=== PATIENT | female | born 1995 | race Caucasian/White ===

== ENCOUNTER 2018-06-20 14:05 | Outpatient (CLI) | payer MEDICAID, SELFPAY ==
[2018-06-20 14:42] LABS: HCT 37.3 % (36.0-46.0); HGB 11.9 g/dL (12.0-15.5); Mean Corp. HGB Concentration 31.9 g/dL (32.0-36.0); Mean Corpuscular Hemoglobin 27.6 pg (27.0-33.0); Mean Corpuscular Volume 86.5 fL (80-95); Mean Platelet Volume 9.9 fL (8.0-11.0); Platelet Count 341 x1000/uL (130-400); RBC 4.31 m/cumm (4.00-5.20); RBC Distribution Width 14.7 % (11.7-14.6); White Blood Cell Count 8.24 k/cumm (4.4-10.8)
[2018-06-20 15:52] LABS: ALT 44 U/L (12-78); AST 25 U/L (15-37); Alkaline Phosphatase 150 U/L (46-116); Anion Gap 3.7 mmol/L (3-11); BUN 13 mg/dL (7-18); Bilirubin, Total 0.3 mg/dL (0.2-1.0); CO2 28.3 mmol/L (21.0-32.0); CREATININE 0.59 mg/dL (0.55-1.02); Calcium 9.2 mg/dL (8.5-10.1); Chloride 104 mmol/L (98-107); Glucose 72 mg/dL (70-100); Potassium 4.2 mmol/L (3.5-5.1); Sodium 136 mmol/L (136-145); Total Protein 7.4 g/dL (6.4-8.2)
== END 2018-06-20 14:25 ==
PROVIDERS: PCP Nurse Practitioner Family; Visit Provider Nurse Practitioner Family
DX: R11.2 Nausea with vomiting, unspecified (principal)
CPT/HCPCS: 36415; 80053; 85027

== ENCOUNTER 2018-07-03 14:04 | Outpatient (CLI) | payer MEDICAID, SELFPAY ==
--- NOTE | 2018-07-03 11:07 | DI.US_ITS ---
SYMPTOMS/DIAGNOSIS: DISPLACEMENT OF IUD, STRINGS LOST, T83.32XA PELVIC ULTRASOUND: Transabdominal and transvaginal examination was performed. The uterus measures 8.8 cm long by 5.4 cm AP by 6.9 cm transverse. The endometrial stripe is within normal limits at .6 cm. There is an intrauterine device in good position within the endometrial canal. The right ovary measures 2.5 x 1.1 x 2.4 cm and is grossly unremarkable. There is normal blood flow. No evidence of torsion. The left ovary measures 3.5 x 2 x 3.3 cm. There is normal blood flow. There is a 2.9 x 2 x 2.8 cm cystic lesion on the left ovary. There is internal debris noted. The finding likely represents a hemorrhagic or infected cyst. There is a small amount of free fluid in the cul-de-sac. There is no evidence of hydronephrosis. IMPRESSION: 1. Intrauterine device in good position within the endometrial canal. 2. 2.9 cm complex cystic lesion on the left ovary. This likely reflects a hemorrhagic cyst. 3. Small amount of free fluid in the cul-de-sac. This is likely physiologic.
== END 2018-07-03 14:24 ==
PROVIDERS: PCP Nurse Practitioner Family; Visit Provider Advanced Practice Midwife
DX: N83.12 Corpus luteum cyst of left ovary (principal); T83.32XA Displacement of intrauterine contraceptive device, initial encounter
CPT/HCPCS: 76830; 76856

== ENCOUNTER 2018-11-07 07:25 | Emergency (ER) | payer MEDICAID, SELFPAY ==
[2018-11-07 07:32] VITALS: BP 133/72; PULSE 79; RESP 16; TEMP 37; O2SAT 98
--- NOTE | 2018-11-07 07:57 | DI.CT_ITS ---
SYMPTOM/DIAGNOSIS: RLQ ABD PAIN ABDOMEN AND PELVIC CT: CT scan of the abdomen and pelvis was performed following the uneventful administration of intravenous contrast material. There are no priors for comparison. No acute findings are seen in the lung bases. The liver is normal in size. No hepatic mass is seen. The portal, superior mesenteric and splenic veins are patent. The gallbladder is negative. There is no biliary ductal dilatation. The pancreas and peripancreatic soft tissues are unremarkable as are the spleen and adrenal glands. The kidneys show normal and symmetric enhancement. There is a 6 mm., non obstructing stone in the superior pole of the left kidney. No ureterolithiasis or hydronephrosis is identified. The urinary bladder is intact. Note is made of an intrauterine device in good position. The reproductive organs are otherwise unremarkable. There is a trace amount of free fluid in the cul-de-sac which is likely physiologic. The abdominal aorta is of normal caliber. No aneurysmal dilatation is seen. No significant abdominal or pelvic adenopathy, ascites or pneumoperitoneum is present. The bowel shows no evidence of obstruction or inflammation. No findings to suggest an acute appendicitis are present. The bones are intact. IMPRESSION: No evidence of an acute abdomen. Left nephrolithiasis. No evidence of obstructive uropathy. The findings were discussed with the ER on the date of the examination.
--- NOTE | 2018-11-07 07:58 | W.ED.GENAD ---
Discharge Plan Disposition Patient Disposition: HOME Condition: Stable Discharge Details Chief Complaint: Abd Prob Clinical Impression: Abdominal pain Primary Care Provider: Karli Lyn ED Provider: Russ Mcfadden Home Meds and New Rx's Prescriptions: Continued Mirena 20 mcg/24 hr (5 years) intrauterine device 1 insert IY ONCE RF: 0 Flintstones Sour Gummies 1 EACH tablet,chewable 1 ea PO DAILY RF: 0 Discharge Instructions Instructions: Abdominal Pain (ED) Medical Decision Making 23 yo female who denies chronic medical problems comes in with chief complaint of lower abdominal pain since this morning. Localizes it the rlq and has tenderness without guarding in this area. Has no upper abdominal tenderness at all. Denies vaginal bleeding or d/c. Will evaluate for pancreatitis though has no epigastric pain and obtain imaging to eval for possible appendicitis. Has negative test so doubt ectopic pt's lab show no acute findings, she has improvement in symptoms with toradol. Awaiting imaging Per Dr. Marquez no acute findings on the abd/pelvis ct. She has only mild rlq pain and no guarding or rebound on exam. Do not feel further w/u indicated. Advised f/u with pcp and return precautions given Differential Diagnosis appendicitis, ovarian cysts, diverticulitis Imaging Data Radiologic Study: Attestation: I personally reviewed and interpreted this imaging study as follows: Imaging: CT Scan Radiologist's impression: no acute findings Lab Data Lab results reviewed: Yes I reviewed the patient's lab results. HPI General Mode of arrival: ambulatory. Date/Time Provider Initiated Documentation: 11/07/18 07:53. Limitations to Documentation: no limitations. Information obtained by: patient. History of Present Illness 23 year old F presents to the emergency department with the chief complaint of lower abdominal pain, described as moderate, with intensity rated at 6. Quality is described as stabbing and aching, and is localized to the abdomen. Patient reports no radiation. Patient started experiencing this hour(s) (3) and it has been constant. No relieving factors improve symptom(s), No exacerbating factors reported . Patient notes no other symptoms.. Patient did receive the following treatments prior to arrival, none Related Data Home Medications Medication Instructions Recorded Confirmed Flintstones Sour Gummies 1 ea PO DAILY tab.chew 10/18/17 07/03/18 levonorgestrel 20 mcg/24 hr (5 1 insert IY ONCE 06/22/18 11/07/18 years) intrauterine device Allergies Allergy/AdvReac Type Severity Reaction Status Date / Time No Known Allergies Allergy Unverified 11/07/18 07:34 General Stated Complaint: Abd Prob JOHN: 3 Review of Systems Review of Systems All systems reviewed & are unremarkable except as noted in HPI and below Constitutional Denies chills, Denies fever(s) and Denies weakness ENT Denies change in voice Cardiovascular Denies chest pain and Denies dyspnea Respiratory Denies dyspnea Gastrointestinal Denies nausea and Denies vomiting Genitourinary Denies dysuria Integumentary/Breasts Denies rash Neurologic Denies weakness Psychiatric Denies depression [facility] Medical History Contraception History of depression Sports injuries Social History lives independently: Yes number of children: 0 current occupational status: unemployed Smoking/Tobacco Use Status: Never alcohol intake: never substance use type: does not use special camron needs: No seatbelt use: always helmet use: Yes victim of physical abuse: No victim of sexual abuse: No Exam Const General: no acute distress Orientation: alert HENMT Head: normal to inspection Ears: external ears normal General nose exam: external nose normal Mouth: moist mucous membranes Eyes General: appearance normal, both eyes and all related structures Neck Neck: normal visual inspection Resp Effort & Inspection: normal respiratory effort and able to speak in complete sentences Cardio Rate: regular rate Skin General skin exam: no rashes or lesions noted Neuro General: alert and oriented x3 Extrem General: normal to inspection Psych Mental Status: mental status grossly normal Course Vital Signs Temperature 37 C 11/07/18 07:32 Pulse 79 11/07/18 07:32 Respiratory Rate 16 11/07/18 07:32 Blood Pressure 133/72 11/07/18 07:32 Pulse Oximetry 98 11/07/18 07:32 Temperature 37 C 11/07/18 07:32 Temperature Source Skin 11/07/18 07:32 Pulse 79 11/07/18 07:32 Respiratory Rate 16 11/07/18 07:32 Respiratory Effort Non-Labored 11/07/18 07:32 Blood Pressure 133/72 11/07/18 07:32 Blood Pressure Position Sitting 11/07/18 07:32 Pulse Oximetry 98 11/07/18 07:32 Oxygen Delivery Method Room Air 11/07/18 07:32 Oxygen Flow Rate 0 11/07/18 07:32 Pain Level 9 11/07/18 07:32
--- NOTE | 2018-11-07 08:02 | ED.GENADUL_ITS ---
Discharge Plan Disposition Patient Disposition: HOME Condition: Stable Discharge Details Chief Complaint: Abd Prob Clinical Impression: Abdominal pain Primary Care Provider: Karli Lyn ED Provider: Russ Mcfadden Home Meds and New Rx's Prescriptions: Continued Mirena 20 mcg/24 hr (5 years) intrauterine device 1 insert IY ONCE RF: 0 Flintstones Sour Gummies 1 EACH tablet,chewable 1 ea PO DAILY RF: 0 Discharge Instructions Instructions: Abdominal Pain (ED) Medical Decision Making 23 yo female who denies chronic medical problems comes in with chief complaint of lower abdominal pain since this morning. Localizes it the rlq and has tenderness without guarding in this area. Has no upper abdominal tenderness at all. Denies vaginal bleeding or d/c. Will evaluate for pancreatitis though has no epigastric pain and obtain imaging to eval for possible appendicitis. Has negative test so doubt ectopic pt's lab show no acute findings, she has improvement in symptoms with toradol. Awaiting imaging Per Dr. Marquez no acute findings on the abd/pelvis ct. She has only mild rlq pain and no guarding or rebound on exam. Do not feel further w/u indicated. Advised f/u with pcp and return precautions given Differential Diagnosis appendicitis, ovarian cysts, diverticulitis Imaging Data Radiologic Study: Attestation: I personally reviewed and interpreted this imaging study as follows: Imaging: CT Scan Radiologist's impression: no acute findings Lab Data Lab results reviewed: Yes I reviewed the patient's lab results. HPI General Mode of arrival: ambulatory . Date/Time Provider Initiated Documentation: 11/07/18 07:53 . Limitations to Documentation: no limitations . Information obtained by: patient . History of Present Illness 23 year old F presents to the emergency department with the chief complaint of lower abdominal pain, described as moderate, with intensity rated at 6. Quality is described as stabbing and aching, and is localized to the abdomen. Patient reports no radiation. Patient started experiencing this hour(s) (3) and it has been constant. No relieving factors improve symptom(s), No exacerbating factors reported . Patient notes no other symptoms.. Patient did receive the following treatments prior to arrival, none Related Data Home Medications Medication Instructions Recorded Confirmed Flintstones Sour Gummies 1 ea PO DAILY tab.chew 10/18/17 07/03/18 levonorgestrel 20 mcg/24 hr (5 1 insert IY ONCE 06/22/18 11/07/18 years) intrauterine device Allergies Allergy/AdvReac Type Severity Reaction Status Date / Time No Known Allergies Allergy Unverified 11/07/18 07:34 General Stated Complaint: Abd Prob JOHN: 3 Review of Systems Review of Systems All systems reviewed & are unremarkable except as noted in HPI and below Constitutional Denies chills, Denies fever(s) and Denies weakness ENT Denies change in voice Cardiovascular Denies chest pain and Denies dyspnea Respiratory Denies dyspnea Gastrointestinal Denies nausea and Denies vomiting Genitourinary Denies dysuria Integumentary/Breasts Denies rash Neurologic Denies weakness Psychiatric Denies depression [facility] Medical History Contraception History of depression Sports injuries Social History lives independently: Yes number of children: 0 current occupational status: unemployed Smoking/Tobacco Use Status: Never alcohol intake: never substance use type: does not use special camron needs: No seatbelt use: always helmet use: Yes victim of physical abuse: No victim of sexual abuse: No Exam Const General: no acute distress Orientation: alert HENMT Head: normal to inspection Ears: external ears normal General nose exam: external nose normal Mouth: moist mucous membranes Eyes General: appearance normal, both eyes and all related structures Neck Neck: normal visual inspection Resp Effort & Inspection: normal respiratory effort and able to speak in complete sentences Cardio Rate: regular rate Skin General skin exam: no rashes or lesions noted Neuro General: alert and oriented x3 Extrem General: normal to inspection Psych Mental Status: mental status grossly normal Course Vital Signs Temperature 37 C 11/07/18 07:32 Pulse 79 11/07/18 07:32 Respiratory Rate 16 11/07/18 07:32 Blood Pressure 133/72 11/07/18 07:32 Pulse Oximetry 98 11/07/18 07:32 Temperature 37 C 11/07/18 07:32 Temperature Source Skin 11/07/18 07:32 Pulse 79 11/07/18 07:32 Respiratory Rate 16 11/07/18 07:32 Respiratory Effort Non-Labored 11/07/18 07:32 Blood Pressure 133/72 11/07/18 07:32 Blood Pressure Position Sitting 11/07/18 07:32 Pulse Oximetry 98 11/07/18 07:32 Oxygen Delivery Method Room Air 11/07/18 07:32 Oxygen Flow Rate 0 11/07/18 07:32 Pain Level 9 11/07/18 07:32
[2018-11-07 08:03] LABS: Bilirubin Negative (Negative); Blood Negative (Negative); Clarity Clear; Glucose Negative (Negative); Ketones Negative (Negative); Leukocyte Esterase Negative (Negative); Nitrite Negative (Negative); Specific Gravity 1.025 (1.005-1.025); Urobilinogen 0.2 EU/dL (Up TO 0.2)
[2018-11-07] MEDS: Normal Saline 1,000 ML 1000 ML IV (08:15)
[2018-11-07] MEDS: Ketorolac 15 MG/ML VIAL IVP (08:20)
[2018-11-07 08:23] LABS: Abs Immature Grans 0.04 k/cumm (0.0-0.09); Absolute Basophil Count 0.02 k/cumm (0.0-0.2); Absolute Eosinophil Count 0.46 k/cumm (0.0-0.7); Absolute Monocyte Count 0.86 k/cumm (0.11-0.7); Absolute Neutrophil Count 6.56 k/cumm (1.2-6.7); Basophils % 0.2; Eosinophils % 4.4; HCT 41.1 % (36.0-46.0); HGB 13.1 g/dL (12.0-15.5); Immature Grans % 0.4; Lymphocytes % 24.7; Mean Corp. HGB Concentration 31.9 g/dL (32.0-36.0); Mean Corpuscular Hemoglobin 28.5 pg (27.0-33.0); Mean Corpuscular Volume 89.3 fL (80-95); Monocytes % 8.2; Neutrophils % 62.1; Platelet Count 296 x1000/uL (130-400); RBC Distribution Width 15.4 % (11.7-14.6); White Blood Cell Count 10.54 k/cumm (4.4-10.8)
[2018-11-07 08:34] LABS: ALT 35 U/L (12-78); AST 18 U/L (15-37); Albumin 3.6 g/dL (3.4-5.0); Alkaline Phosphatase 151 U/L (46-116); Anion Gap 10.5 mmol/L (3-11); BUN 20 mg/dL (7-18); Bilirubin, Direct 0.08 mg/dL (0.00-0.20); Bilirubin, Total 0.2 mg/dL (0.2-1.0); CO2 26.5 mmol/L (21.0-32.0); CREATININE 0.84 mg/dL (0.55-1.02); Calcium 9.4 mg/dL (8.5-10.1); Chloride 104 mmol/L (98-107); Glucose 98 mg/dL (70-100); Lipase 134 U/L (73-393); Potassium 4.1 mmol/L (3.5-5.1); Sodium 141 mmol/L (136-145); Total Protein 7.5 g/dL (6.4-8.2)
[2018-11-07 08:42] LABS: PTT Activated 24.7 sec (21.0-31.4); Prothrombin Time 9.5 sec (9.3-11.0)
[2018-11-07] MEDS: Omnipaque 350 MG/ML 100 ML BTL IJ (08:51)
[2018-11-07 10:15] VITALS: BP 106/75; PULSE 65; RESP 16; TEMP 37; O2SAT 98
== END 2018-11-07 10:15 | disposition home or self-care (01) ==
PROVIDERS: Emergency Provider Emergency Medicine; PCP Nurse Practitioner Family
DX: R10.31 Right lower quadrant pain (principal)
CPT/HCPCS: 36415; 80053; 80076; 81025; 83690; 96361; 96374; 99285; 74177; 81003; 85025; 85610; 85730; 99284; J1885; J3490

== ENCOUNTER 2019-01-03 17:07 | Emergency (ER) | payer MEDICAID, SELFPAY ==
[2019-01-03 17:11] VITALS: BP 116/63; PULSE 90; RESP 16; TEMP 36.4; O2SAT 96
[2019-01-03] MEDS: Dexamethasone 4 MG TAB 8 MG PO (17:45)
[2019-01-03] MEDS: Inhaler, Assist Device 1 EACH MC (17:46)
[2019-01-03] MEDS: Albuterol HFA 8 GM 60 PUFF INH IH (17:46)
[2019-01-03 17:49] VITALS: RESP 14
--- NOTE | 2019-01-03 20:35 | W.ED.GENAD ---
Discharge Plan Disposition Patient Disposition: HOME Condition: Stable Discharge Details Chief Complaint: GenMedical Clinical Impression: Acute viral syndrome Primary Care Provider: Lula Mota ED Provider: Mendoza Feldman Home Meds and New Rx's Prescriptions: New dexamethasone [dexamethasone] 4 MG tablet 8 mg PO DAILY Qty: 4 RF: 0 No Action Mirena 20 mcg/24 hr (5 years) intrauterine device 1 insert IY ONCE RF: 0 Discharge Instructions Instructions: Viral Syndrome (ED) Additional Instructions: 1. Drink plenty of fluids. 2. Continue all medications as prescribed. 3. Acetaminophen 1000mg every 4 hours (up to 5 time a day) and/or ibuprofen 600mg every 6 hours as needed for fever or pain. 4. Albuterol 2-4 puffs every 4 hours as needed for difficulty breathing/cough 5. Decadron 8 mg once a day starting tomorrow morning Return to the Emergency Department (ED) if your condition worsens, does not improve as expected, or for ANY other concerns. Specifically, return if you have new or uncontrolled pain, worsening fever, difficulty breathing, vomiting, or are unable to drink fluids. Stand Alone Forms: Work Release Discharge Data Discharge Date/Time-TO BE ENTERED AT DEPARTURE: 01/03/19 17:59 Medical Decision Making Presents with 2 weeks of persistent cough, dyspnea, and congestion refractory to outpatient management. Exam significant for faint expiratory wheezing with no focal deficit by auscultation. Clinically improved after receiving an albuterol MDI. Treated here with oral Decadron and discharged with a prescription for the same. Pt evaluated immediately prior to discharge with improved symptoms, normal vital signs, and tolerating PO. The patient feels appropriate for discharge home. Discussed clinical/diagnostic findings. Discharged with a clear plan for outpatient follow up. Given usual and customary return instructions prior to discharge. Differential Diagnosis Pneumonia, PE, CHF Medical Records Medical records reviewed: Yes I reviewed the patient's medical records. HPI 23-year-old with an unremarkable past medical history except for previous episodes of sinus congestion. Presents with over a week and a half of persistent cough, mild dyspnea, and congestion. Similar to those of other coworkers. Denies significant fever/chills, headache, productive cough, exanthem, chest pain/palpitations, abdominal pain, or atypical leg pain/swelling. Mom recounts that she had previously used albuterol and steroids for an upper respiratory infection. She has no history of VTE. General Date/Time Provider Initiated Documentation: 01/03/19 17:38. Related Data Home Medications Medication Instructions Recorded Confirmed levonorgestrel 20 mcg/24 hours (5 1 insert IY ONCE 06/22/18 01/03/19 yrs) 52 mg intrauterine device dexamethasone 8 mg PO DAILY #4 tab 01/03/19 Previous Rx's Medication Instructions Recorded dexamethasone 8 mg PO DAILY #4 tab 01/03/19 Allergies Allergy/AdvReac Type Severity Reaction Status Date / Time No Known Allergies Allergy Unverified 01/03/19 17:48 General Stated Complaint: GenMedical JOHN: 4 Review of Systems Review of Systems All systems are reviewed and are unremarkable except as noted in HPI and below: CONSTITUTIONAL: no fevers/chills, no weakness or change in appetite EYES: no change in vision HEENT: no throat pain or difficulty swallowing; no neck pain; sinus congestion CARDIOVASCULAR: no chest pain, palpitations, leg swelling, or diaphoresis RESPIRATORY: Cough, mild dyspnea, wheezing GASTROINTESTINAL: no abdominal pain, melena, nausea/emesis GENITOURINARY: no dysuria, flank pain, MUSCULOSKELETAL: no pack pain, myalgias, arthralgias; no atypical leg pain or swelling INTEGUMENTARY: no rash, no wounds NEUROLOGIC: no headache, focal weakness, difficulty with speech, numbness PSYCHIATRIC: no confusion, no anxiety HEME: no easy bruising or bleeding ALLERGIC: no urticaria [facility] Social History Smoking/Tobacco Use Status: Current every day Tobacco Type: cigarettes Alcohol Intake: never Drug use: Never Substance use type: marijuana Do you think of yourself as: straight/heterosexual What is your relationship status?: living with partner Panel score (0-1 are the most socially isolated patients): 1 Special camron needs: No Seatbelt use: always Helmet use: Yes Do you feel safe at home: Yes Do you feel safe in your relationship?: Yes Victim of physical abuse: No Victim of sexual abuse: No Exam Narrative Exam Narrative: Nursing note and vital signs have been reviewed and noted. GENERAL: alert, active, no acute distress, well -hydrated, well-nourished HEENT: atraumatic/normocephalic, PERRLA, EOMI, conjunctiva clear, external ears/canals normal, nasal mucosa normal NECK: supple, full range of motion CARDIOVASCULAR: nl pulses, no edema PULMONARY: Mild tachypnea, faint expiratory wheezing. No focal deficit appreciated ABDOMEN: non-distended EXTREMITY: normal muscle tone, all joints with FROM, no deformity; no atypical swelling or popliteal fossa tenderness NUERO: normal mentation, moving all extremities, normal stance and gait, PSYCH: alert and oriented SKIN: no new rashes or lesions Course Vital Signs Temperature 97.5 F L 01/03/19 17:11 Pulse 90 01/03/19 17:11 Respiratory Rate 16 01/03/19 17:11 Blood Pressure 116/63 01/03/19 17:11 Pulse Oximetry 96 01/03/19 17:11 Temperature 97.5 F L 01/03/19 17:11 Temperature Source Temporal Artery Scan 01/03/19 17:11 Pulse 90 01/03/19 17:11 Respiratory Rate 14 01/03/19 17:49 Respiratory Effort 01/03/19 17:49 Respiratory Depth Normal 01/03/19 17:49 Respiratory Pattern Normal 01/03/19 17:49 Blood Pressure 116/63 01/03/19 17:11 Blood Pressure Position Sitting 01/03/19 17:11 Pulse Oximetry 96 01/03/19 17:11 Oxygen Delivery Method Room Air 01/03/19 17:11 Oxygen Flow Rate 0 01/03/19 17:11 Pain Level 7 01/03/19 17:11
== END 2019-01-03 17:59 | disposition home or self-care (01) ==
PROVIDERS: Emergency Provider Emergency Medicine; PCP Nurse Practitioner Family
DX: B34.9 Viral infection, unspecified (principal)
CPT/HCPCS: 99283; J8540

== ENCOUNTER 2019-01-19 10:48 | Emergency (ER) | payer MEDICAID, SELFPAY ==
[2019-01-19 10:50] VITALS: BP 130/79; PULSE 95; RESP 18; TEMP 36.6; O2SAT 99
--- NOTE | 2019-01-19 10:59 | W.ED.GENAD ---
Discharge Plan Disposition Patient Disposition: HOME Condition: Good Discharge Details Chief Complaint: Nk/Back Pain Clinical Impression: Lumbago Primary Care Provider: Lula Mota ED Provider: Case Cancino Home Meds and New Rx's Prescriptions: New cyclobenzaprine 10 mg tablet 10 mg PO TID Qty: 14 RF: 0 acetaminophen [Mapap Extra Strength] 500 MG tablet 1,000 mg PO Q6H 5 Days Qty: 60 RF: 0 lidocaine [Lidoderm] 1 PATCH patch 1 patch Topical Q24H Qty: 4 RF: 0 ibuprofen [Motrin IB] 200 MG tablet 600 mg PO Q6H 5 Days Qty: 60 RF: 0 No Action Mirena 20 mcg/24 hr (5 years) intrauterine device 1 insert IY ONCE RF: 0 dexamethasone [dexamethasone] 4 MG tablet 8 mg PO DAILY Qty: 4 RF: 0 Discharge Instructions Instructions: Low Back Strain (ED) Additional Instructions: Please take medication as directed. When using the Flexeril do not drive, operate heavy machinery, drink alcohol, or swim alone. Please avoid any heavy lifting of greater than 10 pounds for the next week. Use a heating pad as often as possible. If you notice any worsening of your symptoms, or any new symptoms such as vomiting, diarrhea, fever, chills, shortness of breath, chest pain, numbness, weakness, or fainting , please return immediately to the emergency department for reevaluation. Please follow up with your primary care provider as soon as possible for reassessment and reevaluation. As always, it was a pleasure participating in your medical care today. Stand Alone Forms: Work Release Referrals: Lula Mota [Primary Care Provider] - Medical Decision Making This is a pleasant 23-year-old female with no significant past medical history who presents today for evaluation of low back pain. 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 Pain is continued throughout the day. She is no concerning red flags of bowel or bladder incontinence, saddle anesthesia, weakness or numbness or tingling. Signs and symptoms and physical exam demonstrate left and right paraspinal tenderness, no midline tenderness. Notable paraspinal muscle spasms. Bladder scan reveals 22 cc of urine, no evidence of urinary retention. With no signs of cauda equina syndrome, no red flags of IV drug use or significant trauma I do not think that emergent imaging is indicated at this time. We will treat the patient with Lidoderm patch, muscle relaxants for home and continued NSAIDs and heating pad. We discussed red flags which return and the patient understands. I have extensively reviewed the treatment plan and discharge instructions with the patient. I have addressed all patient concerns at this time. The patient was made aware of what symptoms to monitor for that would warrant a return to the emergency department. Discussed the plan with the patient, they demonstrate verbal understanding and agreement with our assessment and plan at this time. HPI General Date/Time Provider Initiated Documentation: 01/19/19 10:51. HPI Narrative: This is a pleasant 23-year-old female who presents today for evaluation of back pain. 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 I continued throughout her shift, gradually worsening. Worse with movement and bending forward. Improved by standing upright. She has no associated red flags of saddle anesthesia, leg numbness tingling or weakness, bowel or bladder incontinence, or other complaints. She denies any previous back surgeries. No fever or chills, no IV drug use. No other complaints at this time Related Data Home Medications Medication Instructions Recorded Confirmed levonorgestrel 20 mcg/24 hours (5 1 insert IY ONCE 06/22/18 01/03/19 yrs) 52 mg intrauterine device dexamethasone 8 mg PO DAILY #4 tab 01/03/19 acetaminophen [Mapap Extra 1,000 mg PO Q6H 5 Days #60 tab 01/19/19 Strength] cyclobenzaprine 10 mg PO TID #14 tab 01/19/19 ibuprofen [Motrin Ib] 600 mg PO Q6H 5 Days #60 tab 01/19/19 lidocaine [Lidoderm] 1 patch TOPICAL Q24H #4 patch 01/19/19 Previous Rx's Medication Instructions Recorded dexamethasone 8 mg PO DAILY #4 tab 01/03/19 acetaminophen [Mapap Extra 1,000 mg PO Q6H 5 Days #60 tab 01/19/19 Strength] cyclobenzaprine 10 mg PO TID #14 tab 01/19/19 ibuprofen [Motrin Ib] 600 mg PO Q6H 5 Days #60 tab 01/19/19 lidocaine [Lidoderm] 1 patch TOPICAL Q24H #4 patch 01/19/19 Allergies Allergy/AdvReac Type Severity Reaction Status Date / Time No Known Allergies Allergy Unverified 01/03/19 17:48 General Stated Complaint: Nk/Back Pain JOHN: 4 Review of Systems Review of Systems All systems reviewed & are unremarkable except as noted in HPI and below PFSH Social History Smoking/Tobacco Use Status: Current every day Tobacco Type: cigarettes Alcohol Intake: never Drug use: Never Substance use type: marijuana Number of Children: 0 Do you think of yourself as: straight/heterosexual What is your relationship status?: living with partner Panel score (0-1 are the most socially isolated patients): 1 Special camron needs: No Seatbelt use: always Helmet use: Yes Do you feel safe at home: Yes Do you feel safe in your relationship?: Yes Victim of physical abuse: No Victim of sexual abuse: No Exam Narrative Exam Narrative: 1.Const: Well-nourished, Well-developed, appearing stated age 2.Eyes: PERRL, no conjunctival injection, and symmetrical lids. 3.ENT: Atraumatic external nose and ears. Moist MM. Neck: Symmetric, trachea midline, No thyromegaly. 4.CVS: +S1/S2, No murmurs or gallops. Peripheral pulses 2+ and equal in all extremities. Brisk capillary refill in all extremities. 5.RESP: Unlabored respiratory effort. Clear to auscultation bilaterally. No wheezes rales or rhonchi 6.GI: Soft, Nontender/Nondistended, No hepatosplenomegaly. No guarding or rebound. 7.MSK: Normocephalic/Atraumatic, Extremities w/o deformity or ttp No cyanosis or clubbing, Normal movement of all extremities. No midline tenderness to palpation over the CTLS spine. Mild paraspinal tenderness, worse on the left than the right. Normal ROM in flexion, extension, side bend, and rotation. Patient has +5 out of 5 strength in the lower extremities in dorsiflexion and plantarflexion, knee flexion and extension, hip flexion and extension. There is +2 over 2 dorsalis pedis pulses bilaterally. There is normal sensation to the skin with light touch at the foot, knee, and hip. Normal saddle sensation. Good sensation over the deep sural nerve area bilaterally. Rectal exam demonstrates excellent rectal tone, and excellent perirectal sensation. Reflexes are +2 over 4 in the patellar reflex bilaterally. +5 out of 5 strength in the medial, ulnar, radial nerve distribution bilaterally in the hands as well as intact light touch sensation to these dermatomes on the hands 8.Skin: Warm, Dry. No rashes or lesions. 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 Sensation grossly intact, no focal neurologic deficits. 10.Psych: (AAO) x3. Appropriate mood and affect Course Vital Signs Temperature 36.6 C 01/19/19 10:50 Pulse 95 H 01/19/19 10:50 Respiratory Rate 18 01/19/19 10:50 Blood Pressure 130/79 01/19/19 10:50 Pulse Oximetry 99 01/19/19 10:50 Temperature 36.6 C 01/19/19 10:50 Temperature Source Temporal Artery Scan 01/19/19 10:50 Pulse 95 H 01/19/19 10:50 Respiratory Rate 18 01/19/19 10:50 Respiratory Effort Non-Labored 01/19/19 10:52 Blood Pressure 130/79 01/19/19 10:50 Blood Pressure Position Sitting 01/19/19 10:50 Pulse Oximetry 99 01/19/19 10:50 Oxygen Delivery Method Room Air 01/19/19 10:50 Oxygen Flow Rate 0 01/19/19 10:50 Pain Level 8 01/19/19 10:50
[2019-01-19] MEDS: Lidocaine 5% Patch 1 PATCH TP (11:08)
== END 2019-01-19 11:25 | disposition home or self-care (01) ==
PROVIDERS: Emergency Provider Student in an Organized Health Care Education/Training Program; PCP Nurse Practitioner Family
DX: M54.5 Low back pain (principal)
CPT/HCPCS: 99283

== ENCOUNTER 2019-03-04 16:14 | Emergency (ER) | payer MEDICAID, SELFPAY ==
[2019-03-04 16:32] VITALS: BP 133/82; PULSE 73; RESP 16; TEMP 36.8; O2SAT 99
--- NOTE | 2019-03-04 16:45 | DI.RAD_ITS ---
SYMPTOMS/DIAGNOSIS: BASE OF THUMB PAIN/SWELLING S/P INJURY LEFT THUMB: No fracture or dislocation is seen. IMPRESSION: Negative left thumb.
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
--- NOTE | 2019-03-04 17:18 | DI.VRAD_ITS ---
EXAM: XR Left Finger(s), 2 or More Views EXAM DATE/TIME: 03/04/2019 4:47 PM CLINICAL HISTORY: 23 years old, female; Finger(s); Left; Patient HX: Base of thumb pain S/P injury TECHNIQUE: Imaging protocol: XR Left fingers. Views: Minimum 2 views. COMPARISON: CR LEFT LITTLE FINGER 03/29/2016 4:02 PM FINDINGS: Bones/joints: Osseous anatomic alignment is well preserved. No acutely displaced fracture or dislocation. Joint spaces are well preserved. Soft tissues: No significant soft tissue swelling. IMPRESSION: Negative for acute skeletal pathology. Dictated and Authenticated by: Kelvin Benton MD. Ordering:GEORGIE Bonilla MD
== END 2019-03-04 17:33 | disposition home or self-care (01) ==
PROVIDERS: Emergency Provider Physician Assistant; PCP Nurse Practitioner Family
DX: S63.602A Unspecified sprain of left thumb, initial encounter (principal); W50.0XXA Accidental hit or strike by another person, initial encounter
CPT/HCPCS: 99283; 73140; 99282; L3807

== ENCOUNTER 2019-04-05 11:21 | Outpatient (REF) | payer MEDICAID, SELFPAY ==
--- NOTE | 2019-04-05 10:00 | PAPFT_PTH ---
PATIENT: Nelli Montiel LOC: [facility] U#:[id number] AGE/SX: 23/F ROOM: RE04/05/[address]: ALON Yin : 1995 BED: DIS: 04/05/2019 SPEC #: [id number] RECD: 04/05/19 12:55 STATUS: AUDI REHolden #: [id number] JARRET: 04/05/19 10:[address]: Gail Baptiste DEPT: [facility] Cytology RECD BY: Johanna Shields ENTERED: 04/05/19 12:56 SP TYPE: PAPFT OTHR DR: Lula Mota Tissues: 1 - CX/ENDOCX FOR PAP SMEARS Procedures: PAP THIN PREP/UVM Screening HPV DNA PROBE Comments: [id number]
[2019-04-06 12:31] LABS: Chlamydia Result Negative; GC Result Negative; Specimen Description CERVIX
== END 2019-04-05 11:41 ==
LOC: LBN 11:21
PROVIDERS: PCP Nurse Practitioner Family; Visit Provider Nurse Practitioner Family
DX: Z11.3 Encounter for screening for infections with a predominantly sexual mode of transmission (principal); Z12.4 Encounter for screening for malignant neoplasm of cervix
CPT/HCPCS: 87491; 87591; 88142; 87624

== ENCOUNTER 2019-06-12 08:16 | Emergency (ER) | payer MEDICAID, SELFPAY ==
[2019-06-12 08:33] VITALS: BP 129/79; PULSE 77; RESP 16; TEMP 36.4; O2SAT 96
--- NOTE | 2019-06-12 08:35 | NUR.NOTE ---
Nursing Note:pt has been having nausea vomiting and light headedness for past 3 days last [facility] april 16 pt thinks she may be
[2019-06-12 08:36] VITALS: BP 126/88; PULSE 103; RESP 17; TEMP 36.7; O2SAT 97
--- NOTE | 2019-06-12 08:54 | W.ED.GENAD ---
Discharge Plan Disposition Patient Disposition: HOME Condition: Good Discharge Details Chief Complaint: Nausea/Vomit/Diar Clinical Impression: Gastroenteritis Primary Care Provider: Lula Mota ED Provider: Case Cancino Home Meds and New Rx's Prescriptions: New ondansetron HCl [Zofran] 4 mg tablet 4 mg PO Q8H Qty: 12 RF: 0 Discharge Instructions Instructions: Gastroenteritis (ED) Additional Instructions: At this time your signs and symptoms appear clinically consistent with a mild viral gastroenteritis. Please make sure you are drinking 8 to 12 cups of water per day. Avoid any spicy foods, greasy foods, fatty foods. Stick with a bland diet of applesauce, fluids, rice, oatmeal. If you notice any worsening of your symptoms, or any new symptoms such as vomiting, diarrhea, fever, chills, shortness of breath, chest pain, numbness, weakness, or fainting , please return immediately to the emergency department for reevaluation. Please follow up with your primary care provider as soon as possible for reassessment and reevaluation. As always, it was a pleasure participating in your medical care today. Referrals: Lula Mota [Primary Care Provider] - Medical Decision Making This is a pleasant 23-year-old female with no significant past medical history except for ovarian cyst who presents today for evaluation of vomiting for the past 3 days. 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 She denies any abdominal pain whatsoever, physical exam demonstrates reassuring vital signs but minimal tachycardia. Deep palpation demonstrates no tenderness whatsoever for the abdomen, epigastric region, or pelvic region. Urine test is negative. Suspect viral gastroenteritis. We did discuss oral Zofran and p.o. trial versus IV fluids, patient is requesting IV fluids at this time. We will rehydrate, get basic labs, and reassess. Of note bedside portable limited ultrasound demonstrates a normal appearing gallbladder with no significant gallbladder wall thickness, or distention. No significant sludge or stones. Clinically there is no indication for further imaging at this time as the patient signs and symptoms are clinically inconsistent with an acute surgical abdominal process. 9:55 AM Laboratory assessment has returned normal, patient tolerated the IV well, however there was some infiltration and so the IV was stopped before complete fluid administration. P.o. trial was performed patient tolerated this well with no vomiting. She feels well and would like to go home. Signs and symptoms are clinically consistent at this time with mild viral gastroenteritis. Inconsistent with acute cholecystitis, appendicitis, severe pancreatitis. We will give prescription for Zofran for home use, recommend close follow-up with PCP, easy diet, and hydration at home. I have extensively reviewed the treatment plan and discharge instructions with the patient. I have addressed all patient concerns at this time. The patient was made aware of what symptoms to monitor for that would warrant a return to the emergency department. Discussed the plan with the patient, they demonstrate verbal understanding and agreement with our assessment and plan at this time. HPI General Date/Time Provider Initiated Documentation: 06/12/19 08:27. HPI Narrative: This is a 23-year-old female with no significant past medical history except for ovarian cysts who presents today for evaluation of nausea and vomiting. For the past 3 days the patient has had daily vomiting with 4 episodes per day. 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 She denies any recent foreign travel, camping, antibiotic use, or other sick contacts. Of note there has been episodes of gastroenteritis coming from the [facility] in the last few days. The patient denies any hematemesis, vaginal discharge, pelvic pain, numbness, tingling, weakness, chest pain, shortness of breath. She denies any abdominal pain whatsoever. Patient has no other complaints at this time. No other modifying factors. She denies any recent significant alcohol intake, or history of gallbladder pathology. She denies any previous significant abdominal surgeries. Related Data Home Medications Medication Instructions Recorded Confirmed ondansetron HCl [Zofran] 4 mg PO Q8H #12 tab 06/12/19 Previous Rx's Medication Instructions Recorded ondansetron HCl [Zofran] 4 mg PO Q8H #12 tab 06/12/19 Allergies Allergy/AdvReac Type Severity Reaction Status Date / Time No Known Allergies Allergy Verified 06/12/19 08:37 General Stated Complaint: Nausea/Vomit/Diar JOHN: 3 Review of Systems Review of Systems All systems reviewed & are unremarkable except as noted in HPI and below PFSH Social History Smoking/Tobacco Use Status: Current every day Tobacco Type: cigarettes Alcohol Intake: never Drug use: Never Substance use type: marijuana Number of Children: 0 Do you think of yourself as: straight/heterosexual What is your relationship status?: living with partner Panel score (0-1 are the most socially isolated patients): 1 Special camron needs: No Seatbelt use: always Helmet use: Yes Do you feel safe at home: Yes Do you feel safe in your relationship?: Yes Victim of physical abuse: No Victim of sexual abuse: No Exam Narrative Exam Narrative: 1.Const: Well-nourished, Well-developed, appearing stated age 2.Eyes: PERRL, no conjunctival injection, and symmetrical lids. 3.ENT: Atraumatic external nose and ears. Dry MM. Neck: Symmetric, trachea midline, No thyromegaly. 4.CVS: +S1/S2, No murmurs or gallops. Peripheral pulses 2+ and equal in all extremities. Brisk capillary refill in all extremities. 5.RESP: Unlabored respiratory effort. Clear to auscultation bilaterally. No wheezes rales or rhonchi 6.GI: Soft, Nontender/Nondistended, No hepatosplenomegaly. No guarding or rebound. No pain at McBurney's point, negative Brewer sign, negative obturator and psoas sign, no pelvic tenderness. No flank or CVA tenderness. Bedside limited ultrasound demonstrates gallbladder within normal limits. No significant abnormalities, distention, or wall thickening. 7.MSK: Normocephalic/Atraumatic, Extremities w/o deformity or ttp No cyanosis or clubbing, Normal movement of all extremities 8.Skin: Warm, Dry. No rashes or lesions. 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 Sensation grossly intact, no focal neurologic deficits. 10.Psych: (AAO) x3. Appropriate mood and affect Course Vital Signs Temperature 36.4 C L 06/12/19 08:33 Pulse 77 06/12/19 08:33 Respiratory Rate 16 06/12/19 08:33 Blood Pressure 129/79 06/12/19 08:33 Pulse Oximetry 96 06/12/19 08:33 Temperature 36.7 C 06/12/19 08:36 Temperature Source Skin 06/12/19 08:36 Pulse 103 H 06/12/19 08:36 Respiratory Rate 17 06/12/19 08:36 Respiratory Effort Non-Labored 06/12/19 08:36 Blood Pressure 126/88 06/12/19 08:36 Blood Pressure Position Supine 06/12/19 08:36 Pulse Oximetry 97 06/12/19 08:36 Oxygen Delivery Method Room Air 06/12/19 08:36 Oxygen Flow Rate 0 06/12/19 08:36 Pain Level 0 06/12/19 08:36 Lab/Test Results Lab/Test Results: POC- Test(urine) Negative
[2019-06-12] MEDS: Ondansetron 4 MG/2 ML VIAL IVP (09:22)
[2019-06-12] MEDS: Normal Saline 1,000 ML 1000 ML IV ×2 (09:22)
--- NOTE | 2019-06-12 09:22 | NUR.NOTE ---
iv placed in r hand labds drawn ivf infusing medicated as per mdo Nursing Note:
[2019-06-12 09:28] LABS: Abs Immature Grans 0.02 k/cumm (0.0-0.09); Absolute Basophil Count 0.02 k/cumm (0.0-0.2); Absolute Eosinophil Count 0.31 k/cumm (0.0-0.7); Absolute Lymphocyte Count 1.71 k/cumm (1.2-3.4); Absolute Monocyte Count 0.53 k/cumm (0.11-0.7); Absolute Neutrophil Count 5.52 k/cumm (1.2-6.7); Basophils % 0.2; Eosinophils % 3.8; HGB 14.2 g/dL (12.0-15.5); Immature Grans % 0.2; Lymphocytes % 21.1; Mean Corpuscular Hemoglobin 30.1 pg (27.0-33.0); Mean Corpuscular Volume 91.1 fL (80-95); Mean Platelet Volume 10.6 fL (8.0-11.0); Monocytes % 6.5; Neutrophils % 68.2; Platelet Count 265 x1000/uL (130-400); RBC 4.72 m/cumm (4.00-5.20); RBC Distribution Width 13.7 % (11.7-14.6); White Blood Cell Count 8.11 k/cumm (4.4-10.8)
[2019-06-12 09:37] LABS: Lipase 108 U/L (73-393)
[2019-06-12 09:40] LABS: ALT 31 U/L (14-59); AST 18 U/L (15-37); Alkaline Phosphatase 134 U/L (46-116); Anion Gap 11.8 mmol/L (3-11); BUN 10 mg/dL (7-18); Bilirubin, Total 0.5 mg/dL (0.2-1.0); CO2 22.2 mmol/L (21.0-32.0); CREATININE 0.74 mg/dL (0.55-1.02); Calcium 9.1 mg/dL (8.5-10.1); Chloride 106 mmol/L (98-107); Glucose 101 mg/dL (70-100); Potassium 3.9 mmol/L (3.5-5.1); Sodium 140 mmol/L (136-145); Total Protein 7.9 g/dL (6.4-8.2)
== END 2019-06-12 10:04 | disposition home or self-care (01) ==
PROVIDERS: Emergency Provider Student in an Organized Health Care Education/Training Program; PCP Nurse Practitioner Family
DX: A08.4 Viral intestinal infection, unspecified (principal)
CPT/HCPCS: 36415; 80053; 83690; 96361; 96374; 99284; 85025; J2405

== ENCOUNTER 2020-07-20 09:36 | Emergency (ER) | payer SELFPAY ==
[2020-07-20 09:46] VITALS: BP 121/80; PULSE 68; RESP 16; TEMP 36.5; O2SAT 100
--- NOTE | 2020-07-20 09:57 | DI.US_ITS ---
EXAM: US OB 1ST TRIMESTER CLINICAL HISTORY: lower abdomen cramping/burning TECHNIQUE: Ultrasound performed using standard protocol. COMPARISON: US US PELVIS TRANSVAGINAL from 07/03/2018 FINDINGS: Ob ultrasound was performed utilizing 1st trimester protocol. There is a single viable intrauterine gestation with crown-rump length measurements consistent with gestational age of 6 weeks 4 days and E DC of 03/11/2021. heart rate is 131 BPM. There is an apparent small subchorionic fluid collection. There is a left corpus luteum cyst measuri ng 22 millimeters in diameter. Minimal free fluid noted in right adnexa. IMPRESSION: Viable 6 week 4 day intrauterine gestation as described above. DATA REPOSITORY:
--- NOTE | 2020-07-20 09:59 | W.ED.GENAD ---
Discharge Plan Disposition Patient Disposition: HOME Condition: Improving Discharge Details Clinical Impression: First trimester Primary Care Provider: Lula Mota ED Provider: Fredrick Joel Home Meds and New Rx's Prescriptions: New nitrofurantoin monohyd/m-cryst [Macrobid] 100 mg capsule 100 mg PO Q12H 5 Days Qty: 10 RF: 0 Continued Children's Chewable Vitamin Tablet,Chewable PO RF: 0 ondansetron HCl [Zofran] 8 mg tablet 8 mg PO Q8H Qty: 20 RF: 3 Discharge Instructions Additional Instructions: Home to rest. Continue small, frequent sips of fluids to maintain hydration. You may liberalize salty snacks a day as your sodium level is on the low range of normal. Take antibiotics as prescribed. Please call the [employer] office on Tuesday for a follow-up appointment. Return to the ER for any concerns. Medical Decision Making 24-year-old female presents from home. She is a G2, P1 approximately 7 weeks gestation who was established care with OB but has not yet had her first ultrasound. She notes 2 days of lower abdominal cramping and burning. No vaginal discharge or bleeding. No fever or vomiting. She has had some first trimester nausea. She is afebrile and well-appearing. She does not have significant abdominal tenderness. IV access established, screening labs obtained and patient referred for ultrasound. She is O+ with a beta-hCG of 36,000. Ultrasound obtained with single live intrauterine , positive heart tones. 6 weeks 4 days. Note of residual corpus luteal cyst on left. Please see formal report. UA with + Leuk Esterase. Micro with few bacteria, epithelial cells present. As she is will opt to treat with Macrobid. She is stable and improved, may follow-up in the outpatient setting with [employer]. Lab Data Lab results reviewed: Yes I reviewed the patient's lab results. Labs: Laboratory Results - last 24 hr 07/20/20 07/20/20 07/20/20 10:15 10:15 10:15 WBC 13.99 H RBC 4.39 Hgb 13.6 Hct 40.8 MCV 92.9 MCH 31.0 MCHC 33.3 RDW 13.1 Plt Count 246 MPV 10.6 Immature Gran % 0.6 Neutrophils % 76.9 Lymphocytes % 14.4 Monocytes % 5.9 Eosinophils % 1.9 Basophils % 0.3 Nucleated RBC % 0 Absolute Neutrophils 10.76 H Absolute Lymphocytes 2.01 Absolute Monocytes 0.83 H Absolute Eosinophils 0.27 Absolute Basophils 0.04 Sodium 135 L Potassium 3.8 Chloride 102 Carbon Dioxide 28.6 Anion Gap 4.4 BUN 8 Creatinine 0.62 Estimated GFR/1.73 m2 >= 60.00 Glucose 99 Calcium 9.2 Total Bilirubin 0.3 AST 13 L ALT 22 Alkaline Phosphatase 102 Total Protein 7.3 Albumin 3.8 Beta HCG, Quant 46663 H Patient ABO/Rh O Positive HPI General Mode of arrival: ambulatory. Date/Time Provider Initiated Documentation: 07/20/20 09:40. Limitations to Documentation: no limitations. Information obtained by: patient. History of Present Illness 24 year old F presents to the emergency department with the chief complaint of Lower abdominal cramping, burning, 7 weeks , described as mild, and is localized to the abdomen and pelvis. Patient reports no radiation. Patient started experiencing this day(s) and it has been intermittent. No relieving factors improve symptom(s), No exacerbating factors reported . Patient notes no other symptoms. and other (No vaginal discharge or bleeding); denies fever/chills. Patient did receive the following treatments prior to arrival, none Related Data Home Medications Medication Instructions Recorded Confirmed pediatric multivitamin no.144 tab PO 07/02/20 07/02/20 ondansetron HCl 8 mg tablet 8 mg PO Q8H #20 tab 07/17/20 07/20/20 nitrofurantoin monohyd/m-cryst 100 mg PO Q12H 5 Days #10 cap 07/20/20 [Macrobid] Previous Rx's Medication Instructions Recorded ondansetron HCl 8 mg tablet 8 mg PO Q8H #20 tab 07/17/20 nitrofurantoin monohyd/m-cryst 100 mg PO Q12H 5 Days #10 cap 07/20/20 [Macrobid] Allergies Allergy/AdvReac Type Severity Reaction Status Date / Time No Known Allergies Allergy Verified 07/20/20 09:50 General Stated Complaint: [employer] JOHN: 2 Review of Systems Narrative: No vomiting. Some nausea. No fever. 6 systems reviewed and otherwise negative. [facility] Medical History History of depression adolescence - around of grandparent. No Rx. No recurrences Poor dentition (12/13/17) Sports injuries played basketball in HS. wears brace on R knee. Has R shoulder pain. Social History Smoking/Tobacco Use Status: Current every day Tobacco Type: cigarettes Alcohol Intake: never Drug use: Never Substance use type: marijuana Number of Children: 0 Do you think of yourself as: straight/heterosexual What is your relationship status?: living with partner Panel score (0-1 are the most socially isolated patients): 1 Special camron needs: No Seatbelt use: always Helmet use: Yes Do you feel safe at home: Yes Do you feel safe in your relationship?: Yes Victim of physical abuse: No Victim of sexual abuse: No History History 1 Para 1 Hx # Term Pregnancies Multiple births Hx # Pregnancies Ectopic pregnancies AB induced Hx Number of Living Children AB spontaneous Exam Narrative Exam Narrative: GEN: awake, alert, oriented 3. Pleasant, well groomed, interactive. HEAD: Normocephalic, atraumatic ENT: Mucous membranes moist, oropharynx unremarkable, External ear exam unremarkable EYES: PERRL, EOMI NECK: Full ROM, no SB, no menigismus CHEST/RESP: Nontender, clear to auscultation bilateral, no wheeze/rhonchi/rales CARDIOVASCULAR: RRR, no murmur, rub kaity. 2+ Rad pulse bilateral ABDOMEN: Soft, nontender, no mass. +Bowel sounds EXT: Full ROM, no edema, no rash Neuro: Grossly normal neurologic exam, conversant, interactive. Psych: Speech fluent, thoughts congruent, affect normal Course Vital Signs Vital signs: Vital Signs Temperature 36.5 C 07/20/20 09:46 Pulse 68 07/20/20 09:46 Respiratory Rate 16 07/20/20 09:46 Blood Pressure 121/80 07/20/20 09:46 Pulse Oximetry 100 07/20/20 09:46 Temperature 36.5 C 07/20/20 09:46 Temperature Source Skin 07/20/20 09:46 Pulse 68 07/20/20 09:46 Respiratory Rate 16 07/20/20 09:46 Respiratory Effort Non-Labored 07/20/20 09:46 Blood Pressure 121/80 07/20/20 09:46 Blood Pressure Position Sitting 07/20/20 09:46 Pulse Oximetry 100 07/20/20 09:46 Oxygen Delivery Method Room Air 07/20/20 09:46 Oxygen Flow Rate 0 07/20/20 09:46 Pain Level 8 07/20/20 09:52
[2020-07-20 10:32] LABS: Abs Immature Grans 0.08 10^3/uL (0.0-0.06); Absolute Basophil Count 0.04 10^3/uL (0.0-0.2); Absolute Lymphocyte Count 2.01 10^3/uL (1.2-3.4); Basophils % 0.3; Eosinophils % 1.9; HCT 40.8 % (36.0-46.0); HGB 13.6 g/dL (11.2-15.7); Immature Grans % 0.6; Lymphocytes % 14.4; MCHC 33.3 % (32.0-36.0); MCV 92.9 fL (80-95); MPV 10.6 fL (8.0-11.0); Monocytes % 5.9; Neutrophils % 76.9; Nucleated RBC 0 %; Platelet Count 246 10^3/uL (130-400); RBC 4.39 10^6/uL (3.93-5.22); RDW 13.1 % (11.7-14.6); RDW-SD 44.9 fL; WBC 13.99 10^3/uL (4.4-10.8)
[2020-07-20] MEDS: Normal Saline 1,000 ML 1000 ML IV (10:32)
[2020-07-20] MEDS: Normal Saline Flush 10 ML SYR IVP (10:33)
[2020-07-20 10:35] LABS: Absolute Eosinophil Count 0.27 10^3/uL (0.0-0.7); Absolute Monocyte Count 0.83 10^3/uL (0.1-0.8); Absolute Neutrophil Count 10.76 10^3/uL (1.2-6.7)
[2020-07-20 11:04] LABS: ALT 22 U/L (14-59); AST 13 U/L (15-37); Albumin 3.8 g/dL (3.4-5.0); Alkaline Phosphatase 102 U/L (46-116); Anion Gap 4.4 mmol/L (3-11); BUN 8 mg/dL (7-18); Bilirubin, Total 0.3 mg/dL (0.2-1.0); CO2 28.6 mmol/L (21.0-32.0); CREATININE 0.62 mg/dL (0.55-1.02); Calcium 9.2 mg/dL (8.5-10.1); Chloride 102 mmol/L (98-107); Glucose 99 mg/dL (74-106); Potassium 3.8 mmol/L (3.5-5.1); Sodium 135 mmol/L (136-145); Total Protein 7.3 g/dL (6.4-8.2)
[2020-07-20 12:05] LABS: Bilirubin Negative (Negative); Blood Trace-intact (Negative); Clarity Clear (Clear); Glucose Negative (Negative); Ketones Trace mg/dL (Negative); Leukocyte Esterase Trace (Negative); Nitrite Negative (Negative); Specific Gravity 1.025 (1.005-1.025); Urobilinogen 0.2 EU/dL (Up TO 0.2)
--- NOTE | 2020-07-20 12:14 | DI.VRAD_ITS ---
PROCEDURE INFORMATION: Exam: US First Trimester, Transabdominal Exam date and time: 07/20/2020 11:39 AM Age: 24 years old Clinical indication: Pain; Other: Lower abdomen cramping/burning; Gestational age or lmp: Lmp 06/01/20; TECHNIQUE: Imaging protocol: Real-time transabdominal obstetrical ultrasound of the maternal pelvis and a first trimester , less than 14 weeks 0 days, with image documentation. COMPARISON: No relevant prior studies available. FINDINGS: GESTATION: Gestation: A single, live intrauterine gestation is identified. A normal appearing yolk sac is present. Embryonic/ heart rate: heart rate 131 bpm. Placenta: Unremarkable. No subchorionic bleed. Amniotic fluid: Amniotic and coelomic fluid are normal for gestational age. BIOMETRY: Gestational age (AUA): Based on crown-rump length current estimated gestational age is 6 weeks 4 days +/-5 days. MATERNAL: Uterus: Unremarkable. Cervix: Unremarkable. Right adnexa: Trace amount of free fluid right adnexa. The right ovary is normal in size and echotexture. Left adnexa: There is a thick-walled hypoechoic left ovarian focus, probable residual corpus luteal cyst, 2.2 cm. Intraperitoneal space: No intraperitoneal free fluid. IMPRESSION: Six week 4 day live IUP. Dictated and Authenticated by: Ai Carlson MD. Ordering:MUKESH Alcala MD
[2020-07-20 12:15] LABS: Epithelial Cells Moderate HPF (Negative); RBC 0-2 HPF (0-2); WBC 0-2 HPF (0-5)
[2020-07-20 12:16] LABS: Bacteria Few HPF (Negative); C & S Indicated? No/Sq. Contamination; Casts Negative LPF (Negative); Crystals Negative HPF (Negative); Mucus Moderate (Negative)
[2020-07-20 12:35] VITALS: BP 111/57; PULSE 76; RESP 16; TEMP 36.5; O2SAT 98
== END 2020-07-20 12:34 | disposition home or self-care (01) ==
PROVIDERS: Emergency Provider Emergency Medicine; PCP Nurse Practitioner Family
DX: R30.0 Dysuria (principal); O23.41 Unspecified infection of urinary tract in pregnancy, first trimester; Z3A.01 Less than 8 weeks gestation of pregnancy; O99.331 Smoking (tobacco) complicating pregnancy, first trimester; O21.9 Vomiting of pregnancy, unspecified
CPT/HCPCS: 36415; 80053; 86900; 86901; 99284; 76801; 81003; 81015; 84702; 85025

== ENCOUNTER 2020-09-03 01:40 | Outpatient (CLI) | payer SELFPAY ==
[2020-09-03 11:36] LABS: Abs Immature Grans 0.08 10^3/uL (0.0-0.06); Absolute Basophil Count 0.02 10^3/uL (0.0-0.2); Absolute Eosinophil Count 0.22 10^3/uL (0.0-0.7); Absolute Lymphocyte Count 2.28 10^3/uL (1.2-3.4); Absolute Monocyte Count 0.69 10^3/uL (0.1-0.8); Absolute Neutrophil Count 6.97 10^3/uL (1.2-6.7); Basophils % 0.2; Eosinophils % 2.1; HCT 39.9 % (36.0-46.0); HGB 13.2 g/dL (11.2-15.7); Immature Grans % 0.8; Lymphocytes % 22.2; MCH 30.5 pg (27.0-33.0); MCHC 33.1 % (32.0-36.0); MCV 92.1 fL (80-95); MPV 10.7 fL (8.0-11.0); Monocytes % 6.7; Nucleated RBC 0 %; Platelet Count 243 10^3/uL (130-400); RBC 4.33 10^6/uL (3.93-5.22); RDW 13.2 % (11.7-14.6); RDW-SD 44.2 fL; WBC 10.26 10^3/uL (4.4-10.8)
[2020-09-03 15:09] LABS: *AMPHETAMINES SCREEN URINE Negative (Negative); *BARBITURATES SCREEN URINE Negative (Negative); *BENZODIAZEPINES SCREEN URINE Negative (Negative); Cannabinoids THC POSITIVE (Negative); Cocaine Screen,Urine Negative (Negative); METHADONE URINE SCREEN Negative (Negative); OPIATES URINE SCREEN Negative (Negative)
[2020-09-03 15:25] LABS: Tricyclic Antidepressants Negative (Negative)
[2020-09-05 09:46] LABS: HIV-1/2 Ag & Ab Screen Negative (Negative)
[2020-09-05 11:16] LABS: Syphilis Total Ab w/Reflex Nonreactive (Nonreactive)
[2020-09-05 19:49] LABS: Chlamydia amplified RNA Negative (Negative); N gonorrhoeae amplified RNA Negative (Negative); Source ENDOCERVIX
[2020-09-09 09:07] LABS: Buprenorphine Negative; Norbuprenorphine Negative
[2020-09-18 12:30] LABS: Hepatitis B Surface Ag Negative (Negative); Hepatitis C Ab w Rflx HCV PCR Negative (Negative)
[2020-09-18 12:31] LABS: Rubella IgG Ab (UVM) Positive
[2020-09-18 12:32] LABS: Varicella IgG Antibody Positive
== END 2020-09-03 02:00 ==
PROVIDERS: Advanced Practice Midwife; PCP Nurse Practitioner Family; Visit Provider Advanced Practice Midwife
DX: Z34.91 Encounter for supervision of normal pregnancy, unspecified, first trimester (principal); Z11.4 Encounter for screening for human immunodeficiency virus [HIV]; Z01.84 Encounter for antibody response examination
CPT/HCPCS: 36415; 80307; 86787; 86803; 86850; 86900; 86901; 87340; 87389; 87491; 87591; 85025; 86762; 86780; 87086; 87480; 87510; 87660

== ENCOUNTER 2020-09-10 00:39 | Outpatient (CLI) | payer BC, SELFPAY ==
--- NOTE | 2020-09-10 07:45 | DI.US_ITS ---
EXAM: US SOFT TISS ABD WALL/LOW BACK CLINICAL HISTORY: non tender abdominal mass LUQ near umbilicus,R19.00 TECHNIQUE: Ultrasound performed using standard protocol. COMPARISON: US US OB 1ST TRIMESTER from 07/20/2020 FINDINGS: Soft tissue ultrasound was performed to evaluate questionable palpable abnormality of the left upper quadrant in the periumbilical region. Ultrasound examination shows no evidence of a mass or cyst. If there is a high clinical suspicion of mass, additional evaluation with CT or MRI may be considered . IMPRESSION: No abdominal wall mass identified. CT or MRI may be considered if there is a high clinical suspicion of mass. DATA REPOSITORY:
== END 2020-09-10 00:59 ==
PROVIDERS: PCP Nurse Practitioner Family; Visit Provider Advanced Practice Midwife
DX: R19.00 Intra-abdominal and pelvic swelling, mass and lump, unspecified site (principal)
CPT/HCPCS: 76705

== ENCOUNTER 2020-10-06 01:14 | Outpatient (CLI) | payer BC, SELFPAY ==
--- NOTE | 2020-10-06 07:45 | DI.US_ITS ---
EXAM: US OB 2-3 TRIMESTER W MOD CLINICAL HISTORY: ,Z34.90. TECHNIQUE: Transabdominal obstetrical ultrasound performed. COMPARISON: US US OB 1ST TRIMESTER from 07/20/2020 FINDINGS: Transabdominal obstetrical ultrasound performed. FINDINGS: Number of fetuses: One. position: Varied during the examination. heart rate: 158 bpm. Placental location: Anterior. No evidence of previa. Amniotic fluid index: Amount of fluid is within normal limits. ANATOMICAL SURVEY: Note is made of bilateral choroid plexus cysts. The largest on the right me asures 0.5 cm. The largest on the left measures 0.3 cm. There appear to be multiple on the right si de. The four-chamber heart, ventricular outflow tracts and palate were not visualized sonographicall y. BIOMETRIC DATA: BPD: 3.8cm HC: 15.1cm AC: 12.5cm FL: 2.9cm Cisterna Magna: 3.1 mm Cerebellum: 1.8 cm Composite Age: 18 weeks 1 day EDC by US: 03/08/2021 Heart Rate: 158BPM IMPRESSION: 1. Single live intrauterine gestation as above. 2. Note is made of bilateral choroid plexus cysts. The patient should have a repeat obstetrical ultr asound for re-evaluation of the choroid plexus. 3. Nonvisualization of the four-chamber heart, outflow tracts and palate. The patient is scheduled t o return on 10/14/2020 for for imaging of the heart and palate. DATA REPOSITORY:
== END 2020-10-06 01:34 ==
PROVIDERS: PCP Nurse Practitioner Family; Visit Provider Advanced Practice Midwife
DX: Z34.92 Encounter for supervision of normal pregnancy, unspecified, second trimester (principal); O35.0XX0 Maternal care for (suspected) central nervous system malformation in fetus, not applicable or unspecified
CPT/HCPCS: 76805

== ENCOUNTER 2020-10-14 01:34 | Outpatient (CLI) | payer BC, SELFPAY ==
--- NOTE | 2020-10-14 | DI.US_ITS ---
EXAM: US OB F/U FACIAL/LVOT/RVOT CLINICAL HISTORY: F/U SURVEY,LVOT,RVOT,PALATE,4 CHAMBER HEART. TECHNIQUE: Transabdominal obstetrical ultrasound performed. COMPARISON: US US OB 2-3 TRIMESTER W MOD from 10/06/2020 FINDINGS: Transabdominal obstetrical ultrasound performed. FINDINGS: Number of fetuses: One. position: Vertex. Placental location: Posterior. No evidence of previa. Heart Rate: 158BPM Amniotic fluid index:Visually, amount of fluid is within normal limits. Brain: Choroid plexus cysts are again demonstrated, greater on the right. Left choroid plexus cysts a ppears less prominent when compared with the previous exam. The cyst is larger on the right side wher e it measures 4 millimeters. Heart: A small echogenic focus measuring 1.6 millimeters is noted in the left ventricle. The face was well seen. No abnormalities are identified. IMPRESSION: Choroid plexus cysts appear less prominent when compared with the previous exam. Small echogenic foc us of the left ventricle. DATA REPOSITORY:
== END 2020-10-14 01:54 ==
PROVIDERS: PCP Nurse Practitioner Family; Visit Provider Advanced Practice Midwife
DX: O35.0XX0 Maternal care for (suspected) central nervous system malformation in fetus, not applicable or unspecified (principal)
CPT/HCPCS: 76815

== ENCOUNTER 2020-11-19 17:57 | Observation (INO) | payer BC, SELFPAY ==
[2020-11-19 18:02] VITALS: BP 110/63; PULSE 88; RESP 20; TEMP 35.9; O2SAT 100
--- NOTE | 2020-11-19 18:25 | ED.GENADUL_ITS ---
Discharge Plan Disposition Patient Disposition: [facility] INPATIENT Condition: Stable Discharge Details Clinical Impression: Acute dehydration, Primary Care Provider: Lula Mota ED Provider: Fredrick Joel Home Meds and New Rx's Prescriptions: Continued Children's Chewable Vitamin Tablet,Chewable 2 tab PO DAILY RF: 0 ondansetron HCl 4 mg tablet 4 mg PO Q6H PRN (Reason: nausea and vomiting) Qty: 30 RF: 3 Medical Decision Making 25-year-old female G2, P1 at approximately 24 weeks gestation presents with upper abdominal cramping pain that began approximately 430 this afternoon. No vaginal bleeding or discharge. She had one episode of emesis at home. She arrives to the ER afebrile with unremarkable vital signs. Differential redness includes [place] contractions, gastritis, biliary colic, must exclude renal colic. An informal bedside ultrasound reveals single live intrauterine . Was able to visualize the gallbladder but no clear evidence of stones or wall thickening. Screening laboratories including urinalysis obtained. Patient appears dehydrated with specific gravity 1.03. She has a somewhat elevated white blood cell count which may be due to , her CBC is otherwise unremarkable. Chemistries reassuring with normal LFTs. May be [place] contractions due to dehydration. 1 L normal saline infusing. Case discussed with on-call charging car operator, Mehreen Villalobos and we will [facility]. I will have the patient undergo an outpatient formal ultrasound to rule out biliary colic. HPI General Mode of arrival: ambulatory . Date/Time Provider Initiated Documentation: 11/19/20 17:58 . Limitations to Documentation: no limitations . Information obtained by: patient . History of Present Illness 25 year old F presents to the emergency department with the chief complaint of Upper abdomen cramping pain, described as moderate, Quality is described as dull, and is localized to the abdomen. Patient reports no radiation. Patient started experiencing this hour(s) and it has been intermittent. No relieving factors improve symptom(s), Eating worsens symptoms . Patient notes nausea/vomiting; denies fever/chills. Patient did receive the following treatments prior to arrival, none Related Data Home Medications Medication Instructions Recorded Confirmed pediatric multivitamin no.144 2 tab PO DAILY 07/02/20 11/19/20 ondansetron HCl 4 mg tablet 4 mg PO Q6H PRN #30 tab 09/03/20 11/19/20 Previous Rx's Medication Instructions Recorded ondansetron HCl 4 mg tablet 4 mg PO Q6H PRN #30 tab 09/03/20 Allergies Allergy/AdvReac Type Severity Reaction Status Date / Time No Known Allergies Allergy Verified 11/19/20 18:06 General Stated Complaint: Abd Prob JOHN: 3 Review of Systems Narrative: 6 systems are reviewed and otherwise negative [facility] Medical History Chronic constipation History of depression adolescence - around of grandparent. No Rx. No recurrences Marijuana use Poor dentition (12/13/17) Sports injuries played basketball in HS. wears brace on R knee. Has R shoulder pain. Tobacco dependence Social History Smoking/Tobacco Use Status: Former Tobacco Use Smoking risk assessment performed?: Yes Alcohol Intake: never Drug use: Never Number of Children: 0 Do you think of yourself as: straight/heterosexual What is your relationship status?: living with partner Panel score (0-1 are the most socially isolated patients): 1 Special camron needs: No Seatbelt use: always Helmet use: Yes Do you feel safe at home: Yes Do you feel safe in your relationship?: Yes Victim of physical abuse: No Victim of sexual abuse: No History History 2 Para 1 Hx # Term Pregnancies 0 Multiple births 0 Hx # Pregnancies 0 Ectopic pregnancies 0 AB induced 0 Hx Number of Living Children 1 AB spontaneous 0 Past Pregnancies Del. Date GA/Weeks # Outcome Route Wgt Sex Labor Lgth Anesthes ia Location [facility] 03/29/18 39 No Successful vaginal 3770.487 g Male 28 hours [facility] Delivery Date: 03/29/18 post hemorrhage from laceration. Long repair with bleeding. Anti-M antibody. Mild jaundice Kelly Solares Exam Narrative Exam Narrative: GEN: awake, alert, oriented 3. Pleasant, well groomed, interactive. HEAD: Normocephalic, atraumatic ENT: Mucous membranes moist, oropharynx unremarkable, External ear exam unremarkable EYES: PERRL, EOMI NECK: Full ROM, no SB, no menigismus CHEST/RESP: Nontender, clear to auscultation bilateral, no wheeze/rhonchi/rales CARDIOVASCULAR: RRR, no murmur, rub kaity. 2+ Rad pulse bilateral ABDOMEN: Soft, minimal epigastric tenderness, patient is gravid. +Bowel sounds EXT: Full ROM, no edema, no rash Neuro: Grossly normal neurologic exam, conversant, interactive. Psych: Speech fluent, thoughts congruent, affect normal Course Vital Signs Vital signs: Vital Signs Temperature 35.9 C L 11/19/20 18:02 Pulse 88 11/19/20 18:02 Respiratory Rate 20 11/19/20 18:02 Blood Pressure 110/63 11/19/20 18:02 Pulse Oximetry 100 11/19/20 18:02 Temperature 35.9 C L 11/19/20 18:02 Temperature Source Skin 11/19/20 18:02 Pulse 88 11/19/20 18:02 Respiratory Rate 20 11/19/20 18:02 Respiratory Effort Non-Labored 11/19/20 18:06 Blood Pressure 110/63 11/19/20 18:02 Blood Pressure Position Sitting 11/19/20 18:02 Pulse Oximetry 100 11/19/20 18:02 Oxygen Delivery Method Room Air 11/19/20 18:02 Oxygen Flow Rate 0 11/19/20 18:02 Pain Level 10 11/19/20 18:16
[2020-11-19 18:52] LABS: Abs Immature Grans 0.54 10^3/uL (0.0-0.06); Absolute Eosinophil Count 0.22 10^3/uL (0.0-0.7); Absolute Monocyte Count 1.01 10^3/uL (0.1-0.8); Basophils % 0.3; Eosinophils % 1.2; HGB 12.7 g/dL (11.2-15.7); Lymphocytes % 12.3; MCH 31.3 pg (27.0-33.0); MCHC 33.4 % (32.0-36.0); MCV 93.6 fL (80-95); MPV 10.1 fL (8.0-11.0); Monocytes % 5.6; Nucleated RBC 0 %; Platelet Count 254 10^3/uL (130-400); RBC 4.06 10^6/uL (3.93-5.22); RDW 13.3 % (11.7-14.6); RDW-SD 45.8 fL; WBC 17.98 10^3/uL (4.4-10.8)
[2020-11-19 18:53] LABS: Bilirubin Negative (Negative); Blood Negative (Negative); Clarity Sl Cloudy (Clear); Glucose Negative (Negative); Ketones Negative (Negative); Leukocyte Esterase Negative (Negative); Nitrite Negative (Negative); Specific Gravity >= 1.030 (1.005-1.025); Urobilinogen 0.2 EU/dL (Up TO 0.2); pH 6.5 (5-8)
[2020-11-19 18:53] LABS: Absolute Basophil Count 0.05 10^3/uL (0.0-0.2); Absolute Lymphocyte Count 2.21 10^3/uL (1.2-3.4); Absolute Neutrophil Count 13.95 10^3/uL (1.2-6.7)
[2020-11-19 19:09] LABS: Lipase 133 U/L (73-393)
[2020-11-19 19:13] LABS: ALT 24 U/L (14-59); AST 20 U/L (15-37); Albumin 3.1 g/dL (3.4-5.0); Alkaline Phosphatase 147 U/L (46-116); Anion Gap 9.3 mmol/L (3-11); BUN 10 mg/dL (7-18); Bilirubin, Total 0.2 mg/dL (0.2-1.0); CO2 26.7 mmol/L (21.0-32.0); CREATININE 0.6 mg/dL (0.55-1.02); Calcium 9.2 mg/dL (8.5-10.1); Chloride 103 mmol/L (98-107); Glucose 87 mg/dL (74-106); Potassium 3.7 mmol/L (3.5-5.1); Sodium 139 mmol/L (136-145); Total Protein 7.3 g/dL (6.4-8.2)
[2020-11-19 19:22] LABS: Neutrophils % 77.6
[2020-11-19 19:23] LABS: Diff Comment Agrees w/ Instrument; RBC Morphology Normal
[2020-11-19] MEDS: Normal Saline 1,000 ML 1000 ML IV (19:34)
[2020-11-19 19:53] VITALS: BP 105/65; PULSE 79; RESP 20; TEMP 37
--- NOTE | 2020-11-19 20:01 | W.PM.PROGNOT ---
Date of Service Date of service: 11/19/20 Time of Service: 20:01 Assessment and Plan Assessment and plan (1) Upper abdominal pain of unknown etiology: Status: Acute Assessment and plan: A: Sent from ED for OB clearance 25 yo @ 24 wks P: wellbeing verified no labor, no acute distress plan from ED for abd ultrasound on outpt basis will discharge home f/up prn and per ED Subjective Subjective Patient reports: no new complaints and pain is less Exam Narrative Exam Narrative: 25 yo @ 24 wks presented to ED reporting upper abd pain with vomiting. Labs and evaluation completed by ED, pt to have outpt abdominal sono, now to for OB clearance. Const General: cooperative, healthy appearing, comfortable, no acute distress, well developed and well groomed Nutritional Appearance: average body habitus Orientation: alert, awake and oriented x3 GI Inspection: normal to inspection Percussion: normal to percussion External Female Exam: normal external appearance Manual OB Exam: other (closed, thick and out of the pelvis) Skin General skin exam: no rashes or lesions noted and elasticity normal Neuro Speech: speech normal Gait: normal gait Extrem General: normal to inspection and full ROM Objective Reviewed Pertinent PMH: Yes Objective Narrative Objective Narrative: cvx closed/th OOP FHT appropriate to EGA lower abd nontender, upper abd slightly tender to palpation no contractions noted per toco afebrile, normotensive
== END 2020-11-19 20:45 | disposition home or self-care (01) ==
LOC: ER 19:22 → OBS 19:46
PROVIDERS: Admitting Provider Advanced Practice Midwife; Emergency Provider Emergency Medicine; PCP Nurse Practitioner Family; Visit Provider Advanced Practice Midwife
DX: O21.9 Vomiting of pregnancy, unspecified (principal); O26.892 Other specified pregnancy related conditions, second trimester; R10.10 Upper abdominal pain, unspecified; O99.332 Smoking (tobacco) complicating pregnancy, second trimester; F17.210 Nicotine dependence, cigarettes, uncomplicated; O99.612 Diseases of the digestive system complicating pregnancy, second trimester; Z3A.24 24 weeks gestation of pregnancy; K59.00 Constipation, unspecified
CPT/HCPCS: 36415; 80053; 83690; 99224; 99285; 81003; 85025; 99284; G0378

== ENCOUNTER 2020-11-25 09:57 | Observation (INO) | payer BC, SELFPAY ==
[2020-11-25 10:42] VITALS: BP 117/66; PULSE 96; RESP 18; TEMP 36.8; O2SAT 97
--- NOTE | 2020-11-25 10:55 | HPE_ITS ---
Date of service: 11/25/20 Time of Service: 10:55 Assessment and Plan Assessment and plan (1) Cholelithiasis affecting , antepartum: Status: Acute Assessment and plan: will draw CBC w Diff, CMP, amylase and lipase and run UA. IV saline lock in case IV hydration is needed. will review labs and findings with Dr. Vera ( aware of patient complaint and plan of care ).KH OB-HPI Labor/Delivery History of Present Illness Reason for Visit: cholelithiasis Chief Complaint: Other (feeling ill, upper abdominal discomfort, nausea, known cholelithiasis.ORI). QUOC Calculator Estimated Delivery Date Method Current WG Current Estimate 03/08/21 LMP (Certain) 25w 2d Other Estimates 03/11/21 Ultrasound #1 24w 6d 03/09/21 Ultrasound #2 25w 1d History of Present Expected Delivery Route/Plan - CNM FOB/ - Adiel Montiel (2nd baby together) BB yes to circ Specific Issues/Plan 1. Insomnia - sleep aids recommended. 2. History of depression 3. Nausea - zofran Q a.m. 4. Declines Concord test, CF and SMA 5. History of anti- M antibody - Antibody screen neg this 6. History of Smoking - quit 05/2020 7. Marijuana use - quit with . Pos UDs for THC, discuss with patient 7a. stopped MJ use in first trimester, was using it for depression, declines meds or therapy referral 8. constipation - takes miralax daily. 9. Heavy bleeding reported after first delivery, Delivery records reviewed-1000 EBL due to complicated repair. 10. Bacterial Vaginosis- metronidazole escribed 11. Abdominal mass - Abdominal wall US does not show mass in area of concern. Will re-assess at next appointment 11a. 10/06/20: pt states it was stool, once passed w/o mass. al 12. Bilateral choroid plexus cyst - returning to DI to complete incomplete sono. echogenic focus left ventricle - [place] [facility] [place] [facility] [place] echogenic foci seen & isolated finding, no CP cysts 13. Did not succeed at last time, wants to try again but declines LC consult 14. 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 Has US of upper abdomen scheduled after ED / OB visit for pain and vomiting on 11/19/20 a. Abominal US 11/20: 1) cholelithiasis: no acute cholecystitis 2) 7mm non obstructing left renal stone b. Patient aware and aware of dietary suggestions, to present with worsening pain, plan referral to general surgeon PP?. ORI Assessment: History Reviewed & Current Review of Systems All systems reviewed & are unremarkable except as noted in HPI and below Gastrointestinal Gastrointestinal: Reports abdominal pain (upper right quad discomfort, mild to moderate.ORI) [facility] Medical History Cholelithiasis affecting , antepartum US 11/20 no acute cholecystitis Chronic constipation History of depression adolescence - around of grandparent. No Rx. 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 wears brace on R knee. Has R shoulder pain. Tobacco dependence Social History Smoking/Tobacco Use Status: Former Tobacco Use Smoking risk assessment performed?: Yes Alcohol Intake: never Drug use: Never Number of Children: 0 Do you think of yourself as: straight/heterosexual Current gender identity: female What is your relationship status?: living with partner Panel score (0-1 are the most socially isolated patients): 1 Special camron needs: No Seatbelt use: always Helmet use: Yes Do you feel safe at home: Yes Do you feel safe in your relationship?: Yes Victim of physical abuse: No Victim of sexual abuse: No History History 2 Para 1 Hx # Term Pregnancies 0 Multiple births 0 Hx # Pregnancies 0 Ectopic pregnancies 0 AB induced 0 Hx Number of Living Children 1 AB spontaneous 0 Past Pregnancies Del. Date GA/Weeks # Outcome Route Wgt Sex Labor Lgth Anesthes ia Location Prov Complic 03/29/18 39 No Successful vaginal 8 lb 5 oz Male 28 hours regional [facility] Delivery Date: 03/29/18 post hemorrhage from laceration. Long repair with bleeding. Anti-M antibody. Mild jaundice Kelly Solares Home Medications and Allergies Home Medications Medication Instructions Recorded Confirmed Type pediatric multivitamin no.144 2 tab PO DAILY 07/02/20 11/19/20 History ondansetron HCl 4 mg tablet 4 mg PO Q6H PRN #30 tab 09/03/20 11/19/20 Rx Allergies Allergy/AdvReac Type Severity Reaction Status Date / Time No Known Allergies Allergy Verified 11/19/20 18:06 Exam Physical Exam Vital signs: Temp Pulse Resp BP Pulse Ox 98.2 F 96 H 18 117/66 97 11/25/20 10:42 11/25/20 10:42 11/25/20 10:42 11/25/20 10:42 11/25/20 10:42 Vital Signs Reviewed: Yes Constitutional Constitutional: no acute distress and cooperative Detailed Labor and Delivery Exam Capps Score: Cervical Points Exam 0 1 2 3 Dilation Closed 1-2cm 3-4 cm 5-6cm Effacement 0-30% 40-50% 60-70% 80% Consistency Firm Medium Soft Station -3 -2 -1,0 +1,+2 Position Posterior Mid Anterior Amniotic Membrane Status: Intact Contraction Frequency(min): 0 Fetus A Heart Rate Baseline: 150 Monitor Accelerations: 10 X 10 Monitor Decelerations: None Variability: Moderate (6-25 BPM) HEENT Exam HEENT Exam: Normal Neck Exam Neck Exam: Not Done Respiratory Exam Respiratory Exam: Normal Cardiovascular Exam Cardiovascular Exam: Normal Abdominal Exam Abdominal Exam: Normal Rectal Exam Rectal Exam: Not Done Exam Exam: Not Done Extremities Exam Extremities Exam: Normal Skin Exam Skin Exam: Normal Neurological Exam Neurological Exam: Normal Psychiatric Exam Psychiatric Exam: Normal Risk Assessment Risk for Shoulder Dystocia Historical/Initial OB: NEGATIVE FOR: Pelvic Abnormality, Pre- BMI>30, Previous Shoulder Dystocia or Previous Macrosomia Increased Risk?: No Risk for Pre-Eclampsia Daily Dose ASA Indicated: No Yes, if one or more: NEGATIVE FOR: Hx Pre-E/Gest HTN, Chronic HTN, Multiple Gestation, Pre-gestational DM, Renal Disease, Systemic Lupus or APA Syndrome Yes, if 2 or more: NEGATIVE FOR: Nulliparity, Age>= 35 yrs, >10yr btwn pregnancies, BMI>30, ethinicty, Mother/Sister w/ Pre-E or Previous IUGR Risk for Post- Hemorrhage Initial: POSITIVE FOR: Previous PPH; NEGATIVE FOR: Multiple Gestation, Known Clotting Deficiency, Grand Multiparity or Anticoagulation At Risk?: No Interventions: Pt and FOB anxious about PPH happening again, accepting of third stage active management Counseled re: Active Management: Yes Risks Reviewed Risks Reviewed Upon Admission: Yes
[2020-11-25] MEDS: Normal Saline Flush 10 ML SYR IVP (11:15)
[2020-11-25] MEDS: Lactated Ringers 1,000 ML 1000 ML IV (11:15)
[2020-11-25 11:17] LABS: Abs Immature Grans 0.64 10^3/uL (0.0-0.06); HCT 37.9 % (36.0-46.0); HGB 12.4 g/dL (11.2-15.7); MCHC 32.7 % (32.0-36.0); MCV 94.8 fL (80-95); MPV 9.9 fL (8.0-11.0); Nucleated RBC 0 %; Platelet Count 250 10^3/uL (130-400); RDW 13.2 % (11.7-14.6); RDW-SD 46.4 fL; WBC 14.48 10^3/uL (4.4-10.8)
[2020-11-25 11:24] LABS: Bilirubin Negative (Negative); Blood Negative (Negative); Clarity Clear (Clear); Glucose Negative (Negative); Ketones Negative (Negative); Leukocyte Esterase Small (Negative); Nitrite Negative (Negative); Urobilinogen 0.2 EU/dL (Up TO 0.2); pH 8.5 (5-8)
[2020-11-25 11:31] LABS: Bacteria Few HPF (Negative); Casts Negative LPF (Negative); Crystals Negative HPF (Negative); Epithelial Cells Many HPF (Negative); Mucus Negative (Negative); RBC 0-2 HPF (0-2)
[2020-11-25 11:32] LABS: C & S Indicated? No/Sq. Contamination
[2020-11-25 11:33] LABS: Amylase 45 U/L (25-115); Lipase 107 U/L (73-393)
[2020-11-25 11:35] LABS: Absolute Lymphocyte Count 1.88 10^3/uL (1.2-3.4); Absolute Monocyte Count 0.43 10^3/uL (0.1-0.8); Absolute Neutrophil Count 12.16 10^3/uL (1.2-6.7); Atypical Lymphocytes % 0; Bands % 1; Diff Comment Manual Differential; RBC Morphology Normal
[2020-11-25 11:36] LABS: ALT 19 U/L (14-59); AST 12 U/L (15-37); Alkaline Phosphatase 147 U/L (46-116); Anion Gap 8.8 mmol/L (3-11); BUN 7 mg/dL (7-18); Bilirubin, Total 0.2 mg/dL (0.2-1.0); CO2 24.2 mmol/L (21.0-32.0); CREATININE 0.4 mg/dL (0.55-1.02); Calcium 8.9 mg/dL (8.5-10.1); Chloride 102 mmol/L (98-107); Glucose 88 mg/dL (74-106); Potassium 3.7 mmol/L (3.5-5.1); Sodium 135 mmol/L (136-145); Total Protein 7.1 g/dL (6.4-8.2)
[2020-11-25 12:06] VITALS: BP 117/66; PULSE 88; TEMP 36.8
--- NOTE | 2020-11-25 12:14 | DSE_ITS ---
Date of service: 11/25/20 Time of Service: 12:17 DS: Diagnosis Discharge Diagnosis (1) Cholelithiasis affecting , antepartum: Status: Acute Discharge Plan Disposition Patient Disposition: HOME Condition: Stable Discharge Details Reason For Visit: cholelithiasis Admit Date/Time: 11/25/20 10:45 Admit Provider: Kelly Heart Attending Provider: Kelly Heart Primary Care Provider: Lula Mota Home Meds and New Rx's Prescriptions: No Action Children's Chewable Vitamin Tablet,Chewable 2 tab PO DAILY RF: 0 ondansetron HCl 4 mg tablet 4 mg PO Q6H PRN (Reason: nausea and vomiting) Qty: 30 RF: 3 Discharge Instructions Instructions: Gallstones (DC) Additional Instructions: avoid fatty or greasy foods. Stand Alone Forms: Center Observation Activity:: Activity as Tolerated Equipment/Supplies:: No Equipment Needed Diet:: low fat Discharge Orders Discharge Orders: Discharge Order (Routine); Ordered 11/25/20 Ordered By: Kelly Heart Discharge Data Discharge Date/Time-TO BE ENTERED AT DEPARTURE: 11/25/20 12:20 Discharge Comment: to follow up in [facility] [place] sched. OB:DS Summary Contraception Discussed Contraception Discussed: No (not applicable), Status at Discharge Functional status at discharge: independent ambulation Overall status at discharge: patient is back to baseline Mental Status: mental status grossly normal Speech and Movement: speech and movement normal Mood: congruent mood Affect: normal affect Time Spent with Patient providing and/or coordinating discharge services: Less than 30 minutes Quality: AMI Clinical Trial Participant: No Exam Physical Exam Vital signs: Temp Pulse Resp BP Pulse Ox 98.2 F 96 H 18 117/66 97 11/25/20 10:42 11/25/20 10:42 11/25/20 10:42 11/25/20 10:42 11/25/20 10:42 Vital Signs Reviewed: Yes Constitutional Constitutional: no acute distress and cooperative Comments: feeling relieved by her lab values and that status is reassuring. HEENT Exam HEENT Exam: Normal Respiratory Exam Respiratory Exam: Normal Cardiovascular Exam Cardiovascular Exam: Normal Abdominal Exam Comments: gravid, size equals dates, non tender to palpation. Extremities Exam Extremity Exam: Normal Skin Exam Skin Exam: Normal Neurological Exam Neurological Exam: Normal Psychiatric Exam Psychiatric Exam: Normal [facility] Medical History Cholelithiasis affecting , antepartum US 2/4 no acute cholecystitis Chronic constipation History of depression adolescence - around of grandparent. No Rx. 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 wears brace on R knee. Has R shoulder pain. Tobacco dependence Social History Smoking/Tobacco Use Status: Former Tobacco Use Smoking risk assessment performed?: Yes Alcohol Intake: never Drug use: Never Number of Children: 0 Do you think of yourself as: straight/heterosexual Current gender identity: female What is your relationship status?: living with partner Panel score (0-1 are the most socially isolated patients): 1 Special camron needs: No Seatbelt use: always Helmet use: Yes Do you feel safe at home: Yes Do you feel safe in your relationship?: Yes Victim of physical abuse: No Victim of sexual abuse: No History History 2 Para 1 Hx # Term Pregnancies 0 Multiple births 0 Hx # Pregnancies 0 Ectopic pregnancies 0 AB induced 0 Hx Number of Living Children 1 AB spontaneous 0 Past Pregnancies Del. Date GA/Weeks # Outcome Route Wgt Sex Labor Lgth Anesthes ia Location [facility] 03/29/18 39 No Successful vaginal 8 lb 5 oz Male 28 hours regional [facility] CN Delivery Date: 03/29/18 post hemorrhage from laceration. Long repair with bleeding. Anti-M antibody. Mild jaundice Kelly Solares DS: Data Vitals/I&O Vitals and I&O: Vital Signs Temperature 98.2 F 11/25/20 10:42 Pulse 96 H 11/25/20 10:42 Pulse Rhythm Regular 11/25/20 10:42 Respiratory Rate 18 11/25/20 10:42 Blood Pressure 117/66 11/25/20 10:42 Pulse Oximetry 97 11/25/20 10:42 Oxygen Delivery Method Room Air 11/25/20 10:42 Oxygen Flow Rate 0 11/25/20 10:42 Pain Level 8 11/25/20 10:42 Intake & Output 11/24/20 11/25/20 11/25/20 23:59 11:59 23:59 Weight 190 lb Other: Urine Color Yellow Data Completed and Pending Labs on day of discharge: Labs from last 24 hours 11/25/20 11/25/20 11/25/20 11:02 11:00 11:00 WBC 14.48 H RBC 4.00 Hgb 12.4 Hct 37.9 MCV 94.8 MCH 31.0 MCHC 32.7 RDW 13.2 Plt Count 250 MPV 9.9 Immature Gran % 0.0 Neutrophils % 83.0 Band Neutrophils % 1 Lymphocytes % 13.0 Atypical Lymphs % 0 Monocytes % 3.0 Eosinophils % 0.0 Basophils % 0.0 Nucleated RBC % 0 Absolute Neutrophils 12.16 H Absolute Lymphocytes 1.88 Absolute Monocytes 0.43 Absolute Eosinophils 0.00 Absolute Basophils 0.00 RBC Morphology Normal Sodium Potassium Chloride Carbon Dioxide Anion Gap BUN Creatinine Estimated GFR/1.73 m2 Glucose Calcium Total Bilirubin AST ALT Alkaline Phosphatase Total Protein Albumin Amylase 45 Lipase 107 Urine Color Yellow Urine Clarity Clear Urine pH 8.5 H Ur Specific Hammond 1.020 Urine Protein Negative Urine Ketones Negative Urine Blood Negative Urine Nitrite Negative Urine Bilirubin Negative Urine Urobilinogen 0.2 Ur Leukocyte Esterase Small H Urine RBC 0-2 Urine WBC 5-10 Ur Epithelial Cells Many Urine Crystals Negative Urine Bacteria Few Urine Casts Negative Urine Mucus Negative Ur Culture Indicated? No/sq. contamination Urine Glucose Negative 11/25/20 11:00 WBC RBC Hgb Hct MCV MCH MCHC RDW Plt Count MPV Immature Gran % Neutrophils % Band Neutrophils % Lymphocytes % Atypical Lymphs % Monocytes % Eosinophils % Basophils % Nucleated RBC % Absolute Neutrophils Absolute Lymphocytes Absolute Monocytes Absolute Eosinophils Absolute Basophils RBC Morphology Sodium 135 L Potassium 3.7 Chloride 102 Carbon Dioxide 24.2 Anion Gap 8.8 BUN 7 Creatinine 0.4 L Estimated GFR/1.73 m2 >= 60.00 Glucose 88 Calcium 8.9 Total Bilirubin 0.2 AST 12 L ALT 19 Alkaline Phosphatase 147 H Total Protein 7.1 Albumin 3.0 L Amylase Lipase Urine Color Urine Clarity Urine pH Ur Specific Hammond Urine Protein Urine Ketones Urine Blood Urine Nitrite Urine Bilirubin Urine Urobilinogen Ur Leukocyte Esterase Urine RBC Urine WBC Ur Epithelial Cells Urine Crystals Urine Bacteria Urine Casts Urine Mucus Ur Culture Indicated? Urine Glucose
== END 2020-11-25 12:20 | disposition home or self-care (01) ==
PROVIDERS: Admitting Provider Advanced Practice Midwife; PCP Nurse Practitioner Family; Visit Provider Advanced Practice Midwife
DX: O26.612 Liver and biliary tract disorders in pregnancy, second trimester (principal); K80.20 Calculus of gallbladder without cholecystitis without obstruction; O99.322 Drug use complicating pregnancy, second trimester; O99.332 Smoking (tobacco) complicating pregnancy, second trimester; O26.892 Other specified pregnancy related conditions, second trimester; F12.90 Cannabis use, unspecified, uncomplicated; F17.210 Nicotine dependence, cigarettes, uncomplicated; K59.09 Other constipation; N20.0 Calculus of kidney
CPT/HCPCS: 80053; 83690; 96360; 81003; 81015; 82150; 85025; G0378

== ENCOUNTER 2020-11-30 01:52 | Emergency (ER) | payer BC, SELFPAY ==
[2020-11-30 02:00] VITALS: BP 124/65; PULSE 96; RESP 18; TEMP 36.5; O2SAT 99
--- NOTE | 2020-11-30 02:15 | W.ED.GENAD ---
Discharge Plan Disposition Patient Disposition: HOME Condition: Stable Discharge Details Clinical Impression: Cholelithiasis, Abdominal pain Primary Care Provider: Lula Mota ED Provider: Russ Mcfadden Home Meds and New Rx's Prescriptions: Continued Children's Chewable Vitamin Tablet,Chewable 2 tab PO DAILY RF: 0 ondansetron HCl 4 mg tablet 4 mg PO Q6H PRN (Reason: nausea and vomiting) Qty: 30 RF: 3 Discharge Instructions Additional Instructions: your blood work did not show any significant changes from your baseline your bedside ultrasoud showed gallstones but no fluid around the gallbladder or other signs to indicate a gallbladder infection use your prescribed zofran as needed for nausea and vomit, and you can have 1000mg tylenol every 6 hours for pain as needed if you have severe worsening pain, persistent vomit, fevers, or feel more ill return to the emergency department Medical Decision Making 25 yo female at 26 weeks complicated by cholelithiasis who comes in after she had pasta around 9pm then woke up from sleep within the last hour with n/v and right upper abdominal pain similar to her prior gallbladder attacks per patient. She denies fevers, dyspnea, vaginal bleeding or discharge, no chest pain. She has not taken anything yet for her symptoms. On exam is tender in the right upper abdomen but no guarding or rice's sign. On bedisde u/s has live fetus with fhr of 140. She has no pericholecystic fluid on bedside u/s and gallbladder wall measures at 1mm on limited bedside u/s. Has numerous gallstones. Suspect continued biliary colic, will obtain labs including lfts, lipase and cbc, and treat her symptoms with metoclopramide and tylenol and reassess. Pt's labs show no acute changes, wbc of 16 but has been elevated last several times it has been taken and is likely reactive and lfts as well as lipase unchanged. She feels much better and no long having n/v or pain and no tenderness. Suspect this is her known biliary colic. She feels well enough to be d/c'd and follow up with her obgyn and discussed with pt return precautions Differential Diagnosis Differential Diagnosis: biliary colic, pancreatitis, cholecystitis, gastritis Lab Data Lab results reviewed: Yes I reviewed the patient's lab results. HPI General Mode of arrival: ambulatory. Date/Time Provider Initiated Documentation: 11/30/20 01:57. Limitations to Documentation: no limitations. Information obtained by: patient. History of Present Illness 25 year old F presents to the emergency department with the chief complaint of abdominal pain, described as moderate, Patient reports no radiation. Patient started experiencing this hour(s) (1) and it has been constant. No relieving factors improve symptom(s), No exacerbating factors reported . Patient notes nausea/vomiting. Patient did receive the following treatments prior to arrival, none Related Data Home Medications Medication Instructions Recorded Confirmed pediatric multivitamin no.144 2 tab PO DAILY 07/02/20 11/30/20 ondansetron HCl 4 mg tablet 4 mg PO Q6H PRN #30 tab 09/03/20 11/30/20 Previous Rx's Medication Instructions Recorded ondansetron HCl 4 mg tablet 4 mg PO Q6H PRN #30 tab 09/03/20 Allergies Allergy/AdvReac Type Severity Reaction Status Date / Time No Known Allergies Allergy Verified 11/30/20 02:14 General Stated Complaint: Abd Prob JOHN: 3 Review of Systems All systems reviewed & are unremarkable except as noted in HPI and below Constitutional Constitutional: Denies chills and Denies fever(s) Cardiovascular Cardiovascular: Denies chest pain and Denies dyspnea Respiratory Respiratory: Denies cough and Denies dyspnea Musculoskeletal Musculoskeletal: Denies joint swelling [facility] Medical History Cholelithiasis affecting , antepartum US 2/4 no acute cholecystitis Chronic constipation History of depression adolescence - around of grandparent. No Rx. 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 wears brace on R knee. Has R shoulder pain. Tobacco dependence Social History Smoking/Tobacco Use Status: Former Tobacco Use Smoking risk assessment performed?: Yes Alcohol Intake: never Drug use: Never Number of Children: 0 Do you think of yourself as: straight/heterosexual Current gender identity: female What is your relationship status?: living with partner Panel score (0-1 are the most socially isolated patients): 1 Special camron needs: No Seatbelt use: always Helmet use: Yes Do you feel safe at home: Yes Do you feel safe in your relationship?: Yes Victim of physical abuse: No Victim of sexual abuse: No History History 2 Para 1 Hx # Term Pregnancies 0 Multiple births 0 Hx # Pregnancies 0 Ectopic pregnancies 0 AB induced 0 Hx Number of Living Children 1 AB spontaneous 0 Past Pregnancies Del. Date GA/Weeks # Outcome Route Wgt Sex Labor Lgth Anesthesia Location [facility] 03/29/18 39 No Successful vaginal 3770.487 g Male 28 hours regional [facility] CNM Delivery Date: 03/29/18 post hemorrhage from laceration. Long repair with bleeding. Anti-M antibody. Mild jaundice Kelly Solares Exam Const General: no acute distress Orientation: alert [facility] Head: normal to inspection Ears: external ears normal General nose exam: external nose normal Mouth: moist mucous membranes Eyes General: appearance normal, both eyes and all related structures Neck Neck: normal visual inspection Resp Effort & Inspection: normal respiratory effort and able to speak in complete sentences Cardio Rate: regular rate GI Inspection: other Palpation: no guarding and not rigid Skin General skin exam: no rashes or lesions noted Neuro General: patient alert and patient oriented x3 Extrem General: normal to inspection Psych Mental Status: mental status grossly normal Course Vital Signs Vital signs: Vital Signs Temperature 36.5 C 11/30/20 02:00 Pulse 96 H 11/30/20 02:00 Respiratory Rate 18 11/30/20 02:00 Blood Pressure 124/65 11/30/20 02:00 Pulse Oximetry 99 11/30/20 02:00 Temperature 36.5 C 11/30/20 02:00 Pulse 96 H 11/30/20 02:00 Respiratory Rate 18 11/30/20 02:00 Blood Pressure 124/65 11/30/20 02:00 Pulse Oximetry 99 11/30/20 02:00 Pain Level 10 11/30/20 02:00
[2020-11-30 02:19] LABS: Abs Immature Grans 0.54 10^3/uL (0.0-0.06); HCT 38.2 % (36.0-46.0); HGB 12.6 g/dL (11.2-15.7); MCH 31.3 pg (27.0-33.0); MPV 9.9 fL (8.0-11.0); Nucleated RBC 0 %; Platelet Count 257 10^3/uL (130-400); RBC 4.02 10^6/uL (3.93-5.22); RDW 13.2 % (11.7-14.6)
[2020-11-30] MEDS: Normal Saline 1,000 ML 1000 ML IV (02:19)
[2020-11-30] MEDS: ACETAMINOPHEN 1,000 MG/100 ML BTL 400 MG IVPB (02:26)
[2020-11-30] MEDS: Metoclopramide 10 MG/2 ML VIAL 20 MG IVP (02:26)
[2020-11-30 02:41] LABS: ALT 22 U/L (14-59); AST 23 U/L (15-37); Albumin 2.9 g/dL (3.4-5.0); Alkaline Phosphatase 152 U/L (46-116); Anion Gap 10.2 mmol/L (3-11); BUN 8 mg/dL (7-18); Bilirubin, Direct 0.05 mg/dL (0.00-0.20); Bilirubin, Total 0.3 mg/dL (0.2-1.0); CO2 24.8 mmol/L (21.0-32.0); CREATININE 0.5 mg/dL (0.55-1.02); Calcium 8.7 mg/dL (8.5-10.1); Chloride 102 mmol/L (98-107); Glucose 85 mg/dL (74-106); Lipase 135 U/L (73-393); Magnesium 1.8 mg/dL (1.8-2.4); Potassium 3.6 mmol/L (3.5-5.1); Sodium 137 mmol/L (136-145); Total Protein 7.1 g/dL (6.4-8.2)
[2020-11-30 03:11] LABS: Absolute Eosinophil Count 0.33 10^3/uL (0.0-0.7); Absolute Lymphocyte Count 3.15 10^3/uL (1.2-3.4); Absolute Monocyte Count 1.33 10^3/uL (0.1-0.8); Absolute Neutrophil Count 11.12 10^3/uL (1.2-6.7); Atypical Lymphocytes % 4; Metamyelocytes % 2
[2020-11-30 03:12] LABS: Diff Comment Manual Differential; Myelocytes % 2; RBC Morphology Normal
[2020-11-30 03:26] VITALS: BP 110/62; PULSE 83; RESP 16; O2SAT 100
== END 2020-11-30 03:30 | disposition home or self-care (01) ==
PROVIDERS: Emergency Provider Emergency Medicine; PCP Nurse Practitioner Family
DX: O26.612 Liver and biliary tract disorders in pregnancy, second trimester (principal); Z3A.26 26 weeks gestation of pregnancy; K80.20 Calculus of gallbladder without cholecystitis without obstruction; R11.0 Nausea
CPT/HCPCS: 80053; 83690; 96361; 96374; 96375; 99284; 82248; 83735; 85025; J0131; J2765

== ENCOUNTER 2020-12-17 04:27 | Outpatient (CLI) | payer BC, SELFPAY ==
[2020-12-17 10:55] LABS: HCT 37.2 % (36.0-46.0); HGB 12.2 g/dL (11.2-15.7); MCHC 32.8 % (32.0-36.0); MCV 94.7 fL (80-95); MPV 9.8 fL (8.0-11.0); Platelet Count 252 10^3/uL (130-400); RBC 3.93 10^6/uL (3.93-5.22); RDW 13.1 % (11.7-14.6); RDW-SD 45.2 fL; WBC 13.84 10^3/uL (4.4-10.8)
[2020-12-17 11:02] LABS: Glucose,1 Hr (Glucola) 113 mg/dL (80-140)
== END 2020-12-17 04:28 | disposition home or self-care (01) ==
LOC: LBO 04:27
PROVIDERS: PCP Nurse Practitioner Family; Visit Provider Advanced Practice Midwife
DX: Z34.93 Encounter for supervision of normal pregnancy, unspecified, third trimester (principal); Z3A.28 28 weeks gestation of pregnancy
CPT/HCPCS: 36415; 82950; 85027

== ENCOUNTER 2020-12-21 12:27 | Emergency (ER) | payer BC, SELFPAY ==
[2020-12-21 12:33] VITALS: BP 120/60; PULSE 85; RESP 18; TEMP 36.3; O2SAT 100
--- NOTE | 2020-12-21 12:45 | DI.US_ITS ---
EXAM: US ABDOMEN CLINICAL HISTORY: upper abdominal pain, known gallstones TECHNIQUE: Ultrasound abdomen performed using standard protocol. COMPARISON: US US ABDOMEN from 11/20/2020 FINDINGS: ABDOMINAL AORTA AND IVC: Visualized portions normal caliber. PANCREAS: Normal where visualized. LIVER: Normal. Hepatopedal flow in the Portal Vein. GALLBLADDER: Gallstones are present. No evidence of wall thickening. No pericholecystic fluid identi fied. BILIARY SYSTEM: Common bile duct measures < 7 mm. No intrahepatic biliary ductal dilation. RESTREPO'S SIGN: Negative. KIDNEYS: Kidneys are symmetric in size. There is a 3 mm echogenic focus in the lower pole of the righ t kidney which may represent a nonobstructing stone. There is mild right hydronephrosis. A 9 mm ech ogenic focus is seen in the upper pole of the left kidney consistent with nephrolithiasis. No hydron ephrosis is present. No evidence of hydronephrosis. No renal mass or cyst identified. SPLEEN: Not enlarged. ASCITES: None seen. Urinary bladder: Unremarkable. Both ureteral jets were visualized. Uterus: The fetus is partially visualized in the gravid uterus to the right of the urinary the bladde r. A evaluation was not performed on this examination. IMPRESSION: 1. Cholelithiasis without evidence of acute cholecystitis. 2. Bilateral nephrolithiasis. 3. Mild right hydronephrosis, probably due to the gravid uterus. No definite obstructive stone is id entified. DATA REPOSITORY:
--- NOTE | 2020-12-21 12:45 | W.ED.GENAD ---
Discharge Plan Disposition Patient Disposition: [facility] Condition: Stable Discharge Details Clinical Impression: Gallstone pancreatitis Primary Care Provider: Lula Mota ED Provider: Russ Mcfadden Home Meds and New Rx's Prescriptions: No Action Children's Chewable Vitamin Tablet,Chewable 2 tab PO DAILY RF: 0 ondansetron HCl 4 mg tablet 4 mg PO Q6H PRN (Reason: nausea and vomiting) Qty: 30 RF: 3 venlafaxine 37.5 mg capsule,extended release 24hr 37.5 mg PO DAILY Qty: 30 RF: 0 Medical Decision Making 25 yo female at 29 weeks complicated by cholelithiasis comes in with cc of upper abdominal pain that started a few hours ago while she was at [facility] per patient. She denies chest pain, dyspnea, fevers, n/v, vaginal bleeding or d/c. She states she hasn't had any abdominal pain for 2 weeks. SHe is tender in the ruq without guarding and negative rice's sign on my exam. FHR 160 and has frequent movements of the fetus on bedside u/s, no free fluid seen on bedside u/s. I was unable to visualize gallbladder on bedside u/s. I suspect cholelithiasis but given recurrent increased pain will obtain labs including cbc, lipase and lfts and see if an u/s tech is available to perform an ultrasound u/s tech is available and will be here in about an hour, patient remains stable at this time u/s shows gallstones without evidence of cholecystitis and lipase is over 7000. 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 Will discuss with [facility] [place], patient remains stable spoke with Dr. Craft from obgyn at [facility] [place] who accepts in transfer but requested ob evaluation here prior to transfew. Spoke with Dr. Berger from obgyn who will perform 20 minutes monitoring and evaluate her prior to transfer Dr. Berger evaluated the patient and feels she is stable from obgyn perspective for transport. Will go by [facility]ex Differential Diagnosis Differential Diagnosis: cholelithiasis, cholecystitis, pancreatitis, hepatitis Medical Records Medical records reviewed: Yes I reviewed the patient's medical records. Imaging Data Radiologic Study: Attestation: I personally reviewed and interpreted this imaging study as follows: Imaging: CT Scan Radiologist's impression: IMPRESSION: 1. Cholelithiasis without signs of acute inflammation. 2. Nonobstructive nephrolithiasis of bilateral kidneys. 3. Mild right hydronephrosis, probably due to the gravid uterus. No definite obstructive stone is identified. 4. Normal spleen and liver. Lab Data Lab results reviewed: Yes I reviewed the patient's lab results. HPI General Mode of arrival: ambulatory. Date/Time Provider Initiated Documentation: 12/21/20 12:30. Limitations to Documentation: no limitations. Information obtained by: patient. History of Present Illness 25 year old F presents to the emergency department with the chief complaint of abdominal pain, described as moderate, Quality is described as stabbing, and is localized to the abdomen. Patient reports no radiation. Patient started experiencing this hour(s) (2) and it has been intermittent. No relieving factors improve symptom(s), No exacerbating factors reported . Patient notes no other symptoms.. Patient did receive the following treatments prior to arrival, none Related Data Home Medications Medication Instructions Recorded Confirmed pediatric multivitamin no.144 2 tab PO DAILY 07/02/20 12/21/20 ondansetron HCl 4 mg tablet 4 mg PO Q6H PRN #30 tab 09/03/20 12/21/20 venlafaxine 37.5 mg 37.5 mg PO DAILY #30 cap 12/09/20 12/21/20 capsule,extended release 24 hr Previous Rx's Medication Instructions Recorded ondansetron HCl 4 mg tablet 4 mg PO Q6H PRN #30 tab 09/03/20 venlafaxine 37.5 mg 37.5 mg PO DAILY #30 cap 12/09/20 capsule,extended release 24 hr Allergies Allergy/AdvReac Type Severity Reaction Status Date / Time No Known Allergies Allergy Verified 12/21/20 12:40 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 Review of Systems All systems reviewed & are unremarkable except as noted in HPI and below Constitutional Constitutional: Denies chills, Denies fever(s) and Denies weakness Cardiovascular Cardiovascular: Denies chest pain and Denies dyspnea Respiratory Respiratory: Denies cough and Denies dyspnea Gastrointestinal Gastrointestinal: Denies nausea and Denies vomiting Musculoskeletal Musculoskeletal: Denies joint swelling Neurologic Neurologic: Denies weakness [facility] Medical History Cholelithiasis affecting , antepartum US 2/ no acute cholecystitis Chronic constipation History of depression adolescence - around of grandparent. No Rx. 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 wears brace on R knee. Has R shoulder pain. Tobacco dependence Social History Smoking/Tobacco Use Status: Former Tobacco Use Smoking risk assessment performed?: Yes Alcohol Intake: never Drug use: Never Number of Children: 0 Do you think of yourself as: straight/heterosexual Current gender identity: female What is your relationship status?: living with partner Panel score (0-1 are the most socially isolated patients): 1 Special camron needs: No Seatbelt use: always Helmet use: Yes Do you feel safe at home: Yes Do you feel safe in your relationship?: Yes Victim of physical abuse: No Victim of sexual abuse: No History History 2 Para 1 Hx # Term Pregnancies 0 Multiple births 0 Hx # Pregnancies 0 Ectopic pregnancies 0 AB induced 0 Hx Number of Living Children 1 AB spontaneous 0 Past Pregnancies Del. Date GA/Weeks # Outcome Route Wgt Sex Labor [facility] No Successful vaginal 3770.487 g [facility] Delivery Date: 03/29/18 post hemorrhage from laceration. Long repair with bleeding. Anti-M antibody. Mild jaundice Kelly Solares Exam Const General: no acute distress Orientation: alert [facility] Head: normal to inspection Ears: external ears normal General nose exam: external nose normal Mouth: moist mucous membranes Eyes General: appearance normal, both eyes and all related structures Neck Neck: normal visual inspection Resp Effort & Inspection: normal respiratory effort and able to speak in complete sentences Cardio Rate: regular rate GI Palpation: not firm and tender Skin General skin exam: no rashes or lesions noted Neuro General: patient alert and patient oriented x3 Extrem General: normal to inspection Psych Mental Status: mental status grossly normal Course Vital Signs Vital signs: Vital Signs Temperature 36.3 C L 12/21/20 12:33 Pulse 85 12/21/20 12:33 Respiratory Rate 18 12/21/20 12:33 Blood Pressure 120/60 12/21/20 12:33 Pulse Oximetry 100 12/21/20 12:33 Temperature 36.3 C L 12/21/20 12:33 Pulse 85 12/21/20 12:33 Respiratory Rate 18 12/21/20 12:33 Respiratory Effort Non-Labored 12/21/20 12:35 Blood Pressure 120/60 12/21/20 12:33 Pulse Oximetry 100 12/21/20 12:33 Oxygen Delivery Method Room Air 12/21/20 12:33 Oxygen Flow Rate 0 12/21/20 12:33 Pain Level 10 12/21/20 12:38
[2020-12-21 12:53] LABS: Absolute Basophil Count 0.05 10^3/uL (0.0-0.2); Absolute Eosinophil Count 0.16 10^3/uL (0.0-0.7); Absolute Lymphocyte Count 2.42 10^3/uL (1.2-3.4); Absolute Monocyte Count 0.85 10^3/uL (0.1-0.8); Basophils % 0.4; Eosinophils % 1.2; HCT 37.7 % (36.0-46.0); HGB 12.1 g/dL (11.2-15.7); Immature Grans % 2.2; MCH 30.8 pg (27.0-33.0); MCHC 32.1 % (32.0-36.0); MCV 95.9 fL (80-95); MPV 10.1 fL (8.0-11.0); Monocytes % 6.3; Neutrophils % 71.9; Nucleated RBC 0 %; Platelet Count 237 10^3/uL (130-400); RBC 3.93 10^6/uL (3.93-5.22); RDW 12.8 % (11.7-14.6); RDW-SD 45.6 fL; WBC 13.47 10^3/uL (4.4-10.8)
[2020-12-21 12:56] LABS: Absolute Neutrophil Count 9.68 10^3/uL (1.2-6.7)
[2020-12-21] MEDS: Normal Saline 1,000 ML 1000 ML IV (13:04)
[2020-12-21] MEDS: ACETAMINOPHEN 1,000 MG/100 ML BTL 400 MG IVPB (13:04)
[2020-12-21 14:19] LABS: ALT 33 U/L (14-59); AST 47 U/L (15-37); Albumin 2.4 g/dL (3.4-5.0); Alkaline Phosphatase 165 U/L (46-116); Anion Gap 7.3 mmol/L (3-11); BUN 8 mg/dL (7-18); Bilirubin, Direct 0.09 mg/dL (0.00-0.20); Bilirubin, Total 0.3 mg/dL (0.2-1.0); CO2 25.7 mmol/L (21.0-32.0); CREATININE 0.6 mg/dL (0.55-1.02); Calcium 8.6 mg/dL (8.5-10.1); Chloride 105 mmol/L (98-107); Glucose 82 mg/dL (74-106); Potassium 4.1 mmol/L (3.5-5.1); Sodium 138 mmol/L (136-145); Total Protein 6.1 g/dL (6.4-8.2)
[2020-12-21 14:33] LABS: Lipase 7922 U/L (73-393)
--- NOTE | 2020-12-21 15:07 | DI.VRAD_ITS ---
PROCEDURE INFORMATION: Exam: US Abdomen Complete Exam date and time: 12/21/2020 12:49 PM Age: 25 years old Clinical indication: Patient HX: 29 weeks . Ruq pain today. TECHNIQUE: Imaging protocol: Real-time ultrasound of the abdomen with image documentation. COMPARISON: SD US ABDOMEN 11/20/2020 12:34 PM FINDINGS: Liver: Liver is 15.1 cm in length. The parenchyma is grossly normal. There is no intra or extrahepatic biliary dilatation. Gallbladder: Gallbladder is normally distended. There are multiple echogenic foci within the gallbladder causing acoustic shadowing and probably reflecting gallstones. These stones measure up to 3.2 mm. Sonographic Brewer sign is negative. There is no pericholecystic fluid collection to suggest acute inflammation. Common bile duct: Common bile duct is 2.7 mm. Pancreas: Visualized pancreas is unremarkable. Right kidney: Right kidney is 12.0 x 5.2 x 4.8 cm. Right kidney demonstrates mild hydronephrosis. The right kidney demonstrate stone up to 3.6 mm in the interpolar lower pole. Left kidney: Left kidney is 13.2 x 4.8 x 4.6 cm. There is a 9 mm stone in the left renal upper pole. Spleen: Spleen is normal in length measuring up to 12 cm. Urinary bladder: Urinary bladder is normally distended. There are normal ureteral jets noted bilaterally. Aorta: Normal. No aneurysm. Inferior vena cava: Normal. Uterus: There is a partially visualized fetus noted in the gravid uterus, right of the bladder. Other findings: Additional punctate foci of nonobstructive stones noted in the bilateral kidneys. IMPRESSION: 1. Cholelithiasis without signs of acute inflammation. 2. Nonobstructive nephrolithiasis of bilateral kidneys. 3. Mild right hydronephrosis, probably due to the gravid uterus. No definite obstructive stone is identified. 4. Normal spleen and liver. Dictated and Authenticated by: Pino Lee MD. Ordering:TONEY Solano MD
--- NOTE | 2020-12-21 16:01 | NUR.NOTE ---
[facility] via [facility] Note:
[2020-12-21 16:25] VITALS: BP 128/69; PULSE 80; TEMP 36.6
[2020-12-21] MEDS: Normal Saline 1,000 ML 125 ML IV (16:54)
--- NOTE | 2020-12-21 17:11 | W.OBNST ---
Date of service: 12/21/20 Time of Service: 17:19 NST Evaluation Reason for NST Reasons for Nonstress Test: OTHER, SEE COMMENT Reason for NST Other: Establish well-being prior to transfer to [facility]. Gestational Age Gestational Age in Weeks and Days: 25 Weeks and 2Days Test and Monitor Explained Test/Monitor Explained: Test Explained, Monitor Explained and Patient Verbalized Understanding Vital Signs Blood Pressure: 128/69 Pulse: 80 Temperature: 97.9 F Urine Results Urine Protein: Negative Urine Ketones: Negative Urine Glucose: Negative Urine Blood: Negative NST Information Date on Monitor: 12/21/20 Time on Monitor: 16:00 Date off Monitor: 12/21/20 Time off Monitor: 16:29 Total Time on Monitor: 29 NST Interventions: None NST Evaluation Patient States Movement: Present FHR Baseline: 150 Variability: Moderate 6-25 bpm Accelerations: 15x15 Decelerations: None NST Results: Reactive Note NST Note Note: The patient is a [id number] at 29+0 with acute pancreatitis who presents for evaluation for stability. She reports that her gallbladder started giving her problems in November and she got worse today, severe pain in the RUQ, today in [facility]. [facility] reports that her last contraction was a Bladimir-Boone 2 days ago. She had a NST [facility] that was 150 baseline, moderate variability, no decelerations, +accelerations. No contractions on tocometer. Exam: Gen: Alert and Oriented x 3, pleasant well groomed and in no distress Lungs: clear to auscultation bilaterally Abdomen:soft/nt/nd, no rebound, no guarding Fundus: Non-tender, appropriated Cepahlic by Kulwinder's and US done today Extremities: No edema A/P: 25 yo at 29+0 by LMP presents with acute pancreatitis with no evidence of labor or PPROM and reactive heart rate tracing -Stable for transport to [facility] -I discussed my exam and finding with [facility] OB MD. NST Reviewed and Verified by: Skyla Berger
[2020-12-21 17:19] VITALS: BP 128/69; PULSE 80; TEMP 36.6
[2020-12-21 17:21] LABS: COVID-19 PCR Negative (Negative)
--- NOTE | 2020-12-21 17:54 | NUR.NOTE ---
Nursing Note: Patient's COVID result finalized after the patient left in transfer to [facility]. I called [facility] Labor & Delivery, they are aware and the result has been faxed to them. Mikaela Uribe P [phone]
== END 2020-12-21 17:20 | disposition short-term general hospital (02) ==
PROVIDERS: Emergency Provider Emergency Medicine; PCP Nurse Practitioner Family
DX: O99.613 Diseases of the digestive system complicating pregnancy, third trimester (principal); K85.10 Biliary acute pancreatitis without necrosis or infection; O99.333 Smoking (tobacco) complicating pregnancy, third trimester; Z3A.29 29 weeks gestation of pregnancy; Z03.818 Encounter for observation for suspected exposure to other biological agents ruled out
CPT/HCPCS: 36415; 59025; 80053; 83690; 96361; 96365; 99285; 76700; 82248; 85025; J0131

== ENCOUNTER 2021-01-14 23:13 | Observation (INO) | payer BC, SELFPAY ==
[2021-01-14 23:43] VITALS: BP 113/63; PULSE 93; TEMP 36.8
[2021-01-14 23:49] VITALS: BP 113/63; PULSE 93
[2021-01-14 23:56] VITALS: BP 113/63; PULSE 93; RESP 16; TEMP 36.6
--- NOTE | 2021-01-15 00:03 | HPE_ITS ---
Date of service: 01/15/21 Time of Service: 00:03 Assessment and Plan Assessment and plan (1) contractions: Status: Acute Assessment and plan: A: 25 yo @ 32 weeks No labor, intact membranes S/P lap-cholecystectomy 3 weeks prior Dehydration, recent coitus Category 1 tracing P: Push PO hydration until urine appears pale yellow EFM to assure rare uterine activity Plan to discharge pt after 1-2 hr observation period and remains stable OB-HPI Labor/Delivery History of Present Illness Reason for Visit: R/O PTL Chief Complaint: Uterine Contractions (Pt reports contractions since 1999 that are every 8-10 minutes and increasingly uncomfortable, feels like heavy menstrual cramps and pelvic pressure. Denies bleeding, ROM, was nauseated earlier today but eating well this evening, had coitus about 24 hrs ago, came to the from work.). QUOC Calculator Estimated Delivery Date Method Current WG Current Estimate 03/08/21 LMP (Certain) 32w 4d Other Estimates 03/11/21 Ultrasound #1 32w 1d 03/09/21 Ultrasound #2 32w 3d History of Present Expected Delivery Route/Plan - CNM FOB/ - Adiel Montiel (2nd baby together) BB yes to circ Hx PPH, plan active management of third stage. Interested in using tub. Desires immediate Nexplanon Specific Issues/Plan 1. Insomnia - sleep aids recommended. 2. History of depression 3. Nausea - zofran Q a.m. 4. Declines [place] test, CF and SMA 5. History of anti- M antibody - Antibody screen neg this 6. History of Smoking - quit 05/2020 7. Marijuana use - quit with . Pos UDs for THC, discuss with patient 7a. stopped MJ use in first trimester, was using it for depression, declines meds or therapy referral 8. constipation - takes miralax daily. 9. Heavy bleeding reported after first delivery, Delivery records reviewed-1000 EBL due to complicated repair. 9a. Plan for active management of third stage 10. Bacterial Vaginosis- metronidazole escribed 11. Abdominal mass - Abdominal wall US does not show mass in area of concern. Will re-assess at next appointment 11a. 10/06/20: pt states it was stool, once passed w/o mass. al 12. Bilateral choroid plexus cyst - returning to DI to complete incomplete sono. echogenic focus left ventricle - Referred to [facility] 12a. Level II US @ [facility] - echogenic foci seen & isolated finding, no CP cysts 13. Did not succeed at last time, wants to try again but declines LC consult 14. Has US of upper abdomen scheduled after ED / OB visit for pain and vomiting on 11/19/20 14a. Abominal US 11/20: 1) cholelithiasis: no acute cholecystitis 2) 7mm non obstructing left renal stone 14b. Patient aware and aware of dietary suggestions, to present with worsening pain, plan referral to general surgeon PP?. KH 14c. ED visit 11/30 for pain. Patient prefers local surgery consult and has been referred by Dr. Jose to [facility] surgery. 15. Depression: started on Zoloft 12/03/20 25 mg 16. [facility] surgical consult 12/09: OK to wait until after delivery for lap ramnó. 17a. Pt plans to see surgeon 1 wk to schedule surgery for 3-5 wks 17b. LAP RAMÓN DONE AT [facility] on 12/22/20, tolerated and recovering well. Review of Systems All systems reviewed & are unremarkable except as noted in HPI and below Constitutional Constitutional: Reports as per HPI Cardiovascular Cardiovascular: Reports system reviewed and no additional complaints, except as documented Respiratory Respiratory: Reports system reviewed and no additional complaints, except as documented Gastrointestinal Gastrointestinal: Reports as per HPI and Reports nausea Genitourinary Genitourinary: Reports system reviewed and no additional complaints, except as documented Musculoskeletal Musculoskeletal: Reports system reviewed and no additional complaints, except as documented Psychiatric Psychiatric: Reports system reviewed and no additional complaints, except as documented [facility] Medical History Cholelithiasis affecting , antepartum US 11/20 no acute cholecystitis Chronic constipation History of depression adolescence - around of grandparent. No Rx. 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 wears brace on R knee. Has R shoulder pain. Tobacco dependence Social History Smoking/Tobacco Use Status: Former Tobacco Use Smoking risk assessment performed?: Yes Alcohol Intake: never Drug use: Never Substance use type: does not use Number of Children: 0 Do you think of yourself as: straight/heterosexual Current gender identity: female What is your relationship status?: living with partner Panel score (0-1 are the most socially isolated patients): 1 Special camron needs: No Seatbelt use: always Helmet use: Yes Do you feel safe at home: Yes Do you feel safe in your relationship?: Yes Victim of physical abuse: No Victim of sexual abuse: No History History 2 Para 1 Hx # Term Pregnancies 0 Multiple births 0 Hx # Pregnancies 0 Ectopic pregnancies 0 AB induced 0 Hx Number of Living Children 1 AB spontaneous 0 Past Pregnancies Del. Date GA/Weeks # Outcome Route Wgt Sex Labor Lgth Anesthes ia Location Prov Complic 03/29/18 39 No Successful vaginal 8 lb 5 oz Male 28 hours regional [facility] Delivery Date: 03/29/18 post hemorrhage from laceration. Long repair with bleeding. Anti-M antibody. Mild jaundice Kelly Solares Home Medications and Allergies Allergies Allergy/AdvReac Type Severity Reaction Status Date / Time No Known Allergies Allergy Verified 01/07/21 15:12 Home Medications Medication Instructions Recorded Confirmed Type pediatric multivitamin no.144 2 tab PO DAILY 07/02/20 12/21/20 History ondansetron HCl 4 mg tablet 4 mg PO Q6H PRN #30 tab 09/03/20 12/21/20 Rx venlafaxine 37.5 mg 37.5 mg PO DAILY #30 cap 12/09/20 12/21/20 Rx capsule,extended release 24 hr acetaminophen 325 mg capsule 650 mg PO Q6H PRN cap 12/26/20 History Exam Physical Exam Vital signs: Pulse BP 93 H 113/63 01/14/21 23:49 01/14/21 23:49 Vital Signs Reviewed: Yes Narrative: S/P lexa acosta @ [facility] 3 weeks ago, celestone complete at that time Vital signs nml: afebrile and normotensive Urine dip negative with sp.gr. 1.030 SSE performed: nml mucous, cvx closed/thick by visualization and palpation fFN deferred d/t recent coitus and no contraction pattern per toco Pt appears relaxed, conversational, accompanied by FOB for support Constitutional Constitutional: no acute distress, average body habitus and cooperative Detailed Labor and Delivery Exam Dilation: 0 Effacement (%): 0 station: -4 Cervix position: mid Consistency: firm Amniotic Membrane Status: Intact Contraction Frequency(min): rare Fetus A Heart Rate Baseline: 150 Monitor Accelerations: 15 X 15 Monitor Decelerations: None Variability: Moderate (6-25 BPM) Categories: Category I HEENT Exam HEENT Exam: Normal Neck Exam Neck Exam: Normal Breast Exam Breast Exam: Not Done Respiratory Exam Respiratory Exam: Normal Cardiovascular Exam Cardiovascular Exam: Normal Abdominal Exam Abdominal Exam: Normal (gravid, soft, ) Rectal Exam Rectal Exam: Not Done Exam Exam: Normal Extremities Exam Extremities Exam: Normal Back/Spine/Pelvis Exam Pelvis Adequate: Yes Skin Exam Skin Exam: Normal Neurological Exam Neurological Exam: Normal Psychiatric Exam Psychiatric Exam: Normal Risk Assessment Risk for Shoulder Dystocia Historical/Initial OB: NEGATIVE FOR: Pelvic Abnormality, Pre- BMI>30, Previous Shoulder Dystocia or Previous Macrosomia Risk for Pre-Eclampsia Daily Dose ASA Indicated: No Yes, if one or more: NEGATIVE FOR: Hx Pre-E/Gest HTN, Chronic HTN, Multiple Gestation, Pre-gestational DM, Renal Disease, Systemic Lupus or APA Syndrome Yes, if 2 or more: NEGATIVE FOR: Nulliparity, Age>= 35 yrs, >10yr btwn pregnancies, BMI>30, ethinicty, Mother/Sister w/ Pre-E or Previous IUGR Risk for Post- Hemorrhage Initial: POSITIVE FOR: Previous PPH; NEGATIVE FOR: Multiple Gestation, Known Clotting Deficiency, Grand Multiparity or Anticoagulation Interventions: Pt and FOB anxious about PPH happening again, accepting of third stage active management Counseled re: Active Management: Yes Risks Reviewed Risks Reviewed Upon Admission: Yes
--- NOTE | 2021-01-15 00:37 | W.OBNST ---
Date of service: 01/15/21 Time of Service: 00:37 NST Evaluation Reason for NST Reasons for Nonstress Test: LABOR Gestational Age Gestational Age in Weeks and Days: 32 Weeks and 3Days Test and Monitor Explained Test/Monitor Explained: Test Explained, Monitor Explained and Patient Verbalized Understanding Vital Signs Blood Pressure: 113/63 Pulse: 93 Temperature: 98.2 F Urine Results Urine Protein: Positive Urine Ketones: Negative Urine Glucose: Negative Urine Blood: Negative NST Information Date on Monitor: 01/14/21 Time on Monitor: 23:43 NST Evaluation FHR Baseline: 150 Variability: Moderate 6-25 bpm Accelerations: 15x15 Decelerations: None NST Results: Reactive Note NST Note Note: cvx closed, no contractions, discharged to home NST Reviewed and Verified by: Mehreen Villalobos
[2021-01-15 00:38] VITALS: BP 113/63; PULSE 93; TEMP 36.8
== END 2021-01-15 01:23 | disposition home or self-care (01) ==
PROVIDERS: Admitting Provider Advanced Practice Midwife; PCP Nurse Practitioner Family; Visit Provider Advanced Practice Midwife
DX: O60.03 Preterm labor without delivery, third trimester (principal); Z3A.32 32 weeks gestation of pregnancy; O99.343 Other mental disorders complicating pregnancy, third trimester; F32.9 Major depressive disorder, single episode, unspecified; O99.613 Diseases of the digestive system complicating pregnancy, third trimester; K59.00 Constipation, unspecified; O26.893 Other specified pregnancy related conditions, third trimester; G47.00 Insomnia, unspecified
CPT/HCPCS: 59025; G0378

== ENCOUNTER 2021-02-04 15:54 | Outpatient (CLI) | payer BC, SELFPAY ==
[2021-02-04 16:44] VITALS: BP 119/68; PULSE 92; TEMP 36.6
--- NOTE | 2021-02-06 07:58 | W.OBNST ---
Date of service: 02/04/21 Time of Service: 17:59 NST Evaluation Reason for NST Reasons for Nonstress Test: LABOR Gestational Age Gestational Age in Weeks and Days: 35 Weeks and 3Days Test and Monitor Explained Test/Monitor Explained: Patient Verbalized Understanding Vital Signs Blood Pressure: 119/68 Pulse: 92 Temperature: 97.9 F NST Information Date on Monitor: 02/04/21 Time on Monitor: 16:15 Date off Monitor: 02/04/21 NST Interventions: PO Hydration NST Evaluation Patient States Movement: Present and Decreased FHR Baseline: 150 Variability: Moderate 6-25 bpm Accelerations: 15x15 Decelerations: None NST Results: Reactive Note NST Note Note: not in labor, discharge to home NST Reviewed and Verified by: Mehreen Villalobos
[2021-02-06 07:59] VITALS: BP 119/68; PULSE 92; TEMP 36.6
== END 2021-02-04 16:45 | disposition home or self-care (01) ==
LOC: BCD 15:55 → OBS 16:10
PROVIDERS: PCP Nurse Practitioner Family; Visit Provider Advanced Practice Midwife
DX: O60.03 Preterm labor without delivery, third trimester (principal); Z3A.35 35 weeks gestation of pregnancy
CPT/HCPCS: 59025

== ENCOUNTER 2021-02-10 18:35 | Outpatient (REF) | payer BC, SELFPAY ==
[2021-02-10 18:04] LABS: *AMPHETAMINES SCREEN URINE Negative (Negative); *BARBITURATES SCREEN URINE Negative (Negative); *BENZODIAZEPINES SCREEN URINE Negative (Negative); Cannabinoids THC Negative (Negative); Cocaine Screen,Urine Negative (Negative); METHADONE URINE SCREEN Negative (Negative); OPIATES URINE SCREEN Negative (Negative)
[2021-02-10 18:07] LABS: Tricyclic Antidepressants Negative (Negative)
[2021-02-14 10:30] LABS: Buprenorphine Negative ng/mL (Cutoff: 5.0)
== END 2021-02-10 18:36 | disposition home or self-care (01) ==
LOC: LBN 18:35
PROVIDERS: PCP Nurse Practitioner Family; Visit Provider Advanced Practice Midwife
DX: Z34.93 Encounter for supervision of normal pregnancy, unspecified, third trimester (principal); Z36.85 Encounter for antenatal screening for Streptococcus B; Z3A.36 36 weeks gestation of pregnancy
CPT/HCPCS: 80307; 87081

== ENCOUNTER 2021-02-28 08:51 | Outpatient (CLI) | payer BC, SELFPAY ==
--- NOTE | 2021-02-28 09:16 | W.OBNST ---
Date of service: 02/28/21 Time of Service: 09:16 NST Evaluation Reason for NST Reasons for Nonstress Test: OTHER, SEE COMMENT Reason for NST Other: irregular uterine contractions Gestational Age Gestational Age in Weeks and Days: 35 Weeks and 3Days Note NST Note Note: NST is reactive and reassuring, CAT I with baseline of 130's. Contractions are every 2-4 lasting 30-40 seconds. Patient is tolerating well without need to interrupt her conversation or activity at this time although she stated it was worse earlier. She does not have vaginal bleeding or leaking of fluid. Nelli prefers to go home and call to return later if contractions increase in intensity or she has SROM or show. She has appointment in office on 03/03/21 if she is still . ORI NST Reviewed and Verified by: Kelly Heart
[2021-02-28 09:40] VITALS: BP 109/60; PULSE 84; TEMP 36.6
--- NOTE | 2021-02-28 10:07 | W.OBNST ---
Date of service: 02/28/21 Time of Service: 10:07 NST Evaluation Reason for NST Reasons for Nonstress Test: FALSE LABOR Gestational Age Gestational Age in Weeks and Days: 38 Weeks and 6Days Test and Monitor Explained Test/Monitor Explained: Test Explained, Monitor Explained and Patient Verbalized Understanding Vital Signs Blood Pressure: 109/60 Pulse: 84 Temperature: 97.9 F NST Information Date on Monitor: 02/28/21 Time on Monitor: 09:00 Date off Monitor: 02/28/21 Time off Monitor: 09:35 Total Time on Monitor: 35 NST Interventions: None Contraction Frequency: 2-5 NST Evaluation Patient States Movement: Present FHR Baseline: 125 Variability: Moderate 6-25 bpm Accelerations: 15x15 Decelerations: None NST Results: Reactive Note NST Note Note: Nelli presented for NST and cervical exam due to irregular contractions. Denies vaginal bleeding or SROM. Baby has been active. NST is reactive and reassuring, CAT I. VE 1.5/60/-2 posterior and soft. Contractions mild and every 2-6 minutes mild. Patient offered to stay for observation and reassessment but she prefers to go home and watch for change in labor. Has appointment in office 03/03/21 if undelivered.ORI NST Reviewed and Verified by: Kelly Heart
[2021-02-28 10:09] VITALS: BP 109/60; PULSE 84; TEMP 36.6
== END 2021-02-28 09:40 | disposition home or self-care (01) ==
LOC: BCD 08:53 → OBS 09:04
PROVIDERS: PCP Nurse Practitioner Family; Referring Provider Advanced Practice Midwife; Visit Provider Advanced Practice Midwife
DX: O47.1 False labor at or after 37 completed weeks of gestation (principal); Z3A.38 38 weeks gestation of pregnancy
CPT/HCPCS: 59025

== ENCOUNTER 2021-02-28 12:48 | Inpatient (IN) | payer BC, SELFPAY ==
[2021-02-28] VITALS (56 sets, daily range): BP systolic 98–131; BP diastolic 52–76; PULSE 69–104; RESP 16–18; TEMP 36.8–37.1; O2SAT 96–100; BMI 35.6
--- NOTE | 2021-02-28 12:49 | HPE_ITS ---
Date of service: 02/28/21 Time of Service: 12:49 Assessment and Plan Assessment and plan (1) Active labor at term: Start date: 02/28/21 Start time: 12:55 Status: Acute Assessment and plan: will admit, obtain COVID and labs as well as IV access. L D Rn will page anesthesia for epidural. Expect NVD. OB-HPI Labor/Delivery History of Present Illness Reason for Visit: ACTIVE LABOR AT TERM Chief Complaint: Uterine Contractions. QUOC Calculator Estimated Delivery Date Method Current WG Current Estimate 03/08/21 LMP (Certain) 38w 6d Other Estimates 03/11/21 Ultrasound #1 38w 3d 03/09/21 Ultrasound #2 38w 5d Comments: States contractions have been progressively getting stronger all day. Was here earlier today and at that time VE 1.5/70/-2. Denies large gush of fluid but has had mucous discharge. Baby has been active. Desires epidural for pain management. History of Present Expected Delivery Route/Plan - CNM FOB/ - Adiel Page (2nd baby together) BB yes to circ GBS negative Hx PPH, plan active management of third stage. Interested in using tub. Desires immediate Nexplanon Specific Issues/Plan 1. Insomnia - sleep aids recommended. 2. History of depression 3. Nausea - zofran Q a.m. 4. Declines [place] test, CF and SMA 5. History of anti- M antibody - Antibody screen neg this 6. History of Smoking - quit 05/2020 7. Marijuana use - quit with . Pos UDs for THC, discuss with patient 7a. stopped MJ use in first trimester, was using it for depression, declines meds or therapy referral 8. constipation - takes miralax daily. 8a. No longer taking since gallbladder removed 9. Heavy bleeding reported after first delivery, Delivery records reviewed-1000 EBL due to complicated repair. 9a. Plan for active management of third stage 10. Bacterial Vaginosis- metronidazole escribed 11. Abdominal mass - Abdominal wall US does not show mass in area of concern. Will re-assess at next appointment 11a. 10/06/20: pt states it was stool, once passed w/o mass. al 12. Bilateral choroid plexus cyst - returning to to complete incomplete sono. echogenic focus left ventricle - Referred to [facility] 12a. Level II US @ [facility] [place] - echogenic foci seen & isolated finding, no CP cysts 13. Did not succeed at last time, wants to try again but declines LC consult 14. Has US of upper abdomen scheduled after ED / OB visit for pain and vomiting on 11/19/20 14a. Abominal US 11/20: 1) cholelithiasis: no acute cholecystitis 2) 7mm non obstructing left renal stone 14b. Patient aware and aware of dietary suggestions, to present with worsening pain, plan referral to general surgeon PP?. KH 14c. ED visit 11/30 for pain. Patient prefers local surgery consult and has been referred by Dr. Jose to [facility] surgery. 15. Depression: started on Zoloft 12/03/20 25 mg 16. [facility] surgical consult 12/09: OK to wait until after delivery for lap ramón. 17a. Pt plans to see surgeon 1 wk to schedule surgery for 3-5 wks 17b. LAP RAMÓN DONE AT [facility] [place] on 12/22/20, tolerated and recovering well. 17. Plans to get covid vaccine while . Informed Consent Informed Consent: Risk,Benefits,Alternatives Discussed Review of Systems All systems reviewed & are unremarkable except as noted in HPI and below [facility] Medical History (Updated 02/28/21 @ 12:55 by Kelly Heart CNM) Biliary colic Cholelithiasis affecting , antepartum US 11/20 no acute cholecystitis Chronic constipation Gallstone pancreatitis History of depression adolescence - around of grandparent. No Rx. 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 wears brace on R knee. Has R shoulder pain. Tobacco dependence Upper abdominal pain of unknown etiology Social History Smoking/Tobacco Use Status: Former Tobacco Use Smoking risk assessment performed?: Yes Alcohol Intake: never Drug use: Never Substance use type: does not use Number of Children: 0 Do you think of yourself as: straight/heterosexual Current gender identity: female What is your relationship status?: living with partner Panel score (0-1 are the most socially isolated patients): 1 Special camron needs: No Seatbelt use: always Helmet use: Yes Do you feel safe at home: Yes Do you feel safe in your relationship?: Yes Victim of physical abuse: No Victim of sexual abuse: No History History 2 Para 1 Hx # Term Pregnancies 0 Multiple births 0 Hx # Pregnancies 0 Ectopic pregnancies 0 AB induced 0 Hx Number of Living Children 1 AB spontaneous 0 Past Pregnancies Del. Date GA/Weeks # Outcome Route Wgt Sex Labor Lgth Anesthes ia Location Prov Complic 03/29/18 39 No Successful vaginal 8 lb 5 oz Male 28 hours regional [facility] CNM Delivery Date: 03/29/18 post hemorrhage from laceration. Long repair with bleeding. Anti-M antibody. Mild jaundice Kelly Solares Meds Allergies and Home Medications Allergies Allergy/AdvReac Type Severity Reaction Status Date / Time No Known Allergies Allergy Verified 02/28/21 12:54 Home Medications Medication Instructions Recorded Confirmed Type pediatric multivitamin no.144 2 tab PO DAILY 07/02/20 02/20/21 History ondansetron HCl 4 mg tablet 4 mg PO Q6H PRN #30 tab 09/03/20 02/20/21 Rx acetaminophen 325 mg capsule 650 mg PO Q6H PRN cap 12/26/20 02/20/21 History venlafaxine 37.5 mg 37.5 mg PO DAILY #30 cap 01/21/21 02/20/21 Rx capsule,extended release 24 hr Exam Constitutional Constitutional: mild distress Comments: actively jemima and is working well with them but is uncomfortable. requesting epidural DIAN. Detailed Labor and Delivery Exam Dilation: 6 Effacement (%): 90 station: -1 Position: SUSANA Cervix position: posterior Consistency: soft Capps Score: Cervical Points Exam 0 1 2 3 Dilation Closed 1-2cm 3-4 cm 5-6cm Effacement 0-30% 40-50% 60-70% 80% Consistency Firm Medium Soft Station -3 -2 -1,0 +1,+2 Position Posterior Mid Anterior Amniotic Membrane Status: Intact Monitor Mode: Palpation Contraction Frequency(min): 2-3 Contraction Duration(sec): 60-90 Contraction Intensity: Strong Fetus A Heart Rate Baseline: 130 Monitor Accelerations: 15 X 15 Monitor Decelerations: None Categories: Category I Est. Weight: 7 lb 6 oz HEENT Exam HEENT Exam: Normal Neck Exam Neck Exam: Normal Chest/Brest/Axilla Exam Chest Exam: Normal Respiratory Exam Respiratory Exam: Normal Cardiovascular Exam Cardiovascular Exam: Normal Abdominal Exam Abdominal Exam: Normal (contractions palpate strong, no tenderness) Rectal Exam Rectal Exam: Not Done Exam Exam: Normal Extremities Exam Extremities Exam: Normal Back/Spine/Pelvis Exam Pelvis Adequate: Yes Skin Exam Skin Exam: Normal Neurological Exam Neurological Exam: Normal Psychiatric Exam Psychiatric Exam: Normal Risk Assessment Risk for Shoulder Dystocia Historical/Initial OB: NEGATIVE FOR: Pelvic Abnormality, Pre- BMI>30, Previous Shoulder Dystocia or Previous Macrosomia 40 Weeks: NEGATIVE FOR: EFW> 4500 gms, Maternal Weight Gain >40lb or Post Dates Increased Risk?: No Delivery Plan @ 40 wks: expect NVD.KH Risk for Pre-Eclampsia Daily Dose ASA Indicated: No Yes, if one or more: NEGATIVE FOR: Hx Pre-E/Gest HTN, Chronic HTN, Multiple Gestation, Pre-gestational DM, Renal Disease, Systemic Lupus or APA Syndrome Yes, if 2 or more: NEGATIVE FOR: Nulliparity, Age>= 35 yrs, >10yr btwn pregnancies, BMI>30, ethinicty, Mother/Sister w/ Pre-E or Previous IUGR Risk for Post- Hemorrhage Initial: POSITIVE FOR: Previous PPH; NEGATIVE FOR: Multiple Gestation, Known Clotting Deficiency, Grand Multiparity o r Anticoagulation At Risk?: No Interventions: Pt and FOB anxious about PPH happening again, accepting of third stage active management Counseled re: Active Management: Yes Risks Reviewed Risks Reviewed Upon Admission: Yes
[2021-02-28 13:08] LABS: HCT 37.7 % (36.0-46.0); HGB 12.1 g/dL (11.2-15.7); MCH 29.7 pg (27.0-33.0); MCHC 32.1 % (32.0-36.0); MCV 92.6 fL (80-95); MPV 10.2 fL (8.0-11.0); Platelet Count 272 10^3/uL (130-400); RBC 4.07 10^6/uL (3.93-5.22); RDW-SD 46.5 fL; WBC 14.56 10^3/uL (4.4-10.8)
--- NOTE | 2021-02-28 13:27 | ANES.PREOP_ITS ---
General Info Date of Service Date Performed: 02/28/21 Height: 5 ft 6 in Weight: 100 kg Body Mass Index (BMI): 35.6 Meds Allergies and Home Medications Allergies Allergy/AdvReac Type Severity Reaction Status Date / Time No Known Allergies Allergy Verified 02/28/21 12:54 Home Medication Medication Instructions Recorded pediatric multivitamin no.144 2 tab PO DAILY 07/02/20 ondansetron HCl 4 mg tablet 4 mg PO Q6H PRN #30 tab 09/03/20 acetaminophen 325 mg capsule 650 mg PO Q6H PRN cap 12/26/20 venlafaxine 37.5 mg 37.5 mg PO DAILY #30 cap 01/21/21 capsule,extended release 24 hr Current Visit Medications: Current Medications Generic Name Dose Route Start Last Admin Trade Name Freq PRN Reason Stop Dose Admin Ringer's Solution 1,000 mls @ 125 mls/hr 02/28/21 13:00 IV INFUSION SUNNY Ringer's Solution 1,000 mls @ 1,000 mls/hr 02/28/21 13:06 IV 02/28/21 14:05 BOLUS ONE IV Miscellaneous Supplies 1 each 02/28/21 13:00 Iv Access IV DIRECTED SUNNY Sodium Chloride 0 ml 02/28/21 12:47 Normal Saline Flush 10 Ml Syr IVP PRN PRN PFSH Active Problems Active Problems: Problem Status Onset Code Active labor at term contractions O47.9 Kidney stone complicating O26.839, N20.0 Acute dehydration E86.0 Z34.90 Echogenic intracardiac focus of fetus on ultrasound O28.3 Choroid plexus cyst of fetus Abdominal mass R19.00 Chronic constipation K59.09 Marijuana use F12.90 Tobacco dependence F17.200 Poor dentition 12/13/17 K08.9 Medical History Medical History (Updated 02/28/21 @ 12:55 by Kelly Heart CNM) Biliary colic Cholelithiasis affecting , antepartum US 2/4 no acute cholecystitis Chronic constipation Gallstone pancreatitis History of depression adolescence - around of grandparent. No Rx. 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 wears brace on R knee. Has R shoulder pain. Tobacco dependence Upper abdominal pain of unknown etiology Tobacco Smoking/Tobacco Use Status: Former Tobacco Use Alcohol Alcohol Intake: never Substance Use Substance use: Never Substance use type: does not use Prental History History 2 Para 1 Hx # Term Pregnancies 0 Multiple births 0 Hx # Pregnancies 0 Ectopic pregnancies 0 AB induced 0 Hx Number of Living Children 1 AB spontaneous 0 Past Pregnancies Del. Date GA/Weeks # Outcome Route Wgt Sex Labor Lgth Anesthes ia Location Prov Complic 03/29/18 39 No Successful vaginal 3770.487 g Male 28 hours regional [facility] CNM Delivery Date: 03/29/18 post hemorrhage from laceration. Long repair with bleeding. Anti-M antibody. Mild jaundice Kelly Solares Vital Signs and Lab Results Vital Signs Most Recent Vital Signs in EMR: Most Recent Vital Signs Pulse BP Pulse Ox 90 123/76 99 02/28/21 13:22 02/28/21 13:16 02/28/21 13:22 Lab Results Result Diagrams: 02/28/21 13:00 Blood Type / Crossmatch: No Data to Display Complete Blood Count: White Blood Count 14.56 10^3/uL (4.4-10.8) H 02/28/21 13:00 02/28/21 Red Blood Count 4.07 10^6/uL (3.93-5.22) 02/28/21 13:00 02/28/21 Hemoglobin 12.1 g/dL (11.2-15.7) 02/28/21 13:00 02/28/21 Hematocrit 37.7 % (36.0-46.0) 02/28/21 13:00 02/28/21 Platelet Count 272 10^3/uL (130-400) 02/28/21 13:00 02/28/21 Complete Metabolic Panel: No Data to Display Liver Function Panel: No Data to Display Coagulation Panel: No Data to Display Cardiac Panel: No Data to Display Arterial Blood Gas: No Data to Display Venous Blood Gas: No Data to Display Pancreas Panel: No Data to Display Thyroid Panel: No Data to Display Infectious Disease: No Data to Display Blood Cultures: No Data to Display Toxicology Panel: Urine Amphetamines Screen Negative (Negative) 02/10/21 14:15 02/10/21 Urine Benzodiazepines Screen Negative (Negative) 02/10/21 14:15 02/10/21 Urine Barbiturates Screen Negative (Negative) 02/10/21 14:15 02/10/21 Urine Cocaine Screen Negative (Negative) 02/10/21 14:15 02/10/21 Urine Methadone Screen Negative (Negative) 02/10/21 14:15 02/10/21 Urine Opiates Screen Negative (Negative) 02/10/21 14:15 02/10/21 Ur Tricyclic Antidepressants Screen Negative (Negative) 02/10/21 14:15 02/10/21 Ur Tetrahydrocannabinol (THC) Scrn Negative (Negative) 02/10/21 14:15 02/10/21 Panel: No Data to Display Anesthesia Assessment and Plan Anesthesia History Personal History: No History of Anesthesia Complications Family History: No Family History of Anesthesia Complications Exercise Tolerance Exercise Tolerance: Metabolic Equivalents>4 Cardiac & Pulmonary Exam Cardiac Exam: Normal S1/S2 Heart Sounds Pulmonary Exam: Clear Bilateral Breath Sounds Airway Exam Known Difficult Airway: No Mallampati Class: 2 Mouth Opening: Normal (> 3cm) Thyromental Distance: Greater than 3 cm Neck Range of Motion: Full ROM Neck Circumference: Normal Teeth Condition: Normal Dentition and Loose or Chipped ASA Classification ASA Score: ASA 2 Emergency Case?: No NPO Status NPO Status: Full Stomach Status Status: Positive HCG Anesthesia Plan Resuscitation Status: Full Code Anesthesia Technique: Epidural Anesthesia Airway Planned: Natural Airway Pain Management: Epidural Monitors Used: Standard Monitors
[2021-02-28] MEDS: FentaNYL/ROPIvacaine 2 mcg/ml and 0.1% 200 ML CADD Cassette EP (13:35)
[2021-02-28 14:04] LABS: Source Nasal/Nares
--- NOTE | 2021-02-28 14:05 | ANES.NEUR_ITS ---
Epidural/Spinal Catheter Date Performed: 02/28/21 Procedure Time: 13:35 Requesting Provider: Una Procedure Location: Obstetrics Reason Performed: Labor Epidural Standard Monitors Applied: ECG, Blood Pressure, SpO2 and See EMR for corresponding vital signs Patient Position: Sitting Sedation Given (Indicate Dose Given): No Sedation given Patient Mental Status: Awake Sterility: Hand Hygiene, Surgical Cap, Surgical Mask, Sterile Gloves, Sterile Drape/Sheet, Eye Protection and Chlorhexidine Procedure Location: L3-L4 Interspace Epidural Needle: Tuohy 18 Gauge Needle Length: 3.5 Inch Needle Approach: Midline Epidural Procedure: Skin Prepped, Sterile Drape Placed, 1% Lidocaine to skin and subcutaneous tissue with 25G needle, Tuohy Needle placed, HALINA to Saline Used, Epidural Catheter Placed, Negative Heme, Negative CSF Flow and Tuohy Needle Removed Catheter Placed?: Catheter Placed Test Dose (Indicate Dose Given): 3ml 1.5% Lidocaine with 1:200K Epinephrine Given Loss of Resistance Depth (cm): 8 Catheter depth at skin (cm): 16 Dressing: [place]orbav[place] Dressing Placed, Tegaderm Applied, Mastisol Used and Dressing reinforced with Tape Epidural Provider Bolus (Indicate Dose Given): Total Ropivacaine 0.1% with Fentanyl 2mcg/ml Given from pump (ml) (7mL first dose, see RN MAR. Patient comfortable, plans to take a nap.) Dose:: 7 mL Additives (Indicate Dose Given ): None Infusion Medication: Me dication Infusion Began Medication Infusion: Ropivacaine 0.1% with Fentanyl 2mcg/ml Maintenance Infusion Rate (ml/hour): 12 PCEA Bolus Dose (ml): 5 Post Procedure Pain score (0-10): 2 Block Level: T10 Paresthesia: None Ultrasound: Not Used Number of Attempts (See previous attempts in note section): 1 Procedure Tolerated: No Complications and Patient tolerated well Procedure Outcome: Successful Performed By: Porsche
--- NOTE | 2021-02-28 14:12 | W.PM.OBNL1 ---
Date of service: 02/28/21 Time of Service: 14:12 Informed Consent Informed Consent: Risk,Benefits,Alternatives Discussed Contractions Monitor Mode: External Contraction Frequency(min): 2-4 Contraction Duration(sec): 60-90 Intensity: Strong Fetus A Monitor: External (US) Heart Rate Baseline: 135 Variability: Moderate (6-25 BPM) Categories: Category I Decelerations: None Amniotic Membrane Status: Intact Assessment and Plan Assessment and plan (1) Active labor at term: Start date: 02/28/21 Start time: 14:14 Status: Acute Assessment and plan: will encourage rest for 1-2 hours and will reassess cervix at that time or as indicated by Maternal or status. KH Objective Abnormal lab results 02/28/21 Range/Units 13:00 WBC 14.56 H (4.4-10.8) 10^3/uL Temp Pulse Resp BP Pulse Ox 98.2 F 79 16 108/56 L 97 02/28/21 13:27 02/28/21 14:11 02/28/21 13:27 02/28/21 14:11 02/28/21 14:08 Laboratory Results WBC 14.56 10^3/uL (4.4-10.8) H 02/28/21 13:00 RBC 4.07 10^6/uL (3.93-5.22) 02/28/21 13:00 Hgb 12.1 g/dL (11.2-15.7) 02/28/21 13:00 Hct 37.7 % (36.0-46.0) 02/28/21 13:00 MCV 92.6 fL (80-95) 02/28/21 13:00 MCH 29.7 pg (27.0-33.0) 02/28/21 13:00 MCHC 32.1 % (32.0-36.0) 02/28/21 13:00 RDW 14.0 % (11.7-14.6) 02/28/21 13:00 Plt Count 272 10^3/uL (130-400) 02/28/21 13:00 MPV 10.2 fL (8.0-11.0) 02/28/21 13:00 COVID-19 Source Nasal/nares 02/28/21 13:30 Patient ABO/Rh O Positive 02/28/21 13:00 Antibody Screen Negative 02/28/21 13:00 Vital Signs Reviewed: Yes Subjective Interval history since last seen: Much more comfortable status post epidural. KH Interventions Other (epidural in place.) Results Hemoglobin/Hematocrit: Hgb 12.1 g/dL (11.2-15.7) 02/28/21 13:00 Hct 37.7 % (36.0-46.0) 02/28/21 13:00 Abnormal Lab Findings: Abnormal Labs 02/28/21 13:00 WBC 14.56 H
[2021-02-28 14:48] LABS: COVID-19 PCR Negative (Negative)
--- NOTE | 2021-02-28 15:40 | PGE_ITS ---
Date of service: 02/28/21 Time of Service: 15:40 Informed Consent Informed Consent: Risk,Benefits,Alternatives Discussed Pelvic Exam Dilation: 9 Effacement (%): 100 station: -2 Consistency: soft Vaginal Exam Presentation: Cephalic Contractions Monitor Mode: External Contraction Frequency(min): 2-3 minutes Contraction Duration(sec): 60 Intensity: Strong Fetus A Heart Rate Baseline: 140 Variability: Moderate (6-25 BPM) Categories: Category I Accelerations: 15 X 15 Decelerations: None Amniotic Membrane Status: Ruptured Assessment and Plan Assessment and plan (1) Active labor at term: Status: Acute Assessment and plan: discussed active management of third stage with patient. She did have significant blood loss from a lengthy repair last delivery. We discussed medications for atony as well as gentle pushing efforts. Patient verbalizes understanding and agrees with this plan of care. Will have pi tocin IV, IM and cytotec available in room for delivery to start with. KH Objective Abnormal lab results 02/28/21 Range/Units 13:00 WBC 14.56 H (4.4-10.8) 10^3/uL Temp Pulse Resp BP Pulse Ox 98.2 F 86 16 110/53 L 96 02/28/21 13:27 02/28/21 15:38 02/28/21 13:27 02/28/21 15:27 02/28/21 15:38 Laboratory Results WBC 14.56 10^3/uL (4.4-10.8) H 02/28/21 13:00 RBC 4.07 10^6/uL (3.93-5.22) 02/28/21 13:00 Hgb 12.1 g/dL (11.2-15.7) 02/28/21 13:00 Hct 37.7 % (36.0-46.0) 02/28/21 13:00 MCV 92.6 fL (80-95) 02/28/21 13:00 MCH 29.7 pg (27.0-33.0) 02/28/21 13:00 MCHC 32.1 % (32.0-36.0) 02/28/21 13:00 RDW 14.0 % (11.7-14.6) 02/28/21 13:00 Plt Count 272 10^3/uL (130-400) 02/28/21 13:00 MPV 10.2 fL (8.0-11.0) 02/28/21 13:00 COVID-19 Source Nasal/nares 02/28/21 13:30 SARS-CoV-2 (PCR) Negative (Negative) 02/28/21 13:30 Patient ABO/Rh O Positive 02/28/21 13:00 Antibody Screen Negative 02/28/21 13:00 Subjective Interval history since last seen: remains very comfortable. Would like AROM to get to my baby. We discussed option of expectant management vs intervention of AROM and patient preferred AROM which was done and noted for thin mec stained fluid and bloody show. 9cm 100% -2. KH Interventions Other (amniotomy performed) Results Hemoglobin/Hematocrit: Hgb 12.1 g/dL (11.2-15.7) 02/28/21 13:00 Hct 37.7 % (36.0-46.0) 02/28/21 13:00 Abnormal Lab Findings: Abnormal Labs 02/28/21 13:00 WBC 14.56 H
[2021-02-28] MEDS: Lactated Ringers 1,000 ML 125 ML IV (16:45)
[2021-02-28] MEDS: Oxytocin/Normal Saline 30 UNIT/500 ML BAG 95 UNITS IV (16:47)
--- NOTE | 2021-02-28 16:51 | W.OBDELIVERY ---
Date of service: 02/28/21 Time of Service: 16:51 OB Labor/ Delivery Information Providers Nurse Dry Placer Machine Operator: Kelly Heart Nurse: Sandra Dotson Nurse: Rashmi Pierson Labor/Delivery Information Number of Babies in Womb: 1 Steroids Given: None Reason Steroids Not Administered: N/A Group Beta Strep: Negative Antibiotics Administered: No Rubella Status: Immune Blood Type: O+ Varicella Immunity: Immune Born En Route: No Shoulder Dystocia: No Stages of Labor Onset of Labor Date: 02/28/21 Onset of Labor Time: 11:30 Complete Dilatation Date: 02/28/21 Complete Dilatation Time: 15:54 Labor - Stage 1 Duration: 0 minutes ROM Baby A: 02/28/21 ROM Baby A: 15:30 Infant Delivery Date-Baby A: 02/28/21 Delivery Time-Baby A: 16:21 Labor Stage 2 Duration: 27 minutes Placenta Delivery Date-Baby A: 03/01/21 Placenta Delivery Time-Baby A: 16:28 Labor-Stage 3 Duration: 24 hours and 7 minutes Total Length of Labor-Baby A: 4 hours and 51 minutes Placenta Cultured: No Placenta Status: Delivered Baby A Infant Gender: Male Gestational Status: Early Term (37-38.6 wks) Gestational Age in Weeks/Days: 38 Weeks and 6 Days Score-1 Minute Interval(Baby A) Heart Rate-1 minute: 100 BPM or Greater Respiratory Effort- 1 minute: Slow Respiration/Weak Cry Muscle Tone-1 minute: Active Movement Reflex Response-1 minute: Prompt Response Color-1 minute: Bluish Hands or Feet Total Score-1 minute: 8 Score-5 Minute Interval(Baby A) Heart Rate- 5 minute: 100 BPM or Greater Respiratory Effort-5 minute: Spontaneous/Strong Cry Muscle Tone-5 minute: Active Movement Reflex Response-5 minute: Prompt Response Color-5 minute: Bluish Hands or Feet Total Score- 5 minute: 9 Note: Live male delivers SUSANA over 1st degree left midline laceration at 1601. Shoulders deliver easly with maternal pushing effort and gentle downward guidance on head followed by gentle upward guidance. Baby delivered onto Mother's abdomen to be skin to skin. Pitocin IV was started per orders. Once cord stopped pulsations, cord was clamped times 2 and then cut by FOB. Placenta delivered with gently maternal pushing effort at 1628. Fundus firms to U-2 with massage and IV pitocin infusing. EBL 300 cc. As small first degree laceration was not hemostatic, television writer infiltrated with 1% lidocaine and reparied with 3.0 Vicryl with 2 stitches. Vagina and cervix inspected and appear intact. Sponge, needle and instrument count are correct. Excellent Family bonding noted. Patient plans to breastfeed, would like circumcision for baby and is planning Nexplanon for contraception at 2-6 weeks PP. See completed delivery summary for weight and measurements. ORI
[2021-03-01] MEDS: Acetaminophen 325 MG TAB 650 MG PO ×3 (00:17→15:52)
[2021-03-01 00:28] VITALS: BP 104/66; PULSE 85; RESP 18; TEMP 37.1
[2021-03-01 05:02] VITALS: BP 92/58; PULSE 80; RESP 16; TEMP 36.5
[2021-03-01 08:30] VITALS: BP 109/70; PULSE 75; RESP 14; TEMP 36.5; O2SAT 98
--- NOTE | 2021-03-01 09:54 | OBPPV_ITS ---
Date of service: 03/01/21 Time of Service: 09:54 Assessment and Plan Assessment and plan (1) care following vaginal delivery: Status: Acute Assessment and plan: continue present management, will discharge once baby is able to be discharged. ORI (2) Lactating mother: Status: Acute Assessment and plan: continue present management.ORI Subjective Subjective Patient comments: No complaints, Tolerating diet and Bowel Movement [place] baby status: Doing well, Nursing well and Rooming in feeding status: Exclusively breast feeding Exam Physical Exam Vital signs: Temp Pulse Resp BP Pulse Ox 97.7 F 75 14 109/70 98 03/01/21 08:30 03/01/21 08:30 03/01/21 08:30 03/01/21 08:30 03/01/21 08:30 Vital Signs Reviewed: Yes Constitutional Constitutional: no acute distress and obese HEENT Exam HEENT Exam: Normal Neck Exam Neck Exam: Normal Breast Exam within normal limits bilaterally: Breast Exam: Normal Nipple Exam: Normal Respiratory Exam Respiratory Exam: Normal Cardiovascular Exam Cardiovascular Exam: Normal Fundal Exam Fundus: Below Umbilicus and Firm Rectal Exam Rectal Exam: Not Done Exam Comments: normal exam Extremities Exam Extremity Exam: Normal Skin Exam Skin Exam: Normal Neurological Exam Neurological Exam: Normal Psychiatric Exam Psychiatric Exam: Normal Results Hemoglobin/Hematocrit: Hgb 12.1 g/dL (11.2-15.7) 02/28/21 13:00 Hct 37.7 % (36.0-46.0) 02/28/21 13:00 Abnormal Lab Findings: Abnormal Labs 02/28/21 13:00 WBC 14.56 H
--- NOTE | 2021-03-01 11:55 | DSE_ITS ---
Date of service: 03/01/21 Time of Service: 11:55 DS: Diagnosis Discharge Diagnosis (1) care following vaginal delivery: Status: Acute (2) Lactating mother: Status: Acute Discharge Plan Disposition Patient Disposition: HOME Condition: Good Discharge Details Reason For Visit: ACTIVE LABOR AT TERM Admit Date/Time: 02/28/21 12:48 Admit Provider: Kelly Heart Attending Provider: Kelly Heart Primary Care Provider: Lula Mota Hospital Course Hospital Course: Live vaginal delivery of male infant 02/28/21 over 1st degree perineal lac. Normal PP course. without difficulty. Positive family bonding.KH Home Meds and New Rx's Prescriptions: No Action venlafaxine 37.5 mg capsule,extended release 24hr 37.5 mg PO DAILY Qty: 30 RF: 8 Children's Chewable Vitamin Tablet,Chewable 2 tab PO DAILY RF: 0 ondansetron HCl 4 mg tablet 4 mg PO Q6H PRN (Reason: nausea and vomiting) Qty: 30 RF: 3 acetaminophen [Tylenol] 325 mg capsule 650 mg PO Q6H PRNRF: 0 Discharge Instructions Instructions: Vaginal Delivery (GEN), Bleeding (GEN), Breast Care for the Mother (GEN), and Breast Engorgement (GEN) Activity:: Activity as Tolerated Equipment/Supplies:: No Equipment Needed Diet:: As Tolerated Discharge Orders Discharge Orders: Discharge Order (Routine); Ordered 03/01/21 Ordered By: Kelly Heart OB:DS Summary Summary Episiotomy Description: Midline and Left Mediolateral Laceration Description: Perineal Laceration Extension: First Degree Contraception Discussed Contraception Discussed: Yes (2-6 weeks PP) Contraceptive Plan: Levonorgestrel Implant, Infant Gender-Baby A: Male Status at Discharge Functional status at discharge: independent ambulation Overall status at discharge: patient is back to baseline Mental Status: mental status grossly normal Speech and Movement: speech and movement normal Mood: congruent mood Affect: normal affect Exam Physical Exam Vital signs: Temp Pulse Resp BP Pulse Ox 97.7 F 75 14 109/70 98 03/01/21 08:30 03/01/21 08:30 03/01/21 08:30 03/01/21 08:30 03/01/21 08:30 Vital Signs Reviewed: Yes Constitutional Constitutional: no acute distress and obese HEENT Exam HEENT Exam: Normal Neck Exam Neck Exam: Normal Respiratory Exam Respiratory Exam: Normal Cardiovascular Exam Cardiovascular Exam: Normal Fundal Exam Fundus: Below Umbilicus and Firm Exam Perineum: Repair Intact Extremities Exam Extremity Exam: Normal Skin Exam Skin Exam: Normal Neurological Exam Neurological Exam: Normal Psychiatric Exam Psychiatric Exam: Normal [facility] Medical History (Updated 03/01/21 @ 09:56 by Kelly Heart CNM) Biliary colic Cholelithiasis affecting , antepartum US 2/ no acute cholecystitis Chronic constipation Gallstone pancreatitis History of depression adolescence - around of grandparent. No Rx. 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 wears brace on R knee. Has R shoulder pain. Tobacco dependence Upper abdominal pain of unknown etiology Social History Smoking/Tobacco Use Status: Former Tobacco Use Smoking risk assessment performed?: Yes Alcohol Intake: never Drug use: Never Substance use type: does not use Number of Children: 0 Do you think of yourself as: straight/heterosexual Current gender identity: female What is your relationship status?: living with partner Panel score (0-1 are the most socially isolated patients): 1 Special camron needs: No Seatbelt use: always Helmet use: Yes Do you feel safe at home: Yes Do you feel safe in your relationship?: Yes Victim of physical abuse: No Victim of sexual abuse: No History History 2 Para 1 Hx # Term Pregnancies 0 Multiple births 0 Hx # Pregnancies 0 Ectopic pregnancies 0 AB induced 0 Hx Number of Living Children 1 AB spontaneous 0 Past Pregnancies Del. Date GA/Weeks # Outcome Route Wgt Sex Labor Lgth Anesthes ia Location Prov Complic 03/29/18 39 No Successful vaginal 8 lb 5 oz Male 28 hours [facility] Delivery Date: 03/29/18 post hemorrhage from laceration. Long repair with bleeding. Anti-M antibody. Mild jaundice Kelly Solares DS: Data Vitals/I&O Vitals and I&O: Vital Signs Temperature 97.7 F 03/01/21 08:30 Temperature Source Axillary 02/28/21 18:30 Pulse 75 03/01/21 08:30 Pulse Rhythm Regular 03/01/21 07:35 Respiratory Rate 14 03/01/21 08:30 Blood Pressure 109/70 03/01/21 08:30 Blood Pressure Mean 83 03/01/21 08:30 Pulse Oximetry 98 03/01/21 08:30 Oxygen Delivery Method Room Air 02/28/21 18:30 Oxygen Flow Rate 0 02/28/21 18:30 Pain Level 5 03/01/21 08:23 Comment 02/28/21 17:30 Intake & Output 02/28/21 02/28/21 03/01/21 11:59 23:59 11:59 Intake Total 1360 / 1360 550 / 550 Output Total 800 / 800 900 / 900 Balance 560 / 560 -350 / -350 Weight 220 lb 7.396 oz Intake: IV 10 / 10 Oral 300 / 300 550 / 550 Other 1050 / 1050 Output: Urine 800 / 800 900 / 900 Other: Urine Color Pale Yellow Urine Appearance Clear Data Completed and Pending Labs on day of discharge: Labs from last 24 hours 02/28/21 02/28/21 02/28/21 13:30 13:00 13:00 WBC 14.56 H RBC 4.07 Hgb 12.1 Hct 37.7 MCV 92.6 MCH 29.7 MCHC 32.1 RDW 14.0 Plt Count 272 MPV 10.2 COVID-19 Source Nasal/nares SARS-CoV-2 (PCR) Negative Patient ABO/Rh O Positive Antibody Screen Negative
== END 2021-03-01 18:30 | disposition home or self-care (01) | DRG 807 ==
PROVIDERS: Admitting Provider Advanced Practice Midwife; PCP Nurse Practitioner Family; Visit Provider Advanced Practice Midwife
DX: O99.62 Diseases of the digestive system complicating childbirth (principal); Z37.0 Single live birth; O70.0 First degree perineal laceration during delivery; O99.324 Drug use complicating childbirth; Z3A.38 38 weeks gestation of pregnancy; O75.89 Other specified complications of labor and delivery; G47.00 Insomnia, unspecified; Z87.891 Personal history of nicotine dependence; K59.09 Other constipation; N20.0 Calculus of kidney; F12.90 Cannabis use, unspecified, uncomplicated
CPT/HCPCS: 85027; 86850; 86900; 86901; 87635; J0595

== ENCOUNTER 2021-04-08 16:21 | Outpatient (REF) | payer BC, SELFPAY ==
--- NOTE | 2021-04-08 15:15 | PAPFT_PTH ---
PATIENT: Nelli Montiel LOC: [facility] U#:[id number] AGE/SX: 25/F ROOM: RE04/08/[address]: Kelly Heart CNM : 1995 BED: DIS: 04/08/2021 SPEC #: [id number] RECD: 04/08/21 17:54 STATUS: AUDI REQ #: [id number] JARRET: 04/08/21 15:[address]: Kelly Heart DEPT: [facility] Cytology RECD BY: Johanna Shields ENTERED: 04/08/21 17:54 SP TYPE: PAPFT OTHR DR: Lula Mota Tissues: 1 - CX/ENDOCX FOR PAP SMEARS Procedures: PAP THIN PREP/UVM Screening Comments: [id number]
== END 2021-04-08 16:22 | disposition home or self-care (01) ==
LOC: LBN 16:21
PROVIDERS: PCP Nurse Practitioner Family; Visit Provider Advanced Practice Midwife
DX: Z12.4 Encounter for screening for malignant neoplasm of cervix (principal)
CPT/HCPCS: 88142

== ENCOUNTER 2021-08-28 14:58 | Outpatient (CLI) | payer BC, SELFPAY ==
--- NOTE | 2021-08-28 | DI.US_ITS ---
Exam(s) US PELVIS TRANSVAGINAL EXAM: US PELVIS TRANSVAGINAL CLINICAL HISTORY: RLQ PAIN, R10.31, ? OVARIAN CYST OR APPENDICITIS. TECHNIQUE: Transabdominal and transvaginal pelvic ultrasound was performed using standard protocol. COMPARISON: US US PELVIS TRANSVAGINAL from 07/03/2018 FINDINGS: KIDNEYS: Kidneys are symmetric in size. No evidence of renal calculi. No evidence of hydronephrosis. No renal mass or cyst identified. UTERUS: Position: Anteverted. Size: 0.4 long by 3.6 AP by 5.3 transverse cm Endometrium: 0.2 cm. Normal for patient's menstrual status. Myometrium: Unremarkable. Cervix: Unremarkable. OVARIES: Right: 2.7 x 2.3 x 1.8 cm Cyst or mass: There is a 1.5 x 1.3 x 1.3 cm dominant simple right ovarian cyst. Left: 2.4 x 1.7 x 1.4 cm Cyst or mass: Small follicular cysts are present. DOPPLER: Color: Symmetric and uniform flow to both ovaries. No hyperemia. Duplex: Normal ovarian arterial waveforms visualized. CUL-DE-SAC: Free fluid: None. Other: None. IMPRESSION: 1. Normal sonographic appearance of the kidneys. 2. Normal-appearing uterus with endometrial stripe within normal limits. 3. Unremarkable bilateral ovaries. DATA REPOSITORY:
--- NOTE | 2021-08-28 16:35 | DI.VRAD_ITS ---
PROCEDURE INFORMATION: Exam: US Retroperitoneal Limited, Kidneys Exam date and time: 08/28/2021 2:48 PM Age: 26 years old Clinical indication: Pelvic pain TECHNIQUE: Imaging protocol: Real-time ultrasound of the retroperitoneum with image documentation. Examination was focused on the kidneys. COMPARISON: None FINDINGS: Right kidney: Normal morphology of the right kidney measuring 10.8 cm in length. No renal mass, calculus, or hydronephrosis. Left kidney: Normal morphology of the left kidney measuring 10.1 cm in length. No renal mass, calculus, or hydronephrosis. Bladder: Nondistended bladder. IMPRESSION: Unremarkable sonographic appearance of the kidneys and collecting systems. PROCEDURE INFORMATION: Exam: US Pelvis Complete, Transabdominal and US Pelvis, Transvaginal Exam date and time: 08/28/2021 2:48 PM Age: 26 years old Clinical indication: Pelvic pain TECHNIQUE: Imaging protocol: Real-time transabdominal and transvaginal pelvic ultrasound (complete) with image documentation. Transvaginal imaging was used for better evaluation of the endometrium, adnexa, and/or cervix. COMPARISON: US PELVIS TRANSVAGINAL 07/03/2018 3:56 PM FINDINGS: Uterus: Uterus measures 6.4 by 3.6 x 5.3 cm. Normal caliber of the endometrium measuring 3 mm in diameter. Right ovary/adnexa: Dominant 1.5 cm right ovarian follicle. Right ovary measures 2.7 x 1.8 x 2.3 cm. Right ovarian blood flow demonstrated. Left ovary/adnexa: Left ovary measures 2.4 x 1.4 x 1.7 cm. Subcentimeter follicles. Left ovarian blood flow demonstrated. Intraperitoneal space: No significant free fluid. IMPRESSION: No significant sonographic abnormality in the pelvis. Dictated and Authenticated by: Kirk Pascal MD. Ordering:YAZAN Hill MD
[2021-08-30 15:02] LABS: COVID-19 RT-PCR UVMMC Result Negative (Negative)
== END 2021-08-28 15:18 ==
PROVIDERS: PCP Nurse Practitioner Family; Visit Provider Physician Assistant Medical
DX: R10.31 Right lower quadrant pain (principal); N83.291 Other ovarian cyst, right side; J06.9 Acute upper respiratory infection, unspecified; Z20.822 Contact with and (suspected) exposure to COVID-19
CPT/HCPCS: U0003; 76830; 76856

== ENCOUNTER 2021-11-04 11:05 | Emergency (ER) | payer BC, SELFPAY ==
--- NOTE | 2021-11-04 11:09 | W.ED.GENAD ---
Discharge Plan Disposition Patient Disposition: HOME Condition: Stable Discharge Details Clinical Impression: Strep pharyngitis Primary Care Provider: Lula Mota ED Provider: Taco Terry Home Meds and New Rx's Prescriptions: New penicillin V potassium 500 mg tablet 500 mg PO BID Qty: 20 RF: 0 Continued venlafaxine 37.5 mg capsule,extended release 24hr 37.5 mg PO DAILY Qty: 30 RF: 8 Nexplanon 68 mg implant 1 implant subdermal ONCE RF: 0 Children's Chewable Vitamin Tablet,Chewable 2 tab PO DAILY RF: 0 acetaminophen [Tylenol] 325 mg capsule 650 mg PO Q6H PRNRF: 0 Discharge Instructions Instructions: Strep Throat (ED) Additional Instructions: Penicillin as directed. [id number] Tylenol and/or Motrin as directed for discomfort. Salt water gargles as tolerated. Please watch for new or worsening symptoms and return to the ER for any concerns. Medical Decision Making 26-year-old female presents with 1 day history of sore throat, concern for strep throat. Reports fever last night, clinically she has exudates and an erythematous pharynx. She did have a COVID exposure last week but tested negative yesterday on a rapid test. This is likely strep and will test we will also obtain a send out COVID given her exposure, low suspicion for COVID. Clinically she appears well, nontoxic, able to manage her secretions without difficulty and speaking full sentences. Rapid strep positive Discussed rapid strep with patient. Will provide penicillin VK prescription. No additional questions or concerns. Standard discharge instructions were provided. This documentation was generated using [facility] dictation system, please disregard any oddities of phrase or misspellings. Medical Records Medical records reviewed: Yes I reviewed the patient's medical records. Lab Data Lab results reviewed: Yes I reviewed the patient's lab results. HPI General Mode of arrival: ambulatory. Date/Time Provider Initiated Documentation: 11/04/21 11:09. Limitations to Documentation: no limitations. Information obtained by: patient. History of Present Illness 26 year old F presents to the emergency department with the chief complaint of Strep throat, described as mild, with intensity rated at 3. Quality is described as aching, and is localized to the neck. Patient reports no radiation. Patient started experiencing this day(s) (1) and it has been constant. No relieving factors improve symptom(s), Eating worsens symptoms . Patient notes fever/chills (Last night). Patient did receive the following treatments prior to arrival, none Related Data Home Medications Medication Instructions Recorded Confirmed pediatric multivitamin no.144 2 tab PO DAILY 07/02/20 11/04/21 acetaminophen 325 mg capsule 650 mg PO Q6H PRN cap 12/26/20 11/04/21 venlafaxine 37.5 mg 37.5 mg PO DAILY #30 cap 01/21/21 11/04/21 capsule,extended release 24 hr etonogestrel 68 mg subdermal 1 implant SUBDERMAL ONCE 04/29/21 11/04/21 implant penicillin V potassium 500 mg PO BID #20 tab 11/04/21 Previous Rx's Medication Instructions Recorded venlafaxine 37.5 mg 37.5 mg PO DAILY #30 cap 01/21/21 capsule,extended release 24 hr penicillin V potassium 500 mg PO BID #20 tab 11/04/21 Allergies Allergy/AdvReac Type Severity Reaction Status Date / Time No Known Allergies Allergy Verified 11/04/21 11:13 General JOHN: 2 Review of Systems Constitutional Constitutional: Reports fever(s) and Denies headache(s) ENT Ears, Nose, Mouth, and Throat: Denies headache(s) and Reports sore throat Cardiovascular Cardiovascular: Denies chest pain and Denies dyspnea Respiratory Respiratory: Denies cough and Denies dyspnea Gastrointestinal Gastrointestinal: Denies abdominal pain, Denies nausea and Denies vomiting Integumentary/Breasts Skin/Breast: Denies rash Neurologic Neurologic: Denies headache(s) PFSH All Active Problems Strep pharyngitis (Acute) Nexplanon in place (Acute) Cervical cancer screening (Acute) Encounter for counseling regarding contraception (Acute) Lactating mother (Acute) care following vaginal delivery (Acute) Active labor at term (Acute) contractions (Acute) Kidney stone complicating (Acute) 7 mm right non obstructing stone Acute dehydration (Acute) (Acute) Echogenic intracardiac focus of fetus on ultrasound (Acute) Choroid plexus cyst of fetus (Acute) Abdominal mass (Acute) Chronic constipation (Acute) Marijuana use (Acute) Tobacco dependence (Acute) Poor dentition (Acute 12/13/17) Medical History Biliary colic Cholelithiasis affecting , antepartum US 2/ no acute cholecystitis Gallstone pancreatitis History of depression adolescence - around of grandparent. No Rx. No recurrences Nexplanon insertion Sports injuries played basketball in HS. wears brace on R knee. Has R shoulder pain. Upper abdominal pain of unknown etiology Family History Father Diabetes Social History Smoking/Tobacco Use Status: Former Tobacco Use Smoking risk assessment performed?: Yes Alcohol Intake: never Drug use: Daily Substance use type: marijuana Number of Children: 0 Do you think of yourself as: straight/heterosexual Current gender identity: female What is your relationship status?: living with partner Panel score (0-1 are the most socially isolated patients): 1 Special camron needs: No Seatbelt use: always Helmet use: Yes Do you feel safe at home: Yes Do you feel safe in your relationship?: Yes Victim of physical abuse: No Victim of sexual abuse: No History History 3 Para 1 Hx # Term Pregnancies 1 Multiple births 0 Hx # Pregnancies 0 Ectopic pregnancies 0 AB induced 0 Hx Number of Living Children 2 AB spontaneous 0 Past Pregnancies Del. Date GA/Weeks # Outcome Route Wgt Sex Labor Lgth Anesthesia Location Prov Complic Unknown 03/29/18 39 No Successful vaginal 3770.487 g Male 28 hours [facility] 02/28/21 38 No Successful vaginal Male [facility] Delivery Date: 1st degree laceration Ai Mishra LPN Delivery Date: 03/29/18 post hemorrhage from laceration. Long repair with bleeding. Anti-M antibody. Mild jaundice Kelly Solares Delivery Date: 02/28/21 No notes to display Exam Const General: cooperative, healthy appearing, comfortable and no acute distress Orientation: alert, awake and oriented x3 HENMT Head: normal to inspection, normocephalic and atraumatic Ears: external ears normal, TM's normal bilaterally and EAC's normal General nose exam: external nose normal Mouth: moist mucous membranes Teeth and gingiva: dentition normal Throat: uvula midline, posterior oropharynx abnormal erythema and exudates, uvula not displaced and no uvular edema Eyes General: appearance normal, both eyes and all related structures Conjunctivae: conjunctivae normal Neck Neck: normal visual inspection, trachea midline and supple Resp Effort & Inspection: normal respiratory effort and able to speak in complete sentences Auscultation: clear to auscultation bilaterally Cardio Rate: regular rate Rhythm: regular rhythm Skin General skin exam: no rashes or lesions noted Neuro General: patient alert, patient awake, moves all extremities and no focal motor deficits Sensory Exam: no sensory deficits noted Psych Appearance: grossly normal Mental Status: mental status grossly normal
[2021-11-04 11:10] VITALS: BP 131/83; PULSE 105; RESP 14; TEMP 36.5; O2SAT 98
[2021-11-04 11:59] VITALS: PULSE 76; RESP 16; TEMP 36.4; O2SAT 99
[2021-11-04 12:02] VITALS: BP 119/61
[2021-11-05 11:04] LABS: COVID-19 RT-PCR UVMMC Result Negative (Negative)
== END 2021-11-04 12:15 | disposition home or self-care (01) ==
PROVIDERS: Emergency Provider Physician Assistant; PCP Nurse Practitioner Family
DX: J02.0 Streptococcal pharyngitis (principal); Z20.822 Contact with and (suspected) exposure to COVID-19; Z87.891 Personal history of nicotine dependence
CPT/HCPCS: 87880; 99283; U0003

== ENCOUNTER 2022-06-20 20:44 | Emergency (ER) | payer BC, SELFPAY ==
--- NOTE | 2022-06-20 20:45 | DI.CT_ITS ---
Exam(s) CT ABDOMEN PELVIS W EXAM: CT ABDOMEN PELVIS W CLINICAL HISTORY: sharp ruq pain, hx of cholecystectomy. TECHNIQUE: Imaging Protocol: Axial computed tomography images with coronal and sagittal reformatted images were created and reviewed CONTRAST MATERIAL: Intravenous: Omnipaque 350 Contrast volume:100 ml Oral: yes / no US US PELVIS TRANSVAGINAL from 08/28/2021 FINDINGS: ABDOMEN: Lung Bases: Normal where visualized. Liver: Normal density. No measurable mass. Gallbladder and biliary tract: Status post cholecystectomy. No radiodense calculus or dilation. Pancreas: Normal density, no abnormal calcifications or inflammatory process. Spleen: Normal. Kidneys: Normal size, contour and axis. 7 millimeter non-obstructing stone upper pole left kidney. Symmetric renal parenchymal enhancement. No radiodense stones or obstructive uropathy. No masses see n. Adrenal glands: No masses seen. Abdominal Aorta: Abdominal portion non-dilated. PELVIS: Bladder: Nearly empty. No gross wall thickening. No calculi.No focal mass. Bowel: Colon contains air and a small amount of fluid. No abnormal wall thickening. Small bowel unr emarkable. No obstruction or bowel wall thickening. No evidence of appendicitis. Peritoneal cavity: No ascites, collection or mesenteric inflammatory response. Bones: Within normal limits for age. Reproductive organs: Abnormally enlarged uterus with low-attenuation, edematous appearing myometrium. Small focus of enhancement posterior myometrium. No abnormal gas collection. Endometrium not well seen. Prior pelvic ultrasound was within normal limits. Dominant left ovarian follicle.. Lymph nodes: Unremarkable. Impression: Status post cholecystectomy. No evidence of biliary dilatation. 7 millimeter nonobstructing stone upper pole left kidney. Enlarged uterus with edematous appearing myometrium. Clinical correlation is recommended. RADIATION DOSE DELIVERED: 849.64mGy.cm Total DLP DATA REPOSITORY: All CT scans at this facility are submitted to the National Radiology Data Registry (NRDR) Dose Index Registry (DIR) with the [employer] (A[employer]). RADIATION OPTIMIZATION: All CT scans at this facility use at least one of these dose optimization te chniques: automated exposure control; mA and/or kV adjustment per patient size (includes targeted exa ms where dose is matched to clinical indication); or iterative reconstruction.
[2022-06-20 20:52] VITALS: BP 130/65; PULSE 95; RESP 19; TEMP 36.6; O2SAT 99
[2022-06-20] MEDS: Normal Saline 1,000 ML 1000 ML IV (21:13)
[2022-06-20] MEDS: Ketorolac 15 MG/ML VIAL IVP (21:13)
[2022-06-20 21:20] LABS: Abs Immature Grans 0.04 10^3/uL (0.0-0.06); Absolute Basophil Count 0.04 10^3/uL (0.0-0.2); Absolute Eosinophil Count 0.35 10^3/uL (0.0-0.7); Absolute Lymphocyte Count 2.48 10^3/uL (1.2-3.4); Absolute Monocyte Count 0.79 10^3/uL (0.1-0.8); Absolute Neutrophil Count 5.83 10^3/uL (1.2-6.7); Basophils % 0.4; Eosinophils % 3.7; HCT 43.2 % (36.0-46.0); HGB 14.6 g/dL (11.2-15.7); Immature Grans % 0.4; MCH 30.6 pg (27.0-33.0); MCHC 33.8 % (32.0-36.0); MCV 91 fL (80-95); MPV 10.7 fL (8.0-11.0); Monocytes % 8.3; Neutrophils % 61.2; Platelet Count 257 10^3/uL (130-400); RBC 4.77 10^6/uL (3.93-5.22); RDW 13.1 % (11.7-14.6); RDW-SD 43.1 fL; WBC 9.53 10^3/uL (4.4-10.8)
--- NOTE | 2022-06-20 21:32 | ED.GENADUL_ITS ---
Discharge Plan Disposition Patient Disposition: HOME Condition: Good Discharge Details Chief Complaint: Abd Prob Clinical Impression: Right sided abdominal pain Primary Care Provider: Lula Mota ED Provider: Case Cancino Home Meds and New Rx's Prescriptions: No Action Nexplanon 68 mg implant 1 implant subdermal ONCE Label Comments: Placed on 04/08/21 by Kelly Solares Rx Instructions: as a single dose venlafaxine 37.5 mg capsule,extended release 24hr See Rx Instructions .ROUTE .COMPLEX Qty: 30 8RF Dose Instruction: TAKE ONE CAPSULE BY MOUTH EVERY DAY Rx Instructions: TAKE ONE CAPSULE BY MOUTH EVERY DAY Discharge Instructions Instructions: Abdominal Pain (ED) Additional Instructions: At this time your CAT scan is reassuring. There is evidence of some diarrhea that is likely impending, but no other significant abnormality that would explain the pain. Thankfully the pain has resolved and so I suspect it was potentially the stool traveling through your bowel because of pain. Please drink plenty of fluids, take Tylenol and Motrin as needed for pain. If you notice any worsening of your symptoms, or any new symptoms such as vomiting, diarrhea, fever, chills, shortness of breath, chest pain, numbness, weakness, or fainting , please return immediately to the emergency department for reevaluation. Please follow up with your primary care provider as soon as possible for reassessment and reevaluation. As always, it was a pleasure parti cipating in your medical care today. Referrals: Lula Mota [Primary Care Provider] - Medical Decision Making 26-year-old female with a past medical history of cholecystectomy 1 year ago, who presents today for evaluation of right upper quadrant pain. About 3 to 4 hours ago she states that the pain began suddenly, it was sharp in nature and constant. It radiates to the right flank/back. She has not eaten anything since noon. She admits to nausea but denies vomiting. She denies any urinary or bowel complaints. She denies any other complaints at this time. She states that the pain feels very similar to when she had her gallbladder removed. She does not drink any regular alcohol. No other complaints at this time. No other modifying factors. Exam demonstrates right upper quadrant tenderness on deep inspiration with palpation. Differential includes hepatitis, pancreatitis, less likely renal dysfunction. Potentially old gallstone. We will get a CT scan, treat her pain, monitor closely and reassess. 10:[address] scan demonstrates evidence of diarrhea, a left-sided ovarian cyst, but no other significant abnormalities acutely. Patient feels well otherwise. Correct her symptoms have completely resolved. Patient feels well. Urinalysis shows no evidence of infection. Laboratory work-up is otherwise stable. Patient would like to go home. Suspect that perhaps it was her diarrhea that was causing the pain. Patient otherwise stable. No signs of acute abdominal pathology or surgical abdomen on exam. Discussed red flags which to return. I have extensively reviewed the treatment plan and discharge instructions with the patient. I have addressed all patient concerns at this time. The patient was made aware of what symptoms to monitor for that would warrant a return to the emergency department. Discussed the plan with the patient, they demonstrate verbal understanding and agreement with our assessment and plan at this time. The documentation in this chart was dictated using [employer] dictation software. Please excuse any dictation errors. FINDINGS: Lungs: Lung bases clear. Liver: Possible fatty infiltration of the liver, difficult to confidently diagnose by CT imaging after administration of intravenous contrast. Gallbladder and bile ducts: Prior cholecystectomy. No biliary dilatation. Pancreas: Normal appearing pancreas. Spleen: Normal appearing spleen. Adrenal glands: Adrenal glands partially obscured but grossly unremarkable, as seen. Kidneys and ureters: 4 mm x 5 mm nonobstructing left renal calculus. Otherwise normal-appearing kidneys. No hydronephrosis. Ureters obscured. Stomach and bowel: No oral contrast. Stomach partially decompressed. No small bowel dilatation to suggest obstruction. Colon completely evacuated of formed fecal material. Fluid throughout the proximal colon suggesting diarrhea or impending diarrhea. No evidence of diverticulitis or colitis. Appendix: Normal appendix, partially obscured Intraperitoneal space: No gross ascites or free air. Vasculature: Normal caliber abdominal aorta. Lymph nodes: No pathologically enlarged mesenteric, retroperitoneal, or pelvic sidewall lymph nodes. Urinary bladder: Urinary bladder partially collapsed but grossly unremarkable, as seen. Reproductive: Enlarged uterus measuring 5.8 cm x 6.3 cm x 8.0 cm. Correlation with the patient's menstrual cycle recommended. Focal enhancement in the posterior wall of the uterus measuring 1.0 cm x 1.0 cm x 1.0 cm on images 68 of series 2 and 55 of series 4 may represent a leiomyoma but is not well characterized by the current exam. Right ovary partially obscured but normal in size. 3.0 cm x 1.8 cm x 2.7 cm dominant left ovarian follicle/cyst. Bones/joints: No acute fracture seen among the bones of the abdomen or pelvis. Soft tissues: No significant ventral or inguinal hernia. IMPRESSION: 1. Colon completely evacuated of formed fecal material. Fluid throughout the proximal colon suggesting diarrhea or impending diarrhea. No evidence of diverticulitis or colitis. 2. 3.0 cm x 1.8 cm x 2.7 cm dominant left ovarian follicle/cyst. No gross free pelvic fluid. 3. Prior cholecystectomy. 4. 4 mm x 5 mm nonobstructing left renal calculus. 5. Possible fatty infiltration of the liver, difficult to confidently diagnose by CT imaging after administration of intravenous contrast. Thank you for allowing us to participate in the care of your patient. Dictated and Authenticated by: Benedicto Orantes MD 06/20/2022 10:17 PM Eastern Time ([place] & [place]) HPI General Date/Time Provider Initiated Documentation: 06/20/22 20:45 . HPI Narrative: 26-year-old female with a past medical history of cholecystectomy 1 year ago, who presents today for evaluation of right upper quadrant pain. About 3 to 4 hours ago she states that the pain began suddenly, it was sharp in nature and constant. It radiates to the right flank/back. She has not eaten anything since noon. She admits to nausea but denies vomiting. She denies any urinary or bowel complaints. She denies any other complaints at this time. She states that the pain feels very similar to when she had her gallbladder removed. She does not drink any regular alcohol. No other complaints at this time. No other modifying factors. Related Data Home Medications Medication Instructions Recorded Confirmed etonogestrel 68 mg subdermal 1 implant subdermal ONCE 04/29/21 06/20/22 implant (Nexplanon) venlafaxine 37.5 mg See Rx Instructions .Route 03/22/22 06/20/22 capsule,extended release 24 hr .COMPLEX #30 caps Previous Rx's Medication Instructions Recorded venlafaxine 37.5 mg See Rx Instructions .Route 03/22/22 capsule,extended release 24 hr .COMPLEX #30 caps Allergies Allergy/AdvReac Type Severity Reaction Status Date / Time No Known Allergies Allergy Verified 06/20/22 20:56 General Stated Complaint: Abd Prob JOHN: 3 Review of Systems All systems reviewed & are unremarkable except as noted in HPI and below PFSH All Active Problems (Updated 06/20/22 @ 23:03 by Case Cancino DO) Right sided abdominal pain (Acute) Nexplanon in place (Acute) Cervical cancer screening (Acute) Encounter for counseling regarding contraception (Acute) Lactating mother (Acute) care following vaginal delivery (Acute) Active labor at term (Acute) contractions (Acute) Kidney stone complicating (Acute) 7 mm right non obstructing stone Acute dehydration (Acute) (Acute) Echogenic intracardiac focus of fetus on ultrasound (Acute) Choroid plexus cyst of fetus (Acute) Abdominal mass (Acute) Chronic constipation (Acute) Marijuana use (Acute) Tobacco dependence (Acute) Poor dentition (Acute 12/13/17) Medical History Biliary colic Cholelithiasis affecting , antepartum US 11/20 no acute cholecystitis Gallstone pancreatitis History of depression adolescence - around of grandparent. No Rx. No recurrences Nexplanon insertion Sports injuries played basketball in HS. wears brace on R knee. Has R shoulder pain. Upper abdominal pain of unknown etiology Family History Father Diabetes Social History Smoking/Tobacco Use Status: Former Tobacco Use Smoking risk assessment performed?: Yes Alcohol Intake: never Drug use: Daily Substance use type: marijuana Number of Children: 0 Do you think of yourself as: straight/heterosexual Current gender identity: female What is your relationship status?: living with partner Panel score (0-1 are the most socially isolated patients): 1 Special camron needs: No Seatbelt use: always Helmet use: Yes Do you feel safe at home: Yes Do you feel safe in your relationship?: Yes Victim of physical abuse: No Victim of sexual abuse: No History History 3 Para 1 Hx # Term Pregnancies 1 Multiple births 0 Hx # Pregnancies 0 Ectopic pregnancies 0 AB induced 0 Hx Number of Living Children 2 AB spontaneous 0 Past Pregnancies Del. Date GA/Weeks # Preg Succ Route Wgt Sex Labor Lgth Anesth esia Location Prov Complic Unknown 03/29/18 39 No vaginal 3770.487 g Male 28 hours [facility] PERDOMO 02/28/21 38 No vaginal Male [facility] Delivery Date: Last Updated by: iA Mishra LPN 1st degree laceration Delivery Date: 03/29/18 Last Updated by: Kelly Solares CNM post hemorrhage from laceration. Long repair with bleeding. Anti-M antibody. Mild jaundice Exam Narrative Exam Narrative: 1.Const: Well-nourished, Well-developed, appearing stated age 2.Eyes: PERRL, no conjunctival injection, and symmetrical lids. 3.ENT: Atraumatic external nose and ears. Moist MM. Neck: Symmetric, trachea midline, No thyromegaly. 4.CVS: +S1/S2, No murmurs or gallops. Peripheral pulses 2+ and equal in all extremities. Brisk capillary refill in all extremities. 5.RESP: Unlabored respiratory effort. Clear to auscultation bilaterally. No wheezes rales or rhonchi 6.GI: Soft, nondistended, no guarding or rebound. Mild tenderness on deep palpation of the right upper quadrant with deep inspiration. No pain to McBurney's point. 7.MSK: Normocephalic/Atraumatic, Extremities w/o deformity or ttp No cyanosis or clubbing, Normal movement of all extremities 8.Skin: Warm, Dry. No rashes or lesions. 9.Neuro: tool design checker II-XII grossly intact. Sensation grossly intact, no focal neurologic deficits. 10.Psych: (AAO) x3. Appropriate mood and affect Course Vital Signs Vital signs: Vital Signs Temperature 36.6 C 06/20/22 20:52 Pulse 95 H 06/20/22 20:52 Respiratory Rate 06/20/22 20:52 Blood Pressure 130/65 06/20/22 20:52 Pulse Oximetry 99 06/20/22 20:52 Temperature 36.6 C 06/20/22 20:52 Pulse 95 H 06/20/22 20:52 Respiratory Rate 19 06/20/22 20:52 Respiratory Effort Non-Labored 06/20/22 20:55 Blood Pressure 130/65 06/20/22 20:52 Blood Pressure Position Sitting 06/20/22 20:52 Pulse Oximetry 99 06/20/22 20:52 Oxygen Delivery Method Room Air 06/20/22 20:52 Oxygen Flow Rate 0 06/20/22 20:52 Lab/Test Results Lab/Test Results: Laboratory Tests Range/Units 06/20/22 21:12 WBC (4.4-10.8) 10^3/uL 9.53 RBC (3.93-5.22) 10^6/uL 4.77 Hgb (11.2-15.7) g/dL 14.6 Hct (36.0-46.0) % 43.2 MCV (80-95) fL 91 MCH (27.0-33.0) pg 30.6 MCHC (32.0-36.0) % 33.8 RDW (11.7-14.6) % 13.1 Plt Count (130-400) 10^3/uL 257 MPV (8.0-11.0) fL 10.7 Immature Gran % 0.4 Neutrophils % 61.2 Lymphocytes % 26.0 Monocytes % 8.3 Eosinophils % 3.7 Basophils % 0.4 Nucleated RBC % (0.0-0.3) % 0.0 Absolute Neutrophils (1.2-6.7) 10^3/uL 5.83 Absolute Lymphocytes (1.2-3.4) 10^3/uL 2.48 Absolute Monocytes (0.1-0.8) 10^3/uL 0.79 Absolute Eosinophils (0.0-0.7) 10^3/uL 0.35 Absolute Basophils (0.0-0.2) 10^3/uL 0.04
[2022-06-20 21:34] LABS: ALT 24 U/L (14-59); AST 16 U/L (15-37); Albumin 4.5 g/dL (3.4-5.0); Alkaline Phosphatase 108 U/L (46-116); Anion Gap 12.7 mmol/L (3-11); BUN 11 mg/dL (7-18); Bilirubin, Total 0.7 mg/dL (0.2-1.0); CO2 25.3 mmol/L (21.0-32.0); CREATININE 0.8 mg/dL (0.55-1.02); Calcium 9.4 mg/dL (8.5-10.1); Chloride 101 mmol/L (98-107); Glucose 93 mg/dL (74-106); Lipase 60 U/L (73-393); Potassium 3.5 mmol/L (3.5-5.1); Sodium 139 mmol/L (136-145); Total Protein 8.5 g/dL (6.4-8.2)
[2022-06-20] MEDS: Omnipaque 350 MG/ML 100 ML BTL IJ (22:00)
[2022-06-20] MEDS: Ondansetron 4 MG/2 ML VIAL IVP (22:04)
--- NOTE | 2022-06-20 22:18 | DI.VRAD_ITS ---
PROCEDURE INFORMATION: Exam: CT Abdomen And Pelvis With Contrast Exam date and time: 06/20/2022 9:53 PM Age: 26 years old Clinical indication: Abdominal pain; Localized; Right upper quadrant (ruq); Prior surgery; Surgery date: 6+ months; Surgery type: Cholecystectomy; Additional info: Sharp ruq pain TECHNIQUE: Imaging protocol: Computed tomography of the abdomen and pelvis with contrast. Radiation optimization: All CT scans at this facility use at least one of these dose optimization techniques: automated exposure control; mA and/or kV adjustment per patient size (includes targeted exams where dose is matched to clinical indication); or iterative reconstruction. Contrast material: OMNI 350; Contrast volume: 100 ml; Contrast route: INTRAVENOUS (IV); COMPARISON: CT Abdomen^ROUTINE ABDOMEN PELVIS WITH CONTRAST (Adult) 11/07/2018 8:54 AM FINDINGS: Lungs: Lung bases clear. Liver: Possible fatty infiltration of the liver, difficult to confidently diagnose by CT imaging after administration of intravenous contrast. Gallbladder and bile ducts: Prior cholecystectomy. No biliary dilatation. Pancreas: Normal appearing pancreas. Spleen: Normal appearing spleen. Adrenal glands: Adrenal glands partially obscured but grossly unremarkable, as seen. Kidneys and ureters: 4 mm x 5 mm nonobstructing left renal calculus. Otherwise normal-appearing kidneys. No hydronephrosis. Ureters obscured. Stomach and bowel: No oral contrast. Stomach partially decompressed. No small bowel dilatation to suggest obstruction. Colon completely evacuated of formed fecal material. Fluid throughout the proximal colon suggesting diarrhea or impending diarrhea. No evidence of diverticulitis or colitis. Appendix: Normal appendix, partially obscured. Intraperitoneal space: No gross ascites or free air. Vasculature: Normal caliber abdominal aorta. Lymph nodes: No pathologically enlarged mesenteric, retroperitoneal, or pelvic sidewall lymph nodes. Urinary bladder: Urinary bladder partially collapsed but grossly unremarkable, as seen. Reproductive: Enlarged uterus measuring 5.8 cm x 6.3 cm x 8.0 cm. Correlation with the patient's menstrual cycle recommended. Focal enhancement in the posterior wall of the uterus measuring 1.0 cm x 1.0 cm x 1.0 cm on images 68 of series 2 and 55 of series 4 may represent a leiomyoma but is not well characterized by the current exam. Right ovary partially obscured but normal in size. 3.0 cm x 1.8 cm x 2.7 cm dominant left ovarian follicle/cyst. Bones/joints: No acute fracture seen among the bones of the abdomen or pelvis. Soft tissues: No significant ventral or inguinal hernia. IMPRESSION: 1. Colon completely evacuated of formed fecal material. Fluid throughout the proximal colon suggesting diarrhea or impending diarrhea. No evidence of diverticulitis or colitis. 2. 3.0 cm x 1.8 cm x 2.7 cm dominant left ovarian follicle/cyst. No gross free pelvic fluid. 3. Prior cholecystectomy. 4. 4 mm x 5 mm nonobstructing left renal calculus. 5. Possible fatty infiltration of the liver, difficult to confidently diagnose by CT imaging after administration of intravenous contrast. Dictated and Authenticated by: Benedicto Orantes MD. Ordering:IVON Willoughby MD
[2022-06-20 22:47] LABS: Bilirubin Negative (Negative); Blood Negative (Negative); Clarity Clear (Clear); Glucose Negative (Negative); Ketones 40 mg/dL (Negative); Leukocyte Esterase Negative (Negative); Nitrite Negative (Negative); Specific Gravity <= 1.005 (1.005-1.025)
[2022-06-20 22:51] LABS: Epithelial Cells Rare HPF (Negative); RBC Negative HPF (0-2); WBC Negative HPF (0-5)
[2022-06-20 22:52] LABS: Bacteria Rare HPF (Negative); C & S Indicated? No; Casts Negative LPF (Negative); Crystals Negative HPF (Negative); Mucus Negative (Negative)
[2022-06-20 23:05] VITALS: BP 124/73; PULSE 68; RESP 16; TEMP 36.6; O2SAT 100
== END 2022-06-20 23:13 | disposition home or self-care (01) ==
PROVIDERS: Emergency Provider Student in an Organized Health Care Education/Training Program; PCP Nurse Practitioner Family
DX: R10.11 Right upper quadrant pain (principal); R11.0 Nausea; R19.7 Diarrhea, unspecified; N83.202 Unspecified ovarian cyst, left side; Z90.49 Acquired absence of other specified parts of digestive tract; Z87.891 Personal history of nicotine dependence
CPT/HCPCS: 80053; 81025; 83690; 96361; 96374; 96375; 99285; 74177; 81003; 81015; 85025; 99284; J1885; J2405; J3490

== ENCOUNTER 2022-09-27 14:16 | Emergency (ER) | payer BC, SELFPAY ==
[2022-09-27 14:29] VITALS: BP 120/64; PULSE 138; RESP 18; TEMP 37; O2SAT 99
--- NOTE | 2022-09-27 14:57 | W.ED.GENAD ---
Discharge Plan Disposition Patient Disposition: Home Condition: Stable Discharge Details Clinical Impression: Influenza A Primary Care Provider: Lula Mota ED Provider: Darvin Thomas Home Meds and New Rx's Prescriptions: Continued Nexplanon 68 mg implant 1 implant subdermal ONCE Label Comments: Placed on 04/08/21 by Kelly Solares Rx Instructions: as a single dose venlafaxine 37.5 mg capsule,extended release 24hr See Rx Instructions .ROUTE .COMPLEX Qty: 30 8RF Dose Instruction: TAKE ONE CAPSULE BY MOUTH EVERY DAY Rx Instructions: TAKE ONE CAPSULE BY MOUTH EVERY DAY Discharge Instructions Instructions: H1N1 Influenza (ED) Additional Instructions: Please drink plenty of fluid and allow for plenty of rest. Please contact your primary care physician to arrange follow-up. Return to the ER immediately for any worsening or new concerning symptoms. Stand Alone Forms: Work Release Referrals: Lula Mota [Primary Care Provider] - Medical Decision Making 1500 -- 27-year-old female here with 4 days of respiratory illness including sore throat, rhinorrhea and cough with fever, fatigue and achiness patient is saturating well in no respiratory distress. She does have rhonchi bilaterally on auscultation. Patient is tachycardic on arrival. Normotensive. No signs of focal bacterial infection. POC lab testing was performed and patient is positive for influenza A. Plan to treat with p.o. fluid hydration, Tylenol and ibuprofen and reassess patient. -- Patient was reassessed after p.o. hydration and heart rate much improved now 102 bpm. Plan for discharge with outpatient follow-up. Usual customary discharge instructions reviewed. Sign Out No HPI General Mode of arrival: ambulatory. Date/Time Provider Initiated Documentation: 09/27/22 14:41. Limitations to Documentation: no limitations. Information obtained by: patient. HPI Narrative: 27-year-old female presents with chief complaint of respiratory illness. Patient notes over the past 4 days she has had body aches, fever, nonproductive cough, runny nose and sore throat. Symptoms are moderate. No modifiers. No known sick contacts but patient does work at [employer]. Patient states she is not been drinking as much fluid as she thinks she should. Patient tested negative on home COVID test. Related Data Home Medications Medication Instructions Recorded Confirmed etonogestrel 68 mg subdermal 1 implant subdermal ONCE 04/29/21 09/27/22 implant (Nexplanon) venlafaxine 37.5 mg See Rx Instructions .Route 03/22/22 09/27/22 capsule,extended release 24 hr .COMPLEX #30 caps Previous Rx's Medication Instructions Recorded venlafaxine 37.5 mg See Rx Instructions .Route 03/22/22 capsule,extended release 24 hr .COMPLEX #30 caps Allergies Allergy/AdvReac Type Severity Reaction Status Date / Time No Known Allergies Allergy Verified 09/27/22 14:31 General Stated Complaint: RespSymp JOHN: 4 Review of Systems Constitutional Constitutional: Reports body ache(s), Reports fatigue and Reports fever(s) Cardiovascular Cardiovascular: Denies dyspnea Respiratory Respiratory: Reports cough and Denies dyspnea Gastrointestinal Gastrointestinal: Denies vomiting Endocrine Endocrine: Reports fatigue PFSH All Active Problems (Updated 09/27/22 @ 15:30 by Darvin Thomas MD) Influenza A (Acute) Nexplanon in place (Acute) Cervical cancer screening (Acute) Encounter for counseling regarding contraception (Acute) Lactating mother (Acute) care following vaginal delivery (Acute) Active labor at term (Acute) contractions (Acute) Kidney stone complicating (Acute) 7 mm right non obstructing stone Acute dehydration (Acute) (Acute) Echogenic intracardiac focus of fetus on ultrasound (Acute) Choroid plexus cyst of fetus (Acute) Abdominal mass (Acute) Chronic constipation (Acute) Marijuana use (Acute) Tobacco dependence (Acute) Poor dentition (Acute 12/13/17) Medical History Biliary colic Cholelithiasis affecting , antepartum US 2/ no acute cholecystitis Gallstone pancreatitis History of depression adolescence - around of grandparent. No Rx. No recurrences Nexplanon insertion Sports injuries played basketball in HS. wears brace on R knee. Has R shoulder pain. Upper abdominal pain of unknown etiology Family History Father Diabetes Social History Smoking/Tobacco Use Status: Former Tobacco Use Smoking risk assessment performed?: Yes Alcohol Intake: never Drug use: Daily Substance use type: marijuana Number of Children: 0 Do you think of yourself as: straight/heterosexual Current gender identity: female What is your relationship status?: living with partner Panel score (0-1 are the most socially isolated patients): 1 Special camron needs: No Seatbelt use: always Helmet use: Yes Do you feel safe at home: Yes Do you feel safe in your relationship?: Yes Victim of physical abuse: No Victim of sexual abuse: No History History 3 Para 1 Hx # Term Pregnancies 1 Multiple births 0 Hx # Pregnancies 0 Ectopic pregnancies 0 AB induced 0 Hx Number of Living Children 2 AB spontaneous 0 Past Pregnancies Del. Date GA/Weeks # Preg Succ Route Wgt Sex Labor Lgth Anesthesia Location Prov Complic Unknown 03/29/18 39 No vaginal 3770.487 g Male 28 hours [facility] PERDOMO 02/28/21 38 No vaginal Male [facility] Delivery Date: Last Updated by: Ai Mishra LPN 1st degree laceration Delivery Date: 03/29/18 Last Updated by: Kelly Solares CNM post hemorrhage from laceration. Long repair with bleeding. Anti-M antibody. Mild jaundice Exam Const General: cooperative and no acute distress [facility] Mouth: moist mucous membranes Throat: posterior oropharynx abnormal erythema (Mild); no edema and no exudates Eyes Conjunctivae: normal conjunctivae Sclera: normal sclerae Neck Neck: trachea midline and supple Resp Effort & Inspection: normal respiratory effort, not labored and not tachypneic Auscultation: no rales, rhonchi and no wheezes Cardio Rate: tachycardic Rhythm: regular rhythm GI Palpation: soft, not firm, no guarding, no masses, not rigid and nontender Skin General skin exam: no rashes or lesions noted Neuro General: patient alert, patient awake and tone normal Extrem General: no edema Psych Appearance: grossly normal Mental Status: mental status grossly normal Speech and Movement: speech and movement normal Course Vital Signs Vital signs: Vital Signs Temperature 37.0 C 09/27/22 14:29 Pulse 138 H 09/27/22 14:29 Respiratory Rate 18 09/27/22 14:29 Blood Pressure 120/64 09/27/22 14:29 Pulse Oximetry 99 09/27/22 14:29 Temperature 37.0 C 09/27/22 14:29 Temperature Source Temporal Artery Scan 09/27/22 14:29 Pulse 138 H 09/27/22 14:29 Respiratory Rate 18 12/12/22 14:29 Respiratory Effort 09/27/22 14:31 Blood Pressure 120/64 09/27/22 14:29 Blood Pressure Position Sitting 09/27/22 14:29 Pulse Oximetry 99 09/27/22 14:29 Oxygen Delivery Method Room Air 09/27/22 14:29 Oxygen Flow Rate 0 09/27/22 14:29 Pain Level 0 09/27/22 14:29
[2022-09-27] MEDS: Acetaminophen 325 MG TAB 650 MG PO (15:34)
[2022-09-27] MEDS: Ibuprofen 600 MG TAB PO (15:35)
[2022-09-27 15:53] VITALS: BP 114/77; PULSE 102; TEMP 37; O2SAT 100
[2022-09-29 11:03] LABS: COVID-19 RT-PCR UVMMC Result Negative (Negative)
--- NOTE | 2022-09-29 15:18 | NUR.NOTE ---
Called and let patient know she was covid negative.
== END 2022-09-27 16:06 | disposition home or self-care (01) ==
PROVIDERS: Emergency Provider Student in an Organized Health Care Education/Training Program; PCP Nurse Practitioner Family
DX: J10.1 Influenza due to other identified influenza virus with other respiratory manifestations (principal)
CPT/HCPCS: 99282; U0003

== ENCOUNTER 2023-07-11 18:29 | Emergency (ER) | payer BC, SELFPAY ==
[2023-07-11 18:36] VITALS: BP 126/77; PULSE 87; RESP 15; TEMP 36.8; O2SAT 98
--- NOTE | 2023-07-11 19:34 | ED.GENADUL_ITS ---
Discharge Plan Disposition Patient Disposition: Home Condition: Good Discharge Details Clinical Impression: Acute bilateral low back pain Primary Care Provider: Lula Mota ED Provider: Princess Epps Home Meds and New Rx's Prescriptions: New cyclobenzaprine 5 mg tablet 5 mg PO TID PRNQty: 10 0RF No Action Nexplanon 68 mg implant 1 implant subdermal ONCE Patient Comments: Placed on 04/08/21 by Kelly Solares Rx Instructions: as a single dose venlafaxine 37.5 mg capsule,extended release 24hr See Rx Instructions .ROUTE .COMPLEX Qty: 30 8RF Dose Instruction: TAKE ONE CAPSULE BY MOUTH EVERY DAY Rx Instructions: TAKE ONE CAPSULE BY MOUTH EVERY DAY Discharge Instructions Instructions: Low Back Strain (ED) Additional Instructions: Take tylenol and ibuprofen over the counter for pain; follow the directions on the bottle. You can take flexeril up to every 8 hours as needed for muscle spasm; use caution when driving while taking this medication as it can make you sleepy. Call your primary care doctor tomorrow to schedule an appointment to follow up on your visit today. Return to the emergency department for new or worsening symptoms, including intolerable pain, inability to walk, numbness/tingling/weakness, bowel or bladder incontinence, fever, or if you have any other concerns. Referrals: Lula Mota [Primary Care Provider] - Medical Decision Making 27yo previously healthy female presenting with acute low back pain x 4 days. Vital signs and physical exam reassuring, normal neurologic exam, palpable spasm on exam. No red flags for back pain on history or exam to suggest vertebral fracture, spinal cord compression, cauda equina, etc. Would not puruse labs or imaging/CT/MRI at this time. Will treat symptoms with tylenol/toradol/flexeril. On reassessment reports pain has much improved. Discharged home with short course of flexeril; discharge instructions including return precautions were reviewed with patient who verbalized understanding. All questions were answered and they are in full agreement with the plan. HPI General Mode of arrival: ambulatory . Date/Time Provider Initiated Documentation: 07/11/23 18:43 . Limitations to Documentation: no limitations . Information obtained by: patient . HPI Narrative: 27yo previously healthy female presenting with acute low back pain x 4 days. 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 No significant trauma. Unrelieved by home tylenol, tiger balm, and heat packs. Worse with activity. No upper back pain, numbness, tingling, weakness, bowel/bladder issues, fevers, neck pain, dysuria, hematuria, or other concerns. She is otherwise in her usual state of health. Related Data Home Medications Medication Instructions Recorded Confirmed etonogestrel 68 mg subdermal 1 implant subdermal ONCE 04/29/21 09/27/22 implant (Nexplanon) venlafaxine 37.5 mg See Rx Instructions .Route 03/22/22 09/27/22 capsule,extended release 24 hr .COMPLEX #30 caps cyclobenzaprine 5 mg tablet 5 mg PO TID PRN #10 tabs 07/11/23 Previous Rx's Medication Instructions Recorded venlafaxine 37.5 mg See Rx Instructions .Route 03/22/22 capsule,extended release 24 hr .COMPLEX #30 caps cyclobenzaprine 5 mg tablet 5 mg PO TID PRN #10 tabs 07/11/23 Allergies Allergy/AdvReac Type Severity Reaction Status Date / Time No Known Allergies Allergy Verified 09/27/22 14:31 General Stated Complaint: Nk/Back Pain JOHN: 4 Review of Systems Narrative: see HPI PFSH All Active Problems (Updated 07/11/23 @ 19:42 by Princess Epps MD) Acute bilateral low back pain (Acute) Nexplanon in place (Acute) Cervical cancer screening (Acute) Encounter for counseling regarding contraception (Acute) Lactating mother (Acute) care following vaginal delivery (Acute) Active labor at term (Acute) contractions (Acute) Kidney stone complicating (Acute) 7 mm right non obstructing stone Acute dehydration (Acute) (Acute) Echogenic intracardiac focus of fetus on ultrasound (Acute) Choroid plexus cyst of fetus (Acute) Abdominal mass (Acute) Chronic constipation (Acute) Marijuana use (Acute) Tobacco dependence (Acute) Poor dentition (Acute 12/13/17) Medical History Biliary colic Cholelithiasis affecting , antepartum US 2/ no acute cholecystitis Gallstone pancreatitis History of depression adolescence - around of grandparent. No Rx. No recurrences Nexplanon insertion Sports injuries played basketball in HS. wears brace on R knee. Has R shoulder pain. Upper abdominal pain of unknown etiology Family History Father Diabetes Social History Smoking/Tobacco Use Status: Former Tobacco Use Smoking risk assessment performed?: Yes Alcohol Intake: never Drug use: Daily Substance use type: marijuana Number of Children: 0 Do you think of yourself as: straight/heterosexual Current gender identity: female What is your relationship status?: living with partner Panel score (0-1 are the most socially isolated patients): 1 Special camron needs: No Seatbelt use: always Helmet use: Yes Do you feel safe at home: Yes Do you feel safe in your relationship?: Yes Victim of physical abuse: No Victim of sexual abuse: No History History 3 Para 1 Hx # Term Pregnancies 1 Multiple births 0 Hx # Pregnancies 0 Ectopic pregnancies 0 AB induced 0 Hx Number of Living Children 2 AB spontaneous 0 Past Pregnancies Del. Date GA/Weeks # Preg Succ Route Wgt Sex Labor Lgth Anesth esia Location Prov Complic Unknown 03/29/18 39 No vaginal 3770.487 g Male 28 hours [facility] [place] 02/28/21 38 No vaginal Male [facility] PER[facility] Delivery Date: Last Updated by: Ai Mishra LPN 1st degree laceration Delivery Date: 03/29/18 Last Updated by: Kelly Solares CNM post hemorrhage from laceration. Long repair with bleeding. Anti-M antibody. Mild jaundice Exam Narrative Exam Narrative: General: Alert, well appearing, well nourished, in no acute distress. Head: Normocephalic, atraumatic Neck: Trachea midline, Neck supple. Cardiac: No cyanosis. Resp: No respiratory distress. Speaks in full sentences. Abd: Non-distended, : No suprapubic tenderness. No CVA tenderness. Extremities: No deformities. No peripheral edema. Back: Low lumbar paraspinal tenderness to palpation bilaterally with palpable spasm Neuro: Alert GCS 15. Motor- 5/5 strength symmetric bilateral upper and lower extremities Sensation- Intact to light touch and symmetric multiple dermatomes including upper and lower extremities Course Vital Signs Vital signs: Vital Signs Temperature 36.8 C 07/11/23 18:36 Pulse 87 07/11/23 18:36 Respiratory Rate 15 07/11/23 18:36 Blood Pressure 126/77 07/11/23 18:36 Pulse Oximetry 98 07/11/23 18:36 Temperature 36.8 C 07/11/23 18:36 Temperature Source Tympanic 07/11/23 18:36 Pulse 87 07/11/23 18:36 Respiratory Rate 15 07/11/23 18:36 Respiratory Effort Normal 07/11/23 19:31 Blood Pressure 126/77 07/11/23 18:36 Blood Pressure Position Sitting 07/11/23 18:36 Pulse Oximetry 98 07/11/23 18:36 Oxygen Delivery Method Room Air 07/11/23 18:36 Oxygen Flow Rate 0 07/11/23 18:36 Pain Level 10 07/11/23 18:36
[2023-07-11] MEDS: Acetaminophen 500 MG TAB 1000 MG PO (19:39)
[2023-07-11] MEDS: Cyclobenzaprine 10 MG TAB 5 MG PO (19:39)
[2023-07-11] MEDS: Ketorolac 15 MG/ML VIAL IM (19:40)
== END 2023-07-11 20:21 | disposition home or self-care (01) ==
PROVIDERS: Emergency Provider Student in an Organized Health Care Education/Training Program; PCP Nurse Practitioner Family
DX: M54.50 Low back pain, unspecified (principal)
CPT/HCPCS: 96372; 99284; 99283; J1885

== ENCOUNTER 2023-07-25 15:55 | Emergency (ER) | payer BC, SELFPAY ==
[2023-07-25 15:57] VITALS: BP 117/54; PULSE 78; RESP 18; TEMP 36.5; O2SAT 99
--- NOTE | 2023-07-25 16:09 | ED.GENADUL_ITS ---
Discharge Plan Disposition Patient Disposition: Home Condition: Stable Discharge Details Clinical Impression: Nausea vomiting and diarrhea Primary Care Provider: Melissa Land ED Provider: Russ Mcfadden Home Meds and New Rx's Prescriptions: New ondansetron 4 mg tablet,disintegrating 4 mg PO Q8H PRN (Reason: nausea and vomiting) Qty: 30 0RF Continued Nexplanon 68 mg implant 1 implant subdermal ONCE Patient Comments: Placed on 04/08/21 by Kelly Solares Rx Instructions: as a single dose Discharge Instructions Instructions: Acute Nausea and Vomiting (ED) Additional Instructions: Follow up with your primary care provider within 1 week if not improving if you feel more ill, have severe worsening pain or persistent vomiting return to the emergency department Medical Decision Making 27 yo female comes in with n/v and diarrhea since last night, states she had nausea during the day but then started vomiting last night. Denies fevers, chills, chest pain, dyspnea. When she is vomiting she has pain in the epigastric area, no pain when not vomiting. She is stable on arrival, caox4 speaking clearly. She has clear lungs, no murmurs, soft nontender abdomen. Suspect gastroenteritis, given lack of abdominal tenderness and only epigastric pain when vomiting doubt surgical pathology such as cholecystitis, appendicitis or sbo. Will obtain cbc, cmp, lipase and treat with fluids and droperidol. Do not feel imaging at this time indicated. pt requesting d/c, states she feels better, labs unremarkable, suspect gastroenteritis vs food illness, still no abdominal tenderness, will have her f/u with her pcp, return precautions given Differential Diagnosis Differential Diagnosis: pancreatitis, gastroenteritis Medical Records Medical records reviewed: Yes I reviewed the patient's medical records. Lab Data Lab results reviewed: Yes I reviewed the patient's lab results. HPI General Mode of arrival: ambulatory . Date/Time Provider Initiated Documentation: 07/25/23 15:56 . Limitations to Documentation: no limitations . Information obtained by: patient . History of Present Illness 27 year old F presents to the emergency department with the chief complaint of nausea and vomiting, described as moderate, Patient started experiencing this day(s) (1) and it has been intermittent. No relieving factors improve symptom(s), No exacerbating factors reported . Patient notes other (diarrhea). Patient did receive the following treatments prior to arrival, none Related Data Home Medications Medication Instructions Recorded Confirmed etonogestrel 68 mg subdermal 1 implant subdermal ONCE 04/29/21 07/25/23 implant (Nexplanon) ondansetron 4 mg disintegrating 4 mg PO Q8H PRN nausea and 07/25/23 tablet vomiting #30 tabs Previous Rx's Medication Instructions Recorded ondansetron 4 mg disintegrating 4 mg PO Q8H PRN nausea and 07/25/23 tablet vomiting #30 tabs Allergies Allergy/AdvReac Type Severity Reaction Status Date / Time No Known Allergies Allergy Verified 07/25/23 16:00 General Stated Complaint: Nausea/Vomit/Diar JOHN: 3 Review of Systems All systems reviewed & are unremarkable except as noted in HPI and below Constitutional Constitutional: Denies chills, Denies fever(s) and Denies weakness Cardiovascular Cardiovascular: Denies chest pain and Denies dyspnea Respiratory Respiratory: Denies cough and Denies dyspnea Gastrointestinal Gastrointestinal: Reports abdominal pain, Reports nausea and Reports vomiting Integumentary/Breasts Skin/Breast: Denies rash Neurologic Neurologic: Denies weakness [facility] All Active Problems (Updated 07/25/23 @ 17:37 by Russ Mcfadden MD) Acute bilateral low back pain (Acute) Nausea vomiting and diarrhea (Acute) Nexplanon in place (Acute) Cervical cancer screening (Acute) Encounter for counseling regarding contraception (Acute) Lactating mother (Acute) care following vaginal delivery (Acute) Active labor at term (Acute) contractions (Acute) Kidney stone complicating (Acute) 7 mm right non obstructing stone Acute dehydration (Acute) (Acute) Echogenic intracardiac focus of fetus on ultrasound (Acute) Choroid plexus cyst of fetus (Acute) Abdominal mass (Acute) Chronic constipation (Acute) Marijuana use (Acute) Tobacco dependence (Acute) Poor dentition (Acute 12/13/17) Medical History Biliary colic Cholelithiasis affecting , antepartum US 2/ no acute cholecystitis Gallstone pancreatitis History of depression adolescence - around of grandparent. No Rx. No recurrences Nexplanon insertion Sports injuries played basketball in HS. wears brace on R knee. Has R shoulder pain. Upper abdominal pain of unknown etiology Family History Father Diabetes Social History Smoking/Tobacco Use Status: Current every day Tobacco Type: e-cigarettes Smoking risk assessment performed?: Yes Alcohol Intake: never Drug use: Daily Substance use type: marijuana Number of Children: 0 Do you think of yourself as: straight/heterosexual Current gender identity: female What is your relationship status?: living with partner Panel score (0-1 are the most socially isolated patients): 1 Special camron needs: No Seatbelt use: always Helmet use: Yes Do you feel safe at home: Yes Do you feel safe in your relationship?: Yes Victim of physical abuse: No Victim of sexual abuse: No History History 3 Para 1 Hx # Term Pregnancies 1 Multiple births 0 Hx # Pregnancies 0 Ectopic pregnancies 0 AB induced 0 Hx Number of Living Children 2 AB spontaneous 0 Past Pregnancies Del. Date GA/Weeks # Preg Succ Route Wgt Sex Labor Lgth Anesth esia Location Prov Complic Unknown 03/29/18 39 No vaginal 3770.487 g Male 28 hours [facility] 02/28/21 38 No vaginal Male [facility] PER[facility] Delivery Date: Last Updated by: Ai Mishra LPN 1st degree laceration Delivery Date: 03/29/18 Last Updated by: Kelly Solares CNM post hemorrhage from laceration. Long repair with bleeding. Anti-M antibody. Mild jaundice Exam Const General: no acute distress Orientation: alert [facility] Head: normal to inspection Ears: external ears normal General nose exam: external nose normal Mouth: moist mucous membranes Eyes General: appearance normal, both eyes and all related structures Neck Neck: normal visual inspection Resp Effort & Inspection: normal respiratory effort and able to speak in complete sentences Auscultation: clear to auscultation bilaterally Cardio Rate: regular rate Heart Sounds: no murmurs GI Palpation: soft and nontender Skin General skin exam: no rashes or lesions noted Neuro General: patient alert and patient oriented x3 Extrem General: normal to inspection Psych Mental Status: mental status grossly normal Course Vital Signs Vital signs: Vital Signs Temperature 36.5 C 07/25/23 15:57 Pulse 78 07/25/23 15:57 Respiratory Rate 18 07/25/23 15:57 Blood Pressure 117/54 L 07/25/23 15:57 Pulse Oximetry 99 07/25/23 15:57 Temperature 36.5 C 07/25/23 15:57 Temperature Source Oral 07/25/23 15:57 Pulse 78 07/25/23 15:57 Respiratory Rate 18 07/25/23 15:57 Respiratory Effort Normal, Non-Labored 07/25/23 16:00 Blood Pressure 117/54 L 07/25/23 15:57 Blood Pressure Position Sitting 07/25/23 15:57 Pulse Oximetry 99 07/25/23 15:57 Oxygen Delivery Method Room Air 07/25/23 15:57 Oxygen Flow Rate 0 07/25/23 15:57 Pain Level 8 07/25/23 15:57
[2023-07-25] MEDS: Normal Saline 1,000 ML 1000 ML IV (16:37)
[2023-07-25] MEDS: Droperidol 5 MG/2 ML VIAL 2.5 MG IVP (16:38)
[2023-07-25 16:41] LABS: Abs Immature Grans 0.06 10^3/uL (0.0-0.06); Absolute Basophil Count 0.03 10^3/uL (0.0-0.2); Absolute Eosinophil Count 0.21 10^3/uL (0.0-0.7); Absolute Lymphocyte Count 0.85 10^3/uL (1.2-3.4); Basophils % 0.2; Eosinophils % 1.5; Immature Grans % 0.4; Lymphocytes % 6.2; MCH 30.2 pg (27.0-33.0); MCHC 33.3 % (32.0-36.0); MCV 91 fL (80-95); Monocytes % 6.1; Neutrophils % 85.6; RBC 4.97 10^6/uL (3.93-5.22); RDW-SD 43.2 fL; WBC 13.69 10^3/uL (4.4-10.8)
[2023-07-25 16:50] LABS: Absolute Monocyte Count 0.84 10^3/uL (0.1-0.8); Absolute Neutrophil Count 11.72 10^3/uL (1.2-6.7)
[2023-07-25 17:04] LABS: Diff Comment PLT Morph Reviewed; RBC Morphology Normal
[2023-07-25 17:21] LABS: ALT 24 U/L (14-59); AST 15 U/L (15-37); Albumin 4.5 g/dL (3.4-5.0); Alkaline Phosphatase 96 U/L (46-116); BUN 11 mg/dL (7-18); Bilirubin, Total 1.2 mg/dL (0.2-1.0); CREATININE 0.6 mg/dL (0.55-1.02); Calcium 9.9 mg/dL (8.5-10.1); Chloride 99 mmol/L (98-107); Estimated GFR 126.87 (mL/min/1.73m2); Glucose 96 mg/dL (74-106); Lipase 26 U/L (16-77); Potassium 3.5 mmol/L (3.5-5.1); Sodium 135 mmol/L (136-145); Total Protein 8.5 g/dL (6.4-8.2)
[2023-07-25 17:39] VITALS: BP 126/78; PULSE 76; RESP 20; TEMP 36.8; O2SAT 98
== END 2023-07-25 17:42 | disposition home or self-care (01) ==
PROVIDERS: Emergency Provider Emergency Medicine; PCP Nurse Practitioner Family
DX: R11.2 Nausea with vomiting, unspecified (principal)
CPT/HCPCS: 80053; 81025; 83690; 96361; 96374; 99284; 83735; 85025; J1790

== ENCOUNTER 2023-11-15 08:57 | Emergency (ER) | payer OTHER, SELFPAY ==
[2023-11-15 08:58] VITALS: BP 133/65; PULSE 79; RESP 18; TEMP 36.7; O2SAT 99
--- NOTE | 2023-11-15 09:07 | W.ED.GENAD ---
HPI General Date/Time Provider Initiated Documentation: 11/15/23 09:00. HPI Narrative: 28 year-old female presents to ED today by POV/ambulating with her family with a chief complaint of R paraspinal lumbar back pain with onset noted since last Tuesday. Quality described as pain with movement, radiating up her paraspinal muscles, no radiation to urinary retention, bowel incontinence, groin numbness, fever, weakness to legs. Severity is described as moderate to severe. Palliating factors include has been using OTC analgesics and lidocaine patches. Provoking factors include nothing specific. Patient not anticoagulated. Related Data Home Medications Medication Instructions Recorded Confirmed etonogestrel 68 mg subdermal 1 implant subdermal ONCE 04/29/11/15/23 implant (Nexplanon) cyclobenzaprine 10 mg tablet 10 mg PO TID PRN lumbar spasm #30 11/15/23 tabs ketorolac 10 mg tablet 10 mg PO Q6H PRN pain 5 days #20 11/15/23 tabs lidocaine 5 % topical patch 1 patch topical DAILY lumbar 11/15/23 (Lidoderm) strain #15 ea Previous Rx's Medication Instructions Recorded cyclobenzaprine 10 mg tablet 10 mg PO TID PRN lumbar spasm #30 11/15/23 tabs ketorolac 10 mg tablet 10 mg PO Q6H PRN pain 5 days #20 11/15/23 tabs lidocaine 5 % topical patch 1 patch topical DAILY lumbar 11/15/23 (Lidoderm) strain #15 ea Allergies Allergy/AdvReac Type Severity Reaction Status Date / Time No Known Allergies Allergy Verified 11/15/23 09:01 General Stated Complaint: Nk/Back Pain JOHN: 4 Review of Systems All systems reviewed & are unremarkable except as noted in HPI and below Exam Narrative Exam Narrative: GENERAL APPEARANCE: Well-nourished, non-toxic, awake and alert, atraumatic, no acute distress. SKIN: Warm, pink, dry, intact, without rashes/lesions/ulcerations. HEAD: Normocephalic, atraumatic, normal hair distribution for gender/age. EYES: Pupils PERRLA, EOMs intact without nystagmus, normal conjunctiva, no exudates on lids/lashes. ENT: Nares patent, no circumoral cyanosis, no facial swelling NECK: Supple, trachea midline, painless cervical ROM. LUNGS/CHEST: Non-labored respirations, normal A/P diameter, symmetrical expansion, no chest wall deformity HEART (CV/PV): No peripheral edema, no JVD. ABDOMEN: Soft, non-distended, no guarding. MSK: Normal ROM, no swelling/deformity to bilateral UEs or LEs, moving all extremities without weakness, no cyanosis, spine midline without tenderness, normal curvature. Back: Right paraspinal lumbar tenderness over the SI joint, radiating up the lumbar paraspinals, neurovascularly intact in the right lower extremity, able to straight leg raise bilateral legs, pain with passive stretching of the right lower extremity, no saddle anesthesia, no midline vertebral tenderness NEURO: Mental Status AAOx4 - alert to person, place, time, events No facial droop, no forehead involvement. Motor: No focal weakness - strength 5/5 in bilateral UEs and LEs, proximal and distal, symmetric. Sensory: sensation intact to light touch globally. Gait normal: patient ambulated without ataxia into ED room. PSYCH: euthymic, cooperative, pleasant, appropriate speech Course Vital Signs Vital signs: Vital Signs Temperature 36.7 C 11/15/23 08:58 Pulse 79 11/15/23 08:58 Respiratory Rate 18 11/15/23 08:58 Blood Pressure 133/65 11/15/23 08:58 Pulse Oximetry 99 11/15/23 08:58 Temperature 36.7 C 11/15/23 08:58 Temperature Source Skin 11/15/23 08:58 Pulse 79 11/15/23 08:58 Respiratory Rate 18 11/15/23 08:58 Respiratory Effort Normal, Non-Labored 11/15/23 09:01 Blood Pressure 133/65 11/15/23 08:58 Blood Pressure Position Sitting 11/15/23 08:58 Pulse Oximetry 99 11/15/23 08:58 Oxygen Delivery Method Room Air 11/15/23 08:58 Oxygen Flow Rate 0 11/15/23 08:58 Pain Level 10 11/15/23 08:58 Medical Decision Making This dictation utilizes [id number] dictation software and may contain unedited grammatical errors. 28 y/o F presents to ED today with a chief complaint of lumbar paraspinal pain, ongoing for about a week, no bowel/urinary changes or fevers, able to ambulate, bending causing pain. Patients' medical history: noncontributory. Family and social history: noncontributory. Pertinent exam findings / vital signs include Back: Right paraspinal lumbar tenderness over the SI joint, radiating up the lumbar paraspinals, neurovascularly intact in the right lower extremity, able to straight leg raise bilateral legs, pain with passive stretching of the right lower extremity, no saddle anesthesia, no midline vertebral tenderness. Differential / pathologies of concern include Sciatica, Not fracture. Diagnostic studies of: -none. Interventions of: -outpatient Rx recommendations. ED Course/Assessment/Plan: 28-year-old healthy female presents with right paraspinal pain, not radiating down the lower extremity but does have pain with passive stretching of this lower extremity, no signs of cauda equina, likely sciatica. Counseled on therapeutic dosing of Tylenol, prescription for Toradol for 5 days then ibuprofen, prescription topical lidocaine patches, gentle heat and massage, following with physical therapy for exercises at home as well as +/- chiropractor. Findings not consistent with cauda equina, trauma, neurovascular compromise. Disposition of Sciatica. Patient verbalized understanding of the plan and return to ED criteria and engaged in shared decision making. Medical Records Medical records reviewed: Yes I reviewed the patient's medical records. Quality:SDOH Health Related Social Needs: No Data to Display PFSH All Active Problems (Updated 11/15/23 @ 09:26 by RANDY Brito) Sciatica (Acute) Nexplanon in place (Acute) Cervical cancer screening (Acute) Encounter for counseling regarding contraception (Acute) Lactating mother (Acute) care following vaginal delivery (Acute) Active labor at term (Acute) contractions (Acute) Kidney stone complicating (Acute) 7 mm right non obstructing stone Acute dehydration (Acute) (Acute) Echogenic intracardiac focus of fetus on ultrasound (Acute) Choroid plexus cyst of fetus (Acute) Abdominal mass (Acute) Chronic constipation (Acute) Marijuana use (Acute) Tobacco dependence (Acute) Poor dentition (Acute 12/13/17) Medical History Biliary colic Cholelithiasis affecting , antepartum US 2/ no acute cholecystitis Gallstone pancreatitis History of depression adolescence - around of grandparent. No Rx. No recurrences Nexplanon insertion Sports injuries played basketball in HS. wears brace on R knee. Has R shoulder pain. Upper abdominal pain of unknown etiology Family History Father Diabetes Social History Smoking/Tobacco Use Status: Current every day Tobacco Type: e-cigarettes Smoking risk assessment performed?: Yes Alcohol Intake: never Drug use: Daily Substance use type: marijuana Number of Children: 0 Do you think of yourself as: straight/heterosexual Current gender identity: female What is your relationship status?: living with partner Panel score (0-1 are the most socially isolated patients): 1 Special camron needs: No Seatbelt use: always Helmet use: Yes Do you feel safe at home: Yes Do you feel safe in your relationship?: Yes Victim of physical abuse: No Victim of sexual abuse: No History History 3 Para 1 Hx # Term Pregnancies 1 Multiple births 0 Hx # Pregnancies 0 Ectopic pregnancies 0 AB induced 0 Hx Number of Living Children 2 AB spontaneous 0 Past Pregnancies Del. Date GA/Weeks # Preg Succ Route Wgt Sex Labor Lgth Anesthesia Location Prov Complic Unknown 03/29/18 39 No vaginal 3770.487 g Male 28 hours regional [facility] PERDOMO 02/28/21 38 No vaginal Male Marta PERDOMO Delivery Date: Last Updated by: Ai Mishra LPN 1st degree laceration Delivery Date: 03/29/18 Last Updated by: Kelly Solares CNM post hemorrhage from laceration. Long repair with bleeding. Anti-M antibody. Mild jaundice Discharge Plan Disposition Patient Disposition: Home Condition: Stable Discharge Details Clinical Impression: Sciatica Primary Care Provider: Melissa Land ED Provider: Case Mejia Home Meds and New Rx's Prescriptions: New ketorolac 10 mg tablet 10 mg PO Q6H PRN (Reason: pain) 5 Days Qty: 20 0RF cyclobenzaprine 10 mg tablet 10 mg PO TID PRN (Reason: lumbar spasm) Qty: 30 0RF lidocaine [Lidoderm] 5 % adhesive patch,medicated 1 patch topical DAILY Qty: 15 0RF Rx Instructions: leave on most painful area for up to 12 hrs No Action Nexplanon 68 mg implant 1 implant subdermal ONCE Patient Comments: Placed on 04/08/21 by Kelly Solares Rx Instructions: as a single dose Discharge Instructions Instructions: Sciatica (ED) Additional Instructions: You were seen in the emergency department for your sciatica of your right lower back. You need to be taking adequate dosings of Tylenol and anti-inflammatories as well as muscle relaxers performing gentle heat and massage to the area, performing stretching exercises a Google search or seek physical therapy visits for, consider chiropractic visits for lower back pain. Please use therapeutic dosing of Tylenol (acetamenophen) & Advil (ibuprofen) in an alternating fashion as follows: Take 1000mg of Tylenol every 6 hours without missing doses- that is 4 times per day. For the first five days use the Rx ketorlac 4 times daily, THEN USE IBUPROFEN: (do not take ketorlac and ibuprofen simultaneously) Residential in between the Tylenol dosings, take 400-600mg of Advil also on a 6 hour schedule, that is also 4 times per day. The daily maximum dosing of Tylenol is 4000mg, and the daily maximum dosing of Advil is 2400mg. This is safe to do for weeks. Please note that some common cold medications & prescription pain medications may contain acetamenophen and you need to read OTC drug labels and factor that in to maximum daily dosings. Use the prescribed cyclobenzaprine for skeletal muscle relaxation, do not drive on this medication, if you need to drive use it later in the day to aid in stretching and relaxation of the lumbar muscles. Use a topical lidocaine patch for 12 hours each day. Please return for any severe increase in back pain with fever, urinary retention or bowel incontinence or numbness in the groin. Referrals: Melissa Land [Primary Care Provider] - Discharge Data Discharge Date/Time-TO BE ENTERED AT DEPARTURE: 11/15/23 09:55
== END 2023-11-15 09:55 | disposition home or self-care (01) ==
PROVIDERS: Emergency Provider Physician Assistant; PCP Nurse Practitioner Family
DX: M54.41 Lumbago with sciatica, right side (principal); F17.290 Nicotine dependence, other tobacco product, uncomplicated
CPT/HCPCS: 99283

== ENCOUNTER 2023-12-24 20:30 | Emergency (ER) | payer OTHER, SELFPAY ==
[2023-12-24 20:42] VITALS: BP 142/82; PULSE 91; RESP 16; TEMP 36.7; O2SAT 97
[2023-12-24] MEDS: Ondansetron O.D.T. 4 MG TABEF PO (21:07)
[2023-12-24] MEDS: Ondansetron O.D.T. 4 MG TABEF, 3 TABS/BTL PO (21:07)
--- NOTE | 2023-12-24 21:48 | W.ED.GENAD ---
Discharge Plan Disposition Patient Disposition: Home Condition: Good Discharge Details Clinical Impression: Vomiting Primary Care Provider: Melissa aLnd ED Provider: Case Cancino Home Meds and New Rx's Prescriptions: New ondansetron 4 mg tablet,disintegrating 4 mg PO Q8H Qty: 20 0RF No Action Nexplanon 68 mg implant 1 implant subdermal ONCE Patient Comments: Placed on 04/08/21 by Kelly Solares Rx Instructions: as a single dose cyclobenzaprine 10 mg tablet 10 mg PO TID PRN (Reason: lumbar spasm) Qty: 30 0RF Discharge Instructions Instructions: Acute Nausea and Vomiting (ED) Additional Instructions: At this time it is likely that your symptoms are secondary to a virus causing gastroenteritis. Please take the Zofran as needed. If you have persistent symptoms, you may need to return for an IV and labs. Please stick with a liquid diet for the next 2 days. Avoid any fatty foods greasy foods or tomato-based foods. If you notice any worsening of your symptoms, or any new symptoms such as vomiting, diarrhea, fever, chills, shortness of breath, chest pain, numbness, weakness, or fainting , please return immediately to the emergency department for reevaluation. Please follow up with your primary care provider as soon as possible for reassessment and reevaluation. As always, it was a pleasure participating in your medical care today. Stand Alone Forms: Work Release Referrals: Melissa Land [Primary Care Provider] - [facility] General Date/Time Provider Initiated Documentation: 12/24/23 20:46. HPI Narrative: 28-year-old female with past medical history of gallstones with subsequent cholecystectomy, previous depression, who presents today for nausea and vomiting. Patient states that she and her significant other developed nausea and vomiting over the last 24 hours. Children all had symptoms identical to this this past week. She denies any abdominal pain just mild generalized achiness and nausea throughout. She denies any chest pain. She denies any blood in the vomitus. No bloody diarrhea. No recent foreign travel or antibiotic use. No other complaints at this time. Related Data Home Medications Medication Instructions Recorded Confirmed etonogestrel 68 mg subdermal 1 implant subdermal ONCE 04/29/21 12/24/23 implant (Nexplanon) cyclobenzaprine 10 mg tablet 10 mg PO TID PRN lumbar spasm #30 11/15/23 12/24/23 tabs ondansetron 4 mg disintegrating 4 mg PO Q8H #20 tabs 12/24/23 tablet Previous Rx's Medication Instructions Recorded cyclobenzaprine 10 mg tablet 10 mg PO TID PRN lumbar spasm #30 11/15/23 tabs ondansetron 4 mg disintegrating 4 mg PO Q8H #20 tabs 12/24/23 tablet Allergies Allergy/AdvReac Type Severity Reaction Status Date / Time No Known Allergies Allergy Verified 12/24/23 20:41 General Stated Complaint: Abd Prob JOHN: 4 Review of Systems All systems reviewed & are unremarkable except as noted in HPI and below Exam Narrative Exam Narrative: 1.Const: Well-nourished, Well-developed, appearing stated age 2.Eyes: PERRL, no conjunctival injection, and symmetrical lids. 3.ENT: Atraumatic external nose and ears. Dry MM. Neck: Symmetric, trachea midline, No thyromegaly. 4.CVS: +S1/S2, No murmurs or gallops. Peripheral pulses 2+ and equal in all extremities. Brisk capillary refill in all extremities. 5.RESP: Unlabored respiratory effort. Clear to auscultation bilaterally. No wheezes rales or rhonchi 6.GI: Soft, Nontender/Nondistended, No hepatosplenomegaly. No guarding or rebound. No pain at McBurney's point. Negative Brewer sign. 7.MSK: Normocephalic/Atraumatic, Extremities w/o deformity or ttp No cyanosis or clubbing, Normal movement of all extremities 8.Skin: Warm, Dry. No rashes or lesions. 9.Neuro: buckle and button maker II-XII grossly intact. Sensation grossly intact, no focal neurologic deficits. 10.Psych: (AAO) x3. Appropriate mood and affect Course Vital Signs Vital signs: Vital Signs Temperature 36.7 C 12/24/23 20:42 Pulse 91 H 12/24/23 20:42 Respiratory Rate 16 12/24/23 20:42 Blood Pressure 142/82 H 12/24/23 20:42 Pulse Oximetry 97 12/24/23 20:42 Temperature 36.7 C 12/24/23 20:42 Temperature Source Temporal Artery Scan 12/24/23 20:42 Pulse 91 H 12/24/23 20:42 Respiratory Rate 16 12/24/23 20:42 Respiratory Effort Normal, Non-Labored 12/24/23 20:46 Blood Pressure 142/82 H 12/24/23 20:42 Blood Pressure Position Sitting 12/24/23 20:42 Pulse Oximetry 97 12/24/23 20:42 Oxygen Delivery Method Room Air 12/24/23 20:42 Oxygen Flow Rate 0 12/24/23 20:42 Pain Level 8 12/24/23 20:42 Medical Decision Making 28-year-old female with past medical history of gallstones with subsequent cholecystectomy, previous depression, who presents today for nausea and vomiting. Patient states that she and her significant other developed nausea and vomiting over the last 24 hours. Children all had symptoms identical to this this past week. She denies any abdominal pain just mild generalized achiness and nausea throughout. She denies any chest pain. She denies any blood in the vomitus. No bloody diarrhea. No recent foreign travel or antibiotic use. No other complaints at this time. Patient is currently on her menstrual cycle and not . Physical exam demonstrates mildly dry mucous membranes, nontender abdomen. No guarding or rebound. No pain to McBurney's point, negative Brewer sign. No evidence of an acute surgical abdomen. No headache vision changes or neurologic deficits to suggest intracranial bleed. Discussed options of IV fluids and mild laboratory workup, versus Zofran ODT and oral challenge. Patient elected to hold off on IV and would prefer to go with oral Zofran. Zofran 4 mg ODT was given, after 20 minutes she was reassessed and she tolerated p.o. well, her symptoms have resolved and she feels much better. Patient would like to go home. Will give her a work note, Zofran to go, and a prescription for Zofran. Discussed red flags which return. Symptoms appear consistent with a viral gastroenteritis. I have extensively reviewed the treatment plan and discharge instructions with the patient. I have addressed all patient concerns at this time. The patient was made aware of what symptoms to monitor for that would warrant a return to the emergency department. Discussed the plan with the patient, they demonstrate verbal understanding and agreement with our assessment and plan at this time. The documentation in this chart was dictated using [employer] dictation software. Please excuse any dictation errors. Quality:SDOH Health Related Social Needs: No Data to Display PFSH All Active Problems Vomiting (Acute) Nexplanon in place (Acute) Cervical cancer screening (Acute) Encounter for counseling regarding contraception (Acute) Lactating mother (Acute) care following vaginal delivery (Acute) Active labor at term (Acute) contractions (Acute) Kidney stone complicating (Acute) 7 mm right non obstructing stone Acute dehydration (Acute) (Acute) Echogenic intracardiac focus of fetus on ultrasound (Acute) Choroid plexus cyst of fetus (Acute) Abdominal mass (Acute) Chronic constipation (Acute) Marijuana use (Acute) Tobacco dependence (Acute) Poor dentition (Acute 12/13/17) Medical History Nexplanon insertion Gallstone pancreatitis Biliary colic Cholelithiasis affecting , antepartum US 11/20 no acute cholecystitis Upper abdominal pain of unknown etiology Sports injuries played basketball in HS. wears brace on R knee. Has R shoulder pain. History of depression adolescence - around of grandparent. No Rx. No recurrences Family History Father Diabetes Social History Smoking/Tobacco Use Status: Current every day Tobacco Type: e-cigarettes Smoking risk assessment performed?: Yes Alcohol Intake: never Drug use: Daily Substance use type: marijuana Housing: house Number of Children: 0 Do you think of yourself as: straight/heterosexual Current gender identity: female What is your relationship status?: living with partner Panel score (0-1 are the most socially isolated patients): 1 Special camron needs: No Seatbelt use: always Helmet use: Yes Do you feel safe at home: Yes Do you feel safe in your relationship?: Yes Victim of physical abuse: No Victim of sexual abuse: No History History 3 Para 1 Hx # Term Pregnancies 1 Multiple births 0 Hx # Pregnancies 0 Ectopic pregnancies 0 AB induced 0 Hx Number of Living Children 2 AB spontaneous 0 Past Pregnancies Del. Date GA/Weeks # Preg Succ Route Wgt Sex Labor Lgth Anesthesia Location Prov Complic Unknown 03/29/18 39 No vaginal 3770.487 g Male 28 hours regional [facility] PERDOMO 02/28/21 38 No vaginal Male Marta PERDOMO Delivery Date: Last Updated by: Ai Mishra LPN 1st degree laceration Delivery Date: 03/29/18 Last Updated by: Kelly Solares CNM post hemorrhage from laceration. Long repair with bleeding. Anti-M antibody. Mild jaundice
[2023-12-24 21:55] VITALS: BP 120/76; PULSE 79; RESP 18; TEMP 36.7; O2SAT 98
== END 2023-12-24 21:55 | disposition home or self-care (01) ==
PROVIDERS: Emergency Provider Student in an Organized Health Care Education/Training Program; PCP Nurse Practitioner Family
DX: R11.2 Nausea with vomiting, unspecified (principal); R19.7 Diarrhea, unspecified; Z90.49 Acquired absence of other specified parts of digestive tract

== ENCOUNTER 2024-06-25 17:13 | Emergency (ER) | payer OTHER, SELFPAY ==
[2024-06-25 17:16] VITALS: BP 120/81; PULSE 76; RESP 18; TEMP 36.7; O2SAT 97
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
--- OUTSIDE RECORDS SUMMARY | 2024-06-25 17:24 | XMS_ITS | Continuity of Care Document ---
Author Organization [facility] Address [address] [place] [address] Encounter LTTL_ID FIN [id number] Date(s): 02/18/23 - 02/18/23 [facility] [address] [place] [address]- Discharge Disposition: Home or Self Care Attending Physician: Jhonny Treviño. PA Admitting Physician: Jhonny Treviño. PA Allergies, Adverse Reactions, Alerts No Known Allergies Results Radiology Reports * Exam Date Time Procedure Performing Provider Status 02/18/23 11:06 AM XR Hand Complete 3+ Views Left Mica Lynn; Gary (Verified) Notes: (XR Hand Complete 3+ Views Left) Reason For Exam: Left hand contusion tender over second metacarpal XR Hand Complete 3+ Views Left EXAM DESCRIPTION: XR Hand Complete 3+ Views Left 02/18/2023 INDICATION: LEFT HAND CONTUSION TENDER OVER SECOND METACARPAL COMPARISON: None FINDINGS: No acute fracture, dislocation or bone destructive process. Joint spaces are maintained. No radiographic foreign bodies are seen. IMPRESSION: 1. No acute fracture, dislocation or bone destructive process. JOB #: [id number] Final Signed by: Mono Douglas MD Signed (Electronic Signature): 02/18/2023 11:17 am Social History Social History Type Response Tobacco Former tobacco user Tobacco Use:. Sex XR Hand - left GE 3 Views * Mono Douglas MD: VERIFY, VERIFY Event Display: Report EXAM DESCRIPTION: XR Hand Complete 3+ Views Left 02/18/2023 INDICATION: LEFT HAND CONTUSION TENDER OVER SECOND METACARPAL COMPARISON: None FINDINGS: No acute fracture, dislocation or bone destructive process. Joint spaces are maintained. No radiographic foreign bodies are seen. IMPRESSION: 1. No acute fracture, dislocation or bone destructive process. JOB #: [id number] Final Signed by: Mono Douglas MD Signed (Electronic Signature): 02/18/2023 11:17 am Patient Care team information Care Team Related Persons Name: DIANA CALZADANATHAN Address: [address] [phone] [facility] Name: ELSILESLEE Address: [address] [phone] [facility] Name: SAKSHI GREENBERG Name: SAKSHI GREENBERG
--- OUTSIDE RECORDS SUMMARY | 2024-06-25 17:24 | XMS_ITS | Continuity of Care Document ---
Author Organization [facility] Ambulatory Clinics Address [address] [place] [address] Encounter [facility] FIN NBR [id number] Date(s): 09/25/22 - 09/25/22 [facility] Ambulatory Clinics [address], [place] [address] Encounter Diagnosis URI with cough and congestion(Discharge Diagnosis) - 09/25/22 Discharge Disposition: Home or Self Care Attending Physician: Jhonny Treviño. PA Allergies, Adverse Reactions, Alerts No Known Allergies Functional Status 09/25/22 Other exposure to Infectious Disease Non e Medications venlafaxine 37.5 mg oral capsule, extended release 37.5 mg = 1 cap, Oral, Daily, # 30 cap, 0 Refill(s) Start Date: 09/25/22 Status: Ordered Vital Signs Most recent to oldest [Reference Range]: 1 Temperature Tympanic [36.6-37.9 Deg C] 3 7.2 Deg C (09/25/22 5:38 PM) Peripheral Pulse Rate [60-100 bpm] 92 bp m (09/25/22 5:38 PM) Blood Pressure [90-140/60-90 mmHg] 121/7 2mmHg (09/25/22 5:38 PM) Weight 74 kg (09/25/22 5:38 PM) Weight Measured (lbs) 163.142 lb (09/25/22 5:38 PM) Height 168 cm (09/25/22 5:38 PM) Height/Length Measured (inches) 66.14 in ch (09/25/22 5:38 PM) BSA Measured 1.86 m2 (09/25/22 5:38 PM) Body Mass Index 26.22 kg/m2 (09/25/22 5:38 PM) Social History Social History Type Response Tobacco Former tobacco user Tobacco Use:. Sex Hospital Discharge Instructions Patient Education 09/25/2022 16:45:23 Upper Respiratory Infection, Adult, Bdxd-nx-Flow Upper Respiratory Infection, Adult An upper respiratory infection (URI) affects the nose, throat, and upper air passages. URIs are caused by germs (viruses). The most common type of URI is often called the common cold. Medicines cannot cure URIs, but you can do things at home to relieve your symptoms. URIs usually get better within 7???10 days. Follow these instructions at home: Activity ??? Rest as needed. ??? If you have a fever, stay home from work or school until your fever is gone, or until your doctor says you may return to work or school. ??? You should stay home until you cannot spread the infection anymore (you are not contagious). ??? Your doctor may have you wear a face mask so you have less risk of spreading the infection. Relieving symptoms ??? Gargle with a salt-water mixture 3???4 times a day or as needed. To make a salt-water mixture, completely dissolve ?1 tsp of salt in 1 cup of warm water. ??? Use a cool-mist humidifier to add moisture to the air. This can help you breathe more easily. Eating and drinking ??? Drink enough fluid to keep your pee (urine) pale yellow. ??? Eat soups and other clear broths. General instructions ??? Take nlja-iwo-rwpifxq and prescription medicines only as told by your doctor. These include cold medicines, fever reducers, and cough suppressants. ??? Do not use any products that contain nicotine or tobacco. These include cigarettes and e-cigarettes. If you need help quitting, ask your doctor. ??? Avoid being where people are smoking (avoid secondhand smoke). ??? Make sure you get regular shots and get the flu shot every year. ??? Keep all follow-up visits as told by your doctor. This is important. How to avoid spreading infection to others ??? Wash your hands often with soap and water. If you do not have soap and water, use hand television anchor. ??? Avoid touching your mouth, face, eyes, or nose. ??? Cough or sneeze into a tissue or your sleeve or elbow. Do not cough or sneeze into your hand orinto the air. Contact a doctor if: ??? You are getting worse, not better. ??? You have any of these: ??? A fever. ??? Chills. ??? Brown or red mucus in your nose. ??? Yellow or brown fluid (discharge)coming from your nose. ??? Pain in your face, especially when you bend forward. ??? Swollen neck glands. ??? Pain with swallowing. ??? White areas in the back of your throat. Get help right away if: ??? You have shortness of breath that gets worse. ??? You have very bad or constant: ??? Headache. ??? Ear pain. ??? Pain in your forehead, behind your eyes, and over your cheekbones (sinus pain). ??? Chest pain. ??? You have long-lasting (chronic) lung disease along with any of these: ??? Wheezing. ??? Long-lasting cough. ??? Coughing up blood. ??? A change in your usual mucus. ??? You have a stiff neck. ??? You have changes in your: ??? Vision. ??? Hearing. ??? Thinking. ??? Mood. Summary ??? An upper respiratory infection (URI) is caused by a germ called a virus. The most common type of URI is often called the common cold. ??? URIs usually get better within 7???10 days. ??? Take pvqk-jjt-ihgegas and prescription medicines only as told by your doctor. This information is not intended to replace advice given to you by your health care provider. Make sure you discuss any questions you have with your health care provider. Document Revised: 06/11/2021 Document Reviewed: 06/11/2021 [employer] Patient Education ?? 2021 [employer]. Physician Outpatient Note * Jhonny Treviño. RANDY: PERFORM Event Display: Office Clinic Note Physician Authored Date: [id number] DESTIN CALZADA :1995 Age:27 years Sex:Female Visit Date:09/25/2022 Chief Complaint pt c/o cough, nasal congestion and cold symptoms. History of Present Illness Patient started 3 to 4 days ago with??slight sore throat, nasal congestion now cough.?? Positive exposure at work to similar. ??No known flu or COVID exposures. ??No nausea vomiting or diarrhea. ??Noshortness of breath or dyspnea. ??No abdominal pain, chest pain. Physical Exam Vitals & Measurements T:??37.2?C ??(Tympanic)?? HR:??92??(Peripheral)?? BP:??121/72?? SpO2:??100%?? HT:??168??cm?? WT:??74??kg?? BMI:??26.22?? BSA:??1.86?? Well-appearing no acute distress.?? Head normocephalic. ??Ears canals clear TM normal's.?? Mouth pharynx clear no erythema exudate or lesions. ??Neck supple nontender. ??Lungs clear to auscultation bilateral.?? Heart regular rhythm. ??Abdomen soft nontender. Assessment/Plan 1.??URI with cough and congestion??J06.9 Short duration typical viral progression. ??Recommend symptomatic care, recheck as needed. ??Vital signs normal. Patient Instructions Recommend rest, fluids, recheck if not improving over the next 5 to 7 days Patient Education Upper Respiratory Infection, Adult, Yiiu-lu-Vpzp Problem List/Past Medical History Ongoing No qualifying data Historical No qualifying data Medications venlafaxine 37.5 mg oral capsule, extended release, 37.5 mg= 1 cap, Oral, Daily Allergies No Known Allergies Social History Electronic Cigarette/Vaping Electronic Cigarette Use: Never, Former use, quit more than 90 days ago. Tobacco Former tobacco user Tobacco Use:. Electronically Signed on 09/25/22 05:46 PM Jhonny PADILLA Outpatient Summary note * Jhonny Treviño. RANDY: PERFORM Event Display: Ambulatory Patient Summary Authored Date: [id number] ELSI, DESTIN Marie :1995 Age:27 years Sex:Female Visit Date:09/25/2022 Ambulatory Visit Instructions We would like to thank you for allowing us to assist you with your healthcare needs. The following includes patient education materials and information regarding your injury/illness. After you leave the office, you may get your health information including your test results, physician notes and discharge information by accessing your Patient Portal. If you do not have a patient portal account set up, please contact __. Your Next Steps Instructions From Your Care Team Recommend rest, fluids, recheck if not improving over the next 5 to 7 days Medications What How Much When Instructions Unchanged venlafaxine (venlafaxine 37.5 mg oral capsule, extended release) 1 Capsules Oral (given by mouth) Every day Your Summary Your Diagnosis URI with cough and congestion Your Care Team Attending Physician - Jhonny Treviño. PA Allergies No Known Allergies Education Materials Upper Respiratory Infection, Adult An upper respiratory infection (URI) affects the nose, throat, and upper air passages. URIs are caused by germs (viruses). The most common type of URI is often called the common cold. Medicines cannot cure URIs, but you can do things at home to relieve your symptoms. URIs usually get better within 7???10 days. Follow these instructions at home: Activity ? Rest as needed. ? If you have a fever, stay home from work or school until your fever is gone, or until your doctor says you may return to work or school. ? You should stay home until you cannot spread the infection anymore (you are not contagious). ? Your doctor may have you wear a face mask so you have less risk of spreading the infection. Relieving symptoms ? Gargle with a salt-water mixture 3???4 times a day or as needed. To make a salt- water mixture, completely dissolve ?1 tsp of salt in 1 cup of warm water. ? Use a cool-mist humidifier to add moisture to the air. This can help you breathe more easily. Eating and drinking ? Drink enough fluid to keep your pee (urine) pale yellow. ? Eat soups and other clear broths. General instructions ? Take wpzw-rmr-febkvav and prescription medicines only as told by your doctor. These include cold medicines, fever reducers, and cough suppressants. ? Do not use any products that contain nicotine or tobacco. These include cigarettes and e-cigarettes. If you need help quitting, ask your doctor. ? Avoid being where people are smoking (avoid secondhand smoke). ? Make sure you get regular shots and get the flu shot every year. ? Keep all follow-up visits as told by your doctor. This is important. How to avoid spreading infection to others ? Wash your hands often with soap and water. If you do not have soap and water, use hand television anchor. ? Avoid touching your mouth, face, eyes, or nose. ? Cough or sneeze into a tissue or your sleeve or elbow. Do not cough or sneeze into your hand or into the air. Contact a doctor if: ? You are getting worse, not better. ? You have any of these: ? A fever. ? Chills. ? Brown or red mucus in your nose. ? Yellow or brown fluid (discharge)coming from your nose. ? Pain in your face, especially when you bend forward. ? Swollen neck glands. ? Pain with swallowing. ? White areas in the back of your throat. Get help right away if: ? You have shortness of breath that gets worse. ? You have very bad or constant: ? Headache. ? Ear pain. ? Pain in your forehead, behind your eyes, and over your cheekbones (sinus pain). ? Chest pain. ? You have long-lasting (chronic) lung disease along with any of these: ? Wheezing. ? Long-lasting cough. ? Coughing up blood. ? A change in your usual mucus. ? You have a stiff neck. ? You have changes in your: ? Vision. ? Hearing. ? Thinking. ? Mood. Summary ? An upper respiratory infection (URI) is caused by a germ called a virus. The most common type of URI is often called the common cold. ? URIs usually get better within 7???10 days. ? Take ohgq-mwi-fzghvav and prescription medicines only as told by your doctor. This information is not intended to replace advice given to you by your health care provider. Make sure you discuss any questions you have with your health care provider. Document Revised: 06/11/2021 Document Reviewed: 06/11/2021 [employer] Patient Education ?? 2021 [employer] Electronically Signed on: 09/25/2022 17:46 ESTSigned by:ANDREA
--- OUTSIDE RECORDS SUMMARY | 2024-06-25 17:25 | XMS_ITS | Encounter Summary ---
Author Organization [facility] Address [address] [place] [address] Care Team Providers Care Property Damage Claims Adjustor Name Role Phone Unavailable Primary Care Provider Unavailabl e Encounter Details Date Type Department Care Team (Late st Contact Info) Description 04/09/2021 Lab Requisition 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 [address] [place] [id number] Encounter for other general examination Social History Tobacco Use Types Packs/Day Years Used Date Smoking Tobacco: Never Assessed Interpersonal Safety Answer Date Record ed Physically Hurt Never 09/10/2020 Verbally Threaten Not on file 09/10/2020 Sex and Gender Information Value Date Recorded Sex Assigned at Not on file Gender Identity Not on file Sexual Orientation Not on file documented as of this encounter Plan of Treatment Not on file documented as of this encounter Procedures Procedure Name Priority Date/Time Associated Diagnosis Comments PAP TEST Today 04/08/2021 15:15 EDT Encounter for other general examination documented in this encounter Results * PAP TEST (04/08/2021 15:15 EDT) Specimens A. Cervix and/or Endocervix , ThinPrep Imaging System with Manual Evaluation 04/16/2021 15:06 EDT [facility] Specimen Adequacy Satisfactory for Evaluation - transformation zone component present 04/16/2021 15:06 EDT [facility] General Categorization Negative for intraepithelial lesion or malignancy 04/16/2021 15:06 EDT [facility] Attestation . 04/16/2021 15:06 EDT [facility] at 1506 Clinical History See below 04/16/20 15:06 EDT [facility] Performing Lab [facility] 04/16/2021 15:06 EDT [facility] Scanned Images 04/16/2021 15:06 EDT [facility] Papanicolaou smear specimen (specimen) CERVIX UTERI STRUCTURE / Unknown 04/08/2021 15:15 EDT 04/09/2021 13:11 EDT Kelly Heart APN PATHOLOGY ORDERAB LES [facility] [address] [place] [address] documented in this encounter Visit Diagnoses Diagnosis Encounter for other general examination documented in this encounter
--- OUTSIDE RECORDS SUMMARY | 2024-06-25 17:25 | XMS_ITS | Encounter Summary ---
Author Organization 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 PCR Today 11/04/2021 11:37 EST COVID-19 TESTING Routine 11/04/2021 11:3 7 EST documented in this encounter Results * COVID-19 TEST [facility] PCR (11/04/2021 11:37 EST) Swab 11/04/2021 11:3 7 EST 11/04/2021 17:28 EST Provider Outr Resulting Lab MICROBIOLOGY - GENERAL ORDERABLES [facility] [address] [place] [address] * COVID-19 TESTING (11/04/2021 11:37 EST) COVID-19 rt-PCR Result Negative Negative 11/05/2021 10:59 EST [facility] Comment: This test has not been FDA cleared or approved. This test has been authorized by FDA under an EUA for use by authorized laboratories. This test has been authorized only for detection of nucleic acid from 2019-nCoV, not for any other viruses or pathogens. This test is only authorized for the duration of the declaration that circumstances exist justifying the authorization of emergency use of in vitro diagnostic tests for detection and/or diagnosis of 2019-nCoV under section 564(b)(1) of Act, 21 U.S.C ?? 360bbb-3(b) (1), unless the authorization is terminated or revoked sooner. Negative results do not preclude 2019-nCoV infection and should not be used as the sole basis for treatment or other patient management decisions. Negative results must be combined with clinical observations, patient history, and epidemiological information. Testing was performed using the jeremy SARS-CoV-2 assay ([employer] on the Jeremy 6800 System Performing Lab [facility] [address] [facility] 11/05/2021 10:59 EST [facility] Swab 11/04/2021 11:3 7 EST 11/04/2021 17:28 EST Provider Outr Resulting Lab MICROBIOLOGY - GENERAL ORDERABLES [facility] [address] [place] [address] documented in this encounter Visit Diagnoses Not on filedocumented in this encounter
--- OUTSIDE RECORDS SUMMARY | 2024-06-25 17:25 | XMS_ITS | Encounter Summary ---
Author Organization [facility] Address [facility] [place] [address] Care Team Providers Care Ticket Taker [employer] Name Role Phone Lula Mota APRN Primary Care Provider [phone] Reason for Visit * Auth/Cert Specialty Diagnoses / Procedures Referred By Contac t Referred To Contact Diagnoses Pancreatitis Gallstone pancreatitis Procedures EMERGENCY IPI Referral ID Status Reason Start Date Expiration Date Visits Re quested Visits Authorized [id number] 1 1 Encounter Details Date Type Department Care Team ([facility] st Contact Info) Description 12/23/2020 1:34 PM EST Anesthesia Event [place] [id number] Bebo Peterson MD [facility] [place] [address] Jefferson Perez CRNA [facility] [place] [address] Anesthesia Record Procedure Summary Procedure Name Responsible Anesthesiologist Anesthesia Start Time Anesthesia Stop Time LAPAROSCOPIC CHOLECYSTECTOMY WITH CHOLANGIOGRAM (WRVU 11.47) (Abdomen) Bebo Peterson MD 12/23/20 1334 12/23/20 1535 Events Date Time Event Comment 12/23/2020 1334 AN Verify 1334 Start 1334 An Start Data 1350 An Induction 1352 An Intubation 1354 Anesthesia Ready 1405 Quick Note Troubleshooting broken sedline.. getting new cables 1416 Procedure Start 1426 Quick Note Insufflation 1525 Extubation/LMA Out 1534 an stop data 1535 Recovery or ICU Handoff Doretha ent care was transferred to the destination unit staff after review of the patient's medical history, current anesthetic/surgical status and plan, according to the Provider Handoff Checklist. 1535 Stop 1631 Meds Name Total fentaNYL 100 mcg Propofol 350 mg Rocuronium 50 mg Dexamethasone 8 mg Neostigmine 3 mg Glycopyrrolate 0.4 mg citric acid-sodium citrate (Bicitra) (10 0 MG-66.8 mg/mL) oral liquid 15 mL PHENYLephrine INF 2,730 mcg heparin (porcine) (5,000 units/1 mL) sub cutaneous injection 5,000 Units 5,000 Units magnesium sulfate 20 g in sterile water 500 mL infusion 0 g ceFAZolin 2 g Succinylcholine 80 mg Propofol INF 523.53 mg acetaminophen IV 1,000 mg Lactated Ringers 700 mL Lactated Ringers 600 mL * Agents Name O2 Air N2O Sevoflurane (et) * Blood No blood administrations on file. Lines, Drains, and Airways Type Details Placement Removal (RETIRED) Peripheral IV Line - Single Lumen 12/21/20; 2029; cephalic vein (lateral side of arm), left; [id number] catheter system; 18 gauge; removed per policy/procedure, catheter/device intact; 12/24/20; 121712/21/202029 by Tomeka Son RN 12/24/201217 by Maria Dolores Chaudhari RN ETT Mask Ventilation: No t Attempted (0); ETT Type: Cuffed; ETT Size: 7 mm; Indirect: Video; Notes: Asleep, Pre-O2, RSI, Cricoid Pressure, Stylette; Attempts: 1; Laryngoscopy Grade: 1; ETT Placement Verified By: Auscultation, Capnometry, Visual; Secured at Teeth: 22 cm; Inserted by: Chris; Removal Date: 12/23/20; Removal Time: 152412/23/20 1357 by Jefferson Perez CRNA 12/23/20 152 by Jefferson Perez CRNA (RETIRED) Peripheral IV Line - Single Lumen 12/23/20; 1402; metacarpal vein (top of hand), right; gfku-fjx-arnxxh catheter system; 18 gauge; Koff; 12/23/20; 202712/23/20 1402 by Jefferson Perez CRNA 12/23/202027 by Tanisha Guzmán RN Incision 12/23/20; 1412; lowe r quadrant; laparoscopic punctures (specify) (4 trocar sites); 06/14/22 (LDA cleanup utility [id number]); 1715 (LDA cleanup utility [id number]) 12/23/20 1412 by Rebel Verma 06/14/22 1715 by Ferny Hagen documented in this encounter Social History Tobacco Use Types Packs/Day Years Used Date Smoking Tobacco: Former Cigarettes Q uit: 05/28/2020 Smokeless Tobacco: Never Alcohol Use Standard Drinks/Week Comments Not Currently 0 (1 standard drink = 0.6 oz pur e alcohol) Comments Yes Sex and Gender Information Value Date Recorded Sex Assigned at Not on file Gender Identity Not on file Sexual Orientation Not on file documented as of this encounter OR Notes * Anesthesia Postprocedure Evaluation - Bebo Peterson MD - 12/23/2020 4:29 PM EST Department of Anesthesiology Post-procedure Note Patient: Nelli Montiel Procedure Summary Date: 12/23/20 Room / Location: [address] MAIN OR Anesthesia Start: 1334 Anesthesia Stop: 1535 Procedure: LAPAROSCOPIC CHOLECYSTECTOMY WITH CHOLANGIOGRAM (WRVU 11.47) (N/A Abdomen) Diagnosis: (Cholecystitis) Surgeons: Fabiano Kate MD Responsible Provider: Bebo Peterson MD Anesthesia Type: general ASA Status: 3 - Emergent All Anesthesia Providers: Anesthesiologist: Bebo Peterson MD HYDROMETEOROLOGICAL TECHNICIAN: Jefferson Perez CRNA Vitals Value Taken Time BP 117/70 12/23/20 1615 Temp 36.5 ??C (97.7 ??F) 12/23/20 1535 Pulse 85 12/23/20 1628 Resp 16 12/23/20 1628 SpO2 94 % 12/23/20 1628 Pain Level 4 12/23/20 1615 Vitals shown include unvalidated device data. Patient Location: PACU/[facility] Level of Consciousness: Awake and Alert Pain Management: Satisfactory Analgesia PONV: None Cardiovascular Status: At Baseline and Hemodynamically Stable Respiratory Status: At Baseline and Room Air Postoperative Fluid Status: Intravascular EUvolemia Possible Anesthetic Complications: NONE apparent at time of evaluation Final Primary Anesthesia Type: General (The anesthetic type performed was the same as planned.) Comments: BEBO PETERSON MD * Anesthesia Preprocedure Evaluation - Bebo Peterson MD - 12/23/2020 12:40 PM EST Images from the original note were not included. Pre-Anesthesia Evaluation for: Nelli Marie Page a 25 y.o. female. Procedure(s): LAPAROSCOPIC CHOLECYSTECTOMY WITH [facility]OLANGIOGRAM [facility] Patient Active Problem List Diagnosis ??? Pancreatitis ??? Third-stage hemorrhage ??? cardiac echogenic focus Past Medical History: Diagnosis Date ??? Depression ??? Insomnia History reviewed. No pertinent surgical history. Social History Tobacco Use ??? Smoking status: Former Smoker Quit date: 05/28/2020 Years since quittin.5 ??? Smokeless tobacco: Never Used Substance Use Topics ??? Alcohol use: Not Currently Social History Substance and Sexual Activity Drug Use Not Currently ??? Types: Marijuana Comment: Have not used since May with + test No Known Allergies Medications: MAR and/or home medications have been reviewed. Physical Exam: Patient Vitals for the past 24 hrs: Temp Heart Rate From SP02 Pulse Resp BP SpO2 O2 Device 12/22/20 1532 36.9 ??C (98.4 ??F) 91 bpm -- -- -- 100 % -- 12/22/20 1535 -- -- 83 18 128/74 -- -- 12/22/20 1536 -- 91 bpm -- -- -- 100 % -- 12/22/20 1540 -- -- 87 20 120/67 -- -- 12/22/20 1541 -- 87 bpm -- -- -- 99 % -- 12/22/20 1546 -- 87 bpm 89 -- 116/63 98 % -- 12/22/20 1550 -- -- 93 24 124/74 -- -- 12/22/20 1551 -- 94 bpm -- -- -- 99 % -- 12/22/20 1555 -- -- 96 -- 124/67 -- -- 12/22/20 1556 -- 97 bpm -- -- -- 99 % -- 12/22/20 1557 -- 97 bpm 96 -- 124 99 % -- 12/22/20 1601 -- 95 bpm -- -- -- 99 % -- 12/22/20 1603 -- -- 93 -- 111/50 -- -- 12/22/20 1606 -- 96 bpm -- -- -- 100 % -- 12/22/20 1611 -- 99 bpm -- -- -- 99 % -- 12/22/20 1616 -- 96 bpm -- -- -- 99 % -- 12/22/20 1622 -- 95 bpm -- -- -- 98 % -- 12/22/20 1626 -- 93 bpm -- -- -- 98 % -- 12/22/20 1630 -- 90 bpm 87 20 93/44 100 % -- 12/22/20 1634 -- 89 bpm -- -- -- 100 % -- 12/22/20 1638 -- 94 bpm -- -- -- 99 % -- 12/22/20 1643 -- 92 bpm -- -- -- 99 % -- 12/22/20 1647 -- 95 bpm -- -- -- 99 % -- 12/22/20 1652 -- 93 bpm -- -- -- 99 % -- 12/22/20 1656 -- 95 bpm -- -- -- 99 % -- 12/22/20 1700 -- 89 bpm 85 -- 114/57 99 % -- 12/22/20 1705 -- 95 bpm -- -- -- 98 % -- 12/22/20 1710 -- 94 bpm -- -- -- 98 % -- 12/22/20 1715 -- 92 bpm -- -- -- 98 % -- 12/22/20 1720 -- 92 bpm -- -- -- 98 % -- 12/22/20 1724 -- 97 bpm -- -- -- 99 % -- 12/22/20 1728 -- 94 bpm -- -- -- 100 % -- 12/22/20 1732 -- 92 bpm -- -- -- 98 % -- 12/22/20 1737 -- 93 bpm -- -- -- 98 % -- 12/22/20 1800 -- -- 96 -- 123/67 -- -- 12/22/20 1802 -- 96 bpm -- -- -- 99 % -- 12/22/20 1812 -- 95 bpm -- -- -- 99 % -- 12/22/20 1821 -- 94 bpm -- -- -- 98 % -- 12/22/20 1826 -- 97 bpm -- -- -- 99 % -- 12/22/20 1831 -- 94 bpm -- -- -- 98 % -- 12/22/20 1836 -- 100 bpm -- -- -- 98 % -- 12/22/20 1841 -- 98 bpm -- -- -- 98 % -- 12/22/20 1853 36.9 ??C (98.4 ??F) -- -- 18 -- -- -- 12/22/201899 -- -- 95 -- 104/47 -- -- 12/22/201900 -- (!) 103 bpm -- -- -- 98 % -- 12/22/201905 -- 97 bpm -- -- -- 97 % -- 12/22/201910 -- 96 bpm -- -- -- 97 % -- 12/22/201915 -- 96 bpm -- -- -- 97 % -- 12/22/201919 -- 97 bpm -- -- -- 97 % -- 12/22/201924 -- 98 bpm -- -- -- 97 % -- 12/22/201929 -- (!) 105 bpm -- -- -- 99 % -- 12/22/201934 -- 94 bpm -- -- -- 96 % -- 12/22/201939 -- 93 bpm -- -- -- 98 % -- 12/22/201944 -- 96 bpm -- -- -- 97 % -- 12/22/20 1950 -- 98 bpm -- -- -- 97 % -- 03/08/21 1955 -- 99 bpm -- -- -- 96 % -- 12/22/201999 -- (!) 105 bpm 92 -- 111/51 97 % -- 12/22/202004 -- (!) 103 bpm -- -- -- 97 % -- 12/22/202009 -- 97 bpm -- -- -- 97 % -- 12/22/202014 -- 97 bpm -- -- -- 98 % -- 12/22/202019 -- 98 bpm -- -- -- 98 % -- 12/22/202023 -- 95 bpm -- -- -- 99 % -- 12/22/202028 -- 90 bpm -- -- -- 98 % -- 12/22/202033 -- 93 bpm -- -- -- 98 % -- 12/22/202038 -- 95 bpm -- -- -- 98 % -- 12/22/202043 -- 94 bpm -- -- -- 97 % -- 12/22/202048 -- 93 bpm -- -- -- 97 % -- 12/22/202053 -- 95 bpm -- -- -- 97 % -- 12/22/202058 -- 95 bpm -- -- -- 97 % -- 12/22/202099 -- -- -- -- -- -- RA 12/22/202102 -- -- 92 -- 95/45 -- -- 12/22/202103 36.8 ??C (98.2 ??F) 91 bpm -- -- -- 97 % -- 12/22/202108 -- 86 bpm -- -- -- 97 % -- 12/22/202113 -- 92 bpm -- -- -- 99 % -- 12/22/202119 -- 90 bpm -- -- -- 99 % -- 12/22/202123 -- 85 bpm 91 -- (!) 89/63 100 % -- 12/22/202127 -- 93 bpm -- -- -- 99 % -- 12/22/202132 -- 92 bpm -- -- -- 100 % -- 12/22/202137 -- 95 bpm -- -- -- 100 % -- 12/22/202142 -- 88 bpm -- -- -- 100 % -- 12/22/202147 -- 90 bpm -- -- -- 100 % -- 12/22/202152 -- 92 bpm -- -- -- 100 % -- 12/22/202157 -- 95 bpm -- -- -- 99 % -- 12/22/202200 -- -- 92 -- 111/68 -- -- 12/22/202202 -- 84 bpm -- -- -- 100 % -- 12/22/202207 -- 87 bpm -- -- -- 99 % -- 12/22/202212 -- 81 bpm -- -- -- 99 % -- 12/22/202214 -- -- -- -- -- -- RA 12/22/202217 -- 80 bpm -- -- -- 98 % -- 12/22/202222 -- 84 bpm -- -- -- 98 % -- 12/22/202227 -- 95 bpm -- -- -- 98 % -- 12/22/202231 -- 95 bpm -- -- -- 99 % -- 12/22/202236 -- 87 bpm -- -- -- 99 % -- 12/22/202241 -- 87 bpm -- -- -- 98 % -- 12/22/202246 -- 85 bpm -- -- -- 98 % -- 12/22/202251 -- 87 bpm -- -- -- 98 % -- 12/22/202256 -- 89 bpm -- -- -- 98 % -- 12/22/202300 -- -- 87 -- 101/44 -- -- 12/22/202301 -- 98 bpm -- -- -- 98 % -- 12/22/202307 -- 86 bpm -- -- -- 99 % -- 12/22/202312 -- 95 bpm -- -- -- 99 % -- 12/22/202316 -- 90 bpm -- -- -- 99 % -- 03/08/21 2322 -- 90 bpm -- -- -- 98 % -- 12/22/202326 -- 91 bpm -- -- -- 98 % -- 12/22/20 2332 -- 93 bpm -- -- -- 98 % -- 12/22/206 -- 96 bpm -- -- -- 98 % -- 12/22/202340 -- 97 bpm -- -- -- 98 % -- 12/22/202344 -- 96 bpm -- -- -- 98 % -- 12/22/202348 -- 96 bpm -- -- -- 98 % -- 12/22/202353 -- 95 bpm -- -- -- 97 % -- 12/22/202358 -- 93 bpm -- -- -- 97 % -- 12/23/202358 -- -- 94 -- 103/50 -- -- 12/23/20 0004 -- 98 bpm -- -- -- 98 % -- 12/23/207 -- 83 bpm -- -- -- 97 % -- 12/23/208 -- -- -- -- -- -- RA 12/23/2011 -- 86 bpm -- -- -- 97 % -- 12/23/2015 -- 85 bpm -- -- -- 97 % -- 12/23/2020 -- 90 bpm -- -- -- 97 % -- 12/23/2025 -- 90 bpm -- -- -- 98 % -- 12/23/2030 -- 92 bpm -- -- -- 98 % -- 12/23/206 -- 89 bpm -- -- -- 97 % -- 12/23/2039 -- 92 bpm -- -- -- 98 % -- 12/23/2043 -- 93 bpm -- -- -- 98 % -- 12/23/2047 -- 91 bpm -- -- -- 96 % -- 12/23/2052 -- 92 bpm -- -- -- 97 % -- 12/23/2057 -- 92 bpm -- -- -- 97 % -- 12/23/20100 -- -- 90 -- 110/49 -- -- 12/23/20102 -- 86 bpm -- -- -- 97 % -- 12/23/20107 -- 89 bpm -- -- -- 97 % -- 12/23/20111 -- 88 bpm -- -- -- 97 % -- 12/23/20115 -- 88 bpm -- -- -- 97 % -- 12/23/20119 -- 89 bpm -- -- -- 97 % -- 12/23/20124 -- 90 bpm -- -- -- 97 % -- 12/23/20129 -- 89 bpm -- -- -- 97 % -- 12/23/20139 -- 90 bpm -- -- -- 97 % -- 12/23/20143 -- 94 bpm -- -- -- 98 % -- 12/23/20147 -- 83 bpm -- -- -- 98 % -- 12/23/20151 -- 87 bpm -- -- -- 98 % -- 12/23/20156 -- 85 bpm -- -- -- 98 % -- 12/23/20200 -- -- 80 -- 103/47 -- -- 12/23/20201 -- 90 bpm -- -- -- 99 % -- 12/23/20206 -- 80 bpm -- -- -- 95 % -- 12/23/20211 -- 81 bpm -- -- -- 94 % -- 12/23/20215 -- 83 bpm -- -- -- 94 % -- 12/23/20219 -- 79 bpm -- -- -- 95 % -- 12/23/20223 -- 82 bpm -- -- -- 95 % -- 12/23/20228 -- 85 bpm -- -- -- 95 % -- 12/23/20233 -- 85 bpm -- -- -- 98 % -- 12/23/20238 -- 83 bpm -- -- -- 97 % -- 12/23/20243 -- 86 bpm -- -- -- 96 % -- 12/23/20247 -- 85 bpm -- -- -- 96 % -- 12/23/20251 -- 87 bpm -- -- -- 96 % -- 12/23/20255 -- 87 bpm -- -- -- 96 % -- 12/23/20300 -- 87 bpm 84 -- 102/44 96 % -- 12/23/20305 -- 87 bpm -- -- -- 96 % -- 12/23/20310 -- 89 bpm -- -- -- 96 % -- 12/23/20315 -- 90 bpm -- -- -- 96 % -- 12/23/20319 -- 92 bpm -- -- -- 97 % -- 12/23/20323 -- 88 bpm -- -- -- 96 % -- 12/23/20327 -- 89 bpm -- -- -- 97 % -- 12/23/20332 -- 91 bpm -- -- -- 97 % -- 12/23/20337 -- 93 bpm -- -- -- 97 % -- 12/23/20342 -- 88 bpm -- -- -- 97 % -- 12/23/20347 -- 88 bpm -- -- -- 97 % -- 12/23/20351 -- 90 bpm -- -- -- 97 % -- 12/23/20355 -- 86 bpm -- -- -- 97 % -- 12/23/20399 -- 86 bpm -- -- -- 97 % -- 12/23/20400 -- -- 85 16 96/47 -- RA 12/23/20417 -- 99 bpm -- -- -- 99 % -- 12/23/20421 -- 83 bpm -- -- -- 99 % -- 12/23/20425 -- 84 bpm -- -- -- 99 % -- 12/23/20429 -- 84 bpm -- -- -- 98 % -- 12/23/20433 -- 83 bpm -- -- -- 98 % -- 12/23/20437 -- 86 bpm -- -- -- 98 % -- 12/23/20441 -- 85 bpm -- -- -- 97 % -- 12/23/207 -- 86 bpm -- -- -- 97 % -- 12/23/202 -- 87 bpm -- -- -- 97 % -- 12/23/206 -- 87 bpm -- -- -- 97 % -- 12/23/20 0500 -- 87 bpm -- -- -- 96 % -- 12/23/20 0501 -- -- 83 -- 106/49 -- -- 12/23/20 0504 -- 81 bpm -- -- -- 98 % -- 12/23/208 -- 85 bpm -- -- -- 98 % -- 12/23/2012 -- 85 bpm -- -- -- 98 % -- 12/23/2016 -- 84 bpm -- -- -- 98 % -- 12/23/20 0520 -- 86 bpm -- -- -- 98 % -- 12/23/20 0525 -- 91 bpm -- -- -- 98 % -- 12/23/20 0530 -- 87 bpm -- -- -- 98 % -- 12/23/20 0535 -- 92 bpm -- -- -- 97 % -- 12/23/20 0540 -- 89 bpm -- -- -- 98 % -- 12/23/20 0544 -- 92 bpm -- -- -- 97 % RA 12/23/20 0549 -- 84 bpm -- -- -- 98 % -- 12/23/20 0553 -- 84 bpm -- -- -- 98 % -- 12/23/20 0557 -- 83 bpm -- -- -- 98 % -- 12/23/20 0601 -- -- 85 -- 103/48 -- -- 12/23/20 0602 -- 94 bpm -- -- -- 97 % -- 12/23/2007 -- 82 bpm -- -- -- 98 % -- 12/23/2012 -- 77 bpm -- -- -- 98 % -- 12/23/2017 -- 80 bpm -- -- -- 97 % -- 12/23/20620 -- 92 bpm -- -- -- 99 % -- 12/23/2036 -- 93 bpm -- -- -- 99 % -- 12/23/2040 -- 85 bpm -- -- -- 99 % -- 12/23/2044 -- 81 bpm -- -- -- 99 % -- 12/23/2031 -- 92 bpm -- -- -- 99 % -- 12/23/2036 -- 83 bpm -- -- -- 97 % -- 12/23/2040 -- 83 bpm -- -- -- 98 % -- 12/23/2044 -- 83 bpm -- -- -- 99 % -- 12/23/2013 36.8 ??C (98.2 ??F) -- -- -- -- -- -- 12/23/20815 -- -- 78 -- 116 -- -- 12/23/2018 -- -- 78 -- 116 -- -- 12/23/2002 -- 90 bpm -- -- -- 99 % -- 12/23/2007 -- 81 bpm -- -- -- 97 % -- 12/23/2012 -- 84 bpm -- -- -- 99 % -- 12/23/2017 -- 91 bpm -- -- -- 99 % -- 12/23/20 0941 36.6 ??C (97.9 ??F) -- 82 18 105/40 -- -- 12/23/20 1033 -- 82 bpm -- -- -- 95 % -- 12/23/20 1038 -- 83 bpm -- -- -- 97 % -- 12/23/20 1041 -- -- 80 -- 106/62 -- -- 12/23/20 1148 36.7 ??C (98.1 ??F) -- 77 -- 114/51 -- -- Body mass index is 33.64 kg/m??. Height: 167.6 cm (5' 6) Weight: 94.5 kg (208 lb 6.4 oz) Airway Assessment: Mallampati: II TM distance: >3 FB Neck ROM: full Cardiovascular Assessment: system normal Pulmonary Assessment: pulmonary exam normal Dental Assessment: - normal exam Misc Assessment: Patient is wearing No contact(s). IV access: Peripheral line Anesthesia Plan: ASA 3 emergent general, with a(n) intravenous induction 25 y.o. at 29w0d gestation with a history of cholelithiasis and biliary cholic as well as gallstone pancreatitis, with plans to go to the OR for lap cholecystectomy to avoid further exacerbations during the remainder of her . Fetus has echogenic focus.Was given beclomethasone yesterday. Operative case will be done with intra-operative monitoring. We will use a general anesthetic with TIVA and some inhaled agent. We will maintain hemodynamics throughout. OB team will be onstandby. LFT's are improving patient pain is improved. Patient had a previous 3rd station post- hemorrhage with prior childbirth. + MJ usage. Consent discussed with the patient and obtained. GA with ETT RSI with intraoperative brainwave monitoring (Masimo/BIS). Recent Results (from the past 24 hour(s)) -Hepatic Function Panel Result Value Ref Range Total Protein 6.0 (L) 6.1 - 8.0 gm/dL Albumin 3.5 3.2 - 5.2 gm/dL AST 27 0 - 30 unit/L ALT 46 (H) 0 - 30 unit/L Alk Phos 168 (H) 35 - 105 unit/L Total Bilirubin 0.2 0.2 - 1.3 mg/dL Bili, Direct <0.1 0.0 - 0.3 mg/dL -BMP w/fasting Glucose Result Value Ref Range Glucose Fasting 120 (H) 65 - 99 mg/dL BUN 4 (L) 8 - 18 mg/dL Creatinine 0.30 (L) 0.70 - 1.20 mg/dL Sodium 137 135 - 145 mmol/L Potassium 3.9 3.5 - 5.0 mmol/L Chloride 105 98 - 107 mmol/L CO2 22 22 - 31 mmol/L Anion Gap 10 5 - 15 mmol/L Calcium 8.1 (L) 8.5 - 10.5 mg/dL Estimated GFR 160 >=60 mL/min/1.73 m?? -Prothrombin Time Result Value Ref Range PT 10.7 9.4 - 12.5 sec INR 0.9 -APTT Result Value Ref Range PTT 27 25.0 - 37.0 sec -Hemogram Result Value Ref Range WBC 10.3 (H) 4.0 - 9.5 x10(3)/mcL RBC 3.53 (L) 4.00 - 5.21 x10(6)/mcL Hemoglobin 10.9 (L) 11.7 - 15.5 gm/dL Hematocrit 33.4 (L) 35.7 - 45.8 % MCV 94.6 (H) 82.6 - 94.4 fL MCH 30.9 27.1 - 32.0 pg MCHC 32.6 31.7 - 35.0 gm/dL Platelets 241 145 - 357 x10(3)/mcL RDWSD 44.6 37.0 - 46.0 fL RDWCV 12.9 11.5 - 14.1 % MPV 10.4 7.6 - 12.9 fL nRBC % Auto 0.0 % nRBC Abs Auto 0.000 0.000 - 0.000 x10(3)/mcL -Differential, Automated Result Value Ref Range Neutrophils % 87.0 % Neutr Abs (ANC) 8.95 (H) 1 - 6 x10(3)/mcL Lymphocytes % 7.1 % Lymphocytes Abs 0.7 (L) 0.9 - 3.2 x10(3)/mcL Monocytes % 2.3 % Monocyte Abs 0.2 (L) 0.3 - 0.9 x10(3)/mcL Eosinophils % 0.1 % Eosinophils Abs 0.0 0.0 - 0.4 x10(3)/mcL Basophils % 0.3 % Basophils Abs 0.0 0.0 - 0.1 x10(3)/mcL Immature Gran % 3.20 % Radha Gran Abs 0.33 (H) 0.00 - 0.04 x10(3)/mcL Region - Other Informed Consent: Anesthetic plan and risks discussed with patient. Plan discussed with HYDROMETEOROLOGICAL TECHNICIAN. PAT Clinic Note documented in this encounter Plan of Treatment Not on file documented as of this encounter Visit Diagnoses Not on filedocumented in this encounter Administered Medications Inactive Administered Medications - up to 3 most recent administrations Medication Order MAR Action Action Date Dose Rate Site acetaminophen (Ofirmev) (1000 mg/100 mL) infusion Intravenous, Administer over 15 Minutes, PRN, Starting on Tue12/23/20 at 1519, Until Tue12/23/20 at 1535, Anesthesia Intra-op, Routine Given 12/23/2020 3:19 PM EST 1,000 mg ceFAZolin (Ancef) 1 g in dextrose 5% 50 mL infusion Intravenous, PRN, Starting on Tue12/23/20 at 1414, Until Tue12/23/20 at 1535, Administer over 30 Minutes, Anesthesia Intra-op Given 12/23/2020 1:57 PM EST 2 g citric acid-sodium citrate (Bicitra) (100 MG-66.8 mg/mL) oral liquid Oral, PRN, Starting on Tue12/23/20 at 1340, Until Tue12/23/20 at 1535, Anesthesia Intra-op, Routine Given 12/23/2020 1:40 PM EST 15 mLs dexamethasone (Decadron) injection Intravenous, PRN, Starting on Tue12/23/20 at 1414, Until Tue12/23/20 at 1535, Anesthesia Intra-op, Routine Given 12/23/2020 2:14 PM EST 8 mg fentaNYL (pf) (50 mcg/mL) multi-dose injection Intravenous, PRN, Starting on Tue12/23/20 at 1527, Until Tue12/23/20 at 1536, Anesthesia Intra-op, Routine Given 12/23/2020 3:32 PM EST 50 mcg Given 12/23/2020 3:29 PM EST 25 mcg Given 12/23/2020 3:27 PM EST 25 mcg glycopyrrolate (Robinul) (0.2 mg/mL) multi-dose injection Intravenous, PRN, Starting on Tue12/23/20 at 1511, Until Tue12/23/20 at 1535, Anesthesia Intra-op, Routine Given 12/23/2020 3:11 PM EST 0.4 mg heparin (porcine) (5,000 units/1 mL) subcutaneous injection 5,000 Units 5,000 Units, Subcutaneous, EVERY 12 HOURS SCHEDULED (2 times per day), First dose on Tue12/23/20 at 2100, Until Discontinued, Routine Given 12/23/2020 8:31 PM EST 5,000 Units Given 12/23/2020 2:00 PM EST 5,000 Units lactated ringers infusion Intravenous, CONTINUOUS PRN, Starting on Tue12/23/20 at 1334, Until Tue12/23/20 at 1535, Anesthesia Intra-op New Bag 12/23/2020 1:34 PM EST lactated ringers infusion Intravenous, CONTINUOUS PRN, Starting on Tue12/23/20 at 1354, Until Tue12/23/20 at 1535, Anesthesia Intra-op New Bag 12/23/2020 1:54 PM EST neostigmine (Bloxiver) (1 mg/mL) injection Intravenous, PRN, Starting on Tue12/23/20 at 1511, Until Tue12/23/20 at 1535, Anesthesia Intra-op, Routine Given 12/23/2020 3:11 PM EST 3 mg PHENYLephrine (Carlos-Synephrine) (80 mcg/mL) in sodium chloride 0.9% 250 mL infusion Intravenous, CONTINUOUS PRN, Starting on Tue12/23/20 at 1346, Until Tue12/23/20 at 1535, Anesthesia Intra-op, Routine Rate/Dose Change 12/23/2020 3:14 PM EST 15 mcg/min 11.25 mL/hr Rate/Dose Change 12/23/2020 2:15 PM EST 30 mcg/min 22.5 mL /hr New Bag 12/23/2020 1:46 PM EST 30 mcg/min 22.5 mL/hr propofoL (Diprivan) 10 mg/mL bolus injection (Anesthesia) Intravenous, PRN, Starting on Tue12/23/20 at 1350, Until Tue12/23/20 at 1535, Anesthesia Intra-op Given 12/23/2020 1:52 PM EST 50 mg Given 12/23/2020 1:51 PM EST 100 mg Given 12/23/2020 1:50 PM EST 200 mg propofoL (Diprivan) infusion Intravenous, CONTINUOUS PRN, Starting on Tue12/23/20 at 1352, Until Tue12/23/20 at 1535, Anesthesia Intra-op, Routine Rate/Dose Change 12/23/2020 2:56 PM EST 100 mcg/kg/min 56.7 mL/hr Rate/Dose Change 12/23/2020 2:50 PM EST 80 mcg/kg/min 45.3 6 mL/hr Rate/Dose Change 12/23/2020 2:16 PM EST 60 mcg/kg/min 34.0 2 mL/hr rocuronium (Zemuron) (10 mg/mL) multi-dose injection Intravenous, PRN, Starting on Tue12/23/20 at 1350, Until Tue12/23/20 at 1535, Anesthesia Intra-op, Routine Given 12/23/2020 2:32 PM EST 10 mg Given 12/23/2020 1:54 PM EST 30 mg Given 12/23/2020 1:50 PM EST 10 mg succinylcholine (Anectine;Quelicin) (20 mg/mL) injection Intravenous, PRN, Starting on Tue12/23/20 at 1350, Until Tue12/23/20 at 1535, Anesthesia Intra-op, Routine Given 12/23/2020 1:50 PM EST 80 mg documented in this encounter Care Teams Ticket Taker [employer] Relationship Specialty Start Date End Date Lula Mota, FESTUS [address] [place] [address] PCP - General Family Medicine 10/20/20 documented as of this encounter
--- OUTSIDE RECORDS SUMMARY | 2024-06-25 17:25 | XMS_ITS | Clinical Summary ---
Author Organization Formerly [facility] Address [facility] [place] [address] Care Team Providers Care Upholstery Technician Name Role Phone Lula Mota APRN Primary Care Provider [phone] Allergies No known active allergies Medications Medication Sig Dispensed Refills Start Date End Date Status vit/iron fum/folic ac ( 1+1 ORAL) Take by mouth. A ctive venlafaxine XR (Effexor-XR) 37.5 mg Capsule, Sust. Release 24 hr Take 1 capsule by mouth nightly. 30 capsule 12/24/2020 Active polyethylene glycoL (Miralax) 17 gram/dose Powder Take 17 g by mouth daily. 255 g 12/24/2020 Active acetaminophen (Tylenol) 325 mg Tablet Take 2 tablets by mouth every 6 hours as needed for Pain. 30 tablet 12/24/2020 Active oxyCODONE (Roxicodone) 5 mg Tablet Take 1 tablet by mouth every 6 hours as needed for Pain. 5 tablet 12/24/2020 Active Active Problems Problem Noted Date Diagnosed Date Pancreatitis 12/21/2020 Overview (12/24/2020): Gallstone pancreatitis, 12/23, underwent laparoscopic cholecystectomy and intraoperative cholangiogram with General Surgery. Symptoms resolved. Reassuring OB growth ultrasound here at [facility] [place], made BMZ and Mg (neuroprotection) complete by 12/23. Third-stage hemorrhage 10/28/2020 cardiac echogenic focus 10/28/2020 Immunizations Name Administration Dates Next Due Tdap 12/23/2020 Social History Tobacco Use Types Packs/Day Years Used Date Smoking Tobacco: Former Cigarettes Q uit: 05/28/2020 Smokeless Tobacco: Never Tobacco Cessation:Counseling Given: No Alcohol Use Standard Drinks/Week Comments Not Currently 0 (1 standard drink = 0.6 oz pur e alcohol) Sex and Gender Information Value Date Recorded Sex Assigned at Not on file Gender Identity Not on file Sexual Orientation Not on file Last Filed Vital Signs Vital Sign Reading Time Taken Comments Blood Pressure 120/66 12/24/2020 9:34 AM EST Pulse 73 12/24/2020 9:34 AM EST Temperature 36.7 ??C (98 ??F) 12/24/2020 9:34 AM EST Respiratory Rate 16 12/24/2020 9:34 AM EST Oxygen Saturation 98% 12/24/2020 9:34 AM EST Inhaled Oxygen Concentration - - Weight 95.8 kg (211 lb 1.6 oz) 12/24/2020 7:11 A M EST Height 167.6 cm (5' 6) 12/21/2020 6:46 PM EST Body Mass Index 34.07 12/21/2020 6:46 PM EST Plan of Treatment Health Maintenance Due Date Last Done Comments HIV screen 2014 Hepatitis C Screening 2014 Hepatitis B vaccine (0-59 yrs) (1) 2015 PAP Smear 2017 Covid-19 Vaccine ( - 2022-24 season) 2024 Influenza (Flu) vaccine (1 o f 1 - Influenza standard series) 06/17/2024 Tetanus vaccine 12/23/2030 12/23/2020 Tdap adult Completed 12/23/2020 Advance Directives * Attempt Cardiopulmonary Resuscitation - Inpatient (Latest Code Status on File) Date Activated Date Inactivated Comments 12/21/2020 8:08 PM 12/24/2020 4:04 PM Question Answer Comments Code Status decision made by: Patient Care Teams Upholstery Technician Relationship Specialty Start Date End Date Lula Mota, SYNTHETIC STAPLE EXTRUDER [address] [place] [address] PCP - General Family Medicine 10/20/20
--- OUTSIDE RECORDS SUMMARY | 2024-06-25 17:25 | XMS_ITS | Encounter Summary ---
Author Organization [facility] Address [address] [place] [address] Care Team Providers Care Wine Cellar Worker Name Role Phone Unavailable Primary Care Provider Unavailabl e Encounter Details Date Type Department Care Team (Late st Contact Info) Description 09/28/2022 Lab Requisition [facility] Pathology & Laboratory Medicine - [address] [address] Outr Resulting Lab, Provider Social History Tobacco [...] Priority Date/Time Associated Diagnosis Comments ZZCOVID-19 TEST [facility] PCR Today 09/27/2022 15:54 EST COVID-19 TESTING Routine 09/27/2022 15:5 4 EST documented in this encounter Results * COVID-19 TEST [facility] PCR (09/27/2022 15:54 EST) Swab 09/27/2022 15:5 4 EST 09/28/2022 16:18 EST Provider Outr Resulting Lab MICROBIOLOGY - GENERAL ORDERABLES [facility] [address] [place] [address] * COVID-19 TESTING (09/27/2022 15:54 EST) COVID-19 rt-PCR Result Negative Negative 09/29/2022 10:58 EST [facility] Comment: This test has not [...] was performed using the jeremy SARS-CoV-2 assay ([employer] on the Jeremy 6800 System Performing Lab Jeremy [address] [facility] 09/29/2022 10:58 EST [facility] Swab 09/27/2022 15:5 4 EST 09/28/2022 16:18 EST Provider Outr Resulting Lab MICROBIOLOGY - GENERAL ORDERABLES [facility] [address] [place] [address] documented in this encounter Visit Diagnoses Not on filedocumented in this encounter
--- OUTSIDE RECORDS SUMMARY | 2024-06-25 17:25 | XMS_ITS | Encounter Summary ---
Author Organization [facility] Address [address] [place] [id number] Care Team Providers Care Geologic Technician Name Role Phone Unavailable Primary Care Provider Unavailabl e Encounter Details Date Type Department Care Team (Late st Contact Info) Description 09/10/2020 Lab Requisition [facility] Pathology & [place] [address] Outr Resulting Lab, Provider Social History Tobacco [...] Procedure Name Priority Date/Time Associated Diagnosis Comments HIV 1/2 ANTIGEN AND ANTIBODY, 4TH GENERATION After X-Ray 09/03/2020 11:25 EST documented in this encounter Results * HIV 1/2 ANTIGEN AND ANTIBODY, 4TH GENERATION (09/03/2020 11:25 EST) HIV 1 and 2 Antibody/p24 Antigen, 4th Generation Negative Negative 10/09/2020 10:52 EST [facility] Comment: If acute HIV-1 infection is suspected in a high risk ??patient, submit plasma specimen for HIV-1 RNA quantitation test. Fourth Generation assay performed on the Siemens Centaur. Blood VENOUS BLOOD / Unknown 09/03/2020 11:25 EST 10/08/2020 6:54 EST Provider Outr Resulting Lab IMMUNOLOGY A ND SEROLOGY ORDERABLES [facility] [address] [place] [address] documented in this encounter Visit Diagnoses Not on filedocumented in this encounter
--- OUTSIDE RECORDS SUMMARY | 2024-06-25 17:25 | XMS_ITS | Encounter Summary ---
Author Organization [facility] Address [address] [place] [address] Care Team Providers Care Demonstrator Knitting Name Role Phone Unavailable Primary Care Provider Unavailabl e Reason for Visit * (Routine) - Receiving Office to Obtain Authorization Specialty Diagnoses / Procedures Referred By Contac t Referred To Contact Procedures US OUTSIDE IMAGES BODY Unknown, Provider, Referral ID Status Reason Start Date Expiration Date Visits Requested Visits Authorized [id number] Receiving Office to Obtain Authorization 12/21/2020 1 1 Encounter Details Date Type Department Care Team (Latest Contact Info) Description 12/21/2020 15:08 EST - 12/21/2020 23:59 EST Hospital Encounter [facility] [place] Discharge Disposition: Home or Self Care Social History Tobacco Use Types Packs/Day Years Used Date Smoking Tobacco: Never Assessed Interpersonal Safety Answer Date Record ed Physically Hurt Never 09/10/2020 Verbally Threaten Not on file 09/10/2020 Sex and Gender Information Value Date Recorded Sex Assigned at Not on file Gender Identity Not on file Sexual Orientation Not on file documented as of this encounter Discharge Disposition Disposition Code Departure Means Destination Home or Self Care documented in this encounter Plan of Treatment Not on file documented as of this encounter Procedures Procedure Name Priority Date/Time Associated Diagnosis Comments US OUTSIDE IMAGES BODY Routine 12/21/2020 15:09 EST documented in this encounter Results * US OUTSIDE IMAGES BODY (12/21/2020 15:09 EST) Narrative 12/21/2020 15:09 EST This is a non-reportable exam. Provider Unknown MD LOO OTHER IMAGING OR DERABLES documented in this encounter Visit Diagnoses Not on filedocumented in this encounter
--- OUTSIDE RECORDS SUMMARY | 2024-06-25 17:25 | XMS_ITS | Referral Summary ---
Author Organization [facility] Address [address] [place] [address] Care Team Providers Care Mine Motor Operator Name Role Phone Unavailable Primary Care Provider Unavailabl e Social History Tobacco Use Types Packs/Day Years Used Date Smoking Tobacco: Never Assessed Interpersonal Safety Answer Date Record ed Physically Hurt Never 09/10/2020 Verbally Threaten Not on file 09/10/2020 Sex and Gender Information Value Date Recorded Sex Assigned at Not on file Gender Identity Not on file Sexual Orientation Not on file Plan of Treatment Not on file
--- OUTSIDE RECORDS SUMMARY | 2024-06-25 17:25 | XMS_ITS | Encounter Summary ---
Author Organization [facility] Address [facility] [place] [address] Care Team Providers Care Patch Worker Name Role Phone Lula Mota APRN Primary Care Provider [phone] Reason for Visit * Auth/Cert Specialty Diagnoses / Procedures Referred By Contac t Referred To Contact Diagnoses Pancreatitis Gallstone pancreatitis Procedures EMERGENCY IPI Referral ID Status Reason Start Date Expiration Date Visits Re quested Visits Authorized [id number] 1 1 Encounter Details Date Type Department Care Team (Latest Contact Info) Description 12/21/2020 6:34 PM EST - 12/24/2020 1:59 PM EST [place] [address] Shayna Damon MD [facility] [address] [facility] [address] Nita Leonard MD [facility] [address] [facility] [place] [address] Discharge Disposition: Home Social History Tobacco Use Types Packs/Day Years [...] on file documented as of this encounter Last Filed Vital Signs Vital Sign Reading [...] Mass Index 34.07 12/21/2020 6:46 PM EST documented in this encounter Discharge Summaries * Eloise Guallpa MD - 12/24/2020 1:59 PM EST Discharge Summary Patient Name: Destin Montiel Patient Age: 25 y.o. Language: Welsh Race: White Ethnicity: Not nor Admit date: 12/21/2020 Discharge date and time: 12/24/2020 Attending Physician: Shayna Damon MD Discharge Physician: Elzbieta Teague MD Follow-up Recommendations for Providers: 12/26 12:40 PM, [facility], [facility] (charissa Vlilalobos CNM) General Surgery follow up pending, this will be scheduled Inpatient Provider Contact Information: [facility] [phone] Care Provider: [facility] Referring Provider if applicable: [facility], Discharge Diagnoses (Hospital Problems) and Secondary Diagnoses (Chronic Problems): Active Hospital Problems Diagnosis ??? Pancreatitis Resolved Hospital Problems No resolved problems to display. Active Non-Hospital Problems Diagnosis ??? Third-stage hemorrhage ??? cardiac echogenic focus Operations/Major Procedures: Laparoscopic cholecystectomy with intraoperative cholangiogram 12/23/2020 History of Presentation: Destin Montiel is a 25 y.o. at 29w0d weeks gestation (by certain LMP) with a history of cholelithiasis who presents in transfer from [facility] for management of suspected gallstone pancreatitis. ?? On 11/20/20, patient had an episode of acute right upper quadrant abdominal pain with nausea and vomiting that prompted her to seek evaluation at the ED at [facility]. She was diagnosed with cholelithiasisat that time. She was last seen at the [facility] ED on 11/30 for pain but has since felt better. She metwith general surgery at [facility] on 12/09 and made a plan for reevaluation at 1 week to schedule lap karla 3-5 weeks later. ?? Destin reports that she had since been feeling better until she developed sudden onset of upper abdominal pain while shopping at [employer] this morning. Describes pain as stabbing in nature, 30/10 in severity. She returned home and laid down and when the pain did not resolve she presented to OSH forevaluation. Denied concurrent nausea, vomiting. ?? At the OSH, labs were notable for a lipase of 7922, elevated alk phos of 165, mildly elevated AST of 47 with normal ALT. Mild leukocytosis to 13.47. VS stable and patient afebrile. She had an abdominal ultrasound that showed cholelithiasis without evidence of acute cholecystitis. Due to concern for gallstone pancreatitis and possible need for ERCP, she was transferred to [facility] for further management. She received IV Tylenol at OSH prior to transfer. ?? Upon arrival, patient reports that her pain is now significantly improved. 3/10 in intensity at this time. She is hungry. Last ate at 730AM. Denies nausea, vomiting. Denies headache, vision changes, chest pain, shortness of breath, leg pain or swelling. Denies dysuria or hematuria. No diarrhea or constipation. ?? She reports normal movement. Denies vaginal bleeding, leaking of fluid. ?? Her has been complicated by the followin. History of cholelithiasis - as above. Initially planned for lap karla at 3-5 weeks . 2. History of depression- on Venlafaxine 37.5mg daily. 3. History of anti-M antibody - antibody screen negative in this per outside records. 4. History of marijuana use - MEIR ordered on admission 5. Echogenic intracardiac foci- noted on detailed morph at 21w2d. No other structural abnormality. Hospital Course: Destin Montiel was admitted for monitoring for gallstone pancreatitis. Her abdominal ultrasound confirmed small mobile gallstones, with no evidence of acute cholecystitis, normal pancreas. GI was consulted and recommended high volume IV hydration, stating that given her improvement clinically ( decreased pain and downtrending LFTs), she is not a candidate for an ERCP. Her lipase decreased from 596 on admission to 67 overnight. General surgery was consulted and recommended a PO challenge, with alow fat diet. She reported persistent pain with food intake and desires to undergo a laparoscopic cholecystectomy with intraoperative cholangiogramwith General surgery on 12/23/2020. Neonatology consult was completed, she was made Magnesium complete and steroid complete, and was given Tdap prior to surgery. She also had a reassuring growth ultrasound, with breech presentation noted, 58%le growth, and anterior placenta. ICN and OB team was present with continuous monitoring, with a reassuring tracing noted before, during and after surgery. She underwent the above procedures without complication. EBL was 5 mL. Findings were notable for: Findings: 1. Gallbladder was not inflamed, cystic duct and cystic artery identified and critical view of safety obtained prior to clipping and dividing cystic duct and artery 2. Cholangiogram performed with good filling of the intrahepatic and common bile ducts, no filling defects and contrast emptied into the duodenum 3. Bile spillage during removal of the gallbladder from the liver bed, all bile suctioned out and no stones spilled. Gallbladder fossa and over the liver copiously irrigated with removal of the irrigation at the end of the case. 4. Gallbladder removed from abdomen through the umbilical port in a Eco bag and sent for pathology 5. monitoring throughout the case with no concerns from the Ob team Postoperatively the patient was taken to PACU and on POD #0 was transferred to the floor. Post operative course was uncomplicated. Post op hemoglobin went from 10.9-->9.8, consistent with blood loss. She was able to tolerate a regular diet and ambulate without difficulty. She was able to void without issue. Her pain was well-controlled on oral medications by the time of discharge andshe could tolerate her breakfast without issue. She reported no cramping, contractions, vaginal bleeding, and reports normal movement. Her labs, specifically LFTs, were (AST 114-->68-->27-->19), (ALT: 88-->73-->46-->36). She was counseled on our concerns for labor given her recent surgery and was monitored throughout the day on POD#1 with a reassuring NST prior to discharge. She had a follow-up in place with her OB providers. We discussed discharge instructions an d plan of care, all questions answered. Due to her post-operative pain the patient was given a prescription for oxycodone to take only for breakthrough pain not responsive to acetaminophen. She was counseled regarding the dangers of these medications including sedation which would impair her ability to drive safely. The potential for addiction with continued use of narcotic was discussed and the need to stop use as soon as possible. Itwas recommended that she promptly destroy unused medication or take them back to drop box locations. The opioid risk assessment was done, opioid informed consent reviewed and signed by patient, PDMP query completed. Discharge instructions discussing the risk of opioids are included in her discharge instructions which are printed and given to the patient at discharge. Tocolytics Received if applicable: N/A Date Steroid Complete: 12/23 GBS status: pending, collected on admission Magnesium for neuoprotection: 12/23 Cervix at discharge: Dilation: Dilation: 0 Effacement: Effacement: 0 Station: Station: Floating -5 Vital signs at Discharge: BP: 118/71, Heart Rate: 75, Temp: 36.9 ??C (98.4 ??F), Resp: 20, BMI (Calculated): 34.87 Height: 167.6 cm (5' 6) (12/21/20 184) Weight: 98 kg (216 lb 0.8 oz) (12/21/201845) Functional and Cognitive status: At baseline Important Studies and Lab Data: Labs: Last 3 Lytes Recent Labs 12/24/20 0550 12/23/20 0625 12/22/20 0530 NA 138 137 137 K 3.9 3.9 3.8 CL 105 105 105 CO2 22 22 22 BUN 7* 4* 5* CREATININE 0.37* 0.30* 0.38* Last 3 LFTs Recent Labs 12/24/20 0550 12/23/20 0625 12/22/20 0530 AST 19 27 68* ALT 36* 46* 73* ALKPHOS 141* 168* 189* BILITOT <0.2* 0.2 0.3 BILIDIR <0.1 <0.1 -- Last 3 CBC Recent Labs 12/24/20 0550 12/23/20 0630 12/22/20 0530 WBC 11.9* 10.3* 13.0* Studies: Most Recent Ultrasound Date:?12/22/2020 GA at US:?28+1 EFW:??2 lb 12 oz, 58%le Growth??appropriate??for gestational age Amniotic fluid volume normal??17.7 Placenta?anterior?? Presentation??breech ?? US Abdomen 12/22/2020 Mild pelvicocaliectasis RIGHT kidney consistent with ??physiological hydronephrosis of . Small ??mobile gallstones. The ??gallbladder wall is normal with no evidence of acute ??cholecystitis. No biliary ??obstruction. Pancreas is normal. Discharge Conditions/Prognosis: baseline Discharge to: home Updated Allergies/ADRs: No Known Allergies Immunizations Given this Hospitalization: There is no immunization history for the selected administration types on file for this patient. Discharge Medications: Your Medications UNREVIEWED medications - Discuss With Your Provider Dose Details ondansetron 4 mg Tab Commonly known as: Zofran TAKE ONE TABLET BY MOUTH EVERY 6 HOURS NEEDED FOR NAUSEA AND VOMITING Refills: 0 1+1 ORAL Take by mouth. Refills: 0 Smoking Status at Discharge: Social History Tobacco Use Smoking Status Former Smoker ??? Quit date: 05/28/2020 ??? Years since quittin.5 Smokeless Tobacco Never Used Ordered for After Discharge: No discharge procedures on file. Instructions Given to Patient at Discharge: There are no outpatient Patient Instructions on file for this admission. General Instructions None Discharge References/Attachments None Referrals:none Cc: [facility], [facility] documented in this encounter Medications at Time of Discharge Medication Sig Dispensed Refills Start Date End Date venlafaxine XR (Effexor-XR) 37.5 mg Capsule, Sust. Release 24 hr Take 1 capsule by mouth nightly. 30 capsule 12/24/2020 polyethylene glycoL (Miralax) 17 gram/dose Powder Take 17 g by mouth daily. 255 g 12/24/2020 acetaminophen (Tylenol) 325 mg Tablet Take 2 tablets by mouth every 6 hours as needed for Pain. 30 tablet 12/24/2020 oxyCODONE (Roxicodone) 5 mg Tablet Take 1 tablet by mouth every 6 hours as needed for Pain. 5 tablet 12/24/2020 vit/iron fum/folic ac ( 1+1 ORAL) Take by mouth. docusate sodium (Colace) 100 mg Capsule Take 1 capsule by mouth 2 times daily for 10 days. 20 capsule 12/24/2020 01/03/2021 documented as of this encounter Progress Notes * Maria Dolores Chaudhari RN - 12/24/2020 1:59 PM EST Patient meets discharge criteria and was discharged from unit to home in stable condition. IV discontinued, tip intact, dressing applied, pressure held. Discharge care instructions provided and explained. Patient verbalized understanding, all questions/concerns addressed. Prescriptions were sent to preferred pharmacy and patient left unit with all belongings. Follow-up appointments will be scheduled with patient, and phone numbers provided if needed. * Eloise Guallpa MD - 12/24/2020 9:59 AM EST NST Daily Progress Note ID: Destin Marie Page is 25 y.o. at 29w3d here with gallstone pancreatitis now s/p lap karla. HD#3/POD#1 NST Fetus A 12/24/2020 HR (beats/min) 130 HR Variability moderate (amplitude range 6 to 25 bpm) HR Accelerations present HR Decelerations none Contraction Frequency (Minutes) no contractions Nonstress Test Interpretation Reactive <32 week: two 10 bpm accelerations lasting 10 seconds Overall Impression Reassuring for gestational age Discussed with Dr. Pal, PUBLIC EMPLOYMENT MEDIATOR Attending Eloise Guallpa MD PGY-3 Associated attestation - Bradley Pal MD - 12/24/2020 3:43 PM EST I personally reviewed the NST and agree with this assessment. MD Xander * Eloise Guallpa MD - 12/24/2020 7:37 AM EST Obstetrical Antepartum Progress Note Patient ID: Destin Montiel is a 25 y.o. at 29w0d gestation with a history of cholelithiasisbeing admitted for management of presumed gallstone pancreatitis. HD#4/POD#1 24 Hour Events --LFTs this AM: (AST 114-->68-->27-->19), (ALT: 88-->73-->46-->36). --10.9-->9.8 Hemoglobin today, EBL 5 mL --appreciate gen surg recs, tolerating procedure well -- ate breakfast and tolerated it well Subjective: Destin is feeling better today. She reports no vaginal bleeding, loss of fluid, nausea, emesis, orcontractions. Feeling good movement. She is having regular bowel movements and eating withoutissue. Destin wants to go home today, but is aware this may take some time. She reports some localized pain in her largest port site in her abdomen, but otherwise, ambulated, passed flatus, voided normally, and is able to move without issue. Review of Systems: Negative except as detailed above. Objective: 12/24/20414 104/48 -- -- 76 12/24/20412 -- 36.9 ??C (98.4 ??F) Oral -- Physical Exam Gen: appears well, NAD, resting comfortably CV: RRR, no murmurs/rubs/gallops Pulm: CTAB, no wheezes/crackles Uterus: gravid, nontender Abd: four lap port sites covered with dermabond, largest incision above umbilicus, no erythema or induration, point tenderness to the upper right aspect of the incision. Cervical Exam: Dilation: 0 (12/21/201935) Effacement: 0 Station: Floating -5 Heart Rate Interpretation: Please see separate daily NST note. Daily weights Patient Vitals for the past 168 hrs: Weight 12/24/20 0711 95.8 kg (211 lb 1.6 oz) 12/22/20 2149 94.5 kg (208 lb 6.4 oz) 12/21/20 1846 98 kg (216 lb 0.8 oz) UOP: 166 mL/hour last reocrded at 0600, I/O last 3 completed shifts: In: 6040 [P.O.:1515; I.V.:7218] Out: 7585 [Urine:7575; Blood:10] Daily weights Patient Vitals for the past 168 hrs: Weight 12/24/20 0711 95.8 kg (211 lb 1.6 oz) 12/22/20 2149 94.5 kg (208 lb 6.4 oz) 12/21/20 1846 98 kg (216 lb 0.8 oz) Most Recent Ultrasound Date: 12/22/2020 GA at US: 28+1 EFW: 2 lb 12 oz, 58%le Growth appropriate for gestational age Amniotic fluid volume normal 17.7 Placenta anterior Presentation breech US Abdomen 12/22/2020 Mild pelvicocaliectasis RIGHT kidney consistent with physiological hydronephrosis of . Small mobile gallstones. The gallbladder wall is normal with no evidence of acute cholecystitis. No biliary obstruction. Pancreas is normal. Labs Lab Results Component Value Date ABORH O Pos 12/21/2020 Lab Results Component Value Date WBC 11.9 (H) 12/24/2020 HGB 9.8 (L) 12/24/2020 HCT 30.2 (L) 12/24/2020 MCV 95.0 (H) 12/24/2020 PLATELET 206 12/24/2020 Lab Results Component Value Date NA 138 12/24/2020 K 3.9 12/24/2020 CL 105 12/24/2020 CO2 22 12/24/2020 BUN 7 (L) 12/24/2020 CREATININE 0.37 (L) 12/24/2020 GLUCOSE 120 12/24/2020 GLUCFASTING 120 (H) 12/23/2020 CALCIUM 8.3 (L) 12/24/2020 ESTGFR 150 12/24/2020 Lab Results Component Value Date ALT 36 (H) 12/24/2020 AST 19 12/24/2020 ALKPHOS 141 (H) 12/24/2020 BILITOT <0.2 (L) 12/24/2020 BILIDIR <0.1 12/24/2020 ALBUMIN 3.2 12/24/2020 PROT 5.6 (L) 12/24/2020 Labs: ABO/RH 12/21/20 O, pos Hgb/Hct 12/21/20 12.0/35.9 Platelets 12/21/20 2 Varicella 09/03/20 Immune Rubella 09/03/20 Immune Syphillis 08/22/17 Non-reactive GC/Chlam 09/03/20 Neg/neg Urine Culture ? HepBsAg 09/03/20 Neg HepC 09/03/20 Neg HIV 09/03/20 Neg 1 hr GTT 12/17/20 113 3 hr GTT ?? NA GBS NA ??PENDING at ?? Allergies NKDA Assessment & Plan: Destin Montiel is a 25 y.o.with a history of cholelithiasis being admitted for management of presumed gallstone pancreatitis, now POD#1 s/p lap cholecystectomy after failed PO challenge. Doing well overnight, needed more pain medications. Took two oxycodone and Tylenol was increased from 325 mg every 4 hours to 650 every 6 hours. Tolerated PO intake. Stable weight and normal UOP given high volumeIVF prior to surgery. Likely discharge to home today pending tolerating PO intake and pain control.Tenderness around largest incision likely MSK in nature given it was the port site with most manipulation for gallbladder. # Gallstone pancreatitis, now resolved, s/p lap cholecystectomy - Consult to gastroenterology- appreciate recs - [facility] for urgent evaluation if patient develops febrile - Consult to General surgery, appreciate recs -??Labs: daily LFTs, with add on BMP, CBC, Coags per General Surgery, labs improving - Neonatalogy consult completed - Tylenol and oxycodone for pain ?? # care - Delivery indications: NRFHT, progressive labor, maternal deterioration?? - Tocolysis received: N/A - Consents obtained: Section with possible classical incision, reconfirmed today, Opioids - hemorrhage risk:??MED (BMI ~35). - Prophylaxis: SCDs in bed, on heparin for ppx - Anticipated DC date:??12/24,pending clinical status this afternoon. ?? # Status - Daily NST - presentation:??transverse on admission - Last Growth US:??see US above, - Steroid status:??Complete 12/23 - Magnesium for neuroprotection: Mg complete 12/23 - Consults obtained: Anesthesiology, neonatology- complete ?? # Routine care - record review??completed and up to date - GBS status: GBS Pending, collected on admission - Glucose testinhr GTT completed on??12/17 - TDaP:??given 12/23 - Influenza vaccine:??done - Contraception Plan:??undecided, not planning for sterilization ?? #Depression and anxiety - Home venlafaxine 37.5mg daily ?? Patient seen and discussed with Maternal Medicine attending. Eloise Guallpa MD PGY-3 Associated attestation - Elzbieta Teague MD - 12/28/2020 4:33 PM EDT I have seen and examined the patient, providing diaz components as outlined below. I have reviewed the resident???s above note; my evaluation of the patient is below: 29 2/7 weeks cholelithiasis and gallstone pancreatitis s/p LS CCY. Pain improved. No NV. Toleratingdiet. FM felt, no LOF, no bleeding or jemima. AFVSS NAD Abdomen soft, incision sites CDI, mildly tender Uterus NT Ext NT I/R 29 2/7 weeks gallstone pancreatitis status reassuring S/p BMZ S/p NICU consult S/p magnesium S/p GI consult. improving labs. Cont hydration. S/p LS CCY Desires D/c today. Precautions given Local OB f/u next week ELZBIETA TEAGUE MD * Princess Logan RN - 12/23/2020 7:01 PM EST OUTCOME EVALUATION NOTE: OUTCOME SUMMARY: VSS. Pt independent with care, ambulating and voiding independently without problems managing pain adequately. Awaiting dinner * Eloise Guallpa MD - 12/23/2020 4:32 PM EST NST Daily Progress Note ID: Destin Marie Page??is a 25 y.o.?? at 29w0d??gestation with a history of cholelithiasis??being admitted for management of??presumed??gallstone pancreatitis.??HD#3 Destin went to the operating room with the OB team (Chhaya, Attending; Maris for time-out, Ramu for closing, and JOANN Hager). Tracing was done throughout her laparoscopic cholecystectomy procedure with General Surgery. Tracing was disjointed, but overall reassuring from the start of surgery,with a baseline of 135/minimal to moderate variability/no accels/no decels, likely secondary to Magnesium IV which continued to run throughout the procedure. Patient tolerated the procedure well. Post procedure NST: 1544 Start 130/mod/+Accels/one variable decel 1636 end?? Discussed with Dr. Shaver, PUBLIC EMPLOYMENT MEDIATOR Attending Eloise Guallpa MD PGY-3 Associated attestation - Russ Shaver MD - 12/23/2020 5:49 PM EST Attending Note: I was the attending physician supervising the resident in the above care and I personally reviewed and interpreted the NST. I agree with the resident's interpretation as noted above. Russ Shaver MD 12/23/20 * Brenda Christina RN - 12/23/2020 3:35 PM EST 1535: Destin Montiel arrives from OR on bed to PACU 14. Placed patient on monitor with parameters adjusted to be appropriate for patient with alarms on and active. Madan at bedside monitoring fetus with reports that it is doing well. 1630: Patient able to void on bedpan. Patient states her pain is much better and that her abdomen hurts when she moves. Patient meets PACU discharge criteria. Patient's nurse Madan at bedside and updated on any additional updates. Plans for transport per protocol to patient's previous room, BP19A. * Eloise Guallpa MD - 12/23/2020 9:48 AM EST Obstetrical Antepartum Progress Note Patient ID: Destin Montiel is a 25 y.o. at 29w0d gestation with a history of cholelithiasisbeing admitted for management of presumed gallstone pancreatitis. HD#3 24 Hour Events --LFTs this AM: (AST 114-->68-->27), (ALT: 88-->73-->46). --Gen Surg: Patient refused surgery yesterday, but did not tolerate her dinner overnight. Plan for surgery this morning. NPO at midnight, will proceed with surgery today. --Ob US: 12/22, RAOUL normal, anterior placenta, breech, 58%le, 29+1 wga --Started MgSo4 for neuroprotection at 1539, continues at this time. Subjective: Destin is feeling better today. She reports no vaginal bleeding, loss of fluid, nausea, emesis, with pain at 4 now, or contractions. Feeling good movement. She is having regular bowel movements and eating. Review of Systems: Negative except as detailed above. Objective: Physical Exam Patient Vitals for the past 24 hrs: BP Temp Temp src Pulse Resp SpO2 Height Weight 12/22/20 1737 -- -- -- -- -- 98 % -- -- 12/22/20 173 -- -- -- -- -- 98 % -- -- 12/22/20 1728 -- -- -- -- -- 100 % -- -- 12/22/20 1724 -- -- -- -- -- 99 % -- -- 12/22/201719 -- -- -- -- -- 98 % -- -- 12/22/201714 -- -- -- -- -- 98 % -- -- 12/22/20 171 -- -- -- -- -- 98 % -- -- 12/22/20 170 -- -- -- -- -- 98 % -- -- 12/22/201699 114/57 -- -- 85 -- 99 % -- -- 12/22/20 1656 -- -- -- -- -- 99 % -- -- 12/22/201651 -- -- -- -- -- 99 % -- -- 12/22/20 1647 -- -- -- -- -- 99 % -- -- 12/22/20 1643 -- -- -- -- -- 99 % -- -- 12/22/20 1638 -- -- -- -- -- 99 % -- -- 12/22/20 1634 -- -- -- -- -- 100 % -- -- 12/22/20 163 93/44 -- -- 87 20 100 % -- -- 12/22/20 1626 -- -- -- -- -- 98 % -- -- 12/22/20 162 -- -- -- -- -- 98 % -- -- 12/22/20 1616 -- -- -- -- -- 99 % -- -- 12/22/20 161 -- -- -- -- -- 99 % -- -- 12/22/20 1606 -- -- -- -- -- 100 % -- -- 12/22/20 1603 111/50 -- -- 93 -- -- -- -- 12/22/20 160 -- -- -- -- -- 99 % -- -- 12/22/20 1557 124/67 -- -- 96 -- 99 % -- -- 12/22/20 1556 -- -- -- -- -- 99 % -- -- 12/22/20 1555 124/67 -- -- 96 -- -- -- -- 12/22/20 1551 -- -- -- -- -- 99 % -- -- 12/22/20 1550 124/74 -- -- 93 24 -- -- -- 12/22/20 1546 116/63 -- -- 89 -- 98 % -- -- 12/22/20 1541 -- -- -- -- -- 99 % -- -- 12/22/20 1540 120/67 -- -- 87 20 -- -- -- 12/22/20 1536 -- -- -- -- -- 100 % -- -- 12/22/20 1535 128/74 -- -- 83 18 -- -- -- 12/22/20 1532 -- 36.9 ??C (98.4 ??F) Oral -- -- 100 % -- -- 12/22/20 1108 -- -- -- -- -- 97 % -- -- 12/22/20 1104 -- -- -- -- -- 98 % -- -- 12/22/20 1100 -- -- -- -- -- 97 % -- -- 12/22/20 1056 -- -- -- -- -- 97 % -- -- 12/22/20 1052 -- -- -- -- -- 97 % -- -- 12/22/20 1048 -- -- -- -- -- 97 % -- -- 12/22/20 1043 -- -- -- -- -- 97 % -- -- 12/22/20 1039 -- -- -- -- -- 97 % -- -- 12/22/20 1035 -- -- -- -- -- 97 % -- -- 12/22/20 1031 -- -- -- -- -- 99 % -- -- 12/22/20 1026 -- -- -- -- -- 97 % -- -- 12/22/20 0946 125/73 36.8 ??C (98.2 ??F) Oral 90 -- 99 % -- -- 12/22/20 0531 116/47 36.8 ??C (98.2 ??F) Oral 89 16 -- -- -- 12/22/20 0131 124/70 -- -- 92 -- -- -- -- 12/22/20 0130 -- 36.8 ??C (98.2 ??F) Oral -- 16 -- -- -- 12/21/205 126/66 36.9 ??C (98.4 ??F) Oral 88 18 -- -- -- 12/21/201935 -- -- -- -- -- 97 % -- -- 12/21/201930 -- -- -- -- -- 98 % -- -- 12/21/201925 -- -- -- -- -- 98 % -- -- 12/21/201920 -- -- -- -- -- 98 % -- -- 12/21/201915 -- -- -- -- -- 98 % -- -- 12/21/201911 -- -- -- -- -- 98 % -- -- 12/21/201907 -- -- -- -- -- 98 % -- -- 12/21/201903 -- -- -- -- -- 99 % -- -- 12/21/201848 -- -- -- -- -- 97 % -- -- 12/21/201845 118/71 36.9 ??C (98.4 ??F) Oral 75 20 98 % 167.6 cm (5' 6) 98 kg (216 lb 0.8 oz) Gen: appears well, NAD, resting comfortably CV: RRR, no murmurs/rubs/gallops Pulm: CTAB, no wheezes/crackles Uterus: gravid, nontender Cervical Exam: Dilation: 0 (12/21/201935) Effacement: 0 Station: Floating -5 Heart Rate Interpretation: Please see separate daily NST note. Daily weights Patient Vitals for the past 168 hrs: Weight 12/21/201845 98 kg (216 lb 0.8 oz) UOP: 800 mL/hour last reocrded at 0600, I/O last 3 completed shifts: In: 2206.7 [P.O.:300; I.V.:1906.7] Out: 1959 [Urine:1960] Daily weights Patient Vitals for the past 168 hrs: Weight 12/22/202148 94.5 kg (208 lb 6.4 oz) 12/21/201845 98 kg (216 lb 0.8 oz) Most Recent Ultrasound Date: 12/22/2020 GA at US: 28+1 EFW: 2 lb 12 oz, 58%le Growth appropriate for gestational age Amniotic fluid volume normal 17.7 Placenta anterior Presentation breech US Abdomen 12/22/2020 Mild pelvicocaliectasis RIGHT kidney consistent with physiological hydronephrosis of . Small mobile gallstones. The gallbladder wall is normal with no evidence of acute cholecystitis. No biliary obstruction. Pancreas is normal. Labs Lab Results Component Value Date ABORH O Pos 12/21/2020 Lab Results Component Value Date WBC 13.0 (H) 12/22/2020 HGB 11.6 (L) 12/22/2020 HCT 35.2 (L) 12/22/2020 MCV 93.4 12/22/2020 PLATELET 232 12/22/2020 Lab Results Component Value Date NA 137 12/22/2020 K 3.8 12/22/2020 CL 105 12/22/2020 CO2 22 12/22/2020 BUN 5 (L) 12/22/2020 CREATININE 0.38 (L) 12/22/2020 GLUCOSE 113 12/22/2020 CALCIUM 9.1 12/22/2020 ESTGFR 148 12/22/2020 Lab Results Component Value Date ALT 73 (H) 12/22/2020 AST 68 (H) 12/22/2020 ALKPHOS 189 (H) 12/22/2020 BILITOT 0.3 12/22/2020 ALBUMIN 3.6 12/22/2020 PROT 6.4 12/22/2020 GBS Labs: ABO/RH 12/21/20 O, pos Hgb/Hct 12/21/20 12.0/35.9 Platelets 12/21/20 2 Varicella 09/03/20 Immune Rubella 09/03/20 Immune Syphillis 08/22/17 Non-reactive GC/Chlam 09/03/20 Neg/neg Urine Culture ? HepBsAg 09/03/20 Neg HepC 09/03/20 Neg HIV 09/03/20 Neg 1 hr GTT 12/17/20 113 3 hr GTT ?? NA GBS NA ? Allergies NKDA Assessment & Plan: Destin Montiel is a 25 y.o. at 29w0d gestation with a history of cholelithiasis being admitted for management of presumed gallstone pancreatitis. Failed PO challenge overnight, with plan for surgery today with General Surgery. Will follow up with General surgery today. # Gallstone pancreatitis - Consult to gastroenterology- appreciate recs - [facility] for urgent evaluation if patient develops febrile - Consult to General surgery, consider intraop cholangiogram, see above -??Labs: daily LFTs, with add on BMP, CBC, Coags per General Surgery - ICN would like to coordinate, seen by Neonataology today. Anesthesia consult placed. - Tylenol scheduled for pain - LR @ 200cc/hr, strict I/Os, daily weights, no signs of dyspnea, volume overload on exam. ?? # care - Delivery indications: NRFHT, progressive labor, maternal deterioration?? - Tocolysis received: N/A - Consents obtained: Section with possible classical incision, reconfirmed today, Opioids - hemorrhage risk:??MED (BMI ~35). - Prophylaxis: SCDs in bed, consider Heparin once hospitalized > 72 hrs (12/24- ordered today forafter surgery) - Anticipated DC date:??pending clinical status ?? # Status - Daily NST - presentation:??transverse on admission - Last Growth US:??see US above, - Steroid status:??12 mg IM x2 doses, 2 doses given 12/22 - Magnesium for neuroprotection: Started on MgSO4, ~1500 - Consults obtained: Anesthesiology, neonatology ?? # Routine care - record review??completed and up to date - GBS status: GBS Pending, collected on admission - Glucose testinhr GTT completed on??12/17 - TDaP:??ordered, to be given today prior to surgery - Influenza vaccine:??done - Contraception Plan:??undecided, not planning for sterilization ?? #Depression and anxiety - Home venlafaxine 37.5mg daily ?? Patient seen and discussed with Maternal Medicine attending. Eloise Guallpa MD PGY-3 Associated attestation - Elzbieta Teague MD - 12/28/2020 4:31 PM EDT I have seen and examined the patient, providing diaz components as outlined below. I have reviewed the resident???s above note; my evaluation of the patient is below: 29 1/7 weeks cholelithiasis and gallstone pancreatitis. Pain improved. N/V worse over night FM felt, no LOF, no bleeding or jemima. AFVSS NAD Abdomen soft, NT Uterus NT Ext NT I/R 29 1/7 weeks gallstone pancreatitis status reassuring S/p BMZ S/p NICU consult On magnesium planning surgery S/p GI consult. improving labs. Cont hydration. Gen surgery consult Planned LS CCY today ELZBIETA TEAGUE MD * Eloise Guallpa MD - 12/22/2020 3:41 PM EST NST Daily Progress Note ID: Destin Montiel is 25 y.o. at 29w1d here with resolving gallstone pancreatitis. HD#2 NST Fetus A 12/22/2020 HR (beats/min) 140 HR Variability moderate (amplitude range 6 to 25 bpm) HR Accelerations present HR Decelerations none Contraction Frequency (Minutes) 0 Nonstress Test Interpretation Reactive <32 week: two 10 bpm accelerations lasting 10 seconds Overall Impression Reassuring for gestational age Discussed with Dr. Nielsen, PUBLIC EMPLOYMENT MEDIATOR Attending Eloise Guallpa MD PGY-3 Associated attestation - Kendell Nielesn MD - 12/22/2020 5:06 PM EST I personally reviewed the nonstress test and agree with the interpretation as documented above. Kendell Nielsen MD 12/22/2020 5:06 PM * Eloise Guallpa MD - 12/22/2020 7:10 AM EST Obstetrical Antepartum Progress Note Patient ID: Destin Montiel is a 25 y.o. at 29w0d gestation with a history of cholelithiasisbeing admitted for management of presumed gallstone pancreatitis. HD#2 24 Hour Events --Lipase decreased from 596-->67 this AM --AST: 114-->68 --ALT: 88-->73 --Amylase wa 247 on 12/21 Subjective: Destin is feeling better today. She reports no vaginal bleeding, loss of fluid, nausea, emesis, with pain at 4 now, or contractions. Feeling good movement. She is having regular bowel movements and eating. Review of Systems: Negative except as detailed above. Objective: Physical Exam Patient Vitals for the past 24 hrs: BP Temp Temp src Pulse Resp SpO2 Height Weight 12/22/20 0531 116/47 36.8 ??C (98.2 ??F) Oral 89 16 -- -- -- 12/22/20 0131 124/70 -- -- 92 -- -- -- -- 12/22/20 0130 -- 36.8 ??C (98.2 ??F) Oral -- 16 -- -- -- 12/21/20 2135 126/66 36.9 ??C (98.4 ??F) Oral 88 18 -- -- -- 12/21/201935 -- -- -- -- -- 97 % -- -- 12/21/201930 -- -- -- -- -- 98 % -- -- 12/21/201925 -- -- -- -- -- 98 % -- -- 12/21/201920 -- -- -- -- -- 98 % -- -- 12/21/201915 -- -- -- -- -- 98 % -- -- 12/21/201911 -- -- -- -- -- 98 % -- -- 12/21/201907 -- -- -- -- -- 98 % -- -- 12/21/201903 -- -- -- -- -- 99 % -- -- 12/21/201848 -- -- -- -- -- 97 % -- -- 12/21/201845 118/71 36.9 ??C (98.4 ??F) Oral 75 20 98 % 167.6 cm (5' 6) 98 kg (216 lb 0.8 oz) Gen: appears well, NAD, resting comfortably CV: RRR, no murmurs/rubs/gallops Pulm: CTAB, no wheezes/crackles Uterus: gravid, nontender Cervical Exam: Dilation: 0 (12/21/201935) Effacement: 0 Station: Floating -5 Heart Rate Interpretation: Please see separate daily NST note. Daily weights Patient Vitals for the past 168 hrs: Weight 12/21/20 1846 98 kg (216 lb 0.8 oz) UOP: 275 mL/hour last reocrded at 0100 I/O last 3 completed shifts: In: 2206.7 [P.O.:300; I.V.:1906.7] Out: 1460 [Urine:1460] Most Recent Ultrasound Date: 10/28/2020 GA at US: 21w2d EFW: 0lbs 14oz Growth appropriate for gestational age Amniotic fluid volumenormal Placenta anterior Presentation cephalic Labs Lab Results Component Value Date ABORH O Pos 12/21/2020 Lab Results Component Value Date WBC 13.0 (H) 12/22/2020 HGB 11.6 (L) 12/22/2020 HCT 35.2 (L) 12/22/2020 MCV 93.4 12/22/2020 PLATELET 232 12/22/2020 Lab Results Component Value Date NA 137 12/22/2020 K 3.8 12/22/2020 CL 105 12/22/2020 CO2 22 12/22/2020 BUN 5 (L) 12/22/2020 CREATININE 0.38 (L) 12/22/2020 GLUCOSE 113 12/22/2020 CALCIUM 9.1 12/22/2020 ESTGFR 148 12/22/2020 Lab Results Component Value Date ALT 73 (H) 12/22/2020 AST 68 (H) 12/22/2020 ALKPHOS 189 (H) 12/22/2020 BILITOT 0.3 12/22/2020 ALBUMIN 3.6 12/22/2020 PROT 6.4 12/22/2020 GBS Labs: ABO/RH 12/21/20 O, pos Hgb/Hct 12/21/20 12.0/35.9 Platelets 12/21/20 2 Varicella 09/03/20 Immune Rubella 09/03/20 Immune Syphillis 08/22/17 Non-reactive GC/Chlam 09/03/20 Neg/neg Urine Culture ? HepBsAg 09/03/20 Neg HepC 09/03/20 Neg HIV 09/03/20 Neg 1 hr GTT 12/17/20 113 3 hr GTT ?? NA GBS NA ? Allergies NKDA Assessment & Plan: Destin Montiel is a 25 y.o. at 29w0d gestation with a history of cholelithiasis being admitted for management of presumed gallstone pancreatitis. Afebrile overnight, plan to consult GI this morning regarding need for ERCP given improved lab values. Will follow up with GI and consider Gen Surg consult. # Gallstone pancreatitis - Consult to gastroenterology - [facility] for urgent evaluation if patient develops febrile - Consult to General surgery, consider intraop cholangiogram -??Labs: T&S, CBC, CMP, UA, MEIR, lipase, amylase - trend daily LFTs - can consider low fat diet pending Gen surg recs - Tylenol scheduled for pain - LR @ 200cc/hr, strict I/Os, daily weights ?? # care - Delivery indications: NRFHT, progressive labor, maternal deterioration?? - Tocolysis received: N/A - Consents obtained: Section with possible classical incision, Opioids - hemorrhage risk:??MED (BMI ~35). - Prophylaxis: SCDs in bed, consider Heparin once hospitalized > 72 hrs (12/24) - Anticipated DC date:??pending clinical status ?? # Status - Daily NST - presentation:??transverse on admission - Last Growth US:??Morphology (11/06) - normal growth, repeat growth US ordered - Steroid status:??12 mg IM x2 doses, 1st dose 12/21 @ 2100 - Magnesium for neuroprotection: Not given - Consults obtained: Anesthesiology, neonatology ?? # Routine care - record review??completed and up to date - GBS status: GBS Pending, collected on admission - Glucose testinhr GTT completed on??12/17 - TDaP:??ordered - Influenza vaccine:??done - Contraception Plan:??undecided, not planning for sterilization ?? #Depression and anxiety - Home venlafaxine 37.5mg daily ?? Patient seen and discussed with Maternal Medicine attending. Eloise Guallpa MD PGY-3 Associated attestation - Elzbieta Teague MD - 12/28/2020 4:28 PM EDT I have seen and examined the patient, providing diaz components as outlined below. I have reviewed the resident???s above note; my evaluation of the patient is below: 29 0/7 weeks cholelithiasis and gallstone pancreatitis. Pain improved. N/V better. FM felt, no LOF,no bleeding or jemima. AFVSS NAD Abdomen soft, NT Uterus NT Ext NT I/R 29 0/7 weeks gallstone pancreatitis status reassuring S/p BMZ Start magnesium if planning surgery GI consult but likely needs cholecystectomy. Improving labs. Cont hydration. RUQ US OB US ELZBIETA TEAGUE MD documented in this encounter H&P Notes * Nita Leonard MD - 12/21/2020 6:45 PM EST Obstetrical Admission Note Referring Hospital: [facility] Referring Provider: Mehreen Villalobos Initial Care Provider (if early referral or co-managed by [facility]): [facility] Chief Complaint: Destin Montiel was admitted today secondary to suspected gallstone pancreatitis. Destin Montiel is a 25 y.o. at 29w0d weeks gestation (by certain LMP) with a history of cholelithiasis who presents in transfer from [facility] for management of suspected gallstone pancreatitis. On 11/20/20, patient had an episode of acute right upper quadrant abdominal pain with nausea and vomiting that prompted her to seek evaluation at the ED at [facility]. She was diagnosed with cholelithiasisat that time. She was last seen at the [facility] ED on 11/30 for pain but has since felt better. She metwith general surgery at [facility] on 12/09 and made a plan for reevaluation at 1 week to schedule lap karla 3-5 weeks later. Destin reports that she had since been feeling better until she developed sudden onset of upper abdominal pain while shopping at [employer] this morning. Describes pain as stabbing in nature, 30/10 in severity. She returned home and laid down and when the pain did not resolve she presented to OSH forevaluation. Denied concurrent nausea, vomiting. At the OSH, labs were notable for a lipase of 7922, elevated alk phos of 165, mildly elevated AST of 47 with normal ALT. Mild leukocytosis to 13.47. VS stable and patient afebrile. She had an abdominal ultrasound that showed cholelithiasis without evidence of acute cholecystitis. Due to concern for gallstone pancreatitis and possible need for ERCP, she was transferred to [facility] for further management. She received IV Tylenol at OSH prior to transfer. Upon arrival, patient reports that her pain is now significantly improved. 3/10 in intensity at this time. She is hungry. Last ate at 730AM. Denies nausea, vomiting. Denies headache, vision changes, chest pain, shortness of breath, leg pain or swelling. Denies dysuria or hematuria. No diarrhea or constipation. She reports normal movement. Denies vaginal bleeding, leaking of fluid. Her has been complicated by the followin. History of cholelithiasis - as above. Initially planned for lap karla at 3-5 weeks . 2. History of depression- on Venlafaxine 37.5mg daily. 3. History of anti-M antibody - antibody screen negative in this per outside records. 4. History of marijuana use - MEIR ordered on admission 5. Echogenic intracardiac foci- noted on detailed morph at 21w2d. No other structural abnormality. Review of Systems- Negative to complete review except as noted in the HPI. Obstetric Review of Systems Total Weight Gain this Not found. Movement: normal Contractions: none Leaking: None Bleeding; none now Preeclampsia signs and symptoms: None Active Hospital Problems Diagnosis ??? Pancreatitis Resolved Hospital Problems No resolved problems to display. Active Non-Hospital Problems Diagnosis ??? Third-stage hemorrhage ??? cardiac echogenic focus Past Medical History: Diagnosis Date ??? Depression ??? Insomnia History reviewed. No pertinent surgical history. OB History 2 Para 1 Term 1 AB Living 1 SAB TAB Ectopic Multiple Live Births 1 # Outc Date GA Lbr Mickey/2nd Wgt Sex Del Anes PTL Lv 1 Term 2019 M Living 2 Current Medications Prior to Admission Medication Sig Dispense Refill Last Dose ??? ondansetron (Zofran) 4 mg Tablet TAKE ONE TABLET BY MOUTH EVERY 6 HOURS NEEDED FOR NAUSEA AND VOMITING ??? vit/iron fum/folic ac ( 1+1 ORAL) Take by mouth. No Known Allergies No family history on file. Social History Occupational History ??? Not on file Tobacco Use ??? Smoking status: Former Smoker Quit date: 05/28/2020 Years since quittin.5 ??? Smokeless tobacco: Never Used Substance and Sexual Activity ??? Alcohol use: Not Currently ??? Drug use: Not Currently Types: Marijuana Comment: Have not used since May with + test ??? Sexual activity: Yes Partners: Male Immunization History There is no immunization history on file for this patient. Last Set of Vitals: BP 118/71 (BP Location (NBP): Left arm, Patient Position: Sitting) Pulse 75 Temp 36.9 ??C (98.4??F) (Oral) Resp 20 Ht 167.6 cm (5' 6) Wt 98 kg (216 lb 0.8 oz) LMP 06/01/2020 SpO2 97% BMI 34.87 kg/m?? Physical Exam: Gen: AAO, well appearing Cardio: nl rhythm, S1, S2, no M/C/R/G Pulm: CTA BL, no W/C/R Abd: +BS, soft, moderately tender in the LUQ and epigastric region with light palpation. No reboundtenderness or guarding. No RUQ tenderness or lower abdominal tenderness. Ext: warm, well-perfused, no JOSE or calf tenderness Uterine Size: S=D Cervix Exam: Dilation: 0 (12/21/20 1936) Effacement: 0 Station: Floating -5 Pelvis: average Presentations: transverse NST Fetus A 12/21/2020 HR (beats/min) 155 HR Variability moderate (amplitude range 6 to 25 bpm) HR Accelerations present;greater than/equal to 10 bpm (32 wks gest or less);lasts at least 10seconds (32 wks gest or less) HR Decelerations absent Record Review ABO/RH 12/21/20 O, pos Hgb/Hct 12/21/20 12.0/35.9 Platelets 12/21/20 2 Varicella 09/03/20 Immune Rubella 09/03/20 Immune Syphillis 08/22/17 Non-reactive GC/Chlam 09/03/20 Neg/neg Urine Culture HepBsAg 09/03/20 Neg HepC 09/03/20 Neg HIV 09/03/20 Neg 1 hr GTT 12/17/20 113 3 hr GTT NA GBS NA Most Recent Ultrasound Date: 10/28/2020 GA at US: 21w2d EFW: 0lbs 14oz Growth appropriate for gestational age Amniotic fluid volumenormal Placenta anterior Presentation cephalic Assessment & Plan Destin Montiel is a 25 y.o. at 29w0d gestation with a history of cholelithiasis being admitted for management of presumed gallstone pancreatitis. Sudden onset of abdominal pain and elevated lipase in the setting of known cholelithiasis suggesting likely gallstone pancreatitis. Patient hemodynamically stable of arrival with reassuring abdominalexam. Per curbside with GI, plan to manage expectantly at this time with aggressive fluid resuscitation and pain control. Advised to contract GI for immediate evaluation if there is clinical suspicion for cholangitis including worsening exam or patient becomes febrile. Maternal and status reassuring at this time. # Gallstone pancreatitis - Consult to gastroenterology - [facility] for urgent evaluation if patient develops febrile - Labs: T&S, CBC, CMP, UA, MEIR, lipase, amylase - trend daily CBC, CMP, lipase - NPO at midnight for possible ERCP tomorrow - Tylenol scheduled for pain - LR @ 200cc/hr, strict I/Os # care - Delivery indications: NRFHT, progressive labor, maternal deterioration - Tocolysis received: N/A - Consents obtained: Section with possible classical incision, Opioids - hemorrhage risk: - Prophylaxis: SCDs in bed, consider Heparin once hospitalized > 72 hrs - Anticipated DC date: pending clinical status # Status - Daily NST - presentation: transverse - Last Growth US: Morphology (11/06) - normal growth, repeat growth US ordered - Steroid status: 12 mg IM x2 doses, 1st dose 12/21 @ 210 - Magnesium for neuroprotection: Not given - Consults obtained: Anesthesiology, neonatology # Routine care - record review completed and up to date - GBS status: GBS Pending, collected on admission - Glucose testinhr GTT completed on 12/17 - TDaP: ordered - Influenza vaccine: done - Contraception Plan: undecided, not planning for sterilization #Depression and anxiety - Home venlafaxine 37.5mg daily This patient was seen and discussed with Dr. Leonard, Attending PUBLIC EMPLOYMENT MEDIATOR. Ti Keyes MD PGY-1 12/21/2020 Consents: - Risks of section were reviewed with the patient including but not limited to bleeding, infection, damage to surrounding organs, need for a blood transfusion, and higher risk of blood clots. She had adequate time to ask questions and all questions were answered. Consents were signed. - Narcotics Reviewed risks, benefits and alternatives of acute opioid use, including the risk of crime victimization and instructions on how to dispose of unused medications. She verbalizes understanding of these and signed written consent for prescription of opiates. I saw and evaluated Destin Montiel. I have reviewed the resident's history and confirmed it with the pateint and I agree with the details as written. My physical examination confirms the resident's findings. The assessment and plan were formulated in discussion with me and I agree with them as documented. I personally reviewed and interpreted this NST. NITA LEONARD MD documented in this encounter Miscellaneous Notes * Initial Assessments - Alina Nj RN - 12/24/2020 1:02 PM EST Office of Care Management Pediatric Assessment Medical record reviewed. Plan of care and patient status discussed with direct care RN and/or Care Team in multidisciplinary rounds. Screenin y.o. female here for Present on Admission: ??? Pancreatitis gallstone pancreatitis now s/p lap karla Patient has not been admitted to a hospital within the last 30 days. Patient has the following agency supports at home which will need to be resumed at discharge: NONE Patient receiving hospital care under Inpatient status. Admission order reviewed. Primary Insurance on file: [facility] Secondary Insurance on file: N/A Primary care provider on file: Llua Mota, WAITER/WAITRESS INFORMAL [phone] Medical Decision Maker: self Code Status: Attempt Cardiopulmonary Resuscitation - Inpatient Patient???s Functional Status: Regular diet ordered, on room air, independently ambulatory Living Situation: [address] [facility] [address] Supports: spouse Assessment: Patient with no apparent RNCM/SW needs at this time. No housing, transportation, insurance, or resource concerns identified at this time. Supports in place to achieve a safe post-hospitaltransition. No identified barriers to accessing necessary care and/or follow-up after discharge. Plan: Patient to d/c to spouse or family member via private car when medically ready. operations forester/Butt Presser will continue to follow patient???s progress and remain available if situation changes for coordination of care, psychosocial support and/or discharge planning. Alina Nj operations forester [facility] Pediatric Inpatient [phone] or dial [phone] and ask to page [phone] * Consult Note - Servando Valero MD - 12/24/2020 6:47 AM EST General Surgery Progress Note Subjective/24hours - s/p laparoscopic cholecystectomy with negative IOC. - States pain well controlled his morning. - Some tenderness at the supra-umbilical port. - Tolerated Mac and cheese last night. PMH: Past Medical History: Diagnosis Date ??? Depression ??? Insomnia PSH: Tonsillectomy MEDICATIONS: No current facility-administered medications on file prior to encounter. Current Outpatient Medications on File Prior to Encounter Medication Sig Dispense Refill ??? ondansetron (Zofran) 4 mg Tablet TAKE ONE TABLET BY MOUTH EVERY 6 HOURS NEEDED FOR NAUSEA AND VOMITING ??? vit/iron fum/folic ac ( 1+1 ORAL) Take by mouth. ALLERGIES: No Known Allergies FAMILY HISTORY: Denies bleeding or clotting disorders. SOCIAL HISTORY: Social History Socioeconomic History ??? Marital status: Spouse name: Not on file ??? Number of children: Not on file ??? Years of education: Not on file ??? Highest education level: Not on file Occupational History ??? Not on file Tobacco Use ??? Smoking status: Former Smoker Quit date: 05/28/2020 Years since quittin.5 ??? Smokeless tobacco: Never Used Substance and Sexual Activity ??? Alcohol use: Not Currently ??? Drug use: Not Currently Types: Marijuana Comment: Have not used since May with + test ??? Sexual activity: Yes Partners: Male Other Topics Concern ??? Not on file Social History Narrative ??? Not on file Social Determinants of Health Financial Resource Strain: ??? Difficulty of Paying Living Expenses: Not on file Food Insecurity: ??? Worried About Running Out of Food in the Last Year: Not on file ??? Ran Out of Food in the Last Year: Not on file Transportation Needs: ??? Lack of Transportation (Medical): Not on file ??? Lack of Transportation (Non-Medical): Not on file Physical Activity: ??? Days of Exercise per Week: Not on file ??? Minutes of Exercise per Session: Not on file REVIEW OF SYSTEMS: 12 point review of system otherwise negative except as above PHYSICAL EXAM: VS: (Temp: [36.4 ??C (97.5 ??F)-36.9 ??C (98.4 ??F)] ) Temp: 36.9 ??C (98.4 ??F), (Heart Rate: [74-87] ) Heart Rate: 76, (BP: (103-105)/(47-58) ) BP: 104/48, (Resp: [12-18] ) Resp: 17, (SpO2: [94 %-99 %] ) SpO2: 97 % GA: NAD, resting comfortably CV: RRR Pulm: unlabored breathing on RA, no use of accessory muscles, no stridor/audible wheezing ABD: appropriately tender out the supra-umbilical port. soft abdomen. Gravid abdomen. Extr: warm and well perfused, no notable edema Neuro: no focal deficits 24 Hr I/O's: 12/23 0701 - 12/24 0700 In: 1315 [P.O.:15; I.V.:1300] Out: 2485 [Urine:2475] LABS: Recent Labs 12/24/20 0550 12/23/20 0630 12/22/20 0530 WBC 11.9* 10.3* 13.0* HGB 9.8* 10.9* 11.6* HCT 30.2* 33.4* 35.2* PLATELET 206 241 232 NEUTROABS 8.71* 8.95* 11.77* Recent Labs 12/24/20 0550 12/23/20 0625 12/22/20 0530 NA 138 137 137 K 3.9 3.9 3.8 CL 105 105 105 CO2 22 22 22 BUN 7* 4* 5* CREATININE 0.37* 0.30* 0.38* Recent Labs 12/24/20 0550 12/23/20 0625 12/22/20 0530 CALCIUM 8.3* 8.1* 9.1 Recent Labs 12/24/20 0550 12/22/20 0530 12/21/202009 GLUCOSE 120 113 80 Recent Labs 12/21/202009 AMYLASE 247* Recent Labs 12/24/20 0550 12/23/20 0625 12/22/20 0530 AST 19 27 68* ALT 36* 46* 73* ALKPHOS 141* 168* 189* BILITOT <0.2* 0.2 0.3 BILIDIR <0.1 <0.1 -- Recent Labs 12/23/20 0630 INR 0.9 PT 10.7 PTT 27 No results for input(s): CK in the last 168 hours. Results for orders placed or performed during the hospital encounter of 12/21/20 US OB Follow Up (Exam End: 12/22/2020 2:36 PM) Impression 3rd Trimester Summary Single intrauterine with a gestational age of 29w 1d based on LMP (06/01/20). Composite age based on the current ultrasound alone is 28w 1d. Estimated weight corresponds to the 58th percentile for 29w 1d. Current growth parameters are consistent with prior dating indicating normal growth. Amniotic fluid volume is normal. Anatomical survey is limited due to the late gestational age. Sav Damon, Staff Physician Electronically Signed Final Report 12/22/2020 02:50 pm US Abdomen Limited (Exam End: 12/22/2020 2:02 PM) Impression Mild pelvicocaliectasis RIGHT kidney consistent with physiological hydronephrosis of . Small mobile gallstones. The gallbladder wall is normal with no evidence of acute cholecystitis. No biliary obstruction. Pancreas is normal I have personally reviewed the image(s) and the resident's interpretation and agree with the findings, Dunia Hale MD at 12/22/2020 4:12 PM Thank you for letting us participate in the care of this patient. For questions regarding this report, please contact the number below. Dunia Hale Staff Physician Electronically Signed Final Report 12/22/2020 04:19 pm ASSESSMENT and RECOMMENDATIONS: Destin Montiel is a 25 y.o. female at 29w1d w/ hx of , biliary colic, who is admitted to [facility] with galstone pancreatitis. Based on her known cholelithiasis with elevated lipase and severe epigastric pain that she most likely developed gallstone pancreatitis. Clinically she has improved from a pancreatitis standpoint and is now s/p cholecystectomy. This morning she states she has been tolerating her diet, her pain is well controlled, and she would like to go home. Okay for discharge from general surgery standpoint. Uli Jacinto MD 12/24/2020 [id number] Attending Addendum I have seen and examined the patient and reviewed the history documented above and I agree with thedetails as written. I have reviewed the laboratory data and viewed the pertinent imaging. The assessment and plan were formulated in discussion with me and I agree with them as documented. Overall doing well with no nausea or abdominal pain after eating. OK for discharge today from General Surgery standpoint. Tylenol for pain. Follow up in 2-4 weeks in general surgery clinic with appointment coordinated with Ob follow up. Araceli Valero MD * Plan of Care - Princess Logan RN - 12/23/2020 7:04 PM EST Moving toward goals * Op Note - Servando Valero MD - 12/23/2020 4:16 PM EST [facility] [place] Operative Note Patient Name: Destin Marie Page : [id number] MR#: [id number] Case Date: 12/23/2020 Surgeon: Surgeon(s) and Role: * Servando Valero MD - Primary * Eloise Guallpa MD - Resident * Uli Jacinto MD - Resident * Russ Shaver MD - Assisting Attending Preoperative diagnosis: Cholecystitis Postoperative diagnosis: Cholecystitis Procedure(s) (LRB): LAPAROSCOPIC CHOLECYSTECTOMY WITH CHOLANGIOGRAM (WRVU 11.47) (N/A) Findings: 1. Gallbladder was not inflamed, cystic duct and cystic artery identified and critical view of safety obtained prior to clipping and dividing cystic duct and artery 2. Cholangiogram performed with good filling of the intrahepatic and common bile ducts, no filling defects and contrast emptied into the duodenum 3. Bile spillage during removal of the gallbladder from the liver bed, all bile suctioned out and no stones spilled. Gallbladder fossa and over the liver copiously irrigated with removal of the irrigation at the end of the case. 4. Gallbladder removed from abdomen through the umbilical port in a Eco bag and sent for pathology 5. monitoring throughout the case with no concerns from the Ob team Anesthesia: General Estimated Blood Loss: 5 mL Specimens removed during surgery: Order Name Source Comment Collection Info Order Time SPECIMEN TO PATHOLOGY Gallbladder 60248 Cholecystitis Gallbladder excision No 12/23/2020 3:03 PM Time specimen removed from patient: 3:02 PM Number of tissue samples (in container) 1 Biospecimen to store? No Drains: none Surgical Closure: Primary Closure - skin incision is completely closed without any wires, south, drains or other devices Disposition: awakened from anesthesia, extubated and taken to the recovery room in a stable condition, having suffered no apparent untoward event. Condition: doing well without problems (Please see the Surgical Encounter Summary for any Implant and Specimen details pertinent to this patient.) HPI/Surgical Indications: 25 yo 29 week female with gallstone pancreatitis. Her pain has improved but was still present with po intake. We discussed the risks and benefits of laparoscopic cholecystectomy including the risk of no operation which would be recurrent pancreatitis. Her recurrent pancreatitis/cholecystitis risk for the next 3 months would be around 20% and could lead to labor. Operative intervention would be safe but would carry a much smaller risk <5% of inducingpreterm labor. Following review of her therapeutic options, she has elected to undergo a laparoscopic possible open cholecystectomy with cholangiogram. Procedure Description: The patient was identified in preoperative holding and was taken to the operating room and general anesthesia was induced. Obstetrics placed monitor on her lower abdomen. The abdomen was prepped and draped in the standard sterile fashion. Timeout was performed. Preoperative antibiotics were given. Incision was made above the umbilicus and the fascia was grasped between two Domenic clamps. The fascia was opened with the knife and the underlying peritoneum was grasped and opened with Metzenbaum scissors. 0 vicryl suture was placed on either side of the fascial opening. A 12mm Parham trocarwas placed into the abdomen under direct visualization. The abdomen was insufflated to 12 mmHg pressure with CO2. A 10mm 30 degree scope was brought into the abdomen. The gravid uterus was avoided. All remaining trocars were inserted under direct visualization. The next trocar was a 11 mm trocar placed in the midline just below the xiphoid. Two 5 mm trocars were placed in the RUQ. A grasping forceps was placed on the fundus of the gallbladder and the gallbladder was retracted cephalad. Using appropriate grasping instruments, the peritoneum overlying the triangle of Calot was incised. The cystic duct/gallbladder junction was identified and dissected circumferentially. A critical view of safety was achieved. The cystic artery was identified medially and was dissected circumferentially. A clip was then placed on the cystic duct/gallbladder junction and an intraoperative cholangiogram performed using fluoroscopy, which showed good flow of dye into the duodenum. There were no intra- or extrahepatic bile duct filling defects. The biliary anatomy appeared normal. Following completion of the cholangiogram, the catheter was removed. Two clips were then placed proximally on the cystic duct and the duct divided. Two clips were placed proximally and one distally on the cystic artery, and the artery was divided. Remaining soft tissue attachments to the gallbladder to the liver bed were then divided using electrocautery. Bile spillage occurred during removal of the gallbladder from the liver bed, all bile suctioned out and no stones spilled. The 10mm 30 degree scope was moved to the subxiphoid port site and an Eco bag was inserted through the umbilical port site. The gallbladder was placed in the Eco bag and extracted through the umbilical port site. The gallbladder bed was inspected and excellent hemostasis was obtained. Copious irrigation was used in the gallbladder bed and overthe liver and was suctioned out and was clear. The 5mm trocars were removed under direct visualization. The umbilical trocar was removed and the fascial defect closed with the 0 vicryl suture after evacuating the pneumoperitoneum. Hemostasis was achieved at all port sites.The skin was closed with arunning 4-0 monocryl subcuticular stitch and the skin dressed with Dermabond. All counts were correct at the end of the case. The patient was extubated in the OR and returned to the recovery area in stable condition. monitoring occurred throughout the case with no concerns from the Obstetrics team. Attestation: Case Date: 12/23/2020 I was present and I participated during the entire procedure (does not need to include opening and closing). SERVANDO VALERO MD 12/23/2020 * Consult Note - Joaquin Roxann Phil - 12/23/2020 3:38 PM EST Requested by OB team to provide a consult to Destin Montiel and discuss the anticipated evaluation and management of an born at 29 weeks gestation. Destin is a 25 y/o G 2 P 1001 with cholelithiasis?? and acute gallstone pancreatitis. She is set to go to the OR and would like an ICN consult. Maternal Labs: ABO/RH 12/21/20 O, pos Hgb/Hct 12/21/20 12.0/35.9 Platelets 12/21/20 241 Varicella 09/03/20 Immune Rubella 09/03/20 Immune Syphillis 08/22/17 Non-reactive GC/Chlam 09/03/20 Neg/neg Urine Culture ? HepBsAg 09/03/20 Neg HepC 09/03/20 Neg HIV 09/03/20 Neg 1 hr GTT 12/17/20 113 3 hr GTT ?? NA GBS NA ? I met with Destin and her partner. They are anticipating the of a son named Dillion. Diegoisisplanning on her . We also discussed that parents are considered to be part of the care team and are welcome in the ICN at all times. We discussed the general care and management of an infant born at 29 weeks gestation, including respiratory support, thermoregulation, growth and nutrition and apnea. We also discussed the potential need for procedures including intubation and umbilical catheter placement. They had no further questions, and I reassured them that a member of the ICN team would be available to come back and address any further questions regarding the care of their son. 20 minutes of this 25 minute visit were spent on the [facility] in counseling of care with the and/or parents as detailed in the note above. Roxann Nuñez MD ICN Fellow Pager [phone] * Consult Note - Servando Valero MD - 12/23/2020 12:36 PM EST General Surgery Consult Note HPI: Destin Montiel is a 25 y.o. female at 29w1d w/ hx of MD, biliary colic, who is admitted to [facility] with galstone pancreatitis. She states she first began having abdominal symptoms in early November which consisted of RUQ pain after eating. She presented to OSH where an US showed cholelithiasis and she was diagnosed with symptomatic cholelithiasis. She returned with symptomatic cholelithiasis again in mid November which resolved without intervention. She had seen a surgeon at OSH which offered to see her post- and schedule an elective cholecystectomy. Yesterday she had sudden onset of severe ipgastric pain, radiation across upper abdomen that brought her to her knees. AT OSH she was found to have a lipase >7000. US again showed cholelithiasis without cholecystitis. She was transferred to [facility] [place] for further care. This morning she states her pain is much improved, 4/10. She was conversing and moving in bed comfortably. She denies any recent jaundice or darkened urine. Denies fevers/chills. Today her lipase hascontinued its downtrend. T.bili WNL. LFTs decreasing. Subjective/24hours - RUQ pain after eating. - Now wants surgery. PMH: Past Medical History: Diagnosis Date ??? Depression ??? Insomnia PSH: Tonsillectomy MEDICATIONS: No current facility-administered medications on file prior to encounter. Current Outpatient Medications on File Prior to Encounter Medication Sig Dispense Refill ??? ondansetron (Zofran) 4 mg Tablet TAKE ONE TABLET BY MOUTH EVERY 6 HOURS NEEDED FOR NAUSEA AND VOMITING ??? vit/iron fum/folic ac ( 1+1 ORAL) Take by mouth. ALLERGIES: No Known Allergies FAMILY HISTORY: Denies bleeding or clotting disorders. SOCIAL HISTORY: Social History Socioeconomic History ??? Marital status: Spouse name: Not on file ??? Number of children: Not on file ??? Years of education: Not on file ??? Highest education level: Not on file Occupational History ??? Not on file Tobacco Use ??? Smoking status: Former Smoker Quit date: 05/28/2020 Years since quittin.5 ??? Smokeless tobacco: Never Used Substance and Sexual Activity ??? Alcohol use: Not Currently ??? Drug use: Not Currently Types: Marijuana Comment: Have not used since May with + test ??? Sexual activity: Yes Partners: Male Other Topics Concern ??? Not on file Social History Narrative ??? Not on file Social Determinants of Health Financial Resource Strain: ??? Difficulty of Paying Living Expenses: Not on file Food Insecurity: ??? Worried About Running Out of Food in the Last Year: Not on file ??? Ran Out of Food in the Last Year: Not on file Transportation Needs: ??? Lack of Transportation (Medical): Not on file ??? Lack of Transportation (Non-Medical): Not on file Physical Activity: ??? Days of Exercise per Week: Not on file ??? Minutes of Exercise per Session: Not on file REVIEW OF SYSTEMS: 12 point review of system otherwise negative except as above PHYSICAL EXAM: VS: (Temp: [36.6 ??C (97.9 ??F)-36.9 ??C (98.4 ??F)] ) Temp: 36.7 ??C (98.1 ??F), (Heart Rate: [77-96] ) Heart Rate: 77, (BP: (96-116)/(40-62) ) BP: 114/51, (Resp: [16-24] ) Resp: 18, (SpO2: [94 %-100 %] ) SpO2: 97 % GA: NAD, resting comfortably CV: RRR Pulm: unlabored breathing on RA, no use of accessory muscles, no stridor/audible wheezing ABD: non-tender. soft abdomen. Gravid abdomen. Extr: warm and well perfused, no notable edema Neuro: no focal deficits 24 Hr I/O's: 12/22 0701 - 12/23 0700 In: 4188.3 [I.V.:4188.3] Out: 5300 [Urine:5300] LABS: Recent Labs 12/23/20 0630 03/06/06 53012/21/202009 WBC 10.3* 13.0* 13.4* HGB 10.9* 11.6* 12.0 HCT 33.4* 35.2* 35.9 PLATELET 241 232 245 NEUTROABS 8.95* 11.77* 9.83* Recent Labs 12/23/20 0625 12/22/2030 12/21/202009 NA 137 137 138 K 3.9 3.8 3.8 CL 105 105 105 CO2 22 22 22 BUN 4* 5* 8 CREATININE 0.30* 0.38* 0.41* Recent Labs 12/23/20 0625 12/22/2030 12/21/202009 CALCIUM 8.1* 9.1 8.9 Recent Labs 12/22/2030 12/21/202009 GLUCOSE 113 80 Recent Labs 12/21/202009 AMYLASE 247* Recent Labs 12/23/20 0625 12/22/2052912/21/202009 AST 27 68* 114* ALT 46* 73* 88* ALKPHOS 168* 189* 194* BILITOT 0.2 0.3 0.2 BILIDIR <0.1 -- -- Recent Labs 12/23/20629 INR 0.9 PT 10.7 PTT 27 No results for input(s): CK in the last 168 hours. Results for orders placed or performed during the hospital encounter of 12/21/20 US OB Follow Up (Exam End: 12/22/2020 2:36 PM) Impression 3rd Trimester Summary Single intrauterine with a gestational age of 29w 1d based on LMP (06/01/20). Composite age based on the current ultrasound alone is 28w 1d. Estimated weight corresponds to the 58th percentile for 29w 1d. Current growth parameters are consistent with prior dating indicating normal growth. Amniotic fluid volume is normal. Anatomical survey is limited due to the late gestational age. Sav Damon, Staff Physician Electronically Signed Final Report 12/22/2020 02:50 pm US Abdomen Limited (Exam End: 12/22/2020 2:02 PM) Impression Mild pelvicocaliectasis RIGHT kidney consistent with physiological hydronephrosis of . Small mobile gallstones. The gallbladder wall is normal with no evidence of acute cholecystitis. No biliary obstruction. Pancreas is normal I have personally reviewed the image(s) and the resident's interpretation and agree with the findings, Dunia Hale MD at 12/22/2020 4:12 PM Thank you for letting us participate in the care of this patient. For questions regarding this report, please contact the number below. Dunia Hale, Staff Physician Electronically Signed Final Report 12/22/2020 04:19 pm ASSESSMENT and RECOMMENDATIONS: Destin Montiel is a 25 y.o. female at 29w1d w/ hx of MD, biliary colic, who is admitted to [facility] with galstone pancreatitis. Based on her known cholelithiasis with elevated lipase and severe epigastric pain that she most likely developed gallstone pancreatitis. Fortunately she has improved from a pancreatitis standpoint. Yesterday we had an informed discussion weighing the risks and benefits of surgical management vs. continued non-operative management. She was hesitant to have surgery yesterday evening, but after having another bout of post-prandial RUQ pain, she now would like to pursue cholecystectomy. - Laparoscopic cholecystectomy, tentatively planned for today. - She has received steroids and magnesium. Will require intra-operative monitoring. - Please keep NPO. General surgery will continue to follow. Uli Jacinto MD 12/23/2020 [id number] Attending Addendum I have seen and examined the patient and reviewed the history documented above and I agree with thedetails as written. I have reviewed the laboratory data and viewed the pertinent imaging. The assessment and plan were formulated in discussion with me and I agree with them as documented. 25 yo 29 week female with gallstone pancreatitis. ??Her pain intially improved but was still present with po intake. We discussed the risks and benefits of laparoscopic cholecystectomy including the risk of no operation which would be recurrent pancreatitis. Her recurrent pancreatitis/cholecystitis risk for the next 3 months would be around 20% and could lead to labor. Operative intervention would be safe but would carry a much smaller risk <5% of inducing labor. Following review of her therapeutic options, she has elected to undergo a laparoscopic possible open cholecystectomy with cholangiogram. Will proceed to the OR today with the Obstetrics team providing continuous monitoring and the NICU team on standby. The findings and recommendations were discussed with the consulting provider/service. Araceli Valero MD * Plan of Care - Tanisha Guzmán RN - 12/23/2020 6:21 AM EST OUTCOME EVALUATION NOTE: OUTCOME SUMMARY: Patient has been doing well overnight and with no new concerns. Reports + movement. Denies LOF, vaginal bleeding, contractions or cramping. Patient endorses continued pain in her abdomen this morning. PLAN MOVING FORWARD: Continue to monitor maternal and status. Monitor VS as ordered and prn. Patient agrees to call with any changes or concerns. INDIVIDUALIZED FALL PREVENTION INTERVENTIONS: Patient-specific fall risk factors per assessment: [current deficits]: None Assistance [level of assistance required for transfers and ambulation]: Independent Supervision [direct monitoring required during toileting and ADLs]: None, will call if dizzy or if needs assistance Surveillance [continuous indirect monitoring]: Call gamez is with in reach, rounding completed by this RN Patient-specific fall prevention interventions for sensory deficits provided, if applicable: [X] N/A CPG GOAL OUTCOME EVALUATION: * Consult Note - Servando Valero MD - 12/22/2020 2:43 PM EST General Surgery Consult Note HPI: Destin Montiel is a 25 y.o. female at 29w1d w/ hx of MD, biliary colic, who is admitted to [facility] with galstone pancreatitis. She states she first began having abdominal symptoms in early November which consisted of RUQ pain after eating. She presented to OSH where an US showed cholelithiasis and she was diagnosed with symptomatic cholelithiasis. She returned with symptomatic cholelithiasis again in mid November which resolved without intervention. She had seen a surgeon at OSH which offered to see her post- and schedule an elective cholecystectomy. Yesterday she had sudden onset of severe ipgastric pain, radiation across upper abdomen that brought her to her knees. AT OSH she was found to have a lipase >7000. US again showed cholelithiasis without cholecystitis. She was transferred to [facility] [place] for further care. This morning she states her pain is much improved, 4/10. She was conversing and moving in bed comfortably. She denies any recent jaundice or darkened urine. Denies fevers/chills. Today her lipase hascontinued its downtrend. T.bili WNL. LFTs decreasing. PMH: Past Medical History: Diagnosis Date ??? Depression ??? Insomnia PSH: Tonsillectomy MEDICATIONS: No current facility-administered medications on file prior to encounter. Current Outpatient Medications on File Prior to Encounter Medication Sig Dispense Refill ??? ondansetron (Zofran) 4 mg Tablet TAKE ONE TABLET BY MOUTH EVERY 6 HOURS NEEDED FOR NAUSEA AND VOMITING ??? vit/iron fum/folic ac ( 1+1 ORAL) Take by mouth. ALLERGIES: No Known Allergies FAMILY HISTORY: Denies bleeding or clotting disorders. SOCIAL HISTORY: Social History Socioeconomic History ??? Marital status: Spouse name: Not on file ??? Number of children: Not on file ??? Years of education: Not on file ??? Highest education level: Not on file Occupational History ??? Not on file Tobacco Use ??? Smoking status: Former Smoker Quit date: 05/28/2020 Years since quittin.5 ??? Smokeless tobacco: Never Used Substance and Sexual Activity ??? Alcohol use: Not Currently ??? Drug use: Not Currently Types: Marijuana Comment: Have not used since May with + test ??? Sexual activity: Yes Partners: Male Other Topics Concern ??? Not on file Social History Narrative ??? Not on file Social Determinants of Health Financial Resource Strain: ??? Difficulty of Paying Living Expenses: Not on file Food Insecurity: ??? Worried About Running Out of Food in the Last Year: Not on file ??? Ran Out of Food in the Last Year: Not on file Transportation Needs: ??? Lack of Transportation (Medical): Not on file ??? Lack of Transportation (Non-Medical): Not on file Physical Activity: ??? Days of Exercise per Week: Not on file ??? Minutes of Exercise per Session: Not on file REVIEW OF SYSTEMS: 12 point review of system otherwise negative except as above PHYSICAL EXAM: VS: (Temp: [36.8 ??C (98.2 ??F)-36.9 ??C (98.4 ??F)] ) Temp: 36.8 ??C (98.2 ??F), (Heart Rate: [75-92] ) Heart Rate: 90, (BP: (116-125)/(47-73) ) BP: 125/73, (Resp: [16-20] ) Resp: 16, (SpO2: [97 %-99 %] ) SpO2: 97 % GA: NAD, resting comfortably CV: RRR Pulm: unlabored breathing on RA, no use of accessory muscles, no stridor/audible wheezing ABD: non-tender. soft abdomen. Gravid abdomen. Extr: warm and well perfused, no notable edema Neuro: no focal deficits 24 Hr I/O's: 12/21 07 - 12/22 07 In: 2206.7 [P.O.:300; I.V.:1906.7] Out: 1960 [Urine:1960] LABS: Recent Labs 12/22/20 0530 12/21/202009 WBC 13.0* 13.4* HGB 11.6* 12.0 HCT 35.2* 35.9 PLATELET 232 245 NEUTROABS 11.77* 9.83* Recent Labs 12/22/20 0530 12/21/202009 NA 137 138 K 3.8 3.8 CL 105 105 CO2 22 22 BUN 5* 8 CREATININE 0.38* 0.41* Recent Labs 12/22/20 0530 12/21/20 2010 CALCIUM 9.1 8.9 Recent Labs 12/22/20 0530 12/21/20 2010 GLUCOSE 113 80 Recent Labs 12/21/20 2010 AMYLASE 247* Recent Labs 12/22/20 0530 12/21/20 2010 AST 68* 114* ALT 73* 88* ALKPHOS 189* 194* BILITOT 0.3 0.2 No results for input(s): INR, PT, PTT in the last 168 hours. No results for input(s): CK in the last 168 hours. Results for orders placed or performed during the hospital encounter of 12/21/20 OB Follow Up (Exam End: 12/22/2020 2:36 PM) Impression 3rd Trimester Summary Single intrauterine with a gestational age of 29w 1d based on LMP (06/01/20). Composite age based on the current ultrasound alone is 28w 1d. Estimated weight corresponds to the 58th percentile for 29w 1d. Current growth parameters are consistent with prior dating indicating normal growth. Amniotic fluid volume is normal. Anatomical survey is limited due to the late gestational age. Sav Damon, Staff Physician Electronically Signed Final Report 12/22/2020 02:50 pm ASSESSMENT and RECOMMENDATIONS: Destin Montiel is a 25 y.o. female at 29w1d w/ hx of MD, biliary colic, who is admitted to [facility] with galstone pancreatitis. Based on her known cholelithiasis with elevated lipase and severe epigastric pain that she most likely developed gallstone pancreatitis. Given her improvement in symptoms, coinciding with a decrease in lipase and LFTs her stone has passed. The typical treatment for gallstone pancreatitis is cholecystectomy, during the same admission. But cholecystectomies in women do have an increased risk of converting to open, pre-term labor, and longer hospital stays. That said, these risks will have to be weighed against the risk of a recurrent bout of gallstone pancreatitis. We have discussed the risks and benefits with the patient. Currently she is asking for food, and states she thinks she would like to give the baby more time to grow before having surgery. We explained to her that is reasonable, and we will [place] back in the AM to reassess after she had some PO. General surgery will continue to follow. Uli Jacinto MD 12/22/2020 [id number] Attending Addendum I have seen and examined the patient and reviewed the history documented above and I agree with thedetails as written. I have reviewed the laboratory data and viewed the pertinent imaging. The assessment and plan were formulated in discussion with me and I agree with them as documented. 25 yo 29 week female with gallstone pancreatitis. Her pain has improved but is still present to a small degree. She is hungry and her labs have improved. We discussed the risks and benefits of laparoscopic cholecystectomy including the risk of no operation which would be recurrent pancreatitis. Her recurrent pancreatitis/cholecystitis risk for the next 3 months would be around 20% and could lead to labor. Operative intervention would be safe but would carry a much smaller risk <5% of inducing labor. After discussion with her and her they wanted to hold off on operative intervention at this time. Ok to advance her diet and see if symptoms return. Nonop management may be angelina risky course than laparoscopic cholecystectomy and will readdress with her and her in the morning. No urgent indication for operative intervention right now. The findings and recommendations were discussed with the consulting provider/service. Araceli Valero MD * Consult Note - Carmen Coughlin MD - 12/22/2020 6:58 AM EST GASTROENTEROLOGY & HEPATOLOGY CONSULTATION Initial Consult Note Requesting Provider: Shayna Damon MD REASON FOR CONSULTATION Gallstone pancreatitis HISTORY OF PRESENT ILLNESS Destin Montiel is a 25 y.o. female at 29 weeks gestation w/PMH of cholelithiasis and depression whopresented in transfer from [facility] with gallstone pancreatitis. She initially had RUQ pain associated with N/V on 11/20/20 leading to a presentation at [facility] leading to ultrasound and diagnosis of cholelithiasis. This resolved, but then had a repeat episode on 11/30 leading to another ER visit. She was then seen by general surgery at [facility] on 12/09 and planned for lap karla 3-5 weeks post . She had initially had resolution of symptoms between episodes however over the past week, she experienced constant, nonradiating RUQ abdominal pain yesterday AM without nausea and vomiting. Upon presentation to [facility], labs were notable for lipase of 7900, Alk phos 165, AST 47, WBC 13. RUQ U/S showedcholelithiasis without biliary ductal dilation or cholecystitis. She was then transferred to [facility] for gallstone pancreatitis. Since presentation to [facility], vitals have remained stable and labs notable for WBC 13, Cr 0.38, Alk Phos 194--> 189, AST 114--> 68, ALT 88-->73. Her abdominal pain has resolved and she has been receiving LR 200cc/hr. Endorses feeling hungry this AM ROS: 10 systems reviewed, pertinent positives and negatives as noted in HPI PAST MEDICAL/SURGICAL HISTORY: Past Medical History: Diagnosis Date ??? Depression ??? Insomnia MEDICATIONS ??? sodium chloride 0.9 % (flush) 5 mL Intravenous BID ??? betamethasone acetate-betamethasone sodium phosphate 12 mg Intramuscular Q24H ? ? vitamin 27 & [id number] 1 tablet Oral Daily ??? venlafaxine XR 37.5 mg Oral Daily ??? lactated Ringers 200 mL/hr (12/22/20 0632) sodium chloride 0.9 % (flush), lidocaine, oxytocin in Normal Saline, lidocaine, lidocaine (pf), mineral oiL, acetaminophen, diphth, pertus(acell), tetanus ALLERGIES No Known Allergies SOCIAL HISTORY Social History Socioeconomic History ??? Marital status: Spouse name: Not on file ??? Number of children: Not on file ??? Years of education: Not on file ??? Highest education level: Not on file Occupational History ??? Not on file Tobacco Use ??? Smoking status: Former Smoker Quit date: 05/28/2020 Years since quittin.5 ??? Smokeless tobacco: Never Used Substance and Sexual Activity ??? Alcohol use: Not Currently ??? Drug use: Not Currently Types: Marijuana Comment: Have not used since May with + test ??? Sexual activity: Yes Partners: Male Other Topics Concern ??? Not on file Social History Narrative ??? Not on file Social Determinants of Health Financial Resource Strain: ??? Difficulty of Paying Living Expenses: Not on file Food Insecurity: ??? Worried About Running Out of Food in the Last Year: Not on file ??? Ran Out of Food in the Last Year: Not on file Transportation Needs: ??? Lack of Transportation (Medical): Not on file ??? Lack of Transportation (Non-Medical): Not on file Physical Activity: ??? Days of Exercise per Week: Not on file ??? Minutes of Exercise per Session: Not on file FAMILY HISTORY No family history on file. Vitals: 12/21/20 2135 12/22/20 0130 12/22/20 0131 12/22/20 0531 BP: 126/66 124/70 116/47 BP Location (NBP): Right arm Right arm Right arm Patient Position: Sitting Sitting Sitting Pulse: 88 92 89 Resp: 18 16 16 Temp: 36.9 ??C (98.4 ??F) 36.8 ??C (98.2 ??F) 36.8 ??C (98.2 ??F) TempSrc: Oral Oral Oral SpO2: Weight: Height: PHYSICAL EXAM GENERAL: No acute distress, alert and oriented HEENT: AT/NC, sclerae anicteric, moist mucous membranes CHEST: CTA CARDIAC: RRR, normal S1/S2, no appreciable murmurs ABDOMEN: Soft, normoactive bowel sounds, non-tender, gravid abdomen EXT: Warm, no edema NEURO: Grossly intact, moves all extremities SKIN: No jaundice LABS: Lab Results Component Value Date Sodium 137 12/22/2020 Potassium 3.8 12/22/2020 Chloride 105 12/22/2020 CO2 22 12/22/2020 BUN 5 (L) 12/22/2020 Creatinine 0.38 (L) 12/22/2020 Glucose Lvl 113 12/22/2020 CBC Lab Results Component Value Date WBC 13.0 (H) 12/22/2020 Hemoglobin 11.6 (L) 12/22/2020 Hematocrit 35.2 (L) 12/22/2020 Platelets 232 12/22/2020 LFT's Lab Results Component Value Date Alk Phos 189 (H) 12/22/2020 AST 68 (H) 12/22/2020 Albumin 3.6 12/22/2020 Total Bilirubin 0.3 12/22/2020 ALT 73 (H) 12/22/2020 Total Protein 6.4 12/22/2020 IMAGING: Reviewed in [facility] ENDOSCOPY: Reviewed in [facility] IMPRESSION: 25 y/o female at 29 weeks gestation w/PMH of cholelithiasis and depression who presented in transfer from [facility] with gallstone pancreatitis. Her pancreatitis appears to be improving as she has had improvement in her abdominal pain and reassuring labs. She does not have evidence of cholangitis with normal vitals and downtrending LFTs and does not require ERCP at this time. Would recommend general surgery consult for consideration of lap c holecystectomy once pancreatitis is resolved. This can be completed safely during and should be weighed against the high risk of recurrent gallstone pancreatitis with complications. Would also consider intraoperative cholangiogram at the time of cholecystectomy RECOMMENDATIONS: - Continue aggressive IVF - Advance diet as tolerated, starting with clear liquids and eventually progressing to low fat diet - Analgesia per primary team - Daily LFTs - Would not recommend trending lipase - General surgery consult - ERCP not indicated at this time - Please call with questions The plan as outlined above was discussed with Dr. Reynolds. Carmen Coughlin MD Gastroenterology Fellow Pager #[phone] * Plan of Care - Tomeka Son RN - 12/22/2020 6:05 AM EST OUTCOME EVALUATION NOTE: OUTCOME SUMMARY: Patient has been doing well overnight without any new complaints. Reports +FM. Denies VB, LOF, contractions, or cramping. Patient endorses pain in her abdomen this morning and has been updated on theplan of care. PLAN MOVING FORWARD: Continue to monitor maternal and status, placing on EFM prn. Monitor VS as ordered and prn. Patient agrees to call for any changes or concerns. INDIVIDUALIZED FALL PREVENTION INTERVENTIONS: Patient-specific fall risk factors per assessment: [current deficits]: None. Assistance [level of assistance required for transfers and ambulation]: Independent. Supervision [direct monitoring required during toileting and ADLs]: Independent. Will call if dizzyor in need of assistance. Surveillance [continuous indirect monitoring]: Call gamez is within reach. Rounding completed by this RN. Patient-specific fall prevention interventions for sensory deficits provided, if applicable: [X] N/A CPG GOAL OUTCOME EVALUATION: documented in this encounter Plan of Treatment Not on file documented as of this encounter Procedures Procedure Name Priority Date/Time Associated Diagnosis Comments BILIRUBIN, DIRECT Routine 12/24/2020 5:5 0 AM EST HEMOGRAM Routine 12/24/2020 5:50 AM EST DIFFERENTIAL, AUTOMATED Routine 12/25/19 5:50 AM EST HC CBC,PLT & AUTO DIFF Routine 5:50 AM EST COMPREHENSIVE METABOLIC PANEL Routine 12/24/2020 5:50 AM EST SURGICAL PATHOLOGY REPORT Routine 12/23/2020 3:03 PM EST SPECIMEN TO PATHOLOGY Routine 12/23/2020 3:03 PM EST XR FLUORO NO RAD <1HR - OR USE Routine 12/23/2020 3:00 PM EST Lap, Cholecystectomy/Graph ([id number]) 12/23/2020 1:33 PM EST Cholecystitis LAPAROSCOPIC CHOLECYSTECTOMY WITH CHOLANGIOGRAM Routine 12/23/2020 11:32 AM EST HEMOGRAM STAT 12/23/2020 6:30 AM EST DIFFERENTIAL, AUTOMATED STAT 12/24/19 6:30 AM EST HC PARTIAL THROMBOPLASTIN TIME STAT 12/23/2020 6:30 AM EST HC PROTHROMBIN TIME STAT 12/23/2020 6 :30 AM EST HC CBC,PLT & AUTO DIFF STAT 6:30 AM EST BMP W/FASTING GLUCOSE Routine 12/23/2020 6:25 AM EST HEPATIC FUNCTION PANEL Routine 6:25 AM EST US OB FOLLOW UP Routine 12/22/2020 2:36 PM EST US ABDOMEN LIMITED Routine 12/22/2020 2: 02 PM EST HEMOGRAM Routine 12/22/2020 5:30 AM EST DIFFERENTIAL, AUTOMATED Routine 12/23/19 5:30 AM EST HC CBC,PLT & AUTO DIFF Routine 5:30 AM EST HC LIPASE Routine 12/22/2020 5:30 AM EST COMPREHENSIVE METABOLIC PANEL Routine 12/22/2020 5:30 AM EST URINALYSIS MICROSCOPIC EXAM Routine 12/21/2020 9:39 PM EST URINALYSIS WITH REFLEX CULTURE Routine 12/21/2020 9:39 PM EST RAPID COVID-19 PCR ([facility]) Routine 12/21/2020 8:56 PM EST GROUP B STREPTOCOCCUS SCREEN Routine 12/21/2020 8:32 PM EST HC GROUP B STREP SCREEN Routine 12/22/19 8:32 PM EST ABORH RECHECK STATUS Routine 12/21/2020 8:10 PM EST HEMOGRAM Routine 12/21/2020 8:10 PM EST DIFFERENTIAL, AUTOMATED Routine 12/22/19 8:10 PM EST ABO/RH TYPING Routine 12/21/2020 8:10 PM EST HC CBC,PLT & AUTO DIFF Routine 8:10 PM EST ANTIBODY SCREEN Routine 12/21/2020 8:10 PM EST HC ANTIBODY DETECTION,CAPTURE-R Routine 12/21/2020 8:10 PM EST HC LIPASE Routine 12/21/2020 8:10 PM EST HC AMYLASE Routine 12/21/2020 8:10 PM EST COMPREHENSIVE METABOLIC PANEL Routine 12/21/2020 8:10 PM EST RAPID DRUG SCREEN, URINE Routine 12/21/2020 7:42 PM EST RAPID DRUG SCREEN W/ CONFIRMATION, URINE Routine 12/21/2020 7:42 PM EST documented in this encounter Results * Bilirubin, Direct (12/24/2020 5:50 AM EST) Bilirubin, Direct <0.1 0.0 - 0.3 mg/dL [facility] Blood specimen (specimen) 12/24/2020 5:50 AM EST 12/24/2020 5:52 AM EST Narrative Resulting Agency Comment Spec In Lab Eloise Guallpa MD CHEMISTRY ORDERAB LES Performing Organization Address City/State/[facility] Co de Phone Number [facility] [place] [address] * (ABNORMAL) Differential, Automated (12/24/2020 5:50 AM EST) Pathologist [facility] [place] Neutrophil % 73.2 % [facility] Neutrophil Absolute 8.71(H) 1.70 - 6.10 x10(3)/mc L [facility] Lymph % 16.5 % [facility] Lymphocytes Abs 2.0 0.9 - 3.2 x10(3)/mc L [facility] Monocyte % 7.5 % [facility] Monocyte Abs 0.9 0.3 - 0.9 x10(3)/mc L [facility] Eos % 0.2 % [facility] Eosinophils Abs 0.0 0.0 - 0.4 x10(3)/mc L [facility] Basophil % 0.3 % [facility] Baso Absolute 0.0 0.0 - 0.1 x10(3)/mc L [facility] Immature Gran % 2.30 % [facility] Comment: Immature granulocytes(IG's)percentage and absolute count will include metamyelocytes, myelocytes, and promyelocytes. Blood smears from CBCs yielding IG's will be scanned manually for concordance. If this scan disagrees with the automated IG or if promyelocytes are noted, a manual differential will be performed. Immature Gran Absolute 0.27(H) 0.00 - 0.04 x10(3)/mc L [facility] Blood specimen (specimen) 12/24/2020 5:50 AM EST 12/24/2020 5:52 AM EST Narrative Resulting Agency Comment Spec In Lab Eloise Guallpa MD HEMATOLOGY ORDERA BLES [facility] [place] [address] * (ABNORMAL) Hemogram (12/24/2020 5:50 AM EST) White Blood Cell 11.9(H) 4.0 - 9.5 x10(3)/mc L [facility] Red Blood Cell 3.18(L) 4.00 - 5.21 x10(6)/mc L [facility] Hemoglobin 9.8(L) 11.7 - 15.5 gm/dL [facility] Hematocrit 30.2(L) 35.7 - 45.8 % [facility] Mean Cell Volume 95.0(H) 82.6 - 94.4 fL [facility] Mean Cell Hemoglobin 30.8 27.1 - 32.0 pg [facility] Mean Cell Hemoglobin Concentration 32.5 31.7 - 35.0 gm/dL [facility] Platelet 206 145 - 357 x10(3)/mc L [facility] RDW Standard Deviation 45.7 37.0 - 46.0 fL [facility] RDW coefficient of variation 13.3 11.5 - 14.1 % [facility] Mean Platelet Volume 10.1 7.6 - 12.9 fL [facility] NRBC% auto 0.0 % [facility] NRBC Absolute 0.000 0.000 - 0.000 x10(3)/mc L [facility] Blood specimen (specimen) 12/24/2020 5:50 AM EST 12/24/2020 5:52 AM EST Narrative Resulting Agency Comment Spec In Lab Eloise Guallpa MD HEMATOLOGY ORDERA BLES [facility] [place] [address] * (ABNORMAL) Comprehensive metabolic panel (non-fasting) (12/24/2020 5:50 AM EST) Glucose 120 65 - 199 mg/dL [facility] Comment:Diabetes: >=200 mg/d L plus symptoms Blood Urea Nitrogen 7(L) 8 - 18 mg/dL [facility] Comment:result rechecked-kk Creatinine 0.37(L) 0.70 - 1.20 mg/dL [facility] Sodium 138 135 - 145 mmol/L [facility] Potassium 3.9 3.5 - 5.0 mmol/L [facility] Comment: Please note: ??Patients with WBC >100,000 may have falsely elevated Potassium levels. ??For accurate Potassium quantification in these patients send serum separator tube (gold top) for subsequent determinations. ??Contact the Clinical Chemistry Laboratory if there are any questions. Chloride 105 98 - 107 mmol/L [facility] Carbon Dioxide 22 22 - 31 mmol/L [facility] Anion Gap 11 5 - 15 mmol/L [facility] Calcium 8.3(L) 8.5 - 10.5 mg/dL [facility] Protein, Total 5.6(L) 6.1 - 8.0 gm/dL [facility] Albumin 3.2 3.2 - 5.2 gm/dL [facility] Aspartate Aminotransferase 19 0 - 30 unit/L [facility] Alanine Aminotransferase 36(H) 0 - 30 unit/L [facility] Alkaline Phosphatase 141(H) 35 - 105 unit/L [facility] Bilirubin, Total <0.2(L) 0.2 - 1.3 mg/dL [facility] Est Glomerular Filtration Rate 150 >=60 mL/min/1. 73 m?? [facility] Comment: This patient? s estimated glomerular filtration rate (eGFR) is between 150 mL/min/1.73 m2 (patients with less muscle mass) and 173 mL/min/1.73 m2 (patients with more muscle mass) as determined by the CKD-EPI equation. Assessment of eGFR is not appropriate when creatinine concentrations are rapidly changing. For clinical decisions where creatinine clearance will affect therapy, a 24-hour urine creatinine clearance may be advised. Assignment of CKD stage 1 - 5 for patients with an eGFR near the transition point between stages may be based on clinical assessment of muscle mass and symptoms in addition to eGFR. Blood specimen (specimen) 12/24/2020 5:50 AM EST 12/24/2020 5:52 AM EST Narrative Resulting Agency Comment Spec In Lab E Destin Damon MD CHEMISTRY ORDERAB LES [facility] [place] [address] * Surgical Pathology Report (12/23/2020 3:03 PM EST) Final Diagnosis [id number] ? Location: BP; [facility]; A The signing pathologist has (i) examined the relevant preparation(s) for the specimen(s) and (ii) rendered or confirmed the diagnosis(es). . ?Surgical Pathology DIAGNOSIS Gallbladder, resection: Chronic cholecystitis and cholelithiasis. Electronically signed by: ??El Edwards MD Verified: ??12/28/2020 ?Pathologist Performed at: ??-[facility] Dept. of Pathology, [place], [place] SPECIMEN(S) SUBMITTED A - Gallbladder, excision (1) CLINICAL INFORMATION Cholecystitis SPECIMEN PROCESSING A - Labeled/Fixative: Gallbladder, fresh. Quantity/Size: ??Single, 8 x 2.5 x 1 cm. Specimen Description: Gallbladder, received intact. Serosa: Smooth, glistening Adventitia: Roughened Lumen contents: pink red, viscous, bile. Gallstones: Present: Multiple, yellow gallstones averaging, 0.3 cm Mucosa: Hyperemic Wall: 0.2 cm thick. Duct: 0.3 cm, patent. Ink Designation: The hepatic margin is inked black Sections/Processi ng: Termite Treater Helper sections in 1 cassettes as follows: ?A1: ??cystic duct margin and professional healthcare representative mucosa. ??ajw 12/28/2020 3:45 PM EDT [facility] GALLBLADDER STRUCTURE / Unknown 12/23/2020 3:03 PM EST 12/23/2020 3:03 PM EST Servando Valero MD PATHOLOGY/CYTOLOGY O RDMATT Performing Organization Address [facility] Co de Phone Number [facility] [place] [address] * Specimen to Pathology (12/23/2020 3:03 PM EST) AP Specimen 12/23/2020 3:03 PM EST 12/23/2020 3:03 PM EST Narrative [facility] - 12/23/2020 3:03 PM EST Specimen requisition ordered. ??Separate Pathology report to follow Servando Valero MD PATHOLOGY/CYTOLOGY O RICARDO Performing Organization Address [facility] de Phone Number [facility] [place] [address] * XR Fluoro No Rad <1Hr - OR Use (12/23/2020 3:00 PM EST) Narrative RAD - 12/23/2020 3:02 PM EST This exam is auto-finalizing. No interpretation was done. Servando Valero MD IMG FLUORO ORDERABLE S Performing Organization Address [facility] Co de Phone Number [place], [place] * (ABNORMAL) Differential, Automated (12/23/2020 6:30 AM EST) Neutrophil % 87.0 % [facility] Neutrophil Absolute 8.95(H) 1.70 - 6.10 x10(3)/ L [facility] Lymph % 7.1 % [facility] Lymphocytes Abs 0.7(L) 0.9 - 3.2 x10(3)/ L [facility] Monocyte % 2.3 % [facility] Monocyte Abs 0.2(L) 0.3 - 0.9 x10(3)/[facility] Eos % 0.1 % [facility] Eosinophils Abs 0.0 0.0 - 0.4 x10(3)/[facility] Basophil % 0.3 % [facility] Baso Absolute 0.0 0.0 - 0.1 x10(3)/[facility] Immature Gran % 3.20 % [facility] Comment: Immature granulocytes(IG's)percentage and absolute count will include metamyelocytes, myelocytes, and promyelocytes. Blood smears from CBCs yielding IG's will be scanned manually for concordance. If this scan disagrees with the automated IG or if promyelocytes are noted, a manual differential will be performed. Immature Gran Absolute 0.33(H) 0.00 - 0.04 x10(3)/[facility] Blood specimen (specimen) 12/23/2020 6:30 AM EST 12/23/2020 7:02 AM EST Narrative Resulting Agency Comment Spec In Lab Eloise Guallpa MD HEMATOLOGY ORDERA BLES [facility] [place] [address] * (ABNORMAL) Hemogram (12/23/2020 6:30 AM EST) White Blood Cell 10.3(H) 4.0 - 9.5 x10(3)/[facility] Red Blood Cell 3.53(L) 4.00 - 5.21 x10(6)/mc L [facility] Hemoglobin 10.9(L) 11.7 - 15.5 gm/dL [facility] Hematocrit 33.4(L) 35.7 - 45.8 % [facility] Mean Cell Volume 94.6(H) 82.6 - 94.4 fL [facility] Mean Cell Hemoglobin 30.9 27.1 - 32.0 pg [facility] Mean Cell Hemoglobin Concentration 32.6 31.7 - 35.0 gm/dL [facility] Platelet 241 145 - 357 x10(3)/mc L [facility] RDW Standard Deviation 44.6 37.0 - 46.0 fL [facility] RDW coefficient of variation 12.9 11.5 - 14.1 % [facility] Mean Platelet Volume 10.4 7.6 - 12.9 fL [facility] NRBC% auto 0.0 % [facility] NRBC Absolute 0.000 0.000 - 0.000 x10(3)/mc L [facility] Blood specimen (specimen) 12/23/2020 6:30 AM EST 12/23/2020 7:02 AM EST Narrative Resulting Agency Comment Spec In Lab Eloise Guallpa MD HEMATOLOGY ORDERA BLES [facility] [place] [address] * APTT (12/23/2020 6:30 AM EST) Partial Thromboplastin Time 27 25 - 37 sec [facility] Comment: The PTT is NOT appropriate for heparin monitoring. Use the Anti-Xa level for heparin monitoring (HEP UFH) or LMWH monitoring (HEP LMW). A PTT less than 37 seconds generally indicates adequate hemostasis. Blood specimen (specimen) 12/23/2020 6:30 AM EST 12/23/2020 7:02 AM EST Narrative Resulting Agency Comment Spec In Lab E Destin Daomn MD HEMATOLOGY ORDERA BLES Performing Organization Address [facility] de Phone Number [facility] [place] [address] * Prothrombin Time (12/23/2020 6:30 AM EST) Prothrombin Time 10.7 9.4 - 12.5 sec [facility] International Normalization Ratio 0.9 [facility] Comment: An INR <2.0 indicates adequate procoagulant activity for hemostasis in most patients without underlying bleeding disorders, though the INR may not adequately reflect hemostatic capacity in patients with liver disease and synthetic impairment. The recommended target INR range for therapeutic anticoagulation is 2.0 ? 3.0 for most applications, though lower and higher ranges may be appropriate depending on clinical circumstances. Blood specimen (specimen) 12/23/2020 6:30 AM EST 12/23/2020 7:02 AM EST Narrative Resulting Agency Comment Spec In Lab E Destin Damon MD HEMATOLOGY ORDERA BLES Performing Organization Address [facility] de Phone Number [facility] [place] [address] * (ABNORMAL) BMP w/fasting Glucose (12/23/2020 6:25 AM EST) Glucose Fasting 120(H) 65 - 99 mg/dL [facility] Comment: ?Fasting* Glucose Interpretive Criteria Normal ?65-99 mg/dL Impaired Fasting glucose ?100-125 mg/dL Consistent with Diabetes Mellitus ? >or= 126 mg/dL *Fasting is defined as no caloric intake for at least 8 hours In the absence of unequivocal hyperglycemia a plasma glucose value of >or= 126 mg/dL should be repeated on a subsequent day. Diagnosis and Classification of Diabetes Mellitus, Position Statement from the [employer]. ??Diabetes Care, Volume 33, Supplement 1, Oct 2009 Blood Urea Nitrogen 4(L) 8 - 18 mg/dL [facility] Creatinine 0.30(L) 0.70 - 1.20 mg/dL [facility] Sodium 137 135 - 145 mmol/L [facility] Potassium 3.9 3.5 - 5.0 mmol/L [facility] Comment: Please note: ??Patients with WBC >100,000 may have falsely elevated Potassium levels. ??For accurate Potassium quantification in these patients send serum separator tube (gold top) for subsequent determinations. ??Contact the Clinical Chemistry Laboratory if there are any questions. Chloride 105 98 - 107 mmol/L [facility] Carbon Dioxide 22 22 - 31 mmol/L [facility] Anion Gap 10 5 - 15 mmol/L [facility] Calcium 8.1(L) 8.5 - 10.5 mg/dL [facility] Est Glomerular Filtration Rate 160 >=60 mL/min/1. 73 m?? [facility] Comment: This patient? s estimated glomerular filtration rate (eGFR) is between 160 mL/min/1.73 m2 (patients with less muscle mass) and 186 mL/min/1.73 m2 (patients with more muscle mass) as determined by the CKD-EPI equation. Assessment of eGFR is not appropriate when creatinine concentrations are rapidly changing. For clinical decisions where creatinine clearance will affect therapy, a 24-hour urine creatinine clearance may be advised. Assignment of CKD stage 1 - 5 for patients with an eGFR near the transition point between stages may be based on clinical assessment of muscle mass and symptoms in addition to eGFR. Blood specimen (specimen) Venous Draw / Unknown 12/23/2020 6:25 AM EST 12/23/2020 6:38 AM EST Narrative Resulting Agency Comment Spec In Lab Eloise Guallpa MD CHEMISTRY ORDERAB LES [facility] [place] [address] * (ABNORMAL) Hepatic Function Panel (12/23/2020 6:25 AM EST) Protein, Total 6.0(L) 6.1 - 8.0 gm/dL [facility] Albumin 3.5 3.2 - 5.2 gm/dL [facility] Aspartate Aminotransferase 27 0 - 30 unit/L [facility] Alanine Aminotransferase 46(H) 0 - 30 unit/L [facility] Alkaline Phosphatase 168(H) 35 - 105 unit/L [facility] Bilirubin, Total 0.2 0.2 - 1.3 mg/dL [facility] Bilirubin, Direct <0.1 0.0 - 0.3 mg/dL [facility] Blood specimen (specimen) 12/23/2020 6:25 AM EST 12/23/2020 6:38 AM EST Narrative Resulting Agency Comment Spec In Lab E Destin Damon MD CHEMISTRY ORDERAB LES Performing Organization Address City/State/[facility] Co de Phone Number [facility] [place] [address] * US OB Follow Up (12/22/2020 2:36 PM EST) Anatomical Region Laterality Modality Pelvis, Abdomen Ultrasound 12/22/2020 2:37 PM EST Impressions 12/22/2020 2:51 PM EST 3rd Trimester Summary Single intrauterine with a gestational age of 29w 1d based on LMP ??(06/01/20). Composite age based on the current ultrasound alone is 28w 1d. Estimated weight corresponds to the 58th percentile for 29w 1d. Current growth parameters are consistent with prior dating indicating normal growth. Amniotic fluid volume is normal. Anatomical survey is limited due to the late gestational age. ? Sav Damon, Staff Physician Electronically Signed Final Report ?? 12/22/2020 02:50 pm Narrative 12/22/2020 2:51 PM EST OBSTETRICS REPORT ?(Signed Final 12/22/2020 02:50 pm) PATIENT INFO: ID #: ? [id number] ?: ??[birth year] (25 yrs)(F) Name: ? DESTIN L PAGE ? Visit Date: 12/22/2020 02:37 pm PERFORMED BY: Performed By: ? Sharon Hidalgo RDMS Attending: ?Sav Damon MD Referred By: ?Shayna DAMON Location: ? [place] SERVICE(S) PROVIDED: UOBFOL - Efw - Growth ??- [place] - [id number] INDICATIONS: 29 weeks gestation of ? Z3A.29 at 29w0d GA with likely gallstone pancreatitis EVALUATION: Num Of Fetuses: ?1 Heart Rate(bpm): ?? 146 Cardiac Activity: ?Observed, normal rhythm Presentation: ?Breech Placenta: ?Anterior P. Cord Insertion: ? Not well seen Amniotic Fluid RAOUL FV: ?Normal RAOUL Sum(cm) ? Largest Pocket(cm) 17.7 ?6.3 RUQ(cm) ? RLQ(cm) ? LUQ(cm) ?LLQ(cm) 5.2 ? 4.5 ? 6.3 ?1.7 --------- BIOMETRY: --------- BPD: ?69.5 ??mm ? G.Age: ?? 27w 6d ? 9 ??% OFD: ?90.3 ??mm HC: ?255.9 ??mm ? G.Age: ?? 27w 6d ? < 3 ??% AC: ?245.8 ??mm ? G.Age: ?? 28w 5d ?34 ??% FL: ? 53.3 ??mm ? G.Age: ?? 28w 2d ?16 ??% HUM: ?51.3 ??mm ? G.Age: ?? 30w 0d ?63 ??% CER: ?35.1 ??mm ? G.Age: ?? 30w 1d ?70 ??% LV: ?4.9 ??mm CM: ?7.5 ??mm CI: ?77.0 ??% ? 70 - 86 FL/HC: ? 20.8 ??% ? 19.6 - 20.8 HC/AC: ? 1.04 ?0.99 - 1.21 FL/BPD: ?76.7 ??% ? 71 - 87 FL/AC: ? 21.7 ??% ? 20 - 24 Est. FW: ?1234 ?? gm ?? 2 lb 12 oz ? 58 ??% OB HISTORY: : ?2 ? Term: ?? 1 Living: ? 1 GESTATIONAL AGE: LMP: ? 29w 1d ?Date: ??06/01/20 ? QUOC: ?? 03/08/21 U/S Today: ? 28w 1d ?QUOC: ?? 03/15/21 Best: ?29w 1d ?? Det. By: ??LMP ??(06/01/20) ?QUOC: ?? 03/08/21 -------- ANATOMY: -------- Cranium: ? Visualized Cavum: ? Visualized Ventricles: ?Limited views Choroid Plexus: ?Limited views Cerebellum: ?Visualized Posterior Fossa: ? Limited views Nuchal Fold: ? Not evaluated at this gestational age Face: ?Limited views Heart: ? Limited Views - EICF Diaphragm: ? Visualized Stomach: ? Visualized Abdomen: ? Limited Views Abdominal Wall: ?Limited views Cord Vessels: ?3-vessels- WNL Kidneys: ? Visualized Bladder: ? Visualized Spine: ? Limited views Upper Extremities: ? Limited views Lower Extremities: ? Limited views CERVIX UTERUS ADNEXA: Right Ovary Not visualized Left Ovary Not visualized Procedure Note Shayna Damon MD - 12/22/2020 OBSTETRICS REPORT (Signed Final 12/22/2020 02:50 pm) PATIENT INFO: ID #: [id number] : [birth year] (25 yrs)(F) Name: DESTIN Marie PAGE Visit Date: 12/22/2020 02:37 pm PERFORMED BY: Performed By: Sharon Hidalgo RDMS Attending: Sav Damon MD Referred By: Shayna DAMON Location: [place] [facility] [place] - [id number] INDICATIONS: 29 weeks gestation of Z3A.29 at 29w0d GA with likely gallstone pancreatitis EVALUATION: Num Of Fetuses: 1 Heart Rate(bpm): 146 Cardiac Activity: Observed, normal rhythm Presentation: Breech Placenta: Anterior P. Cord Insertion: Not well seen Amniotic Fluid RAOUL FV: Normal RAOUL Sum(cm) Largest Pocket(cm) 17.7 6.3 RUQ(cm) RLQ(cm) LUQ(cm) LLQ(cm) 5.2 4.5 6.3 1.7 --------- BIOMETRY: --------- BPD: 69.5 mm G.Age: 27w 6d 9 % OFD: 90.3 mm HC: 255.9 mm G.Age: 27w 6d < 3 % AC: 245.8 mm G.Age: 28w 5d 34 % FL: 53.3 mm G.Age: 28w 2d 16 % HUM: 51.3 mm G.Age: 30w 0d 63 % CER: 35.1 mm G.Age: 30w 1d 70 % LV: 4.9 mm CM: 7.5 mm CI: 77.0 % 70 - 86 FL/HC: 20.8 % 19.6 - 20.8 HC/AC: 1.04 0.99 - 1.21 FL/BPD: 76.7 % 71 - 87 FL/AC: 21.7 % 20 - 24 Est. FW: 1234 gm 2 lb 12 oz 58 % OB HISTORY: : 2 Term: 1 Livin GESTATIONAL AGE: LMP: 29w 1d Date: 06/01/20 QUOC: 03/08/21 U/S Today: 28w 1d QUOC: 03/15/21 Best: 29w 1d Det. By: LMP (06/01/20) QUOC: 03/08/21 -------- ANATOMY: -------- Cranium: Visualized Cavum: Visualized Ventricles: Limited views Choroid Plexus: Limited views Cerebellum: Visualized Posterior Fossa: Limited views Nuchal Fold: Not evaluated at this gestational age Face: Limited views Heart: Limited Views - EICF Diaphragm: Visualized Stomach: Visualized Abdomen: Limited Views Abdominal Wall: Limited views Cord Vessels: 3-vessels- WNL Kidneys: Visualized Bladder: Visualized Spine: Limited views Upper Extremities: Limited views Lower Extremities: Limited views CERVIX UTERUS ADNEXA: Right Ovary Not visualized Left Ovary Not visualized IMPRESSION 3rd Trimester Summary Single intrauterine with a gestational age of 29w 1d based on LMP (06/01/20). Composite age based on the current ultrasound alone is 28w 1d. Estimated weight corresponds to the 58th percentile for 29w 1d. Current growth parameters are consistent with prior dating indicating normal growth. Amniotic fluid volume is normal. Anatomical survey is limited due to the late gestational age. Sav Damon, Staff Physician Electronically Signed Final Report 12/22/2020 02:50 pm E Destin Damon MD IMG US OB ORDERAB LES * US Abdomen Limited (12/22/2020 2:02 PM EST) Anatomical Region Laterality Modality Abdomen Ultrasound 12/22/2020 2:00 PM EST Impressions 12/22/2020 4:19 PM EST ?? Mild pelvicocaliectasis RIGHT kidney consistent with physiological hydronephrosis of . Small mobile gallstones. The gallbladder wall is normal with no evidence of acute cholecystitis. No biliary obstruction. Pancreas is normal I have personally reviewed the image(s) and the resident's interpretation and agree with the findings, Dunia Hale MD at 12/22/2020 4:12 PM Thank you for letting us participate in the care of this patient. For questions regarding this report, please contact the number below. ? Dunia Hale, Staff Physician Electronically Signed Final Report ?? 12/22/2020 04:19 pm Narrative 12/22/2020 4:19 PM EST Abdominal ? (Signed Final 12/22/2020 04:19 pm) PATIENT INFO: ID #: ? [id number] ?: ??[birth year] (25 yrs)(F) Name: ? DESTIN L PAGE ? Visit Date: 12/22/2020 02:00 pm PERFORMED BY: Performed By: ? Tanisha Nichols RDMS Attending: ?Geoffrey TILLEY, Dunia Joshua Referred By: ?Shayna WEIR PSCKSRRER Location: ? [place] SERVICE(S) PROVIDED: UABDLIM - Abdominal Limited Survey Single ? [id number] Organ or Quadrant - [id number] INDICATIONS: 29 wks with possible gallstone pancreatitis ------ LIVER: ------ Right Lobe Length: ?? 14.8 ?? cm Echogenicity/Echotexture: ?? Normal Portal Veins: ?Hepatopetal GALLBLADDER: Cholelithiasis: ?Mobile stones Wall Thickness: ?2. mm Focal Tenderness: ?Negative sonographic Brewer's sign BILIARY TRACT: Intrahepatic Ducts: ?? Normal Extrahepatic Ducts: ?? Normal Common Duct Size: ? 3.0 ? mm --------- PANCREAS: --------- Head: ?Normal ?Size: Tail: ?Normal ?Size: Body: ?Normal ?Size: RIGHT KIDNEY: Size (cm) ?L: ??12.3 Cortical Thickness: ?Normal Cortical Echogenicity: ?? Normal Hydronephrosis: ?Mild pelvicaliectasis ------ AORTA: ------ Measurements (cm): Proximal ? AP: ?? 1.9 ---- IVC: ---- Normal in caliber where visualized. FLUID COLLECTIONS: No ascites in the imaged RUQ. Procedure Note Dunia Hale MD - 12/22/2020 Abdominal (Signed Final 12/22/2020 04:19 pm) PATIENT INFO: ID #: [id number] : [birth year] (25 yrs)(F) Name: DESTIN Marie PAGE Visit Date: 12/22/2020 02:00 pm PERFORMED BY: Performed By: Tanisha Nichols RDMS Attending: Dunia Hale MD Referred By: Shayna WEIR PSCHIESTUARDOER Location: [place] SERVICE(S) PROVIDED: UABDLIM - Abdominal Limited Survey Single [id number] Organ or Quadrant - [id number] INDICATIONS: 29 wks with possible gallstone pancreatitis ------ LIVER: ------ Right Lobe Length: 14.8 cm Echogenicity/Echotexture: Normal Portal Veins: Hepatopetal GALLBLADDER: Cholelithiasis: Mobile stones Wall Thickness: 2. mm Focal Tenderness: Negative sonographic Brewer's sign BILIARY TRACT: Intrahepatic Ducts: Normal Extrahepatic Ducts: Normal Common Duct Size: 3.0 mm --------- PANCREAS: --------- Head: Normal Size: Tail: Normal Size: Body: Normal Size: RIGHT KIDNEY: Size (cm) L: 12.3 Cortical Thickness: Normal Cortical Echogenicity: Normal Hydronephrosis: Mild pelvicaliectasis ------ AORTA: ------ Measurements (cm): Proximal AP: 1.9 ---- IVC: ---- Normal in caliber where visualized. FLUID COLLECTIONS: No ascites in the imaged RUQ. IMPRESSION Mild pelvicocaliectasis RIGHT kidney consistent with physiological hydronephrosis of . Small mobile gallstones. The gallbladder wall is normal with no evidence of acute cholecystitis. No biliary obstruction. Pancreas is normal I have personally reviewed the image(s) and the resident's interpretation and agree with the findings, Dunia Hale MD at 12/22/2020 4:12 PM Thank you for letting us participate in the care of this patient. For questions regarding this report, please contact the number below. Dunia Hale, Staff Physician Electronically Signed Final Report 12/22/2020 04:19 pm E Destin Damon MD IMG US GEN ORDERA BLES * (ABNORMAL) Differential, Automated (12/22/2020 5:30 AM EST) Neutrophil % 90.4 % [facility] Neutrophil Absolute 11.77(H) 1.70 - 6.10 x10(3)/mc L [facility] Lymph % 6.1 % [facility] Lymphocytes Abs 0.8(L) 0.9 - 3.2 x10(3)/mc L [facility] Monocyte % 1.1 % [facility] Monocyte Abs 0.1(L) 0.3 - 0.9 x10(3)/mc L [facility] Eos % 0.0 % [facility] Eosinophils Abs 0.0 0.0 - 0.4 x10(3)/ L [facility] Basophil % 0.3 % [facility] Baso Absolute 0.0 0.0 - 0.1 x10(3)/[facility] Immature Gran % 2.10 % [facility] Comment: Immature granulocytes(IG's)percentage and absolute count will include metamyelocytes, myelocytes, and promyelocytes. Blood smears from CBCs yielding IG's will be scanned manually for concordance. If this scan disagrees with the automated IG or if promyelocytes are noted, a manual differential will be performed. Immature Gran Absolute 0.27(H) 0.00 - 0.04 x10(3)/[facility] Blood specimen (specimen) 12/22/2020 5:30 AM EST 12/22/2020 5:47 AM EST Narrative Resulting Agency Comment Spec In Lab Ti Keyes MD HEMATOLOGY ORDERABLE S [facility] [place] [id number] * (ABNORMAL) Hemogram (12/22/2020 5:30 AM EST) White Blood Cell 13.0(H) 4.0 - 9.5 x10(3)/[facility] Red Blood Cell 3.77(L) 4.00 - 5.21 x10(6)/ L [facility] Hemoglobin 11.6(L) 11.7 - 15.5 gm/dL [facility] Hematocrit 35.2(L) 35.7 - 45.8 % [facility] Mean Cell Volume 93.4 82.6 - 94.4 fL [facility] Mean Cell Hemoglobin 30.8 27.1 - 32.0 pg [facility] Mean Cell Hemoglobin Concentration 33.0 31.7 - 35.0 gm/dL [facility] Platelet 232 145 - 357 x10(3)/mc L [facility] RDW Standard Deviation 44.3 37.0 - 46.0 [facility] RDW coefficient of variation 12.9 11.5 - 14.1 % [facility] Mean Platelet Volume 10.0 7.6 - 12.9 fL [facility] NRBC% auto 0.0 % [facility] NRBC Absolute 0.000 0.000 - 0.000 x10(3)/mc L [facility] Blood specimen (specimen) 12/22/2020 5:30 AM EST 12/22/2020 5:47 AM EST Narrative Resulting Agency Comment Spec In Lab Ti Keyes MD HEMATOLOGY ORDERABLE S Performing Organization Address City/[facility]/ZIP Co de Phone Number [facility] [place] [address] * (ABNORMAL) Lipase (12/22/2020 5:30 AM EST) Lipase 67(H) 0 - 60 unit/L [facility] Comment:result rechecked-kk Blood specimen (specimen) 12/22/2020 5:30 AM EST 12/22/2020 5:47 AM EST Narrative Resulting Agency Comment Spec In Lab Shayna Damon MD CHEMISTRY ORDERAB LES Performing Organization Address City/[facility]/ZIP Co de Phone Number [facility] [place] [address] * (ABNORMAL) Comprehensive metabolic panel (non-fasting) (12/22/2020 5:30 AM EST) Glucose 113 65 - 199 mg/dL [facility] Comment:Diabetes: >=200 mg/d L plus symptoms Blood Urea Nitrogen 5(L) 8 - 18 mg/dL [facility] Creatinine 0.38(L) 0.70 - 1.20 mg/dL [facility] Sodium 137 135 - 145 mmol/L [facility] Potassium 3.8 3.5 - 5.0 mmol/L [facility] Comment: Please note: ??Patients with WBC >100,000 may have falsely elevated Potassium levels. ??For accurate Potassium quantification in these patients send serum separator tube (gold top) for subsequent determinations. ??Contact the Clinical Chemistry Laboratory if there are any questions. Chloride 105 98 - 107 mmol/L [facility] Carbon Dioxide 22 22 - 31 mmol/L [facility] Anion Gap 10 5 - 15 mmol/L [facility] Calcium 9.1 8.5 - 10.5 mg/dL [facility] Protein, Total 6.4 6.1 - 8.0 gm/dL [facility] Albumin 3.6 3.2 - 5.2 gm/dL [facility] Aspartate Aminotransferase 68(H) 0 - 30 unit/L [facility] Alanine Aminotransferase 73(H) 0 - 30 unit/L [facility] Alkaline Phosphatase 189(H) 35 - 105 unit/L [facility] Bilirubin, Total 0.3 0.2 - 1.3 mg/dL [facility] Est Glomerular Filtration Rate 148 >=60 mL/min/1. 73 m?? [facility] Comment: This patient? s estimated glomerular filtration rate (eGFR) is between 148 mL/min/1.73 m2 (patients with less muscle mass) and 172 mL/min/1.73 m2 (patients with more muscle mass) as determined by the CKD-EPI equation. Assessment of eGFR is not appropriate when creatinine concentrations are rapidly changing. For clinical decisions where creatinine clearance will affect therapy, a 24-hour urine creatinine clearance may be advised. Assignment of CKD stage 1 - 5 for patients with an eGFR near the transition point between stages may be based on clinical assessment of muscle mass and symptoms in addition to eGFR. Blood specimen (specimen) 12/22/2020 5:30 AM EST 12/22/2020 5:47 AM EST Narrative Resulting Agency Comment Spec In Lab E Destin Damon MD CHEMISTRY ORDERAB LES Performing Organization Address City/[facility]/ZIP Co de Phone Number [facility] [place] [address] * (ABNORMAL) Urinalysis Microscopic Exam (12/21/2020 9:39 PM EST) RBC, Urine 1 0 - 4 /HPF [facility] WBC, Urine 5 0 - 5 /HPF [facility] Bacteria, Urine Rare(A) None /HPF [facility] Squamous Epithelial Cells Raw Data, Urine 2 <=4 /HPF [facility] Urine specimen obtained by clean catch procedure (specimen) 12/21/2020 9:39 PM EST 12/21/2020 9:48 PM EST Narrative Resulting Agency Comment Spec In Lab Ti Keyes MD URINE ORDERABLES Performing Organization Address [facility] Co de Phone Number [facility] [place] [address] * (ABNORMAL) Urinalysis with reflex Culture (12/21/2020 9:39 PM EST) Glucose, Urine Dipstick Negative Negative mg/dL [facility] Protein, Urine Dipstick Negative Negative mg/dL [facility] Bilirubin, Urine Dipstick Negative Negative mg/dL [facility] Comment: Clinical correlation required for positive Urine Bilirubin results as false positive may occur with some drugs and drug related products. If a false positive is suspected a serum total bilirubin should be considered if clinically indicated. Urobilinogen, Urine Dipstick Normal Normal mg/dL [facility] pH, Urn (dipstick) 6.0 5.0 - 8.0 [facility] Blood, Urine Dipstick Negative Negative mg/dL [facility] Ketone, Urine Dipstick Negative Negative mg/dL [facility] Nitrite, Urine Dipstick Negative Negative [facility] Leukocytes, Urine Dipstick Trace(A) Negative [facility] Appearance, Urine Dipstick Clear Clear [facility] Specific [place] Urine Automated 1.017 1.006 - 1.030 [facility] Color, Urine Dipstick Yellow Yellow [facility] Reflex to Culture No [facility] Urine specimen obtained by clean catch procedure (specimen) 12/21/2020 9:39 PM EST 12/21/2020 9:48 PM EST Narrative Resulting Agency Comment Spec In Lab E Destin Damon MD URINE ORDERABLES [facility] [place] [address] * COVID-19 PCR (12/21/2020 8:56 PM EST) SARS-CoV-2 RNA (Rapid) Not Detected Not Detected [facility] Comment: This result should be interpreted in combination with the clinical observations, patient history and epidemiological information. For testing of asymptomatic individuals, assay performance characteristics and clinical utility have not been evaluated. Testing for SARS-CoV-2 (Severe acute respiratory syndrome coronavirus 2, formerly known as 2019 novel coronavirus or 2019-nCoV) to aid in the diagnosis of COVID-19 is performed using the Simplexa COVID-19 Direct Assay by [employer] as authorized by the FDA issued Emergency Use Authorization (EUA). This assay is intended for In-vitro Diagnostic (IVD) use with nasopharyngeal swabs collected from individuals meeting the CDC criteria for testing. The assay is performed based on the instructions for use and additional guidance provided by the FDA. Testing is performed in the Microbiology Laboratory within the Department of Pathology and Laboratory Medicine at [facility], certified under the Clinical Laboratory Improvement Amendments of 1988 (CLIA), 42 U.S.C. section 263a, to perform high complexity tests. Assay performance has been verified according to clinical laboratory regulatory requirements. Test results are provided above. A result of Not Detected indicates that the viral RNA target is not present but does not preclude SARS-CoV-2 infection. False negative results may occur if a specimen is improperly collected, transported or handled; if amplification inhibitors are present; or if inadequate numbers of viral particles are present in the specimen. A result of Detected suggests a current or recent infection and the patient is presumed to be infected. Positive and negative predictive values for this test are highly dependent on disease prevalence. A result of Invalid indicates the inability to conclusively determine the presence or absence of SARS-CoV-2 RNA in the sample which can be due to a variety of factors. Recollection is recommended in the case of an invalid result. CDC COVID-19 criteria for testing on human specimens and clinical management guidance information are available at the CDC Coronavirus Disease 2019 (COVID-19) webpage under Information for Healthcare Professionals (https://www.cdc.gov/coronavirus/2019-ncov/hcp/index.html). Additional information about this and other EUA tests can be found in provider and patient fact sheets at the following FDA website: https://www.fda.gov/medical-devices/dllyrxbbswv-qedcfze-1661-qshzx-61-exsheaome- use-a tyistsoldvtqq-rvrpntu-kjadrug/mfoeu-dqmavopuoto-yuvx SARS-CoV-2 Source [employer] Swab [facility] Nasopharyngeal swab (specimen) 12/21/2020 8:56 PM EST 12/21/2020 9:58 PM EST Comment:Symptoms->Surveillan ce Narrative Resulting Agency Comment Spec In Lab Shayna Damon MD MICROBIOLOGY - NERAL ORDERABLES Performing Organization Address City/[facility]/ZIP Co de Phone Number [facility] [place] [address] * Group B Streptococcus Screen (12/21/2020 8:32 PM EST) GBS Screen Neg [facility] Pooled specimen from vaginal introitus and rectal swab (specimen) 12/21/2020 8:32 PM EST 12/21/2020 9:33 PM EST Comment:Penicillin Allergy?- >No Narrative Resulting Agency Comment Spec In Lab Ti Keyes MD MICROBIOLOGY - [facility] AL ORDERABLES Performing Organization Address City/[facility]/ZIP Co de Phone Number [facility] [place] [address] * Group B Strep Culture Screen (12/21/2020 8:32 PM EST) [facility] [address] Group B Streptococcus Culture No Group B Streptococci isolated [facility] Pooled specimen from vaginal introitus and rectal swab (specimen) 12/21/2020 8:32 PM EST 12/21/2020 9:33 PM EST Comment:PENICILLIN ALLERGY?- >NO Narrative Resulting Agency Comment Spec In Lab E Destin Damon MD MICROBIOLOGY - GE NERAL ORDERABLES [facility] [place] [address] * ABORH Recheck Status (12/21/2020 8:10 PM EST) [facility] [address] ABORH Recheck Order Order Placed [facility] ABORH Type Recheck Complete [facility] Blood specimen (specimen) 12/21/2020 8:10 PM EST 12/21/2020 8:18 PM EST Narrative Resulting Agency Comment Spec In Lab Ti Keyes MD BLOOD BANK LAB ORDER DREW [facility] [place] [address] * (ABNORMAL) Differential, Automated (12/21/2020 8:10 PM EST) [facility] [address] Neutrophil % 73.7 % [facility] Neutrophil Absolute 9.83(H) 1.70 - 6.10 x10(3)/mc L [facility] Lymph % 16.9 % [facility] Lymphocytes Abs 2.3 0.9 - 3.2 x10(3)/mc L [facility] Monocyte % 5.4 % [facility] Monocyte Abs 0.7 0.3 - 0.9 x10(3)/mc L [facility] Eos % 1.1 % [facility] Eosinophils Abs 0.2 0.0 - 0.4 x10(3)/mc L [facility] Basophil % 0.4 % [facility] Baso Absolute 0.0 0.0 - 0.1 x10(3)/mc L [facility] Immature Gran % 2.50 % [facility] Comment: Immature granulocytes(IG's)percentage and absolute count will include metamyelocytes, myelocytes, and promyelocytes. Blood smears from CBCs yielding IG's will be scanned manually for concordance. If this scan disagrees with the automated IG or if promyelocytes are noted, a manual differential will be performed. Immature Gran Absolute 0.34(H) 0.00 - 0.04 x10(3)/ L [facility] Blood specimen (specimen) 12/21/2020 8:10 PM EST 12/21/2020 8:19 PM EST Narrative Resulting Agency Comment Spec In Lab Ti Keyes MD HEMATOLOGY ORDERABLE S [facility] [place] [address] * (ABNORMAL) Hemogram (12/21/2020 8:10 PM EST) White Blood Cell 13.4(H) 4.0 - 9.5 x10(3)/mc L [facility] Red Blood Cell 3.84(L) 4.00 - 5.21 x10(6)/mc L [facility] Hemoglobin 12.0 11.7 - 15.5 gm/dL [facility] Hematocrit 35.9 35.7 - 45.8 % [facility] Mean Cell Volume 93.5 82.6 - 94.4 fL [facility] Mean Cell Hemoglobin 31.3 27.1 - 32.0 pg [facility] Mean Cell Hemoglobin Concentration 33.4 31.7 - 35.0 gm/dL [facility] Platelet 245 145 - 357 x10(3)/mc L [facility] RDW Standard Deviation 43.9 37.0 - 46.0 [facility] RDW coefficient of variation 12.9 11.5 - 14.1 % [facility] Mean Platelet Volume 10.2 7.6 - 12.9 [facility] NRBC% auto 0.0 % [facility] NRBC Absolute 0.000 0.000 - 0.000 x10(3)/mc L [facility] Blood specimen (specimen) 12/21/2020 8:10 PM EST 12/21/2020 8:19 PM EST Narrative Resulting Agency Comment Spec In Lab Ti Keyes MD HEMATOLOGY ORDERABLE S Performing Organization Address City/[facility]/ZIP Co de Phone Number [facility] [place] [address] * Antibody screen (12/21/2020 8:10 PM EST) Ab Screen Interp Negative [facility] Expires at [id number] on: 12/24/2020 [facility] Blood specimen (specimen) 12/21/2020 8:10 PM EST 12/21/2020 8:18 PM EST Narrative Resulting Agency Comment Spec In Lab Ti Keyes MD BLOOD BANK LAB ORDER DREW Performing Organization Address City/[facility]/ZIP Co de Phone Number [facility] [place] [address] * ABO/Rh Typing (12/21/2020 8:10 PM EST) ABORH Type O Pos [facility] Blood specimen (specimen) 12/21/2020 8:10 PM EST 12/21/2020 8:18 PM EST Narrative Resulting Agency Comment Spec In Lab Ti Keyes MD BLOOD BANK LAB ORDER DREW [facility] [place] [address] * (ABNORMAL) Amylase (12/21/2020 8:10 PM EST) Amylase 247(H) 28 - 100 unit/L [facility] Blood specimen (specimen) 12/21/2020 8:10 PM EST 12/21/2020 8:19 PM EST Narrative Resulting Agency Comment Spec In Lab E Destin Damon MD CHEMISTRY ORDERAB LES Performing Organization Address [facility] Co de Phone Number [facility] [place] [address] * (ABNORMAL) Lipase (12/21/2020 8:10 PM EST) Lipase 596(H) 0 - 60 unit/L [facility] Blood specimen (specimen) 12/21/2020 8:10 PM EST 12/21/2020 8:19 PM EST Narrative Resulting Agency Comment Spec In Lab E Destin Damon MD CHEMISTRY ORDERAB LES Performing Organization Address [facility] Co de Phone Number [facility] [place] [address] * (ABNORMAL) Comprehensive metabolic panel (non-fasting) (12/21/2020 8:10 PM EST) Glucose 80 65 - 199 mg/dL [facility] Comment:Diabetes: >=200 mg/d L plus symptoms Blood Urea Nitrogen 8 8 - 18 mg/dL [facility] Creatinine 0.41(L) 0.70 - 1.20 mg/dL [facility] Sodium 138 135 - 145 mmol/L [facility] Potassium 3.8 3.5 - 5.0 mmol/L [facility] Comment: Please note: ??Patients with WBC >100,000 may have falsely elevated Potassium levels. ??For accurate Potassium quantification in these patients send serum separator tube (gold top) for subsequent determinations. ??Contact the Clinical Chemistry Laboratory if there are any questions. Chloride 105 98 - 107 mmol/L [facility] Carbon Dioxide 22 22 - 31 mmol/L [facility] Anion Gap 11 5 - 15 mmol/L [facility] Calcium 8.9 8.5 - 10.5 mg/dL [facility] Protein, Total 6.6 6.1 - 8.0 gm/dL [facility] Albumin 3.6 3.2 - 5.2 gm/dL [facility] Aspartate Aminotransferase 114(H) 0 - 30 unit/L [facility] Alanine Aminotransferase 88(H) 0 - 30 unit/L [facility] Alkaline Phosphatase 194(H) 35 - 105 unit/L [facility] Bilirubin, Total 0.2 0.2 - 1.3 mg/dL [facility] Est Glomerular Filtration Rate 145 >=60 mL/min/1. 73 m?? [facility] Comment: This patient? s estimated glomerular filtration rate (eGFR) is between 145 mL/min/1.73 m2 (patients with less muscle mass) and 168 mL/min/1.73 m2 (patients with more muscle mass) as determined by the CKD-EPI equation. Assessment of eGFR is not appropriate when creatinine concentrations are rapidly changing. For clinical decisions where creatinine clearance will affect therapy, a 24-hour urine creatinine clearance may be advised. Assignment of CKD stage 1 - 5 for patients with an eGFR near the transition point between stages may be based on clinical assessment of muscle mass and symptoms in addition to eGFR. Blood specimen (specimen) 12/21/2020 8:10 PM EST 12/21/2020 8:19 PM EST Narrative Resulting Agency Comment Spec In Lab E Destin Damon MD CHEMISTRY ORDERAB LES [facility] [place] [address] * Rapid Drug Screen w/ Confirmation, Urine (12/21/2020 7:42 PM EST) [facility] [address] Barbiturates Screen, Urine None Detected None Detected [facility] Comment: The barbiturate screen detects barbiturates at concentrations >200 ng/mL. Note: Not all barbiturates cross-react equally with antibody used in this screen. A ? Presumptive Positive? result indicates that the screening result was positive but has not yet been confirmed by a highly-specific method. As with any screen, occasional false positive results from cross-reacting substances may occur. Not for Medico-Legal Purposes. Benzodiazepines Screen, Urine None Detected None Detected [facility] Comment: The benzodiazepines screen detects benzodiazepines at concentrations >100 ng/mL. Not all benzodiazepines cross-react equally with antibody used in this screen. Due to the low dosage of clonazepam, false negatives may be obtained due to low concentration of clonazepam metabolites. A ? Presumptive Positive? result indicates that the screening result was positive but has not yet been confirmed by a highly-specific method. As with any screen, occasional false positive results from cross-reacting substances may occur. Not for Medico-Legal Purposes. Cocaine Screen, Urine None Detected None Detected [facility] Comment: The cocaine metabolites screen detects benzoylecgonine (Cocaine Metabolite) at concentrations >150 ng/mL. A ? Presumptive Positive? result indicates that the screening result was positive but has not yet been confirmed by a highly-specific method. As with any screen, occasional false positive results from cross-reacting substances may occur. Not for Medico-Legal Purposes. Methadone Metabolites Screen, Urine None Detected None Detected [facility] Comment: The methadone metabolite screen detects EDDP (major methadone metabolite) at concentrations >100 ng/mL. A ? Presumptive Positive? result indicates that the screening result was positive but has not yet been confirmed by a highly-specific method. As with any screen, occasional false positive results from cross-reacting substances may occur. Not for Medico-Legal Purposes. Opiate Screen, Urine None Detected None Detected [facility] Comment: The opiates screen detects opiates at concentrations >300 ng/mL. Please note that oxycodone, oxymorphone, fentanyl, tramadol, and other synthetic opioids are not detected by the opiate screen. A ? Presumptive Positive? result indicates that the screening result was positive but has not yet been confirmed by a highly-specific method. As with any screen, occasional false positive results from cross-reacting substances may occur. Not for Medico-Legal Purposes. Cannabinoid Screen, Urine None Detected None Detected [facility] Comment: The marijuana metabolites screen detects the THC metabolite (79-vcp-4-carboxy-delta 9-THC) at concentrations >20 ng/mL. A ? Presumptive Positive? result indicates that the screening result was positive but has not yet been confirmed by a highly-specific method. As with any screen, occasional false positive results from cross-reacting substances may occur. Not for Medico-Legal Purposes. Oxycodone Screen, Urine None Detected None Detected [facility] Comment: The oxycodone screen detects oxycodone and oxymorphone at concentrations >100 ng/mL. A ? Presumptive Positive? result indicates that the screening result was positive but has not yet been confirmed by a highly-specific method. As with any screen, occasional false positive results from cross-reacting substances may occur. Not for Medico-Legal Purposes. Buprenorphine Screen, Urine None Detected None Detected [facility] Comment: The buprenorphine screen detects buprenorphine at concentrations >5 ng/mL. A ? Presumptive Positive? result indicates that the screening result was positive but has not yet been confirmed by a highly-specific method. As with any screen, occasional false positive results from cross-reacting substances may occur. Not for Medico-Legal Purposes. Fentanyl Screen, Urine None Detected None Detected [facility] Comment: The fentanyl screen detects fentanyl at concentrations >2 ng/mL. A ? Presumptive Positive? result indicates that the screening result was positive but has not yet been confirmed by a highly-specific method. As with any screen, occasional false positive results from cross-reacting substances may occur. Not for Medico-Legal Purposes. Tricyclics Screen, Urine None Detected None Detected [facility] Comment: The tricyclics screen detects tricyclic antidepressants at concentrations >150 ng/mL. Not all tricyclics cross-react equally with the antibody used in this screen. A ? Presumptive Positive? result indicates that the screening result was positive but has not yet been confirmed by a highly-specific method. As with any screen, occasional false positive results from cross-reacting substances may occur. Not for Medico-Legal Purposes. Ethanol Screen, Urine None Detected None Detected [facility] Comment:This urine ethanol a ssay detects ethanol at concentrations >/= 100 mg/L. Amphetamines Screen, Urine None Detected None Detected [facility] Comment: The amphetamine screen detects d-amphetamine and d-methamphetamine at concentrations >300 ng/mL. A ? Presumptive Positive? result indicates that the screening result was positive but has not yet been confirmed by a highly-specific method. As with any screen, occasional false positive results from cross-reacting substances may occur. Not for Medico-Legal Purposes. Adulterants Screen, Urine None Detected None Detected [facility] Comment: No adulteration or dilution of this urine sample was detected. All urine samples submitted for urine drugs of abuse analysis are tested for creatinine concentration, pH, and for the presence of oxidants, nitrites, and chromate. Urine specimen (specimen) 12/21/2020 7:42 PM EST 12/21/2020 7:56 PM EST Narrative Resulting Agency Comment Spec In Lab Ti Keyes MD CHEMISTRY ORDERABLES Performing Organization Address [facility] Co de Phone Number [facility] [place] [address] * Rapid Drug Screen, Urine (MEIR Request) (12/21/2020 7:42 PM EST) MEIR Conf Requested Yes [facility] MEIR Requested See Comment [facility] Comment:Refer to Rapid Drug Screen w/ Confirmation, Urine for results. Urine specimen (specimen) 12/21/2020 7:42 PM EST 12/21/2020 7:56 PM EST Narrative Resulting Agency Comment Spec In Lab Shayna Damon MD URINE ORDERABLES Performing Organization Address [facility] Co de Phone Number [facility] [place] [address] documented in this encounter Visit Diagnoses Diagnosis Pancreatitis Acute pancreatitis documented in this encounter Admitting Diagnoses Diagnosis Pancreatitis Acute pancreatitis documented in this encounter Administered Medications Inactive Administered Medications - up to 3 most recent administrations Medication Order MAR Action Action Date Dose Rate Site acetaminophen (Tylenol) tablet 325 mg 325 mg, Oral, EVERY 4 HOURS PRN, Starting on Tue12/21/20 at 2007, Until Tue12/24/20 at 0740, Pain, mild pain (1-3), Maximum dose of acetaminophen is 4000 mg from all sources in 24 hours. When ordered for pain, acetaminophen should be given even when other ordered pain medications are indicated., Routine Given 12/24/2020 12:18 AM EST 325 mg Given 12/23/2020 7:13 PM EST 325 mg Given 12/23/2020 10:06 AM EST 325 mg acetaminophen (Tylenol) tablet 650 mg 650 mg, Oral, EVERY 6 HOURS, First dose (after last modification) on Tue12/24/20 at 0915, Until Discontinued, Maximum dose of acetaminophen is 4000 mg from all sources in 24 hours. When ordered for pain, acetaminophen should be given even when other ordered pain medications are indicated., Routine Given 12/24/2020 8:26 AM EST 650 mg betamethasone acetate-betamethasone sodium phosphate (Celestone) (6 mg/mL) injection 12 mg 12 mg, Intramuscular, EVERY 24 HOURS, 2 doses, First dose on Tue12/21/20 at 2100, Last dose on Tue12/22/20 at 2100, Routine Given 12/22/2020 9:47 PM EST 12 mg Given 12/21/2020 9:01 PM EST 12 mg Le ft Gluteal fentaNYL (pf) (50 mcg/mL) multi-dose injection 25-50 mcg 25-50 mcg, Intravenous, EVERY 5 MIN PRN, Starting on Tue12/23/20 at 1557, Until Tue12/23/20 at 1700, Pain, Give 25 mcg every 5 minutes PRN for mild to moderate pain (1-5) Give 50 mcg every 5 minutes PRN for moderate to severe pain (6-10). Hold for respiratory rate less than 10 per minute. Maximum dose 250 mcg over one hour. If ordered with hydromorphone or morphine, give hydromorphone or morphine first and use fentanyl for breakthrough pain., Routine Given 12/23/2020 4:00 PM EST 50 mcg heparin (porcine) (5,000 units/1 mL) subcutaneous injection 5,000 Units 5,000 Units, Subcutaneous, EVERY 12 HOURS SCHEDULED (2 times per day), First dose on Tue12/23/20 at 2100, Until Discontinued, Routine Given 12/23/2020 8:31 PM EST 5,000 Units Given 12/23/2020 2:00 PM EST 5,000 Units lactated ringers infusion 200 mL/hr, Intravenous, CONTINUOUS, Starting on Tue12/21/20 at 2100, Until Tue12/23/20 at 1700 New Bag 12/23/2020 11:50 AM EST 200 mL/hr 200 mL/hr Rate/Dose Verify 12/23/2020 10:00 AM EST 200 mL/hr 200 mL /hr New Bag 12/23/2020 7:05 AM EST 200 mL/hr 200 mL/hr lidocaine (pf) (Xylocaine) (10 mg/mL) 1% injection 300 mg 300 mg, Subcutaneous, ONCE PRN, 1 dose, Starting on Tue12/21/20 at 1955, Until Tue12/24/20 at 1559, Repair of laceration following delivery., Routine lidocaine (Xylocaine) 1% (10 mg/mL) injection 3 mg 3 mg (0.3 mL), Subcutaneous, ONCE PRN, 1 dose, Starting on Tue12/21/20 at 1955, Until Tue12/24/20 at 1559, for discomfort with PIV insertion, Routine lidocaine (XYLOCAINE) 2 % jelly 1 Bottle 1 Bottle, Topical (Top), ONCE PRN, Pain, Repair of laceration following delivery and/or prior to urinary catheter placement., Starting on Tue12/21/20 at 1955, 1 dose, Until Tue12/24/20 at 1559 magnesium sulfate 20 g in sterile water 500 mL infusion 1 g/hr (25 mL/hr), Intravenous, CONTINUOUS, Starting on Tue12/22/20 at 1515, Until Tue12/24/20 at 1559, Routine New Bag 12/23/2020 5:41 AM EST 1 g/hr 25 mL/hr Continued Bag 12/22/2020 4:00 PM EST 1 g/hr 25 mL/hr magnesium sulfate Bolus from bag 4 g 4 g, Intravenous, ONCE, 1 dose, On Tue12/22/20 at 1500, Administer over 20 minutes., Routine Bolus from Bag 12/22/2020 3:39 PM EST 4 g mineral oiL topical liquid 25 mL 25 mL, Topical (Top), ONCE PRN, 1 dose, Starting on Tue12/21/20 at 1955, Until Tue12/24/20 at 1559, Constipation, For perineal stretching during pushing., Routine oxyCODONE (Roxicodone) tablet 5 mg 5 mg, Oral, EVERY 4 HOURS PRN, Starting on Tu12/23/20 at 1955, Until Tue12/24/20 at 1559, Pain, Routine Given 12/24/2020 12:12 PM EST 5 mg Given 12/24/2020 5:51 AM EST 5 mg Given 12/23/2020 8:29 PM EST 5 mg oxytocin (Pitocin) (0.06 units/mL) in sodium chloride 0.9% 500 mL infusion 30 Units (500 mL), Intravenous, Administer over 1 Hours, ONCE PRN, 1 dose, Starting on Tue12/21/20 at 1955, Until Tue12/24/20 at 1559, At the discretion of the provider following delivery., ., Routine vitamin 27 & [id number] 60 mg iron-1 mg per tablet Tab 1 tablet 1 tablet, Oral, NIGHTLY, First dose (after last modification) on Tue12/22/20 at 2100, Until Discontinued, Routine Given 12/23/2020 8:29 PM EST 1 tablet Given 12/22/2020 9:30 PM EST 1 tablet sodium chloride 0.9 % (flush) flush 5 mL 5 mL, Intravenous, 2 TIMES DAILY, First dose on Tue12/21/20 at 2100, Until Discontinued, Routine Given 12/23/2020 8:38 PM EST 5 mLs Given 12/21/2020 8:30 PM EST 5 mLs sodium chloride 0.9 % (flush) flush 5-20 mL 5-20 mL, Intravenous, EVERY 1 MIN PRN, Starting on Tue12/21/20 at 1955, Until Tue12/24/20 at 1559, flush, Flush pertains to all indwelling lines. Flush per protocol found in the job aid using the link provided on this medication record., Routine venlafaxine XR (Effexor-XR) capsule 37.5 mg 37.5 mg, Oral, NIGHTLY, First dose (after last modification) on Tue12/22/20 at 2100, Until Discontinued, Routine Given 12/23/2020 8:29 PM EST 37.5 mg Given 12/22/2020 9:30 PM EST 37.5 mg documented in this encounter Active and Recently Administered Medications Times are shown in EST. Scheduled Medication Order 12/22/2020 12/23/2020 12/24/2020 acetaminophen (Tylenol) tablet 650 mg 650 mg, Oral, EVERY 6 HOURS, First dose (after last modification) on Tue12/24/20 at 0915, Until Discontinued, Maximum dose of acetaminophen is 4000 mg from all sources in 24 hours. When ordered for pain, acetaminophen should be given even when other ordered pain medications are indicated., Routine 08 (Given - Provider: Maria Dolores Chaudhari, JOANN) betamethasone acetate-betamethasone sodium phosphate (Celestone) (6 mg/mL) injection 12 mg (COMPLETED) 12 mg, Intramuscular, EVERY 24 HOURS, 2 doses, First dose on Tue12/21/20 at 2100, Last dose on Tue12/22/20 at 2100, Routine 2146 (Given - Provider: Tanisha Guzmán RN) heparin (porcine) (5,000 units/1 mL) subcutaneous injection 5,000 Units 5,000 Units, Subcutaneous, EVERY 12 HOURS SCHEDULED (2 times per day), First dose on Tue12/23/20 at 2100, Until Discontinued, Routine 1332 (DEC Hold - Provider: Admin Adt - Reason: Transfer to a Procedural area)1400 (Given - Provider: Jefferson Perez CRNA)1655 (MAR Unhold - Provider: Admin Adt)2030 (Given - Provider: Tanisha Guzmán RN) 1000 (Not Given - Provider: Maria Dolores Chaudhari RN - Reason: Patient/family refused) magnesium sulfate Bolus from bag 4 g (COMPLETED)(Linked Group 1) 4 g, Intravenous, ONCE, 1 dose, On Tue12/22/20 at 1500, Administer over 20 minutes., Routine 1539 (Bolus from Bag - Provider: Felipa Guerrero RN) vitamin 27 & [id number] 60 mg iron-1 mg per tablet Tab 1 tablet 1 tablet, Oral, NIGHTLY, First dose (after last modification) on Tue12/22/20 at 2100, Until Discontinued, Routine 2129 (Given - Provider: Tanisha Guzmán RN) 1332 (MAR Hold - Provider: Admin Adt - Reason: Transfer to a Procedural area)165 ([facility] Unhold - Provider: Admin Adt)2028 (Given - Provider: Tanisha Guzmán RN) sodium chloride 0.9 % (flush) flush 5 mL 5 mL, Intravenous, 2 TIMES DAILY, First dose on 12/21/20 at 2100, Until Discontinued, Routine 0900 (Not Given - Provider: Felipa Guerrero RN - Reason: See comment - Comment: IV infusing)2099 (Not Given - Provider: Tanisha Guzmán RN - Reason: See comment - Comment: infusing) 0900 (Due)1332 (DEC Hold - Provider: Admin Adt - Reason: Transfer to a Procedural area)1654 ([facility] Unhold - Provider: Admin Adt)2037 (Given - Provider: Tanisha Guzmán RN) 1000 (Not Given - Provider: Maria Dolores Chaudhari RN - Reason: Order parameters not met) venlafaxine XR (Effexor-XR) capsule 37.5 mg 37.5 mg, Oral, NIGHTLY, First dose (after last modification) on Tue12/22/20 at 2100, Until Discontinued, Routine 2130 (Given - Provider: Tanisha Guzmán RN) 1332 ([facility] Hold - Provider: Admin Adt - Reason: Transfer to a Procedural area)1654 ([facility] Unhold - Provider: Admin Adt)2028 (Given - Provider: Tanisha Guzmán RN) Continuous Medication Order 12/22/2020 12/23/2020 12/24/2020 lactated ringers infusion (CANCELED) 200 mL/hr, Intravenous, CONTINUOUS, Starting on Tue12/21/20 at 2100, Until Tue12/23/20 at 1700 0129 (New Bag - Provider: Tomeka Son RN)0632 (New Bag - Provider: Tomeka Son RN)1120 (New Bag - Provider: Princess Johnson RN)1242 (Stopped - Provider: Felipa Guerrero RN)1258 (New Bag - Provider: Felipa Guerrero RN)2139 (New Bag - Provider: Tanisha Guzmán RN) 0237 (New Bag - Provider: Tanisha Guzmán RN)0705 (New Bag - Provider: Tanisha M Ramirez, RN)1000 (Rate/Dose Verify - Provider: Princess Logan, JOANN)1150 (New Bag - Provider: Princess Logan, JOANN)1332 (DEC Hold - Provider: Admin Adt - Reason: Transfer to a Procedural area)1655 (DEC Unhold - Provider: Admin Adt) magnesium sulfate 20 g in sterile water 500 mL infusion(Linked Group 1) 1 g/hr (25 mL/hr), Intravenous, CONTINUOUS, Starting on 12/22/20 at 1515, Until Tue12/24/20 at 1559, Routine 1600 (Continued Bag - Provider: Felipa Guerrero, JOANN) 0541 (New Bag - Provider: Tanisha Guzmán, RN)1332 (DEC Hold - Provider: Admin Adt - Reason: Transfer to a Procedural area)1655 (DEC Unhold - Provider: Admin Adt)1705 (Stopped - Provider: Princess Logan, JOANN) PRN Medication Order 12/22/2020 12/23/2020 12/24/2020 acetaminophen (Tylenol) tablet 325 mg (CANCELED) 325 mg, Oral, EVERY 4 HOURS PRN, Starting on 12/21/20 at 2007, Until Tue12/24/20 at 0740, Pain, mild pain (1-3), Maximum dose of acetaminophen is 4000 mg from all sources in 24 hours. When ordered for pain, acetaminophen should be given even when other ordered pain medications are indicated., Routine 0557 (Given - Provider: Tomeka Son RN) 0236 (Given - Provider: Tanisha Guzmán, RN)1006 (Given - Provider: Puja Chisholm)1332 (DEC Hold - Provider: Admin Adt - Reason: Transfer to a Procedural area)1655 (DEC Unhold - Provider: Admin Adt)1913 (Given - Provider: Yessica Turner, JOANN) 0018 (Given - Provider: Tanisha Guzmán, RN) BUpivacaine (pf) (Marcaine) (5 mg/mL) 0.5% injection (CANCELED) ONCE PRN, Starting on 12/23/20 at 1437, Until Tue12/24/20 at 1559, Intra-Operative (Intra-Procedure), Routine 1437 (Given - Provider: Servando Valero MD)1511 (Given - Provider: Servando Valero MD) fentaNYL (pf) (50 mcg/mL) multi-dose injection 25-50 mcg (CANCELED) 25-50 mcg, Intravenous, EVERY 5 MIN PRN, Starting on Tue12/23/20 at 1557, Until Tue12/23/20 at 1700, Pain, Give 25 mcg every 5 minutes PRN for mild to moderate pain (1-5) Give 50 mcg every 5 minutes PRN for moderate to severe pain (6-10). Hold for respiratory rate less than 10 per minute. Maximum dose 250 mcg over one hour. If ordered with hydromorphone or morphine, give hydromorphone or morphine first and use fentanyl for breakthrough pain., Routine 1600 (Given - Provider: Brenda Christina RN) iohexoL (Omnipaque) (300 mg/mL) injection solution (CANCELED) ONCE PRN, Starting on Tue12/23/20 at 1510, Until Tue12/24/20 at 1559, Intra-Operative (Intra-Procedure), Routine 1510 (Given - Provider: Servando Valero MD) lidocaine (pf) (Xylocaine) (10 mg/mL) 1% injection 300 mg 300 mg, Subcutaneous, ONCE PRN, 1 dose, Starting on Tue12/21/20 at 1955, Until Tue12/24/20 at 1559, Repair of laceration following delivery., Routine 1332 (DEC Hold - Provider: Admin Adt - Reason: Transfer to a Procedural area)1655 (DEC Unhold - Provider: Admin Adt) lidocaine (Xylocaine) 1% (10 mg/mL) injection 3 mg 3 mg (0.3 mL), Subcutaneous, ONCE PRN, 1 dose, Starting on Tue12/21/20 at 1955, Until Tue12/24/20 at 1559, for discomfort with PIV insertion, Routine 1332 (DEC Hold - Provider: Admin Adt - Reason: Transfer to a Procedural area)1655 ([facility] Unhold - Provider: Admin Adt) lidocaine (XYLOCAINE) 2 % jelly 1 Bottle 1 Bottle, Topical (Top), ONCE PRN, Pain, Repair of laceration following delivery and/or prior to urinary catheter placement., Starting on Tue12/21/20 at 1955, 1 dose, Until Tue12/24/20 at 1559 1332 ([facility] Hold - Provider: Admin Adt - Reason: Transfer to a Procedural area)1654 ([facility] Unhold - Provider: Admin Adt) mineral oiL topical liquid 25 mL 25 mL, Topical (Top), ONCE PRN, 1 dose, Starting on 12/21/20 at 1955, Until Tue12/24/20 at 1559, Constipation, For perineal stretching during pushing., Routine 133 ([facility] Hold - Provider: Admin Adt - Reason: Transfer to a Procedural area)1654 ([facility] Unhold - Provider: Admin Adt) oxyCODONE (Roxicodone) tablet 5 mg 5 mg, Oral, EVERY 4 HOURS PRN, Starting on Tu12/23/20 at 1955, Until Tue12/24/20 at 1559, Pain, Routine 2028 (Given - Provider: Tanisha Guzmán, RN) 0551 (Given - Provider: Emy Geller, RN)121 (Given - Provider: Maria Dolores Chaudhari RN) oxytocin (Pitocin) (0.06 units/mL) in sodium chloride 0.9% 500 mL infusion 30 Units (500 mL), Intravenous, Administer over 1 Hours, ONCE PRN, 1 dose, Starting on Tue12/21/20 at 1955, Until Tue12/24/20 at 1559, At the discretion of the provider following delivery., ., Routine 133 ([facility] Hold - Provider: Admin Adt - Reason: Transfer to a Procedural area)1654 ([facility] Unhold - Provider: Admin Adt) sodium chloride 0.9 % (flush) flush 5-20 mL 5-20 mL, Intravenous, EVERY 1 MIN PRN, Starting on Tue12/21/20 at 1954, Until Tue12/24/20 at 1559, flush, Flush pertains to all indwelling lines. Flush per protocol found in the job aid using the link provided on this medication record., Routine 133 ([facility] Hold - Provider: Admin Adt - Reason: Transfer to a Procedural area)1654 ([facility] Unhold - Provider: Admin Adt) Linked Groups Order Group 1: magnesium sulfate Bolus from bag 4 g (COMPLETED)Jump to med 4 g, Intravenous, ONCE, 1 dose, On 12/22/20 at 1500, Administer over 20 minutes., Routine And magnesium sulfate 20 g in sterile water 500 mL infusionJump to med 1 g/hr (25 mL/hr), Intravenous, CONTINUOUS, Starting on Tue12/22/20 at 1515, Until Tue12/24/20 at 1559, Routine documented in this encounter Care Teams Patch Worker Relationship Specialty Start Date End Date Lula Mota, WAITER/WAITRESS INFORMAL [address] [place] [address] PCP - General Family Medicine 10/20/20 documented as of this encounter
--- OUTSIDE RECORDS SUMMARY | 2024-06-25 17:25 | XMS_ITS | Clinical Summary ---
Author Organization [facility] Address [address] [place] [address] Care Team Providers Care Conference Center Manager Name Role Phone Unavailable Primary Care Provider [...] Orientation Not on file Plan of Treatment Health Maintenance Due Date Last Done Comments Hepatitis C Screen 1996 Hepatitis B Vaccine (1 of 3 - 19+ 3-dose series) 08/14 COVID-19 Vaccine (2022- season) 2023
--- OUTSIDE RECORDS SUMMARY | 2024-06-25 17:25 | XMS_ITS | Encounter Summary ---
Author Organization [facility] Address [address] [place] [address] Care Team Providers Care [facility] Counselor Name Role Phone Unavailable Primary Care Provider Unavailabl e Encounter Details Date Type Department Care Team (Late st Contact Info) Description 08/29/2021 Lab Requisition [facility] [place] [address] Outr Resulting Lab, Provider Social History Tobacco [...] Priority Date/Time Associated Diagnosis Comments ZZCOVID-19 TEST [facility] PCR Today 08/28/2021 12:30 EST COVID-19 TESTING Routine 08/28/2021 12:3 0 EST documented in this encounter Results * COVID-19 TEST [facility] PCR (08/28/2021 12:30 EST) Swab 08/28/2021 12:3 0 EST 08/29/2021 21:54 EST Provider Outr Resulting Lab MICROBIOLOGY - GENERAL ORDERABLES [facility] [address] [place] [address] * COVID-19 TESTING (08/28/2021 12:30 EST) COVID-19 rt-PCR Result Negative Negative 08/30/2021 14:57 EST [facility] Comment: This test has not [...] was performed using the jeremy SARS-CoV-2 assay ([facility] on the Jeremy 6800 System Performing Lab Jeremy [address] [facility] 08/30/2021 14:57 EST [facility] Swab 08/28/2021 12:3 0 EST 08/29/2021 21:54 EST Provider Outr Resulting Lab MICROBIOLOGY - GENERAL ORDERABLES [facility] [address] [place] [address] documented in this encounter Visit Diagnoses Not on filedocumented in this encounter
--- OUTSIDE RECORDS SUMMARY | 2024-06-25 17:26 | XMS_ITS | Encounter Summary ---
Author Organization [facility] [place] [address] Care Team Providers Care Global Project Manager Name Role Phone Lula Mota APRN Primary Care Provider [phone] Reason for Visit * Auth/Cert Specialty Diagnoses / Procedures Referred By Contac t Referred To Contact Diagnoses Pancreatitis Gallstone pancreatitis Procedures EMERGENCY IPI Referral ID Status Reason Start Date Expiration Date Visits Re quested Visits Authorized [id number] 1 1 Encounter Details Date Type Department Care Team ([facility] Contact Info) Description 12/23/2020 12:07 PM EST - 12/23/2020 3:42 PM EST Surgery [place] [id number] Servando Valero MD [facility] [address] [place] [address] LAPAROSCOPIC CHOLECYSTECTOMY WITH CHOLANGIOGRAM (WRVU 11.47) Social History Tobacco Use Types Packs/Day Years [...] Sign Reading Time Taken Comments Blood Pressure 116/68 12/23/2020 3:35 PM EST Pulse 86 12/23/2020 3:35 PM EST Temperature 36.5 ??C (97.7 ??F) 12/23/2020 3:35 PM ES T Respiratory Rate 15 12/23/2020 3:35 PM EST Oxygen Saturation 96% 12/23/2020 3:35 PM EST Inhaled Oxygen Concentration - - Weight 94.5 kg (208 lb 6.4 oz) 12/22/2020 9:49 P M EST Height 167.6 cm (5' 6) 12/21/2020 6:46 PM EST Body Mass Index 34.07 12/21/2020 6:46 PM EST documented in this encounter Discharge Summaries * Eloise Guallpa MD - 12/24/2020 1:59 PM EST Discharge Summary Patient Name: Destin Montiel Patient Age: 25 y.o. Language: Bahraini Race: White Ethnicity: Not nor Admit date: 12/21/2020 Discharge date and time: 12/24/2020 Attending Physician: Shayna Damon MD Discharge Physician: Elzbieta Teague MD Follow-up Recommendations for Providers: 12/26 12:40 PM, [facility], [facility] (charissa Villalobos CNM) General Surgery follow up pending, this will be scheduled Inpatient Provider Contact Information: [facility] [phone] Care Provider: [facility] Referring Provider if applicable: [facility], Discharge Diagnoses (Hospital Problems) and Secondary Diagnoses [...] of cholelithiasis who presents in transfer from [facility] for management of suspected gallstone pancreatitis. ?? On 11/20/20, patient had an episode of acute right upper quadrant abdominal pain with nausea and vomiting that prompted her to seek evaluation at the ED at [facility]. She was diagnosed with cholelithiasisat that time. She was last seen at the [facility] ED on 11/30 for pain but has since felt better. She metwith general surgery at [facility] on 12/09 and made a plan for reevaluation at 1 week to schedule lap karla 3-5 weeks later. ?? Destin reports that she had since been feeling better until she developed sudden onset of upper abdominal pain while shopping at [employer] this morning. Describes pain as stabbing in [...] need for ERCP, she was transferred to [facility] for further management. She received IV Tylenol [...] Dilation: 0 Effacement: Effacement: 0 Station: Station: [facility] -5 Vital signs at Discharge: BP: 118/71, Heart Rate: 75, Temp: 36.9 ??C (98.4 ??F), Resp: 20, BMI (Calculated): 34.87 Height: 167.6 cm (5' 6) (12/21/201845) Weight: 98 kg (216 lb 0.8 oz) [...] None Discharge References/Attachments None Referrals:none Cc: [facility], [facility] documented in this encounter Medications at Time [...] for gestational age Discussed with Dr. Pal, AUTOMATIC I THREADING MACHINE FEEDER Attending Eloise Guallpa MD PGY-3 Associated attestation [...] last 3 completed shifts: In: 6040 [P.O.:1515; I.V.:4560] Out: 7585 [Urine:7575; Blood:10] Daily weights Patient [...] decel 1636 end?? Discussed with Dr. Shaver, AUTOMATIC I THREADING MACHINE FEEDER Attending Eloise Guallpa MD PGY-3 Associated attestation [...] src Pulse Resp SpO2 Height Weight 12/22/20 173 -- -- -- -- -- 98 % -- -- 12/22/20 173 -- -- -- -- -- 98 % -- -- 12/22/20 1728 -- -- -- -- -- 100 % -- -- 12/22/20 1724 -- -- -- -- -- 99 % -- -- 12/22/20 172 -- -- -- -- -- 98 % -- -- 12/22/20 1715 -- -- -- -- -- 98 % -- -- 12/22/20 1710 -- -- -- -- -- 98 % -- -- 12/22/20 1705 -- -- -- -- -- 98 % -- -- 12/22/20 1700 114/57 -- -- 85 -- 99 % -- -- 12/22/20 1656 -- -- -- -- -- 99 % -- -- 12/22/20 165 -- -- -- -- -- 99 % -- -- 12/22/20 1647 -- -- -- -- -- 99 % -- -- 12/22/20 1643 -- -- -- -- -- 99 % -- -- 12/22/20 1638 -- -- -- -- -- 99 % -- -- 12/22/20 1634 -- -- -- -- -- 100 % -- -- 12/22/20 1630 93/44 -- -- 87 20 100 % [...] -- 93 -- -- -- -- 12/22/20 1601 -- -- -- -- -- 99 % [...] for the past 168 hrs: Weight 12/21/20 184 98 kg (216 lb 0.8 oz) UOP: 800 mL/hour last reocrded at 0600, I/O last 3 completed shifts: In: 2206.7 [P.O.:300; I.V.:1906.7] Out: 1960 [Urine:1960] Daily weights Patient Vitals for the past 168 hrs: Weight 12/22/202148 94.5 kg (208 lb 6.4 oz) 12/21/20 [...] for gestational age Discussed with Dr. Nielsen, AUTOMATIC I THREADING MACHINE FEEDER Attending Eloise Guallpa MD PGY-3 Associated attestation - Kendell Nielsen MD - 12/22/2020 5:06 PM EST I [...] for the past 168 hrs: Weight 12/21/20 184 98 kg (216 lb 0.8 oz) UOP: [...] IM x2 doses, 1st dose 12/21 @ 2101 - Magnesium for neuroprotection: Not given - [...] PM EST Obstetrical Admission Note Referring Hospital: [facility] Referring Provider: Mehreen Villalobos Initial Care Provider (if early referral or co-managed by [facility]): [facility] Chief Complaint: Destin Montiel was admitted today secondary to suspected gallstone pancreatitis. Destin Montiel is a 25 y.o. at 29w0d weeks gestation (by certain LMP) with a history of cholelithiasis who presents in transfer from [facility] for management of suspected gallstone pancreatitis. On 11/20/20, patient had an episode of acute right upper quadrant abdominal pain with nausea and vomiting that prompted her to seek evaluation at the ED at [facility]. She was diagnosed with cholelithiasisat that time. She was last seen at the [facility] ED on 11/30 for pain but has since felt better. She metwith general surgery at [facility] on 12/09 and made a plan for reevaluation at 1 week to schedule lap karla 3-5 weeks later. Destin reports that she had since been feeling better until she developed sudden onset of upper abdominal pain while shopping at [employer] this morning. Describes pain as stabbing in [...] need for ERCP, she was transferred to [facility] for further management. She received IV Tylenol [...] seen and discussed with Dr. Leonard, Attending AUTOMATIC I THREADING MACHINE FEEDER. Ti Keyes MD PGY-1 12/21/2020 Consents: - [...] Admission order reviewed. Primary Insurance on file: [employer] [facility] Secondary Insurance on file: N/A Primary care provider on file: Lula Nakul, IT CORPORATE RECRUITER [phone] Medical Decision Maker: self Code Status: Attempt Cardiopulmonary Resuscitation - Inpatient Patient???s Functional Status: Regular diet ordered, on room air, independently ambulatory Living Situation: [address] [place] [id number] Supports: spouse Assessment: Patient with no apparent RNCM/SW needs at this time. No housing, transportation, insurance, or resource concerns identified at this time. Supports in place to achieve a safe post-hospitaltransition. No identified barriers to accessing necessary care and/or follow-up after discharge. Plan: Patient to d/c to spouse or family member via private car when medically ready. die cast operator/Census Clerk will continue to follow patient???s progress and remain available if situation changes for coordination of care, psychosocial support and/or discharge planning. Alina Nj die cast operator [facility] Pediatric Inpatient [phone] or dial [phone] and ask to page [phone] * Consult Note - Servando Valero MD [...] 12/21/202009 GLUCOSE 120 113 80 Recent Labs 12/21/20 2010 AMYLASE 247* Recent Labs 12/24/20 0550 12/23/20 [...] MD, biliary colic, who is admitted to cardiology associate with galstone pancreatitis. Based on her known [...] Valero MD - 12/23/2020 4:16 PM EST [facility] Operative Note Patient Name: Destin Marie Page : [id number] MR#: [id number] Case Date: 12/23/2020 Surgeon: Surgeon(s) and Role: [...] Info Order Time SPECIMEN TO PATHOLOGY Gallbladder [id number] Cholecystitis Gallbladder excision No 12/23/2020 3:03 PM [...] VALERO MD 12/23/2020 * Consult Note - Roxann Nuñez - 12/23/2020 3:38 PM EST Requested by [...] are anticipating the of a son named Sheisisplanning on her infant. We also discussed that parents are considered to be part of the care team and are welcome in the ICN at all times. We discussed the general care and management of an born at 29 weeks gestation, including respiratory [...] Pavilion in counseling of care with the infant and/or parents as detailed in the note above. Roxann Nuñez MD ICN Fellow Pager [phone] * Consult Note - Servando Valero MD - 12/23/2020 12:36 PM EST General Surgery Consult Note HPI: Destin Montiel is a 25 y.o. female at 29w1d w/ hx of MD, biliary colic, who is admitted to cardiology associate with galstone pancreatitis. She states she first [...] cholelithiasis without cholecystitis. She was transferred to [facility] for further care. This morning she states [...] 5300 [Urine:5300] LABS: Recent Labs 12/23/20 0630 12/22/20 0530 12/21/202009 WBC 10.3* 13.0* 13.4* HGB 10.9* 11.6* 12.0 HCT 33.4* 35.2* 35.9 PLATELET 241 232 245 NEUTROABS 8.95* 11.77* 9.83* Recent Labs 12/23/2025 12/22/2030 12/21/202009 NA 137 137 138 K 3.9 3.8 3.8 CL 105 105 105 CO2 22 22 22 BUN 4* 5* 8 CREATININE 0.30* 0.38* 0.41* Recent Labs 12/23/2025 12/22/2052912/21/202009 CALCIUM 8.1* 9.1 8.9 Recent Labs 12/22/20 0530 12/21/202009 GLUCOSE 113 80 Recent Labs 12/21/202009 AMYLASE 247* Recent Labs 12/23/2062412/22/2052912/21/202009 AST 27 68* 114* ALT 46* 73* [...] MD, biliary colic, who is admitted to cardiology associate with galstone pancreatitis. Based on her known [...] and recommendations were discussed with the consulting provider/ray. Araceli Valero MD * Plan of Care [...] MD, biliary colic, who is admitted to cardiology associate with galstone pancreatitis. She states she first [...] cholelithiasis without cholecystitis. She was transferred to [facility] for further care. This morning she states [...] no focal deficits 24 Hr I/O's: 12/21 700 - 12/22 699 In: 2206.7 [P.O.:300; I.V.:1906.7] Out: 1960 [Urine:1960] LABS: Recent Labs 12/22/20 0512/21/202009 WBC 13.0* 13.4* HGB 11.6* 12.0 HCT 35.2* 35.9 PLATELET 232 245 NEUTROABS 11.77* 9.83* Recent Labs 12/22/20 0530 12/21/202009 NA 137 138 K 3.8 3.8 CL 105 105 CO2 22 22 BUN 5* 8 CREATININE 0.38* 0.41* Recent Labs 12/22/20 0530 12/21/202009 CALCIUM 9.1 8.9 Recent Labs 12/22/20 0530 12/21/202009 GLUCOSE 113 80 Recent Labs 12/21/20 2010 AMYLASE 247* Recent Labs 12/22/20 0530 12/21/202009 AST 68* 114* ALT 73* 88* ALKPHOS [...] , biliary colic, who is admitted to cardiology associate with galstone pancreatitis. Based on her known [...] her that is reasonable, and we will [place] back in the AM to reassess after [...] cholelithiasis and depression whopresented in transfer from [facility] with gallstone pancreatitis. She initially had RUQ pain associated with N/V on 11/20/20 leading to a presentation at [facility] leading to ultrasound and diagnosis of cholelithiasis. This resolved, but then had a repeat episode on 11/30 leading to another ER visit. She was then seen by general surgery at [facility] on 12/09 and planned for lap karla 3-5 weeks post . She had initially had resolution of symptoms between episodes however over the past week, she experienced constant, nonradiating RUQ abdominal pain yesterday AM without nausea and vomiting. Upon presentation to [facility], labs were notable for lipase of 7900, Alk phos 165, AST 47, WBC 13. RUQ U/S showedcholelithiasis without biliary ductal dilation or cholecystitis. She was then transferred to [facility] for gallstone pancreatitis. Since presentation to [facility], vitals have remained stable and labs notable [...] Intramuscular Q24H ? ? vitamin 27 & [id number]-SJ 1 tablet Oral Daily ??? venlafaxine XR [...] and depression who presented in transfer from [facility] with gallstone pancreatitis. Her pancreatitis appears to [...] Reynolds. Carmen Coughlin MD Gastroenterology Fellow Pager #[phone] * Plan of Care - Tomeka Son [...] Routine 12/23/2020 3:00 PM EST Lap, Cholecystectomy/Graph ([id number]) 12/23/2020 1:33 PM EST Cholecystitis LAPAROSCOPIC CHOLECYSTECTOMY [...] 5:30 AM EST DIFFERENTIAL, AUTOMATED Routine 12/23/19 21 5:30 AM EST HC CBC,PLT & AUTO DIFF Routine 5:30 AM EST HC LIPASE Routine 12/22/2020 5:30 AM EST COMPREHENSIVE METABOLIC PANEL Routine 12/22/2020 5:30 AM EST URINALYSIS MICROSCOPIC EXAM Routine 12/21/2020 9:39 PM EST URINALYSIS WITH REFLEX CULTURE Routine 12/21/2020 9:39 PM EST RAPID COVID-19 PCR ([facility]) Routine 12/21/2020 8:56 PM EST GROUP B [...] Bilirubin, Direct <0.1 0.0 - 0.3 mg/dL [facility] Blood specimen (specimen) 12/24/2020 5:50 AM EST 12/24/2020 5:52 AM EST Narrative Resulting Agency Comment Spec In Lab Eloise Guallpa MD CHEMISTRY ORDERAB LES [facility] [place] [address] * (ABNORMAL) Differential, Automated (12/24/2020 5:50 AM EST) Neutrophil % 73.2 % [facility] Neutrophil Absolute 8.71(H) 1.70 - 6.10 x10(3)/[facility] Lymph % 16.5 % [facility] Lymphocytes Abs 2.0 0.9 - 3.2 x10(3)/[facility] Monocyte % 7.5 % [facility] Monocyte Abs 0.9 0.3 - 0.9 x10(3)/ L [facility] Eos % 0.2 % [facility] Eosinophils Abs 0.0 0.0 - 0.4 x10(3)/[facility] Basophil % 0.3 % [facility] Baso Absolute 0.0 0.0 - 0.1 x10(3)/ L [facility] Immature Gran % 2.30 % [facility] Comment: Immature granulocytes(IG's)percentage and absolute count will include metamyelocytes, myelocytes, and promyelocytes. Blood smears from CBCs yielding IG's will be scanned manually for concordance. If this scan disagrees with the automated IG or if promyelocytes are noted, a manual differential will be performed. Immature Gran Absolute 0.27(H) 0.00 - 0.04 x10(3)/ L [facility] Blood specimen (specimen) 12/24/2020 5:50 AM EST 12/24/2020 5:52 AM EST Narrative Resulting Agency Comment Spec In Lab Eloise Guallpa MD HEMATOLOGY ORDERA BLES [facility] [place] [address] * (ABNORMAL) Hemogram (12/24/2020 5:50 AM EST) White Blood Cell 11.9(H) 4.0 - 9.5 x10(3)/mc L [facility] Red Blood Cell 3.18(L) 4.00 - 5.21 x10(6)/mc L [facility] Hemoglobin 9.8(L) 11.7 - 15.5 gm/dL [facility] Hematocrit 30.2(L) 35.7 - 45.8 % [facility] Mean Cell Volume 95.0(H) 82.6 - 94.4 fL [facility] Mean Cell Hemoglobin 30.8 27.1 - 32.0 pg [facility] Mean Cell Hemoglobin Concentration 32.5 31.7 - 35.0 gm/dL [facility] Platelet 206 145 - 357 x10(3)/mc L [facility] RDW Standard Deviation 45.7 37.0 - 46.0 fL [facility] RDW coefficient of variation 13.3 11.5 - 14.1 % [facility] Mean Platelet Volume 10.1 7.6 - 12.9 fL [facility] NRBC% auto 0.0 % [facility] NRBC Absolute 0.000 0.000 - 0.000 x10(3)/mc L [facility] Blood specimen (specimen) 12/24/2020 5:50 AM EST 12/24/2020 5:52 AM EST Narrative Resulting Agency Comment Spec In Lab Eloise Guallpa MD HEMATOLOGY ORDERA BLES [facility] [place] [address] * (ABNORMAL) Comprehensive metabolic panel (non-fasting) (12/24/2020 5:50 AM EST) Glucose 120 65 - 199 mg/dL [facility] Comment:Diabetes: >=200 mg/d L plus symptoms Blood Urea Nitrogen 7(L) 8 - 18 mg/dL [facility] Comment:result rechecked-kk Creatinine 0.37(L) 0.70 - 1.20 mg/dL [facility] Sodium 138 135 - 145 mmol/L [facility] Potassium 3.9 3.5 - 5.0 mmol/L [facility] Comment: Please note: ??Patients with WBC >100,000 may have falsely elevated Potassium levels. ??For accurate Potassium quantification in these patients send serum separator tube (gold top) for subsequent determinations. ??Contact the Clinical Chemistry Laboratory if there are any questions. Chloride 105 98 - 107 mmol/L [facility] Carbon Dioxide 22 22 - 31 mmol/L [facility] Anion Gap 11 5 - 15 mmol/L [facility] Calcium 8.3(L) 8.5 - 10.5 mg/dL [facility] Protein, Total 5.6(L) 6.1 - 8.0 gm/dL [facility] Albumin 3.2 3.2 - 5.2 gm/dL [facility] Aspartate Aminotransferase 19 0 - 30 unit/L [facility] Alanine Aminotransferase 36(H) 0 - 30 unit/L [facility] Alkaline Phosphatase 141(H) 35 - 105 unit/L [facility] Bilirubin, Total <0.2(L) 0.2 - 1.3 mg/dL [facility] Est Glomerular Filtration Rate 150 >=60 mL/min/1. 73 m?? [facility] Comment: This patient? s estimated [...] E Destin Damon MD CHEMISTRY ORDERAB LES [facility] [place] [address] * Surgical Pathology Report (12/23/2020 3:03 PM EST) Final Diagnosis [id number] ? Location: BP; BP19; A The signing pathologist has (i) examined the relevant preparation(s) for the specimen(s) and (ii) rendered or confirmed the diagnosis(es). . ?Surgical Pathology DIAGNOSIS Gallbladder, resection: Chronic cholecystitis and cholelithiasis. Electronically signed by: ??El Edwards MD Verified: ??12/28/2020 ?Pathologist Performed at: ??-[facility] Dept. of Pathology, [place], [place] SPECIMEN(S) SUBMITTED A - Gallbladder, excision [...] hepatic margin is inked black Sections/Processi ng: Paper Bag Inspector sections in 1 cassettes as follows: ?A1: ??cystic duct margin and product support representative mucosa. ??ajw 12/28/2020 3:45 PM EDT [facility] GALLBLADDER STRUCTURE / Unknown 12/23/2020 3:03 PM EST 12/23/2020 3:03 PM EST Servando Valero MD PATHOLOGY/CYTOLOGY O RICARDO Performing Organization Address [facility] Co de Phone Number [facility] [place] [address] * Specimen to Pathology (12/23/2020 3:03 PM EST) AP Specimen 12/23/2020 3:03 PM EST 12/23/2020 3:03 PM EST Narrative [facility] - 12/23/2020 3:03 PM EST Specimen requisition ordered. ??Separate Pathology report to follow Servando Valero MD PATHOLOGY/CYTOLOGY O RDERABLES Performing Organization Address [facility] de Phone Number [facility] [place] [address] * XR Fluoro No Rad <1Hr - OR Use (12/23/2020 3:00 PM EST) Narrative RAD - 12/23/2020 3:02 PM EST This exam is auto-finalizing. No interpretation was done. Servando Valero MD IMG FLUORO ORDERABLE S Performing Organization Address [facility] Co de Phone Number [place], [place] * (ABNORMAL) Differential, Automated (12/23/2020 6:30 AM EST) Neutrophil % 87.0 % [facility] Neutrophil Absolute 8.95(H) 1.70 - 6.10 x10(3)/mc L [facility] Lymph % 7.1 % [facility] Lymphocytes Abs 0.7(L) 0.9 - 3.2 x10(3)/mc L [facility] Monocyte % 2.3 % [facility] Monocyte Abs 0.2(L) 0.3 - 0.9 x10(3)/mc L [facility] Eos % 0.1 % [facility] Eosinophils Abs 0.0 0.0 - 0.4 x10(3)/ L [facility] Basophil % 0.3 % [facility] Baso Absolute 0.0 0.0 - 0.1 x10(3)/ L [facility] Immature Gran % 3.20 % [facility] Comment: Immature granulocytes(IG's)percentage and absolute count will include metamyelocytes, myelocytes, and promyelocytes. Blood smears from CBCs yielding IG's will be scanned manually for concordance. If this scan disagrees with the automated IG or if promyelocytes are noted, a manual differential will be performed. Immature Gran Absolute 0.33(H) 0.00 - 0.04 x10(3)/ L [facility] Blood specimen (specimen) 12/23/2020 6:30 AM EST 12/23/2020 7:02 AM EST Narrative Resulting Agency Comment Spec In Lab Eloise Guallpa MD HEMATOLOGY ORDERA BLES [facility] [place] [address] * (ABNORMAL) Hemogram (12/23/2020 6:30 AM EST) White Blood Cell 10.3(H) 4.0 - 9.5 x10(3)/ L [facility] Red Blood Cell 3.53(L) 4.00 - 5.21 x10(6)/mc L [facility] Hemoglobin 10.9(L) 11.7 - 15.5 gm/dL [facility] Hematocrit 33.4(L) 35.7 - 45.8 % [facility] Mean Cell Volume 94.6(H) 82.6 - 94.4 fL [facility] Mean Cell Hemoglobin 30.9 27.1 - 32.0 pg [facility] Mean Cell Hemoglobin Concentration 32.6 31.7 - 35.0 gm/dL [facility] Platelet 241 145 - 357 x10(3)/mc L [facility] RDW Standard Deviation 44.6 37.0 - 46.0 fL [facility] RDW coefficient of variation 12.9 11.5 - 14.1 % [facility] Mean Platelet Volume 10.4 7.6 - 12.9 fL [facility] NRBC% auto 0.0 % [facility] NRBC Absolute 0.000 0.000 - 0.000 x10(3)/mc L [facility] Blood specimen (specimen) 12/23/2020 6:30 AM EST 12/23/2020 7:02 AM EST Narrative Resulting Agency Comment Spec In Lab Eloise Guallpa MD HEMATOLOGY ORDERA BLES Performing Organization Address [facility]/[place] [address] * APTT (12/23/2020 6:30 AM EST) Partial Thromboplastin Time 27 25 - 37 sec [facility] Comment: The PTT is NOT appropriate for heparin monitoring. Use the Anti-Xa level for heparin monitoring (HEP UFH) or LMWH monitoring (HEP LMW). A PTT less than 37 seconds generally indicates adequate hemostasis. Blood specimen (specimen) 12/23/2020 6:30 AM EST 12/23/2020 7:02 AM EST Narrative Resulting Agency Comment Spec In Lab Shayna Damon MD HEMATOLOGY ORDERA BLES Performing Organization Address City/[facility]/ZIP Co de Phone Number [facility] [place] [address] * Prothrombin Time (12/23/2020 6:30 AM EST) Prothrombin Time 10.7 9.4 - 12.5 sec [facility] International Normalization Ratio 0.9 [facility] [facility] Comment: An INR <2.0 indicates [...] E Destin Damon MD HEMATOLOGY ORDERA BLES [facility] [place] [address] * (ABNORMAL) BMP w/fasting Glucose (12/23/2020 6:25 AM EST) Glucose Fasting 120(H) 65 - 99 mg/dL [facility] Comment: ?Fasting* Glucose Interpretive Criteria [...] of Diabetes Mellitus, Position Statement from the [place] [employer]. ??Diabetes Care, Volume 33, Supplement 1, Oct 2009 Blood Urea Nitrogen 4(L) 8 - 18 mg/dL [facility] Creatinine 0.30(L) 0.70 - 1.20 mg/dL [facility] Sodium 137 135 - 145 mmol/L [facility] Potassium 3.9 3.5 - 5.0 mmol/L [facility] Comment: Please note: ??Patients with WBC >100,000 may have falsely elevated Potassium levels. ??For accurate Potassium quantification in these patients send serum separator tube (gold top) for subsequent determinations. ??Contact the Clinical Chemistry Laboratory if there are any questions. Chloride 105 98 - 107 mmol/L [facility] Carbon Dioxide 22 22 - 31 mmol/L [facility] Anion Gap 10 5 - 15 mmol/L [facility] Calcium 8.1(L) 8.5 - 10.5 mg/dL [facility] Est Glomerular Filtration Rate 160 >=60 mL/min/1. 73 m?? [facility] Comment: This patient? s estimated [...] Lab Eloise Guallpa MD CHEMISTRY ORDERAB LES [facility] [place] [address] * (ABNORMAL) Hepatic Function Panel (12/23/2020 6:25 AM EST) Protein, Total 6.0(L) 6.1 - 8.0 gm/dL [facility] Albumin 3.5 3.2 - 5.2 gm/dL [facility] Aspartate Aminotransferase 27 0 - 30 unit/L [facility] Alanine Aminotransferase 46(H) 0 - 30 unit/L [facility] Alkaline Phosphatase 168(H) 35 - 105 unit/L [facility] Bilirubin, Total 0.2 0.2 - 1.3 mg/dL [facility] Bilirubin, Direct <0.1 0.0 - 0.3 mg/dL [facility] Blood specimen (specimen) 12/23/2020 6:25 AM EST 12/23/2020 6:38 AM EST Narrative Resulting Agency Comment Spec In Lab E Destin Damon MD CHEMISTRY ORDERAB LES Performing Organization Address City/State/[facility] Co de Phone Number [facility] [place] [address] * US OB Follow Up (12/22/2020 2:36 [...] 02:50 pm) PATIENT INFO: ID #: ? [id number] ?: ??[birth year] (25 yrs)(F) Name: ? DESTIN Marie PAGE ? Visit Date: 12/22/2020 02:37 pm PERFORMED BY: Performed By: ? Sharon Hidalgo RDMS Attending: ?Sav Damon MD Referred By: ?Shayna DAMON Location: ? [place] SERVICE(S) PROVIDED: UOBFOL - Efw - Growth ??- Miller - [id number] ?[id number] INDICATIONS: 29 weeks gestation of ? Z3A.29 [...] - 87 FL/AC: ? 21.7 ??% ? - Est. FW: ?1234 ?? gm ?? 2 [...] 12/22/2020 02:50 pm) PATIENT INFO: ID #: [id number] : [birth year] (25 yrs)(F) Name: DESTIN Cynthia PAGE Visit Date: 12/22/2020 02:37 pm PERFORMED BY: Performed By: Sharon Hidalgo RDMS Attending: Sav Damon MD Referred By: Shayna DAMON Location: [place] SERVICE(S) PROVIDED: [facility] - [id number] INDICATIONS: 29 weeks gestation of Z3A.29 at [...] 04:19 pm) PATIENT INFO: ID #: ? [id number] ?: ??[birth year] (25 yrs)(F) Name: ? DESTIN L PAGE ? Visit Date: 12/22/2020 02:00 pm PERFORMED BY: Performed By: ? Tanisha Nichols RDMS Attending: ?Geoffrey TILLEY, Dunia Joshua Referred By: ?E DESTIN PSCHIRRER Location: ? [place] SERVICE(S) PROVIDED: UABDLIM - Abdominal Limited Survey Single ? [id number] Organ or Quadrant - [id number] INDICATIONS: 29 wks with possible gallstone pancreatitis [...] 12/22/2020 04:19 pm) PATIENT INFO: ID #: [id number] : [birth year] (25 yrs)(F) Name: DESTIN Marie ELSI Visit Date: 12/22/2020 02:00 pm PERFORMED BY: Performed By: Tanisha Nichols RDMS Attending: Dunia Hale MD Referred By: Shayna DAMON Location: [place] SERVICE(S) PROVIDED: UABDLIM - Abdominal Limited Survey Single [id number] Organ or Quadrant - [id number] INDICATIONS: 29 wks with possible gallstone pancreatitis [...] 5:30 AM EST) Neutrophil % 90.4 % [facility] Neutrophil Absolute 11.77(H) 1.70 - 6.10 x10(3)/mc L [facility] Lymph % 6.1 % [facility] Lymphocytes Abs 0.8(L) 0.9 - 3.2 x10(3)/mc L [facility] Monocyte % 1.1 % [facility] Monocyte Abs 0.1(L) 0.3 - 0.9 x10(3)/mc L [facility] Eos % 0.0 % [facility] Eosinophils Abs 0.0 0.0 - 0.4 x10(3)/mc L [facility] Basophil % 0.3 % [facility] Baso Absolute 0.0 0.0 - 0.1 x10(3)/mc L [facility] Immature Gran % 2.10 % [facility] Comment: Immature granulocytes(IG's)percentage and absolute count will include metamyelocytes, myelocytes, and promyelocytes. Blood smears from CBCs yielding IG's will be scanned manually for concordance. If this scan disagrees with the automated IG or if promyelocytes are noted, a manual differential will be performed. Immature Gran Absolute 0.27(H) 0.00 - 0.04 x10(3)/mc L [facility] Blood specimen (specimen) 12/22/2020 5:30 AM EST 12/22/2020 5:47 AM EST Narrative Resulting Agency Comment Spec In Lab Ti Keyes MD HEMATOLOGY ORDERABLE S [facility] [place] [address] * (ABNORMAL) Hemogram (12/22/2020 5:30 AM EST) White Blood Cell 13.0(H) 4.0 - 9.5 x10(3)/ L [facility] Red Blood Cell 3.77(L) 4.00 - 5.21 x10(6)/mc L [facility] Hemoglobin 11.6(L) 11.7 - 15.5 gm/dL [facility] Hematocrit 35.2(L) 35.7 - 45.8 % [facility] Mean Cell Volume 93.4 82.6 - 94.4 fL [facility] Mean Cell Hemoglobin 30.8 27.1 - 32.0 pg [facility] Mean Cell Hemoglobin Concentration 33.0 31.7 - 35.0 gm/dL [facility] Platelet 232 145 - 357 x10(3)/ L [facility] RDW Standard Deviation 44.3 37.0 - 46.0 fL [facility] RDW coefficient of variation 12.9 11.5 - 14.1 % [facility] Mean Platelet Volume 10.0 7.6 - 12.9 fL [facility] NRBC% auto 0.0 % [facility] NRBC Absolute 0.000 0.000 - 0.000 x10(3)/mc L [facility] Blood specimen (specimen) 12/22/2020 5:30 AM EST 12/22/2020 5:47 AM EST Narrative Resulting Agency Comment Spec In Lab Ti Keyes MD HEMATOLOGY ORDERABLE S Performing Organization Address City/[facility]/ZIP Co de Phone Number [facility] [place] [address] * (ABNORMAL) Lipase (12/22/2020 5:30 AM EST) Lipase 67(H) 0 - 60 unit/L [facility] Comment:result rechecked-kk Blood specimen (specimen) 12/22/2020 5:30 AM EST 12/22/2020 5:47 AM EST Narrative Resulting Agency Comment Spec In Lab Shayna Damon MD CHEMISTRY ORDERAB LES Performing Organization Address City/[facility]/ZIP Co de Phone Number [facility] [place] [address] * (ABNORMAL) Comprehensive metabolic panel (non-fasting) (12/22/2020 5:30 AM EST) Glucose 113 65 - 199 mg/dL [facility] Comment:Diabetes: >=200 mg/d L plus symptoms Blood Urea Nitrogen 5(L) 8 - 18 mg/dL [facility] Creatinine 0.38(L) 0.70 - 1.20 mg/dL [facility] Sodium 137 135 - 145 mmol/L [facility] Potassium 3.8 3.5 - 5.0 mmol/L [facility] Comment: Please note: ??Patients with WBC >100,000 may have falsely elevated Potassium levels. ??For accurate Potassium quantification in these patients send serum separator tube (gold top) for subsequent determinations. ??Contact the Clinical Chemistry Laboratory if there are any questions. Chloride 105 98 - 107 mmol/L [facility] Carbon Dioxide 22 22 - 31 mmol/L [facility] Anion Gap 10 5 - 15 mmol/L [facility] Calcium 9.1 8.5 - 10.5 mg/dL [facility] Protein, Total 6.4 6.1 - 8.0 gm/dL [facility] Albumin 3.6 3.2 - 5.2 gm/dL [facility] Aspartate Aminotransferase 68(H) 0 - 30 unit/L [facility] Alanine Aminotransferase 73(H) 0 - 30 unit/L [facility] Alkaline Phosphatase 189(H) 35 - 105 unit/L [facility] Bilirubin, Total 0.3 0.2 - 1.3 mg/dL [facility] Est Glomerular Filtration Rate 148 >=60 mL/min/1. 73 m?? [facility] Comment: This patient? s estimated [...] E Destin Damon MD CHEMISTRY ORDERAB LES [facility] [place] [address] * (ABNORMAL) Urinalysis Microscopic Exam (12/21/2020 9:39 PM EST) RBC, Urine 1 0 - 4 /HPF [facility] WBC, Urine 5 0 - 5 /HPF [facility] Bacteria, Urine Rare(A) None /HPF [facility] Squamous Epithelial Cells Raw Data, Urine 2 <=4 /HPF [facility] Urine specimen obtained by clean catch procedure (specimen) 12/21/2020 9:39 PM EST 12/21/2020 9:48 PM EST Narrative Resulting Agency Comment Spec In Lab Ti Keyes MD URINE ORDERABLES [facility] [place] [address] * (ABNORMAL) Urinalysis with reflex Culture (12/21/2020 9:39 PM EST) Glucose, Urine Dipstick Negative Negative mg/dL [facility] Protein, Urine Dipstick Negative Negative mg/dL [facility] Bilirubin, Urine Dipstick Negative Negative mg/dL [facility] Comment: Clinical correlation required for positive Urine Bilirubin results as false positive may occur with some drugs and drug related products. If a false positive is suspected a serum total bilirubin should be considered if clinically indicated. Urobilinogen, Urine Dipstick Normal Normal mg/dL [facility] pH, Urn (dipstick) 6.0 5.0 - 8.0 [facility] Blood, Urine Dipstick Negative Negative mg/dL [facility] Ketone, Urine Dipstick Negative Negative mg/dL [facility] Nitrite, Urine Dipstick Negative Negative [facility] Leukocytes, Urine Dipstick Trace(A) Negative [facility] Appearance, Urine Dipstick Clear Clear [facility] Specific [place] Urine Automated 1.017 1.006 - 1.030 [facility] Color, Urine Dipstick Yellow Yellow [facility] Reflex to Culture No [facility] Urine specimen obtained by clean catch procedure (specimen) 12/21/2020 9:39 PM EST 12/21/2020 9:48 PM EST Narrative Resulting Agency Comment Spec In Lab E Destin Damon MD URINE ORDERABLES [facility] [place] [address] * COVID-19 PCR (12/21/2020 8:56 PM EST) SARS-CoV-2 RNA (Rapid) Not Detected Not Detected [facility] Comment: This result should be [...] using the Simplexa COVID-19 Direct Assay by [employer] as authorized by the FDA issued Emergency [...] Department of Pathology and Laboratory Medicine at [facility], certified under the Clinical Laboratory Improvement [...] fact sheets at the following FDA website: https://www.fda.gov/medical-devices/bkykamsauap-ifmvsjw-5420-swipp-18-yyiikbodp- use-a uexocdbkyguhk-fickdgm-gkorewa/naimj-lysshrygyyy-yzpf SARS-CoV-2 Source [employer] [place] [facility] Nasopharyngeal swab (specimen) 12/21/2020 8:56 PM EST 12/21/2020 9:58 PM EST Comment:Symptoms->Surveillan ce Narrative Resulting Agency Comment Spec In Lab E Destin Damon MD MICROBIOLOGY - NERAL ORDERABLES [facility] [place] [address] * Group B Streptococcus Screen (12/21/2020 8:32 PM EST) GBS Screen Neg [facility] Pooled specimen from vaginal introitus and rectal swab (specimen) 12/21/2020 8:32 PM EST 12/21/2020 9:33 PM EST Comment:Penicillin Allergy?- >No Narrative Resulting Agency Comment Spec In Lab Ti Keyes MD MICROBIOLOGY - GENER AL ORDERABLES Performing Organization Address [facility]/ZIP Co de Phone Number [facility] [place] [address] * Group B Strep Culture Screen (12/21/2020 8:32 PM EST) Group B Streptococcus Culture No Group B Streptococci isolated [facility] Pooled specimen from vaginal introitus and rectal swab (specimen) 12/21/2020 8:32 PM EST 12/21/2020 9:33 PM EST Comment:PENICILLIN ALLERGY?- >NO Narrative Resulting Agency Comment Spec In Lab Shayna Damon MD MICROBIOLOGY - GE NERAL ORDERABLES Performing Organization Address City/[facility]/ZIP Co de Phone Number [facility] [place] [address] * ABORH Recheck Status (12/21/2020 8:10 PM EST) Pathologist [facility] ABORH Recheck Order Order Placed [facility] ABORH Type Recheck Complete [facility] Blood specimen (specimen) 12/21/2020 8:10 PM EST 12/21/2020 8:18 PM EST Narrative Resulting Agency Comment Spec In Lab Ti Keyes MD BLOOD BANK LAB ORDER DREW Performing Organization Address City/[facility]/ZIP Co de Phone Number [facility] [place] [address] * (ABNORMAL) Differential, Automated (12/21/2020 8:10 PM EST) Pathologist [facility] Neutrophil % 73.7 % [facility] Neutrophil Absolute 9.83(H) 1.70 - 6.10 x10(3)/mc L [facility] Lymph % 16.9 % [facility] Lymphocytes Abs 2.3 0.9 - 3.2 x10(3)/mc L [facility] Monocyte % 5.4 % [facility] Monocyte Abs 0.7 0.3 - 0.9 x10(3)/mc L [facility] Eos % 1.1 % [facility] Eosinophils Abs 0.2 0.0 - 0.4 x10(3)/mc L [facility] Basophil % 0.4 % [facility] Baso Absolute 0.0 0.0 - 0.1 x10(3)/mc L [facility] Immature Gran % 2.50 % [facility] Comment: Immature granulocytes(IG's)percentage and absolute count will include metamyelocytes, myelocytes, and promyelocytes. Blood smears from CBCs yielding IG's will be scanned manually for concordance. If this scan disagrees with the automated IG or if promyelocytes are noted, a manual differential will be performed. Immature Gran Absolute 0.34(H) 0.00 - 0.04 x10(3)/mc L [facility] Blood specimen (specimen) 12/21/2020 8:10 PM EST 12/21/2020 8:19 PM EST Narrative Resulting Agency Comment Spec In Lab Ti Keyes MD HEMATOLOGY ORDERABLE S [facility] [place] [address] * (ABNORMAL) Hemogram (12/21/2020 8:10 PM EST) White Blood Cell 13.4(H) 4.0 - 9.5 x10(3)/mc L [facility] Red Blood Cell 3.84(L) 4.00 - 5.21 x10(6)/mc L [facility] Hemoglobin 12.0 11.7 - 15.5 gm/dL [facility] Hematocrit 35.9 35.7 - 45.8 % [facility] Mean Cell Volume 93.5 82.6 - 94.4 fL [facility] Mean Cell Hemoglobin 31.3 27.1 - 32.0 pg [facility] Mean Cell Hemoglobin Concentration 33.4 31.7 - 35.0 gm/dL [facility] Platelet 245 145 - 357 x10(3)/mc L [facility] RDW Standard Deviation 43.9 37.0 - 46.0 fL [facility] RDW coefficient of variation 12.9 11.5 - 14.1 % [facility] Mean Platelet Volume 10.2 7.6 - 12.9 fL [facility] NRBC% auto 0.0 % [facility] NRBC Absolute 0.000 0.000 - 0.000 x10(3)/mc L [facility] Blood specimen (specimen) 12/21/2020 8:10 PM EST 12/21/2020 8:19 PM EST Narrative Resulting Agency Comment Spec In Lab Ti Keyes MD HEMATOLOGY ORDERABLE S Performing Organization Address City/[facility]/ZIP Co de Phone Number [facility] [place] [address] * Antibody screen (12/21/2020 8:10 PM EST) Ab Screen Interp Negative [facility] Expires at [id number] on: 12/24/2020 [facility] Blood specimen (specimen) 12/21/2020 8:10 PM EST 12/21/2020 8:18 PM EST Narrative Resulting Agency Comment Spec In Lab Ti Keyes MD BLOOD BANK LAB ORDER DREW [facility] [place] [address] * ABO/Rh Typing (12/21/2020 8:10 PM EST) ABORH Type O Pos [facility] Blood specimen (specimen) 12/21/2020 8:10 PM EST 12/21/2020 8:18 PM EST Narrative Resulting Agency Comment Spec In Lab Ti Keyes MD BLOOD BANK LAB ORDER DREW [facility] [place] [address] * (ABNORMAL) Amylase (12/21/2020 8:10 PM EST) Amylase 247(H) 28 - 100 unit/L [facility] Blood specimen (specimen) 12/21/2020 8:10 PM EST 12/21/2020 8:19 PM EST Narrative Resulting Agency Comment Spec In Lab E Destin Damon MD CHEMISTRY ORDERAB LES Performing Organization Address [facility]/ZIP Co de Phone Number [facility] [place] [address] * (ABNORMAL) Lipase (12/21/2020 8:10 PM EST) Lipase 596(H) 0 - 60 unit/L [facility] Blood specimen (specimen) 12/21/2020 8:10 PM EST 12/21/2020 8:19 PM EST Narrative Resulting Agency Comment Spec In Lab E Destin Damon MD CHEMISTRY ORDERAB LES Performing Organization Address [facility]/ZIP Co de Phone Number [facility] [place] [address] * (ABNORMAL) Comprehensive metabolic panel (non-fasting) (12/21/2020 8:10 PM EST) Glucose 80 65 - 199 mg/dL [facility] Comment:Diabetes: >=200 mg/d L plus symptoms Blood Urea Nitrogen 8 8 - 18 mg/dL [facility] Creatinine 0.41(L) 0.70 - 1.20 mg/dL [facility] Sodium 138 135 - 145 mmol/L [facility] Potassium 3.8 3.5 - 5.0 mmol/L [facility] Comment: Please note: ??Patients with WBC >100,000 may have falsely elevated Potassium levels. ??For accurate Potassium quantification in these patients send serum separator tube (gold top) for subsequent determinations. ??Contact the Clinical Chemistry Laboratory if there are any questions. Chloride 105 98 - 107 mmol/L [facility] Carbon Dioxide 22 22 - 31 mmol/L [facility] Anion Gap 11 5 - 15 mmol/L [facility] Calcium 8.9 8.5 - 10.5 mg/dL [facility] Protein, Total 6.6 6.1 - 8.0 gm/dL [facility] Albumin 3.6 3.2 - 5.2 gm/dL [facility] Aspartate Aminotransferase 114(H) 0 - 30 unit/L [facility] Alanine Aminotransferase 88(H) 0 - 30 unit/L [facility] Alkaline Phosphatase 194(H) 35 - 105 unit/L [facility] Bilirubin, Total 0.2 0.2 - 1.3 mg/dL [facility] Est Glomerular Filtration Rate 145 >=60 mL/min/1. 73 m?? [facility] Comment: This patient? s estimated [...] E Destin Damon MD CHEMISTRY ORDERAB LES [facility] [place] [address] * Rapid Drug Screen w/ Confirmation, Urine (12/21/2020 7:42 PM EST) Barbiturates Screen, Urine None Detected None Detected [facility] Comment: The barbiturate screen detects [...] Benzodiazepines Screen, Urine None Detected None Detected [facility] Comment: The benzodiazepines screen detects [...] Cocaine Screen, Urine None Detected None Detected [facility] Comment: The cocaine metabolites screen detects benzoylecgonine (Cocaine Metabolite) at concentrations >150 ng/mL. A ? Presumptive Positive? result indicates that the screening result was positive but has not yet been confirmed by a highly-specific method. As with any screen, occasional false positive results from cross-reacting substances may occur. Not for Medico-Legal Purposes. Methadone Metabolites Screen, Urine None Detected None Detected [facility] Comment: The methadone metabolite screen detects EDDP (major methadone metabolite) at concentrations >100 ng/mL. A ? Presumptive Positive? result indicates that the screening result was positive but has not yet been confirmed by a highly-specific method. As with any screen, occasional false positive results from cross-reacting substances may occur. Not for Medico-Legal Purposes. Opiate Screen, Urine None Detected None Detected [facility] Comment: The opiates screen detects [...] Cannabinoid Screen, Urine None Detected None Detected [facility] Comment: The marijuana metabolites screen detects the THC metabolite (44-ggc-1-carboxy-delta 9-THC) at concentrations >20 ng/mL. A ? Presumptive Positive? result indicates that the screening result was positive but has not yet been confirmed by a highly-specific method. As with any screen, occasional false positive results from cross-reacting substances may occur. Not for Medico-Legal Purposes. Oxycodone Screen, Urine None Detected None Detected [facility] Comment: The oxycodone screen detects oxycodone and oxymorphone at concentrations >100 ng/mL. A ? Presumptive Positive? result indicates that the screening result was positive but has not yet been confirmed by a highly-specific method. As with any screen, occasional false positive results from cross-reacting substances may occur. Not for Medico-Legal Purposes. Buprenorphine Screen, Urine None Detected None Detected [facility] Comment: The buprenorphine screen detects buprenorphine at concentrations >5 ng/mL. A ? Presumptive Positive? result indicates that the screening result was positive but has not yet been confirmed by a highly-specific method. As with any screen, occasional false positive results from cross-reacting substances may occur. Not for Medico-Legal Purposes. Fentanyl Screen, Urine None Detected None Detected [facility] Comment: The fentanyl screen detects fentanyl at concentrations >2 ng/mL. A ? Presumptive Positive? result indicates that the screening result was positive but has not yet been confirmed by a highly-specific method. As with any screen, occasional false positive results from cross-reacting substances may occur. Not for Medico-Legal Purposes. Tricyclics Screen, Urine None Detected None Detected [facility] Comment: The tricyclics screen detects [...] Ethanol Screen, Urine None Detected None Detected [facility] Comment:This urine ethanol a ssay detects ethanol at concentrations >/= 100 mg/L. Amphetamines Screen, Urine None Detected None Detected [facility] Comment: The amphetamine screen detects d-amphetamine and d-methamphetamine at concentrations >300 ng/mL. A ? Presumptive Positive? result indicates that the screening result was positive but has not yet been confirmed by a highly-specific method. As with any screen, occasional false positive results from cross-reacting substances may occur. Not for Medico-Legal Purposes. Adulterants Screen, Urine None Detected None Detected [facility] Comment: No adulteration or dilution [...] Keyes MD CHEMISTRY ORDERABLES Performing Organization Address [facility] Co de Phone Number [facility] [place] [address] * Rapid Drug Screen, Urine (MEIR Request) (12/21/2020 7:42 PM EST) MEIR Conf Requested Yes [facility] MEIR Requested See Comment [facility] Comment:Refer to Rapid Drug Screen w/ Confirmation, Urine for results. Urine specimen (specimen) 12/21/2020 7:42 PM EST 12/21/2020 7:56 PM EST Narrative Resulting Agency Comment Spec In Lab Shayna Damon MD URINE ORDERABLES Performing Organization Address [facility] Co de Phone Number [facility] [place] [address] documented in this encounter Visit Diagnoses Not on filedocumented in this encounter Admitting Diagnoses Diagnosis Pancreatitis Acute pancreatitis documented in this encounter Administered Medications Inactive Administered Medications - up to 3 most recent administrations Medication Order MAR Action Action Date Dose Rate Site acetaminophen (Tylenol) tablet 650 mg 650 mg, Oral, EVERY 6 HOURS, First dose (after last modification) on Tue12/24/20 at 0915, Until Discontinued, Maximum dose of acetaminophen is 4000 mg from all sources in 24 hours. When ordered for pain, acetaminophen should be given even when other ordered pain medications are indicated., Routine Given 12/24/2020 8:26 AM EST 650 mg BUpivacaine (pf) (Marcaine) (5 mg/mL) 0.5% injection ONCE PRN, Starting on Tue12/23/20 at 1437, Until Tue12/24/20 at 1559, Intra-Operative (Intra-Procedure), Routine Given 12/23/2020 3:11 PM EST 22 mLs 19- Surgical Site Given 12/23/2020 2:37 PM EST 8 mLs 19 - Surgical Site heparin (porcine) (5,000 units/1 mL) subcutaneous injection 5,000 Units 5,000 Units, Subcutaneous, EVERY 12 HOURS SCHEDULED (2 times per day), First dose on Tue12/23/20 at 2100, Until Discontinued, Routine Given 12/23/2020 8:31 PM EST 5,000 Units Given 12/23/2020 2:00 PM EST 5,000 Units iohexoL (Omnipaque) (300 mg/mL) injection solution ONCE PRN, Starting on Tue12/23/20 at 1510, Until Tue12/24/20 at 1559, Intra-Operative (Intra-Procedure), Routine Given 12/23/2020 3:10 PM EST 11 mLs 19- Surgical Site lidocaine (pf) (Xylocaine) (10 mg/mL) 1% injection [...] 4:00 PM EST 1 g/hr 25 mL/hr mineral oiL topical liquid 25 mL 25 mL, Topical (Top), ONCE PRN, 1 dose, Starting on Tue12/21/20 at 1955, Until Tue12/24/20 at 1559, Constipation, For perineal stretching during pushing., Routine oxyCODONE (Roxicodone) tablet 5 mg 5 mg, Oral, EVERY 4 HOURS PRN, Starting on Tue12/23/20 at 1955, Until Tue12/24/20 at 1559, Pain, [...] following delivery., ., Routine vitamin 27 & [id number] 60 mg iron-1 mg per tablet Tab [...] Last dose on Tue12/22/20 at 2100, Routine 214 (Given - Provider: Tanisha Guzmán, JOANN) heparin (porcine) (5,000 units/1 mL) subcutaneous injection 5,000 Units 5,000 Units, Subcutaneous, EVERY 12 HOURS SCHEDULED (2 times per day), First dose on Tue12/23/20 at 2100, Until Discontinued, Routine 1332 (DEC Hold - Provider: Admin Adt - Reason: Transfer to a Procedural area)1400 (Given - Provider: Jefferson Perez CRNA)1655 (DEC Unhold - Provider: Admin Adt)2030 (Given - Provider: aTnisha Guzmán, RN) 1000 (Not Given - Provider: Maria Dolores Chaudhari, JOANN - Reason: Patient/family refused) magnesium sulfate Bolus from bag 4 g (COMPLETED)(Linked Group 1) 4 g, Intravenous, ONCE, 1 dose, On Tue12/22/20 at 1500, Administer over 20 minutes., Routine 1539 (Bolus from Bag - Provider: Felipa Guerrero, JOANN) vitamin 27 & [id number] 60 mg iron-1 mg per tablet Tab 1 tablet 1 tablet, Oral, NIGHTLY, First dose (after last modification) on Tue12/22/20 at 2100, Until Discontinued, Routine 2130 (Given - Provider: Tanisha Guzmán, JOANN) 1332 (DEC Hold - Provider: Admin Adt - Reason: Transfer to a Procedural area)165 ([facility] Unhold - Provider: Admin Adt)2028 (Given - Provider: Tanisha Guzmán RN) sodium chloride 0.9 % (flush) flush 5 mL 5 mL, Intravenous, 2 TIMES DAILY, First dose on Tue12/21/20 at 2100, Until Discontinued, Routine 0900 (Not Given - Provider: Felipa Guerrero RN - Reason: See comment - Comment: IV infusing)2100 (Not Given - Provider: Tanisha Guzmán RN - Reason: See comment - Comment: infusing) 0900 (Due)1332 ([facility] Hold - Provider: Admin Adt - Reason: Transfer to a Procedural area)1655 ([facility] Unhold - Provider: Admin Adt)2037 (Given - Provider: Tanisha Guzmán RN) 1000 (Not Given - Provider: Maria Dolores Chaudhari RN - Reason: Order parameters not met) venlafaxine XR (Effexor-XR) capsule 37.5 mg 37.5 mg, Oral, NIGHTLY, First dose (after last modification) on Tue12/22/20 at 2100, Until Discontinued, Routine 2130 (Given - Provider: Tanisha Guzmán RN) 1332 ([facility] Hold - Provider: Admin Adt - Reason: Transfer to a Procedural area)165 ([facility] Unhold - Provider: Admin Adt)2028 (Given - Provider: Tanisha Guzmán RN) Continuous Medication Order 12/22/2020 12/23/2020 12/24/2020 lactated ringers infusion (CANCELED) 200 mL/hr, Intravenous, CONTINUOUS, Starting on Tue12/21/20 at 2100, Until Tue12/23/20 at 1700 0129 (New Bag - Provider: Tomeka Son, JOANN)0632 (New Bag - Provider: Tomeka Son RN)1120 (New Bag - Provider: Princess Johnson RN)1242 (Stopped - Provider: Felipa Guerrero RN)1258 (New Bag - Provider: Felipa Guerrero RN)2139 (New Bag - Provider: Tanisha Guzmán, RN) 0237 (New Bag - Provider: Tanisha Guzmán, RN)0705 (New Bag - Provider: Tanisha Guzmán, RN)1000 (Rate/Dose Verify - Provider: Princess Logan, [...] Routine 1600 (Continued Bag - Provider: Felipa Guerrero RN) 0541 (New Bag - Provider: Tanisha Guzmán RN)1332 (DEC Hold - Provider: Admin Adt [...] RN) 0236 (Given - Provider: Tanisha Guzmán, JOANN)1006 (Given - Provider: Puja Chisholm)1332 (MAR Hold - Provider: Admin Adt - Reason: Transfer to a Procedural area)1655 (MAR Unhold - Provider: Admin Adt)1913 (Given - Provider: Yessica Turner RN) 0018 (Given - Provider: Tanisha Guzmán RN) BUpivacaine (pf) (Marcaine) (5 mg/mL) 0.5% injection (CANCELED) ONCE PRN, Starting on Tue12/23/20 at 1437, Until Tue12/24/20 at 1559, Intra-Operative [...] injection solution (CANCELED) ONCE PRN, Starting on Tu12/23/20 at 1510, Until Tue12/24/20 at 1559, Intra-Operative [...] for discomfort with PIV insertion, Routine 1332 ([facility] Hold - Provider: Admin Adt - Reason: Transfer to a Procedural area)1654 ([facility] Unhold - Provider: Admin Adt) lidocaine (XYLOCAINE) 2 % jelly 1 Bottle 1 Bottle, Topical (Top), ONCE PRN, Pain, Repair of laceration following delivery and/or prior to urinary catheter placement., Starting on 12/21/20 at 1955, 1 dose, Until Tue12/24/20 at 1559 1332 ([facility] Hold - Provider: Admin Adt - Reason: Transfer to a Procedural area)165 ([facility] Unhold - Provider: Admin Adt) mineral oiL topical liquid 25 mL 25 mL, Topical (Top), ONCE PRN, 1 dose, Starting on Tue12/21/20 at 195, Until Tue12/24/20 at 1559, Constipation, For perineal stretching during pushing., Routine 133 ([facility] Hold - Provider: Admin Adt - Reason: Transfer to a Procedural area)1654 ([facility] Unhold - Provider: Admin Adt) oxyCODONE (Roxicodone) tablet 5 mg 5 mg, Oral, EVERY 4 HOURS PRN, Starting on 12/23/20 at 1955, Until Tue12/24/20 at 1559, Pain, Routine 2028 (Given - Provider: Tanisha Guzmán, RN) 0551 (Given - Provider: Emy Geller RN)1212 (Given - Provider: Maria Dolores Chaudhari RN) oxytocin (Pitocin) (0.06 units/mL) in sodium chloride 0.9% 500 mL infusion 30 Units (500 mL), Intravenous, Administer over 1 Hours, ONCE PRN, 1 dose, Starting on 12/21/20 at 1955, Until Tue12/24/20 at 1559, At the discretion of the provider following delivery., ., Routine 133 ([facility] Hold - Provider: Admin Adt - Reason: Transfer to a Procedural area)1654 ([facility] Unhold - Provider: Admin Adt) sodium chloride 0.9 % (flush) flush 5-20 mL 5-20 mL, Intravenous, EVERY 1 MIN PRN, Starting on 12/21/20 at 1955, Until 12/24/20 at 1559, flush, Flush pertains to all indwelling lines. Flush per protocol found in the job aid using the link provided on this medication record., Routine 1332 (DEC Hold - Provider: Admin Adt - Reason: Transfer to a Procedural area)1655 (DEC Unhold - Provider: Admin Adt) Linked Groups [...] Routine documented in this encounter Care Teams Global Project Manager Relationship Specialty Start Date End Date Lula Mota, IT CORPORATE RECRUITER [address] [facility] [address] PCP - General Family Medicine 10/20/20 documented as of this encounter
--- OUTSIDE RECORDS SUMMARY | 2024-06-25 17:26 | XMS_ITS | Encounter Summary ---
Author Organization [facility] [place] [address] Care Team Providers Care Wire Stitcher Machine Name Role Phone Lula Mota APRN Primary Care Provider [phone] Encounter Details Date Type Department Care Team ([facility] st Contact Info) Description 12/21/2020 3:45 PM EST Ancillary Procedure [place] [address] Shayna Craft MD [facility] [address] OBSTETRICS [place] [address] Social History Tobacco Use Types Packs/Day Years [...] Procedure Name Priority Date/Time Associated Diagnosis Comments FILM LIBRARY STORAGE ONLY ULTRASOUND STUDY Routine 12/21/2020 3:43 PM EST documented in this encounter Results * Film Library- Storage Only Ultrasound Study (12/21/2020 3:43 PM EST) Narrative RAD - 12/21/2020 3:43 PM EST This exam is auto-finalizing. It's purpose is for storage only. E Nelli Craft MD IMG FILM LIBRARY ORDERABLES [place], [place] documented in this encounter Visit Diagnoses Not on filedocumented in this encounter Care Teams Wire Stitcher Machine Relationship Specialty Start Date End Date Lula Mota, LAUNCH STEWARD [address] [facility] [place] [address] PCP - General Family Medicine 10/20/20 documented as of this encounter
--- OUTSIDE RECORDS SUMMARY | 2024-06-25 17:26 | XMS_ITS | Encounter Summary ---
Author Organization [facility] [place] [address] Care Team Providers Care Sales And Retail Management Recruiter Name Role Phone Lula Mota APRN Primary Care Provider [phone] Encounter Details Date Type Department Care Team (Latest Contact Info) Description 10/28/2020 1:05 PM EST - 10/28/2020 11:59 PM EST Hospital [place] [id number] Ed[address] Solares [address] [place] [address] Abnormal ultrasonic finding on screening of mother Discharge Disposition: Home Social History Tobacco Use Types Packs/Day Years Used Date Smoking Tobacco: Never Smokeless Tobacco: Never Alcohol Use Standard Drinks/Week Comments Not Currently 0 (1 standard drink = 0.6 oz pur e alcohol) Comments Yes Sex and Gender Information Value Date Recorded Sex Assigned at Not on file Gender Identity Not on file Sexual Orientation Not on file documented as of this encounter Medications at Time of Discharge Medication Sig Dispensed Refills Start Date End Date vit/iron fum/folic ac ( 1+1 ORAL) Take by mouth. ondansetron (Zofran) 4 mg Tablet TAKE ONE TABLET BY MOUTH EVERY 6 HOURS NEEDED FOR NAUSEA AND VOMITING 09/26/2020 12/24/2020 documented as of this encounter Plan of Treatment Not on file documented as of this encounter Procedures Procedure Name Priority Date/Time Associated Diagnosis Comments US OB DETAILED MORPHOLOGY Routine 10/28/2020 1:56 PM EST Abnormal ultrasonic finding on screening of mother documented in this encounter Results * US OB Detailed Morphology (10/28/2020 1:56 PM EST) Anatomical Region Laterality Modality Pelvis, Abdomen Ultrasound 10/28/2020 1:49 PM EST Impressions 10/28/2020 2:53 PM EST 2nd Trimester - Detailed Morphology - Summary Single intrauterine with a gestational age of 21w 2d based on LMP ??(06/01/20) Composite age based on the current ultrasound alone is 20w 5d. Current growth parameters are consistent with prior dating indicating normal growth. Amniotic fluid volume is subjectively normal for gestational age. Detailed anatomic evaluation was performed, there is an echogenic intracardiac focus. No additional structural abnormalities are noted. ? Sav Craft, Staff Physician Electronically Signed Final Report ?? 10/28/2020 02:52 pm Narrative 10/28/2020 2:53 PM EST OBSTETRICS REPORT ?(Signed Final 10/28/2020 02:52 pm) PATIENT INFO: ID #: ? [id number] ?: ??[birth year] (25 yrs)(F) Name: ? DESTIN L PAGE ? Visit Date: 10/28/2020 01:49 pm PERFORMED BY: Performed By: ? Wanda WEBSTER, ??Beverly Attending: ?Sav Craft MD Referred By: ?EDY SOLARES Location: ? [place] SERVICE(S) PROVIDED: ??[facility] - Detailed Morphology - [id number] ? [id number] INDICATIONS: ??21 weeks gestation of ?Z3A.21 ??leb Echognic foci, bilateral CP cysts EVALUATION: Num Of Fetuses: ?1 Heart Rate(bpm): ?? 150 Cardiac Activity: ?Observed, normal rhythm Presentation: ?Cephalic Placenta: ?Anterior P. Cord Insertion: ? Within Normal Limits Amniotic Fluid RAOUL FV: ?Subjectively normal for gestational age --------- BIOMETRY: --------- BPD: ?47.4 ??mm ? G.Age: ?? 20w 2d OFD: ?65.3 ??mm HC: ?180.3 ??mm ? G.Age: ?? 20w 3d AC: ?155.9 ??mm ? G.Age: ?? 20w 6d FL: ? 35.5 ??mm ? G.Age: ?? 21w 1d HUM: ?34.7 ??mm ? G.Age: ?? 21w 6d CER: ?21.5 ??mm ? G.Age: ?? 20w 4d NFT: ? 5.9 ??mm NB: ?6.1 ??mm LV: ?5.0 ??mm CM: ?3.9 ??mm CI: ?72.6 ??% ? 70 - 86 FL/HC: ? 19.7 ??% ? 15.9 - 20.3 HC/AC: ? 1.16 ?1.06 - 1.25 FL/BPD: ?74.9 ??% FL/AC: ? 22.8 ??% ? - Est. FW: ? 385 ?? gm ?? 0 lb 14 oz OB HISTORY: : ?2 ? Term: ?? 1 Living: ? 1 GESTATIONAL AGE: LMP: ? 21w 2d ?Date: ??06/01/20 ? QUOC: ?? 03/08/21 U/S Today: ? 20w 5d ?QUOC: ?? 03/12/21 Best: ?21w 2d ?? Det. By: ??LMP ??(06/01/20) ?QUOC: ?? 03/08/21 TARGETED ANATOMY: Central Nervous System Calvarium/Cranial V.: ??Within Normal Limits Intracranial Andree: ? Within Normal Limits Cavum: ? Within Normal Limits Parenchyma: ?Within Normal Limits Lateral Ventricles: ?Within Normal Limits Choroid Plexus: ?Within Normal Limits Cereb./Vermis: ? Within Normal Limits Cisterna Magna: ?Within Normal Limits Midline Falx: ?Within Normal Limits Spine Cervical: ?Visualized Thoracic: ?Visualized Lumbar: ?Visualized Sacral: ?Visualized Shape/Curvature: ? Visualized Head/Neck Face: ?Within Normal Limits Lips: ?Within Normal Limits Neck: ?Within Normal Limits Nuchal Fold: ? Within Normal Limits Nasal Bone: ?Present Profile: ? Visualized Orbits/Eyes: ? Visualized Mandible: ?Visualized Maxilla: ? Visualized Thorax Thoracic Contour: ?Within Normal Limits Lungs: ? Visualized 4 Chamber View: ?Echogenic intracardi Cardiac Motion: ?Normal Rhythm Rt Outflow Tract: ?Visualized Lt Outflow Tract: ?Visualized Aortic Arch: ? Visualized Ductal Arch: ? Visualized SVC: ? Visualized Cardiac [place]: ?Visualized Diaphragm: ? Visualized 3 Vessel View: ? Visualized IVC: ? Visualized Abdomen Ventral Wall: ?Visualized Cord Insertion: ?Visualized Situs: ? Normal Stomach: ? Visualized Liver: ? Visualized Lt Kidney: ? Visualized Rt Kidney: ? Visualized Bladder: ? Visualized Bowel: ? Visualized Extremities Lt Humerus: ?Within Nomal Limits Rt Humerus: ?Within Normal Limits Lt Forearm: ?Within Normal Limits Rt Forearm: ?Within Normal Limits Lt Hand: ? Within Normal Limits Rt Hand: ? Within Normal Limits Lt Femur: ?Within Normal Limits Rt Femur: ?Within Normal Limits Lt Lower Leg: ?Within Normal Limits Rt Lower Leg: ?Within Normal Limits Lt Foot: ? Visualized Rt Foot: ? Visualized Other Umbilical Cord: ?3 vessel cord Genitalia: ? Male CERVIX UTERUS ADNEXA: Left Ovary Visualized Right Ovary Visualized Procedure Note Shayna Craft MD - 10/28/2020 OBSTETRICS REPORT (Signed Final 10/28/2020 02:52 pm) PATIENT INFO: ID #: [id number] : [birth year] (25 yrs)(F) Name: DESTIN Marie PAGE Visit Date: 10/28/2020 01:49 pm PERFORMED BY: Performed By: Beverly Muñoz RDMS Attending: Sav Craft MD Referred By: EDY SOLARES Location: [place] SERVICE(S) PROVIDED: [facility] - Detailed Morphology - [id number] INDICATIONS: 21 weeks gestation of Z3A.21 leb Echognic foci, bilateral CP cysts EVALUATION: Num Of Fetuses: 1 Heart Rate(bpm): 150 Cardiac Activity: Observed, normal rhythm Presentation: Cephalic Placenta: Anterior P. Cord Insertion: Within Normal Limits Amniotic Fluid RAOUL FV: Subjectively normal for gestational age --------- BIOMETRY: --------- BPD: 47.4 mm G.Age: 20w 2d OFD: 65.3 mm HC: 180.3 mm G.Age: 20w 3d AC: 155.9 mm G.Age: 20w 6d FL: 35.5 mm G.Age: 21w 1d HUM: 34.7 mm G.Age: 21w 6d CER: 21.5 mm G.Age: 20w 4d NFT: 5.9 mm NB: 6.1 mm LV: 5.0 mm CM: 3.9 mm CI: 72.6 % 70 - 86 FL/HC: 19.7 % 15.9 - 20.3 HC/AC: 1.16 1.06 - 1.25 FL/BPD: 74.9 % FL/AC: 22.8 % 20 - 24 Est. FW: 385 gm 0 lb 14 oz OB HISTORY: : 2 Term: 1 [place] GESTATIONAL AGE: LMP: 21w 2d Date: 06/01/20 QUOC: 03/08/21 U/S Today: 20w 5d QUOC: 03/12/21 Best: 21w 2d Det. By: LMP (06/01/20) QUOC: 03/08/21 TARGETED ANATOMY: Central Nervous System Calvarium/Cranial V.: Within Normal Limits Intracranial Andree: Within Normal Limits Cavum: Within Normal Limits Parenchyma: Within Normal Limits Lateral Ventricles: Within Normal Limits Choroid Plexus: Within Normal Limits Cereb./Vermis: Within Normal Limits Cisterna Magna: Within Normal Limits Midline Falx: Within Normal Limits Spine Cervical: Visualized Thoracic: Visualized Lumbar: Visualized Sacral: Visualized Shape/Curvature: Visualized Head/Neck Face: Within Normal Limits Lips: Within Normal Limits Neck: Within Normal Limits Nuchal Fold: Within Normal Limits Nasal Bone: Present Profile: Visualized Orbits/Eyes: Visualized Mandible: Visualized Maxilla: Visualized Thorax Thoracic Contour: Within Normal Limits Lungs: Visualized 4 Chamber View: Echogenic intracardi Cardiac Motion: Normal Rhythm Rt Outflow Tract: Visualized Lt Outflow Tract: Visualized Aortic Arch: Visualized Ductal Arch: Visualized SVC: Visualized Cardiac [place]: Visualized Diaphragm: Visualized 3 Vessel View: Visualized IVC: Visualized Abdomen Ventral Wall: Visualized Cord Insertion: Visualized Situs: Normal Stomach: Visualized Liver: Visualized Lt Kidney: Visualized Rt Kidney: Visualized Bladder: Visualized Bowel: Visualized Extremities Lt Humerus: Within Nomal Limits Rt Humerus: Within Normal Limits Lt Forearm: Within Normal Limits Rt Forearm: Within Normal Limits Lt Hand: Within Normal Limits Rt Hand: Within Normal Limits Lt Femur: Within Normal Limits Rt Femur: Within Normal Limits Lt Lower Leg: Within Normal Limits Rt Lower Leg: Within Normal Limits Lt Foot: Visualized Rt Foot: Visualized Other Umbilical Cord: 3 vessel cord Genitalia: Male CERVIX UTERUS ADNEXA: Left Ovary Visualized Right Ovary Visualized IMPRESSION 2nd Trimester - Detailed Morphology - Summary Single intrauterine with a gestational age of 21w 2d based on LMP (06/01/20) Composite age based on the current ultrasound alone is 20w 5d. Current growth parameters are consistent with prior dating indicating normal growth. Amniotic fluid volume is subjectively normal for gestational age. Detailed anatomic evaluation was performed, there is an echogenic intracardiac focus. No additional structural abnormalities are noted. Sav Craft, Staff Physician Electronically Signed Final Report 10/28/2020 02:52 pm Edy Beck CN IMG US OB ORDERABLE S documented in this encounter Visit Diagnoses Diagnosis Abnormal ultrasonic finding on screening of mother Abnormal findings on screening documented in this encounter Care Teams Sales And Retail Management Recruiter Relationship Specialty Start Date End Date Lula Mota, FESTUS [address] [place] [address] PCP - General Family Medicine 10/20/20 documented as of this encounter
--- OUTSIDE RECORDS SUMMARY | 2024-06-25 17:26 | XMS_ITS | Encounter Summary ---
Author Organization [facility] Address [facility] [place] [address] Care Team Providers Care Clinical Operations Consultant Name Role Phone Lula Mota APRN Primary Care Provider [phone] Reason for Visit * Reason Comments Ultrasound * Consultation (Routine) - Closed Specialty Diagnoses / Procedures Referred By Contac t Referred To Contact Obstetrics and Gynecology Diagnoses Abnormal ultrasonic finding on screening of mother ECHOGENIC FOCI, BILATERAL CP CYSTS Kelly Solares, [facility] [address] [place] [address] [address] [place] [address] [facility] [employer] [address] [place] [address] Referral ID Status Reason Start Date Expiration Date V isits Requested Visits Authorized [id number] Closed Consult, [facility] & [facility] PCP Updated and/or Approved 10/20/2020 10/20/2021 6 6 Encounter Details Date Type Department Care Team ([facility] st Contact Info) Description 10/28/2020 2:30 PM EST Office Visit Obstetrics [place] [address] Shayna Craft MD [facility] [address] [place] [address] Third-stage hemorrhage; cardiac echogenic focus, single or unspecified fetus Social History Tobacco Use Types Packs/Day Years [...] Sign Reading Time Taken Comments Blood Pressure 106/62 10/28/2020 2:16 PM EST Pulse - - Temperature - - Respiratory Rate - - Oxygen Saturation - - Inhaled Oxygen Concentration - - Weight 85.5 kg (188 lb 6.4 oz) 10/28/2020 2:16 P M EST Height - - Body Mass Index - - documented in this encounter Progress Notes * Shayna Craft MD - 10/28/2020 2:30 PM EST Diagnosis/Maternal Medicine Consult Note Destinclaribel Montiel is a 25 y.o. year old female who is at 21w2d gestation. She is seen in consultation at the request of Kelly Solares CNM for evaluation of anatomy due to echogenic intracardiac focus and choroid plexus cysts. She was seen today for maternal- medicine consultation and ultrasound evaluation. Ms. Montiel previously declined aneuploidy screening because her insurancedoes not cover it. Her a priori risk is based upon her age, ane therefore ~1:1000 for trisomy 21 and ~1:3000 for trisomy 18. Review of Systems Constitutional:feels well Movement: normal Contractions: none Leaking: None Bleeding: None Patient Active Problem List Diagnosis Date Noted ??? Third-stage hemorrhage 10/28/2020 ??? cardiac echogenic focus 10/28/2020 Past Medical History: Diagnosis Date ??? Depression ??? Insomnia History reviewed. No pertinent surgical history. No family history on file. Social History Occupational History ??? Not on file Tobacco Use ??? Smoking status: Never Smoker ??? Smokeless tobacco: Never Used Substance and Sexual Activity ??? Alcohol use: Not Currently ??? Drug use: Not Currently Types: Marijuana ??? Sexual activity: Yes Partners: Male OB History 2 Para 1 Term 1 AB Living 1 SAB TAB Ectopic Multiple Live Births 1 # Outc Date GA Lbr Mickey/2nd Wgt Sex Del Anes PTL Lv 1 Term 2019 M Living 2 Current Current Outpatient Medications Medication Sig Dispense Refill ??? ondansetron (Zofran) 4 mg Tablet TAKE ONE TABLET BY MOUTH EVERY 6 HOURS NEEDED FOR NAUSEA AND VOMITING ??? vit/iron fum/folic ac ( 1+1 ORAL) Take by mouth. No current facility-administered medications for this visit. No Known Allergies Ultrasound Date: 10/28/2020 Amniotic fluid volume normal Presentation cephalic Placenta anterior Growth appropriate for gestational age anatomy is remarkable for an isolated echogenic intracardiac focus. There are no choroid plexus cysts on today's ultrasound. The remainder of the anatomy appears within normal limits. Physical Exam BP 106/62 Wt 85.5 kg (188 lb 6.4 oz) LMP 06/01/2020 General: alert, well appearing, in no apparent distress, oriented to person, place and time HEENT: normocephalic, atraumatic Abdomen: Soft, nontender Neurologic:alert, oriented, normal speech, no focal findings or movement disorder noted Psychiatric: Affect is Appropriate. Assessment and Recommendations: 25 y.o. year old female at 21w2d weeks gestation, referred for counseling regarding echogenic intracardiac focus, with otherwise normal anatomy and low risk on aneuploidy screen based upon maternal age. We discussed that an echogenic intra-cardiac focus is a minor marker for Down Syndrome. When seen with other markers it indicates increased risk, but when seen in isolation it does not change risk. EIF is not an indication of a heart defect, and children with echogenic foci have normal heart structure and function. Based upon this information the patient declined further screening or diagnostic testing. No follow-up examinations are indicated. Previously seen ECONOMIC CONSULTANT have resolved. Ms. Montiel was counseled regarding the implications of choroid plexus cysts. When seen in isolation, they are probably a developmental phenomenon and do not indicate an increased risk for trisomy 18. However, when combined with other malformations, they may be an indicator of trisomy 18. The risks of amniocentesis were again discussed. In addition, they were informed that choroid plexus cysts, when seen in isolation and not associated with other defects, invariably resolve. They are not associated with any risks of cognitive or developmental delays. Ms. Montiel declined further testing. 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 We discussed that the current recommendations from ACOG and SMFM are that COVID vaccine should be offered to women. Decision making should include consideration of the following factors: o Level of COVID-19 community transmission (risk of acquisition) o Personal risk of jemima COVID-19 (by occupation or other activities) o The risks of COVID-19 to her and the potential risk to her fetus o The efficacy of the vaccine o The known side effects of the vaccine o The lack of data about the vaccine during I explained that COVID infection can be worse during . The risk of severe disease is 1-12/999. It is 2-3 times more likely that she will need care in an intensive care unit, and there is a small increase risk of dying. There may be an increased risk of and stillbirth. We discussed that the vaccine is an mRNA vaccine that is injected into the muscle and codes for theproduction of antigens (proteins) that stimulate the immune system to produce antibodies against COVID-19. The mRNA does not enter the nucleus of cells, and is rapidly degraded by the body. This is not a live vaccine. It is not currently thought to cross the placenta. This is a novel technology. women were not allowed to participate in the trials. A few women became during the studies and have not had complications. We discussed that it will be months before human safety data will be available for or lactating women, but that animal studies should be available sooner. We discussed that it is common to experience side effects including headache, muscle pain, pain at the injection site, or fatigue for a few days following the vaccine. Some recipients may also experience fever, and we discussed the importance of managing fever with acetaminophen as fever can lead to adverse outcomes. The recommendation is NOT to take acetaminophen before getting the vaccine to prevent fever. The vaccine is two doses that should be received 17-21 days apart. It should not be received [id number] days of any other vaccinations, including but not limited to Flu and Tdap. We reviewed that the vaccine has been demonstrated to be up to 95% effective at prevention of COVID-19 after two doses. Both doses are necessary for full protection. However, we stressed the importance of continued efforts at virus prevention including mask-wearing, social distancing (6 ft apart), hand washing, avoiding crowds, and following CDC guidelines. I offered to be available if she has questions. I provided her with the COVID vaccine handout. I appreciate the opportunity to be involved in this patients care, and am available if further questions should arise. E DESTIN PSCHIRRER, MD 10/28/2020 Cc: Kelly Solares, [facility] [address] [place] [address] , with copy of ultrasound report documented in this encounter Plan of Treatment Not on file documented as of this encounter Visit Diagnoses Diagnosis Third-stage hemorrhage Third-stage hemorrhage, unspecified as to episode of care cardiac echogenic focus, single or unspecified fetus documented in this encounter Care Teams Clinical Operations Consultant Relationship Specialty Start Date End Date Lula Mota, [employer] [address] [place], [place] [phone] PCP - General Family Medicine 10/20/20 documented as of this encounter
[2024-06-25] MEDS: Acetaminophen 325 MG TAB 650 MG PO (17:36)
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
[2024-06-25 18:39] VITALS: PULSE 88; RESP 15; O2SAT 99
== END 2024-06-25 18:39 | disposition home or self-care (01) ==
PROVIDERS: Emergency Provider Emergency Medicine; PCP Nurse Practitioner Family
DX: S60.221A Contusion of right hand, initial encounter (principal); W22.8XXA Striking against or struck by other objects, initial encounter
CPT/HCPCS: 99283; 73130

== ENCOUNTER 2024-11-28 10:11 | Outpatient (REF) | payer OTHER, SELFPAY ==
--- NOTE | 2024-11-28 09:45 | PAPFT_PTH ---
PATIENT: Nelli Montiel LOC: [facility] U#:[id number] AGE/SX: 29/F ROOM: RE11/28/[address]: Renee Mcfadden NP : 1995 BED: DIS: 11/28/2024 SPEC #: [id number] RECD: 11/28/24 13:08 STATUS: AUDI ALCAZAR #: [id number] JARRET: 11/28/24 09:[address]: Renee Mcfadden NP DEPT: [facility] Cytology RECD BY: Johanna Shields ENTERED: 11/28/24 13:08 SP TYPE: PAPFT OTHR DR: Melissa Land Tissues: 1 - CX/ENDOCX FOR PAP SMEARS Procedures: PAP THIN PREP/UVM Screening Comments: [id number]
== END 2024-11-28 10:12 | disposition home or self-care (01) ==
LOC: LBN 10:11
PROVIDERS: PCP Nurse Practitioner Family; Visit Provider Nurse Practitioner Women's Health
DX: Z01.419 Encounter for gynecological examination (general) (routine) without abnormal findings (principal); Z97.5 Presence of (intrauterine) contraceptive device; Z12.4 Encounter for screening for malignant neoplasm of cervix
CPT/HCPCS: 88142

== ENCOUNTER 2025-08-13 09:14 | Outpatient (CLI) | payer OTHER, SELFPAY ==
[2025-08-13 09:31] LABS: HCT 42.5 % (36.0-46.0); HGB 13.9 g/dL (11.2-15.7); MCH 30.7 pg (27.0-33.0); MCHC 32.7 % (32.0-36.0); MCV 94 fL (80-95); MPV 10.4 fL (8.0-11.0); Platelet Count 219 10^3/uL (130-400); RBC 4.53 10^6/uL (3.93-5.22); RDW 13.2 % (11.7-14.6); RDW-SD 45.9 fL; WBC 8.80 10^3/uL (4.4-10.8)
[2025-08-13 10:01] LABS: Hemoglobin A1C 5.0 % (<5.7)
[2025-08-13 10:17] LABS: TSH (W/Ref FT4) 1.71 uIU/mL (0.36-3.74)
== END 2025-08-13 09:15 | disposition home or self-care (01) ==
LOC: LBO 09:15
PROVIDERS: PCP Nurse Practitioner Family; Visit Provider Nurse Practitioner Women's Health
DX: R53.83 Other fatigue (principal); N92.1 Excessive and frequent menstruation with irregular cycle; Z97.5 Presence of (intrauterine) contraceptive device; Z83.3 Family history of diabetes mellitus
CPT/HCPCS: 36415; 85027; 83036; 84443